=== PATIENT | male | born 1945 | race Caucasian/White ===

== ENCOUNTER 2018-05-22 18:46 | Inpatient (IN) | payer MEDICARE, SELFPAY ==
[2018-05-22 19:04] VITALS: BMI 28.6; BMI 28.7
[2018-05-22 19:28] VITALS: PULSE 58
[2018-05-22 20:25] VITALS: BP 141/56; PULSE 59; RESP 20; TEMP 36.9; O2SAT 92
--- NOTE | 2018-05-22 20:39 | RAD_ITS ---
STUDY: X-RAY CHEST REASON FOR EXAM: Male, 72 years old. Short of breath. TECHNIQUE: AP upright portable view. COMPARISON: None. FINDINGS: Mild pulmonary hypoinflation. Ill-defined haze in the left midlung. There is no demonstrated pleural abnormality. Mild cardiomegaly. Normal mediastinum and sabina. Normal visualized pulmonary arteries. Normal visualized aortic arch and descending thoracic aorta. Lateral marginal spurring along the thoracic spine. Normal visualized ribs, clavicles, and shoulders. There is no demonstrated abnormality of the visualized soft tissue structures of the upper abdomen. RAD/Chest 1 View (Portable) IMPRESSION: Ill-defined haziness in the left midlung is worrisome for pneumonia. Deeper inspiratory chest in standard PA and lateral views will be very helpful to confirm. Electronically Signed: Thierry Devlin MD at 8:18 EST , Service support ,
--- NOTE | 2018-05-22 21:16 | EKG12_ITS ---
Test Reason : ADMIT EKG Blood Pressure : / mmHG Vent. Rate : 062 BPM Atrial Rate : 062 BPM P-R Int : 188 ms QRS Dur : 110 ms QT Int : 506 ms P-R-T Axes : 041 -43 -30 degrees QTc Int : 513 ms Sinus rhythm with Premature atrial complexes Left axis deviation Incomplete right bundle branch block Voltage criteria for left ventricular hypertrophy T wave abnormality, consider anterolateral ischemia Prolonged QT Abnormal ECG No previous ECGs available Confirmed by MARK SMITH, CAROLINE ([id number]), content editor GAUTAM MIRAMONTES ([id number]) on 05/27/2018 9:06:05 AM Referred By: DR YOUNG Confirmed By:CAROLINE FLORES MD
--- NOTE | 2018-05-22 21:42 | PCM.HP.STD ---
Problem List (1) Acute CHF Status: Acute Qualifiers: Heart failure type: systolic Qualified Code(s): I50.21 - Acute systolic (congestive) heart failure (2) Respiratory insufficiency Status: Acute Comment: Hypoxemia (3) Elevated troponin Status: Acute (4) HTN (hypertension) Status: Chronic (5) Normochromic normocytic anemia Status: Acute History of Present Illness Date of Admission: 05/22/18 Chief Complaint: SOB,fatigue The patient is a 72 year old M with a past medical history of hypertension who was transferred to [facility] on 05/22/2018 from [facility] for acute congestive heart failure. He relates that he has been sick for approximately 3 weeks and initially started with a cough and shortness of breath which was treated with antibiotics. He took 5 days of Levaquin and then had Achilles tendinitis and swelling in his ankles so this was discontinued. He denies any fever or shaking chills but states that he feels cold. He has a rare dry cough. Exercise tolerance is greatly decreased over the past week or so. He has had some episodic substernal chest tightness but cannot relate to exertion. It did not radiate. The swelling in his ankles resolved with discontinuation of Levaquin. Chest x-ray at [facility] showed cardiomegaly with pulmonary vascular congestion and Emilia B-lines. EKG showed normal sinus rhythm with T wave inversions in V3 through V5, lead III and lead aVF. There was an incomplete right bundle branch block. Lab done at [facility] showed a normal white blood cell count of 8.1. Hemoglobin was 12.0 with normochromic normocytic indices and the platelets were within normal limits. The white blood cell differential was unremarkable with the exception of a mildly increased eosinophil count of 9.9%. BMP showed a sodium of 135, potassium of 4.1, BUN of 26 and a creatinine of 1.29. Troponin was elevated at 0.216 and his BNP was 14,288. Vital signs at presentation to [facility] were temp 98.5, pulse rate 59, blood pressure 141/56, respiratory rate 20 and he was 92% saturated on a 3 L nasal cannula. ABG done at [facility] on room air showed a pH of 7.46, PCO2 of 27.9, PO2 of 47 and he was 86% saturated. His mother when he was 8 YO of a heart condition. There is no other hx of CVD in the family. His father at 76YO of Lymphoma. He is being admitted to the hospital with acute CHF, likely systolic. He will be seen by Dr. Castro in the AM. Past Medical History Past Medical History (Chronic Problems): Chronic Problems HTN (hypertension) (Chronic) Allergies No Known Allergies Allergy (Verified 05/22/18 19:06) Home Medications: Ambulatory Orders Medication Instructions Recorded Aspirin [Aspirin, Baby] 81 mg PO DAILY@0800 05/22/18 Surgical History: - - repair of lacerations related to work Psychiatric History: No pertinent psych hx Lives: Spouse/ Significant Other Smoking Status: Never smoker Tobacco Use: Non-smoker Alcohol: None Drugs: None - *Family History Maternal History Items: - - his mother when he was 8 YO of a heart condition Paternal History Items: - - Father at 76 years of age with lymphoma Sibling History Items: - - He has 4 half-sisters, one with dementia, another with osteoporosis....no hx of CAD Review of Systems Constitutional: Reports: Chills - feels cold a lot. Denies: Fever, Weight Change Eyes: Denies: Blurred vision, Pain HEENT: Denies: Difficulty Hearing, Difficulty Swallowing, Head Aches, Sinus Congestion, Sinus Drainage, Sore Throat Cardiovascular: Reports: Chest Pain - substernal, non-radiating, not really associated with exertion, Edema - this resolved with discontinuation of the Levaquin...also had achilles tendonitis. Denies: Light Headedness, Palpitations Respiratory: Reports: Cough - rare, dry, Shortness of breath upon exertion. Denies: Shortness of breath at rest, Sputum production, Wheezing Gastrointestinal: Denies: Abdominal Pain, Nausea, Vomiting Genitourinary: Denies: Dysuria Musculoskeletal: Denies: Joint Pain, Joint Tenderness Skin: Denies: Jaundice, Rash, Wounds Neurological: Denies: Confusion, Focal weakness, Numbness, Tingling, Seizures Psychiatric: Denies: Anxiety, Depression, Homicidal Ideations, Suicidal Ideations Endocrine: Denies: Change in Body Habitus Hematologic/ Lymphatic: Denies: Easy Bruising, Easy Bleeding, Hx of blood clot VTE Information - Inpt Only VTE Present on Admission: No VTE Mechan Device Prophylaxis: SCD's VTE Pharm Prophylaxis ordered?: Yes Patient Problems: Active and Suspected Problems Acute CHF (Acute) Respiratory insufficiency (Acute) Hypoxemia Elevated troponin (Acute) Normochromic normocytic anemia (Acute) - Physical Exam General: Alert, Oriented x3, Cooperative, No apparent distress - sitting up in bed at 60 degrees HEENT: Atraumatic, PERRLA, EOMI, Normocephalic Oral: Moist Mucosa Neck: Supple, Negative Carotid Bruits, No Nodes, No Nuchal Rigidity, Trachea Midline, - - did not appreciate any JVD Lungs: No rhonchi, No wheeze, Rales - both bases Cardiovascular: Regular Rhythm, Normal S1, Normal S2, No Ectopic Activity, Bradycardic, Murmur - soft late systolic MM at the apex and the LLSB Abdomen: Bowel Sounds Present, Soft, Non Tender, Distended - mild with increased tympany Extremities: No clubbing, No cyanosis, No edema, Capillary Refill Less than 3 Seconds, No Calf Tenderness Skin: No rashes, No breakdown Musculoskeletal: No Muscle Wasting Neurological: Cranial nerves II-XII grossly intact, Neuro grossly intact Psych/Mental Status: Normal Affect, Appropriate Vital Signs Temp Pulse Resp BP Pulse Ox 98.5 F 59 L 20 H 141/56 H 92 05/22/18 20:25 05/22/18 20:25 05/22/18 20:25 05/22/18 20:25 05/22/18 20:25 Oxygen Flow Rate (L/min) 3 Oxygen Delivery Method Nasal Cannula Weight: 177 lb 11.081 oz Body Mass Index (BMI) 28.6 Assessment/Plan All Active Problems Acute CHF (Acute) Respiratory insufficiency (Acute) Elevated troponin (Acute) Normochromic normocytic anemia (Acute) Impressions 1. acute systolic CHF - etiology uncertain. Will need to r/o CAD. Also need to consider this may be a viral CM and since the eosinophil count is high this could be an eosinophilic myocarditis. 2. elevated troponin - due to acute CHF vs CAD/ischemia 3. acute respiratory insufficiency with hypoxemia 4. HTN hx 5. N/N anemia - may be dilutional due to volume overload Admit to a monitored bed on PCU Weigh at admission to the floor and then daily Acccurate I&O's Chest XRAY - done....improved over the CXR done at [facility] earlier tonight BNP Diurese with 40 mg Lasix every 8 hours Potassium 20 mEq p.o. every 8 hours ECHO to evaluate LV EF and wall motion Recheck lab in the AM Salt restriction Fluid restriction Dietary consult for education regarding low sodium diet Consult Dr. Castro-we will see in the a.m. Probable cath following improvement in congestive heart failure/stabilization Code Visit Inpatient E&M: 02177 Init Hosp L3
--- NOTE | 2018-05-22 21:54 | HP.PCM_ITS ---
Problem List (1) Acute CHF Status: Acute Qualifiers: Heart failure type: systolic Qualified Code(s): I50.21 - Acute systolic (congestive) heart failure (2) Respiratory insufficiency Status: Acute Comment: Hypoxemia (3) Elevated troponin Status: Acute (4) HTN (hypertension) Status: Chronic (5) Normochromic normocytic anemia Status: Acute History of Present Illness Date of Admission: 05/22/18 Chief Complaint: SOB,fatigue The patient is a 72 year old M with a past medical history of hypertension who was transferred to [facility] on 05/22/[address] [facility] for acute congestive heart failure. He relates that he has been sick for approximately 3 weeks and initially started with a cough and shortness of breath which was treated with antibiotics. He took 5 days of Levaquin and then had Achilles tendinitis and swelling in his ankles so this was discontinued. He denies any fever or shaking chills but states that he feels cold. He has a rare dry cough. Exercise tolerance is greatly decreased over the past week or so. He has had some episodic substernal chest tightness but cannot relate to exertion. It did not radiate. The swelling in his ankles resolved with discontinuation of Levaquin. Chest x-ray at [facility] showed cardiomegaly with pulmonary vascular congestion and Emilia B-lines. EKG showed normal sinus rhythm with T wave inversions in V3 through V5, lead III and lead aVF. There was an incomplete right bundle branch block. Lab done at [facility] showed a normal white blood cell count of 8.1. Hemoglobin was 12.0 with normochromic normocytic indices and the platelets were within normal limits. The white blood cell differential was unremarkable with the exception of a mildly increased eosinophil count of 9.9%. BMP showed a sodium of 135, potassium of 4.1, BUN of 26 and a creatinine of 1.29. Troponin was elevated at 0.216 and his BNP was 14,288. Vital signs at presentation to [facility] were temp 98.5, pulse rate 59, blood pressure 141/56, respiratory rate 20 and he was 92% saturated on a 3 L nasal cannula. ABG done at [facility] on room air showed a pH of 7.46, PCO2 of 27.9, PO2 of 47 and he was 86% saturated. His mother when he was 8 YO of a heart condition. There is no other hx of CVD in the family. His father at 76YO of Lymphoma. He is being admitted to the hospital with acute CHF, likely systolic. He will be seen by Dr. Castro in the AM. Past Medical History Past Medical History (Chronic Problems): Chronic Problems HTN (hypertension) (Chronic) Allergies No Known Allergies Allergy (Verified 05/22/18 19:06) Home Medications: Ambulatory Orders Medication Instructions Recorded Aspirin [Aspirin, Baby] 81 mg PO DAILY@0800 05/22/18 Surgical History: - - repair of lacerations related to work Psychiatric History: No pertinent psych hx Lives: Spouse/ Significant Other Smoking Status: Never smoker Tobacco Use: Non-smoker Alcohol: None Drugs: None - *Family History Maternal History Items: - - his mother when he was 8 YO of a heart condition Paternal History Items: - - Father at 76 years of age with lymphoma Sibling History Items: - - He has 4 half-sisters, one with dementia, another with osteoporosis....no hx of CAD Review of Systems Constitutional: Reports: Chills - feels cold a lot. Denies: Fever, Weight Change Eyes: Denies: Blurred vision, Pain HEENT: Denies: Difficulty Hearing, Difficulty Swallowing, Head Aches, Sinus Congestion, Sinus Drainage, Sore Throat Cardiovascular: Reports: Chest Pain - substernal, non-radiating, not really associated with exertion, Edema - this resolved with discontinuation of the Levaquin...also had achilles tendonitis. Denies: Light Headedness, Palpitations Respiratory: Reports: Cough - rare, dry, Shortness of breath upon exertion. Denies: Shortness of breath at rest, Sputum production, Wheezing Gastrointestinal: Denies: Abdominal Pain, Nausea, Vomiting Genitourinary: Denies: Dysuria Musculoskeletal: Denies: Joint Pain, Joint Tenderness Skin: Denies: Jaundice, Rash, Wounds Neurological: Denies: Confusion, Focal weakness, Numbness, Tingling, Seizures Psychiatric: Denies: Anxiety, Depression, Homicidal Ideations, Suicidal Ideations Endocrine: Denies: Change in Body Habitus Hematologic/ Lymphatic: Denies: Easy Bruising, Easy Bleeding, Hx of blood clot VTE Information - Inpt Only VTE Present on Admission: No VTE Mechan Device Prophylaxis: SCD's VTE Pharm Prophylaxis ordered?: Yes Patient Problems: Active and Suspected Problems Acute CHF (Acute) Respiratory insufficiency (Acute) Hypoxemia Elevated troponin (Acute) Normochromic normocytic anemia (Acute) - Physical Exam General: Alert, Oriented x3, Cooperative, No apparent distress - sitting up in bed at 60 degrees HEENT: Atraumatic, PERRLA, EOMI, Normocephalic Oral: Moist Mucosa Neck: Supple, Negative Carotid Bruits, No Nodes, No Nuchal Rigidity, Trachea Midline, - - did not appreciate any JVD Lungs: No rhonchi, No wheeze, Rales - both bases Cardiovascular: Regular Rhythm, Normal S1, Normal S2, No Ectopic Activity, Bradycardic, Murmur - soft late systolic MM at the apex and the LLSB Abdomen: Bowel Sounds Present, Soft, Non Tender, Distended - mild with increased tympany Extremities: No clubbing, No cyanosis, No edema, Capillary Refill Less than 3 Seconds, No Calf Tenderness Skin: No rashes, No breakdown Musculoskeletal: No Muscle Wasting Neurological: Cranial nerves II-XII grossly intact, Neuro grossly intact Psych/Mental Status: Normal Affect, Appropriate Vital Signs Temp Pulse Resp BP Pulse Ox 98.5 F 59 L 20 H 141/56 H 92 05/22/18 20:25 05/22/18 20:25 05/22/18 20:25 05/22/18 20:25 05/22/18 20:25 Oxygen Flow Rate (L/min) 3 Oxygen Delivery Method Nasal Cannula Weight: 177 lb 11.081 oz Body Mass Index (BMI) 28.6 Assessment/Plan All Active Problems Acute CHF (Acute) Respiratory insufficiency (Acute) Elevated troponin (Acute) Normochromic normocytic anemia (Acute) Impressions 1. acute systolic CHF - etiology uncertain. Will need to r/o CAD. Also need to consider this may be a viral CM and since the eosinophil count is high this could be an eosinophilic myocarditis. 2. elevated troponin - due to acute CHF vs CAD/ischemia 3. acute respiratory insufficiency with hypoxemia 4. HTN hx 5. N/N anemia - may be dilutional due to volume overload Admit to a monitored bed on PCU Weigh at admission to the floor and then daily Acccurate I&O's Chest XRAY - done....improved over the CXR done at [facility] earlier ton ight BNP Diurese with 40 mg Lasix every 8 hours Potassium 20 mEq p.o. every 8 hours ECHO to evaluate LV EF and wall motion Recheck lab in the AM Salt restriction Fluid restriction Dietary consult for education regarding low sodium diet Consult Dr. Castro-we will see in the a.m. Probable cath following improvement in congestive heart failure/stabilization Code Visit Inpatient E&M: 02741 Init Hosp L3
[2018-05-22 22:37] VITALS: O2SAT 93
[2018-05-22 23:03] VITALS: PULSE 65
[2018-05-22 23:08] LABS: Magnesium 1.8 mg/dL (1.6-2.6); Phosphorus 3.1 mg/dL (2.5-4.9); Thyroid Stim Hormone (TSH) 2.91 uIU/mL (0.358-3.74)
[2018-05-22 23:19] VITALS: BP 157/68; PULSE 57; RESP 22; TEMP 36.9; O2SAT 95
[2018-05-22] MEDS: Docusate Sodium 100 MG Capsule 200 MG PO (23:26)
[2018-05-22] MEDS: Furosemide 40 MG/4 ML Vial IV (23:26)
[2018-05-22] MEDS: Lisinopril 2.5 MG Tablet PO (23:26)
[2018-05-23] VITALS (15 sets, daily range): BP systolic 108–145; BP diastolic 62–74; PULSE 54–69; RESP 18–23; TEMP 36.4–37.1; O2SAT 93–97
[2018-05-23] MEDS: Carvedilol 3.125 MG TABLET PO ×3 (00:04→23:30)
[2018-05-23] MEDS: Furosemide 40 MG/4 ML Vial IV ×3 (05:34→22:32)
[2018-05-23] MEDS: 0.9% NaCl Peripheral Flush Adult/Peds IV ×5 (05:35→22:35)
--- NOTE | 2018-05-23 05:55 | EKG12_ITS ---
Test Reason : AM EKG Blood Pressure : / mmHG Vent. Rate : 056 BPM Atrial Rate : 056 BPM P-R Int : 200 ms QRS Dur : 110 ms QT Int : 528 ms P-R-T Axes : 043 -40 -38 degrees QTc Int : 509 ms Sinus bradycardia Left axis deviation Incomplete right bundle branch block Voltage criteria for left ventricular hypertrophy T wave abnormality, consider anterolateral ischemia T-wave abnormality, consider inferior ischemia Prolonged QT Abnormal ECG Confirmed by DOUGLAS SMITH, KENNETH ([id number]), manager editorial GAUTAM MIRAMONTES ([id number]) on 05/30/2018 11:45:16 AM Referred By: DR RIVERA Confirmed By:KENNETH COLE MD
--- NOTE | 2018-05-23 05:55 | ECHOD_ITS ---
Reason For Study: CHF Procedure This was a 2D Doppler, Color Flow transthoracic echocardiogram. The exam was of adequate technical quality. Exam performed portable in patient room. Left Ventricle Normal LV size. Moderate concentric left ventricular hypertrophy. Segmental dysfunction with preserved ejection fraction (see wall motion). The estimated ejection fraction is 60 %. Diastolic function is indeterminate. Mid-Anterior : Hypokinetic. Mid-anteroseptal : Hypokinetic. Right Ventricle Normal RV size. Normal systolic function. Atria The left atrium is mildly enlarged. Normal right atrium. No doppler evidence for ASD. Bubble contrast study negative for right to left interatrial shunt. Mitral Valve There is no mitral annular calcification. Normal mitral valve. Trivial mitral valve insufficiency. Tricuspid Valve Normal tricuspid valve. Mild tricuspid valve insufficiency. Right ventricular systolic pressure estimated to be 56 mmHg. Aortic Valve Trisinus/trileaflet aortic valve. Normal aortic valve. Trivial aortic valve insufficiency. Pulmonic Valve The pulmonic valve is not well visualized. Great Vessels Normal sized aortic root. Pericardium/Pleural No pericardial effusion. Medication Performed a rapid injection of agitated mix of 9 cc saline and 1cc air to assess for atrial septal defect. MMode/2D Measurements & Calculations LVIDd: 4.4 cm IVSd: 1.6 cm Ao root diam: 3.8 cm LVIDs: 3.1 cm LVPWd: 1.4 cm LA dimension: 3.0 cm FS: 30.9 % LAV(MOD-bp): 54.1 ml LA A4 area: 15.9 cm2 LAV(MOD-bp) Indexed: 28.9 ml/m2 LAV(MOD-sp2): 68.0 ml LAV(MOD-sp4): 40.2 ml Time Measurements MV dec time: 0.30 sec Doppler Measurements & Calculations MV E max parth: 49.5 cm/sec Lat Peak E' Parth: 4.5 cm/sec Med Peak E' Parth: 4.4 cm/sec MV A max parth: 65.7 cm/sec E/E' lat: 11.0 E/E' med: 11.2 MV E/A: 0.75 MV V2 max: 75.7 cm/sec MV P1/2t max parth: 51.1 cm/sec Ao V2 max: 135.9 cm/sec MV max P.3 mmHg MV P1/2t: 88.5 msec Ao max P.4 mmHg MV V2 mean: 36.1 cm/sec MV dec slope: 169.2 cm/sec2 Ao V2 mean: 90.2 cm/sec MV mean P.63 mmHg Ao mean P.7 mmHg MV V2 VTI: 21.3 cm MVA(P1/2t): 2.5 cm2 Ao V2 VTI: 25.4 cm AI max parth: 480.1 cm/sec LV V1 max: 101.8 cm/sec PA V2 max: 79.4 cm/sec AI max P.2 mmHg LV V1 max P.1 mmHg AI dec slope: 198.4 cm/sec2 LV V1 mean P.2 mmHg AI P1/2t: 708.6 msec LV V1 mean: 68.6 cm/sec LV V1 VTI: 20.7 cm TR max parth: 364.7 cm/sec TR max P.2 mmHg Interpretation Summary Segmental dysfunction with preserved ejection fraction (see wall motion). The estimated ejection fraction is 60 %. Moderate concentric left ventricular hypertrophy. The left atrium is mildly enlarged. Trivial mitral valve insufficiency. Mild tricuspid valve insufficiency. Trivial aortic valve insufficiency. Right ventricular systolic pressure estimated to be 56 mmHg c/w pulmonary hypertension. Diastolic function is indeterminate. Ordering Physician: Zoe Sanchez Referring Physician: Jack Arango Performed By: Malachi Melendez RCS
[2018-05-23 06:14] LABS: Absolute Lymphocyte Count 2.01 X10^3/ul (0.83-4.51); Absolute Neutrophil Count 4.3 X10^3/uL (2.0-7.7); Basophil# 0.01 X10^3/uL; Basophil% 0.1 % (0-1); Eosinophil# 0.39 X10^3/uL; Eosinophils% 5.2 % (0-5); Hematocrit 34.6 % (40-54); Hemoglobin 11.6 g/dl (13.0-16.5); Lymphocyte # 2.01 X10^3/ul (4.0); Lymphocyte % 26.6 % (19-41); Mean Corp Hgb Conc 33.5 g/gl (32-36); Mean Corpuscular Hgb 31.3 pg (27.0-32.0); Mean Corpuscular Volume 93.3 fL (80-94); Mean Platelet Vol. 10.7 fl (6.2-12.0); Monocyte# 0.87 X10^3/uL; Monocyte% 11.5 % (0-10); Neutrophil # 4.26 X10^3/uL (2.7-7.7); Neutrophil % 56.5 % (47-70); Platelet Count 230 K/mm3 (150-450); RBC Distribution Width CV 13.5 % (11.6-14.6); RBC Distribution Width SD 44.3 fl (35.1-43.9); Red Blood Count 3.71 M/mm3 (4.6-6.2); White Blood Count 7.6 K/mm3 (4.4-11.0)
[2018-05-23 06:23] LABS: POSITIVE COUNT NO; POSITIVE DIFFERENTIAL NO; POSITIVE MORPHOLOGY NO
[2018-05-23 06:41] LABS: ALB/GLOB Ratio 0.6 RATIO (0.9-2.4); AST(SGOT) 26 U/L (15-37); Alanine Aminotransfer ALT/SGPT 22 U/L (16-61); Albumin, Serum 2.7 g/dL (3.2-5.0); Alkaline Phosphatase 58 U/L (45-117); Anion Gap 10 (5-15); BUN 21 mg/dL (7-18); Calcium,Total 8.4 mg/dL (8.5-10.1); Chloride 107 mmol/L (98-107); Cholesterol 118 mg/dL (200); Creatinine, Serum 1.05 mg/dL (0.70-1.30); EST Glomerular Filtration Rate 74 mL/min (>60); Est Glom Filt Rate - Afr Amer 89 mL/min (>60); Estimated Creatinine Clearance 56.54 ml/min; Globulin 4.5 g/dL (2.2-4.2); Glucose 83 mg/dL (74-106); High Density Lipoprotein 32 mg/dL; Magnesium 1.9 mg/dL (1.6-2.6); Phosphorus 3.8 mg/dL (2.5-4.9); Potassium 4.4 mmol/L (3.5-5.1); Protein, Total 7.2 g/dL (6.4-8.2); Sodium Level 142 mmol/L (136-145); Triglycerides 108 mg/dL; Very Low Density Lipoprotein 22 mg/dL (5-40)
--- NOTE | 2018-05-23 07:24 | NURSING ---
Unable to notify pt physician of third troponin, as physician assignments are not updated in the computer yet. Benita Price RN (pt dayshift RN) notified that physician is not yet aware.
[2018-05-23] MEDS: Aspirin 81 MG TAB.CHEW PO (08:15)
[2018-05-23] MEDS: Lisinopril 5 MG Tablet PO (08:15)
[2018-05-23] MEDS: Enoxaparin 40 MG/0.4 ML Syringe SC (10:03)
--- NOTE | 2018-05-23 12:22 | CON.PCM_ITS ---
Problem List (1) Acute CHF Status: Acute Qualifiers: Heart failure type: systolic Qualified Code(s): I50.21 - Acute systolic (congestive) heart failure (2) Elevated troponin Status: Acute (3) Abnormal electrocardiogram Status: Acute (4) HTN (hypertension) Status: Chronic Reason for Consult Date of Consultation: 05/23/18 History of Present Illness: The patient is a 72 year old white male who is referred for evaluation of shortness of breath/dyspnea with concerns of CHF and abnormal cardiac enzymes and an abnormal ECG. The patient states he was evaluated at [facility] recently for concerns of pneumonia. He does not recall whether he underwent further cardiovascular evaluation at that time. However based upon his concerns of continued shortness of breath/dyspnea despite medical management for pneumonia he presented for further evaluation. He is subsequently been admitted to [facility]. He has had continued shortness of breath and dyspnea. He states this is more so with activity than it is with resting or being in the supine position. He was noted to have abnormal cardiac enzymes, and abnormal ECG, as well as an abnormal chest x-ray suggesting a potential left-sided infiltrate. He was treated with medical management for the possibility of underlying cardiovascular disease including CHF. He received diuretic therapy. He has had increased diuresis and states that overall his breathing does appear to be improved. He does not recall having ongoing chest discomfort. He does not recall any obvious lower extremity peripheral pitting edema. There has been no near syncope or syncope. His troponin I levels have been indeterminant and decreasing. He had an ECG which demonstrated sinus rhythm with a left axis deviation with an incomplete right bundle branch block pattern with voltage criteria for LVH based on lead aV L and T wave abnormalities potentially compatible with myocardial ischemia in the anterolateral and inferior distributions. He was subsequently undergone evaluation with a transthoracic echocardiogram. It appeared he had an element of hypokinesis in the mid anterior and anteroseptal segments. His overall LVEF appeared to be preserved at approximately 60%. (Please see official report). He did have a chest x-ray performed. There were concerns of a left-sided infiltrate. [] Past Medical History Allergies/Adverse Reactions: Allergies No Known Allergies Allergy (Verified 05/22/18 19:06) Home Medications: Ambulatory Orders Medication Instructions Recorded Aspirin [Aspirin, Baby] 81 mg PO DAILY@0800 05/22/18 Carvedilol [Coreg] 25 mg PO BID 05/22/18 Past Medical History (Chronic Problems): Chronic Problems HTN (hypertension) (Chronic) Surgical History: - - repair of lacerations related to work Psychiatric History: No pertinent psych hx - *Family History Maternal History Items: - - his mother when he was 8 YO of a heart condition Paternal History Items: - - Father at 76 years of age with lymphoma Sibling History Items: - - He has 4 half-sisters, one with dementia, another with osteoporosis....no hx of CAD Lives: Spouse/ Significant Other Smoking Status: Never smoker Tobacco Use: Non-smoker Alcohol: None Drugs: None Review of Systems - Review of Systems General: Reports: Fever. Denies: Fatigue, Night Sweats Cardiovascular: Reports: Shortness of Breath. Denies: Chest Discomfort, Orthopnea, PND, Peripheral Edema, Palpitations, Lightheadedness, Dizziness, Near Syncope, Syncope Respiratory: Reports: Shortness of Breath Gastrointestinal: Denies: Hematemesis, Hematochezia, Melena Genitourinary: Denies: Dysuria, Hematuria Skin: Denies: Rash Subjectve: This is a 72-year-old white male who appears to be resting reasonably comfortably at the moment in no acute distress. Objective: Vital Signs Temp Pulse Resp BP Pulse Ox 97.6 F L 68 18 142/74 H 95 05/23/18 09:58 05/23/18 10:57 05/23/18 09:58 05/23/18 09:58 05/23/18 09:58 Oxygen Flow Rate (L/min) 3 Oxygen Delivery Method Nasal Cannula Weight: 177 lb 11.081 oz Body Mass Index (BMI) 28.6 Intake and Output for Last 24 Hours 05/21/18 05/22/18 05/23/18 23:59 23:59 23:59 Intake Total 260 / 260 460 / 460 Output Total 1040 / 1040 2930 / 2930 Balance -780 / -780 -2470 / -2470 General: Awake, Alert, Oriented x 3, Cooperative, No Acute Distress HEENT: Atraumatic, Normocephalic, PERRL, EOMI, Sclera Non Icteric Oral: Moist Mucosa Neck: Supple, Good ROM, No JVD Lungs: Diminished Hal Bases Cardiovascular: Regular Rhythm, Normal S1, Normal S2 Vascular: No Carotid Bruits Abdomen: Bowel Sounds Present, Soft, Non Tender Extremities: No edema Neurological: No Focal Motor or Sensory Deficit Psych/Mental Status: Appropriate 05/22/18 22:23: Phosphorus 3.1, Magnesium 1.8 05/22/18 22:23: Troponin I 0.171 H 05/23/18 02:30: Troponin I 0.156 H 05/23/18 05:40: WBC 7.6, RBC 3.71 L, Hgb 11.6 L, Hct 34.6 L, MCV 93.3, MCH 31.3, MCHC 33.5, RDW 13.5, RDW Differential 44.3 H, Plt Count 230, MPV 10.7, Immature Gran % (Auto) 0.100, Neut % (Auto) 56.5, Lymph % (Auto) 26.6, [place] % (Auto) 11.5 H, Eos % (Auto) 5.2 H, Baso % (Auto) 0.1, Absolute Neuts (auto) 4.3, Total Counted Not Reportable 05/23/18 05:40: Sodium 142, Potassium 4.4, Chloride 107, Carbon Dioxide 25.0, Anion Gap 10, BUN 21 H, Creatinine 1.05, Est GFR (MDRD) Af Amer 89, Est GFR (MDRD) Non-Af 74, BUN/Creatinine Ratio 20.0, Glucose 83, Calcium 8.4 L, Phosphorus 3.8, Magnesium 1.9, Total Bilirubin 0.60, Troponin I 0.132 H, Triglycerides 108, Cholesterol 118, LDL Cholesterol 64, VLDL Cholesterol 22, HDL Cholesterol 32 L Rhythm: Sinus rhythm EKG: As noted above ECHO: As noted above: Please see official report CXR: As noted above Assessment/Plan 1. CHF There have been concerns that the patient has had CHF above and beyond what may have been an underlying pneumonia . The patient has been treated for this with diuretic therapy, has had increased diuresis, and states he has had improvement in his breathing, without the addition of ongoing antibiotic therapy. He is undergone noninvasive evaluation. His troponin I levels have been indeterminant and are decreasing. His ECG is abnormal. His echocardiogram demonstrates left ventricular regional wall motion abnormalities but with overall preserved LV systolic function. At the present time he will continue medical management for concerns of underlying CHF. However based upon his cardiac enzymes, his ECG, and his echocardiogram he should be considered for further evaluation with diagnostic cardiac catheterization when he is able to do so from a respiratory standpoint. In the interim he should also be monitored for any obvious evidence of infectious etiology be it bacterial or viral that requires further evaluation and care. He may need follow-up chest x-rays as well to monitor his left-sided infiltrate as his clinical course progresses. 2. Abnormal cardiac enzymes The patient does have abnormal cardiac enzymes. Thus far there is no other etiology to explain them, such as [place] embolus, CVA, renal insufficiency, sepsis syndrome, etc. other than concerns of underlying cardiovascular disease. He will continue medical management for the possibility of underlying CAD. He should be considered in the future for evaluation with diagnostic cardiac catheterization when he is able to undergo such a procedure from the respiratory standpoint. 3. Abnormal ECG His ECG is abnormal raising concerns of myocardial ischemia. His echocardiogram raises concerns of left ventricular regional wall motion abnormalities. Thus he will continue medical management for the possibility of CAD. It would not be unreasonable to consider the addition of antiplatelet therapy in anticipation of a diagnostic cardiac catheterization that may lead to the need for percutaneous revascularization therapy. When he is able he can undergo diagnostic cardiac catheterization. 4. Hypertension He will continue medical management with adjustment as needed. Comment: The patient's case has been discussed and reviewed with the patient and Dr. Sanchez. This note was generated with [employer] software. It may contain incorrect words, spelling, and punctuation that were not noted in checking the note before signing.
[2018-05-23] MEDS: Clopidogrel Bisulfate 300 MG Tablet PO (12:57)
--- NOTE | 2018-05-23 13:26 | CASEMGMT ---
SONDRA HOGAN assessment: Face to Face with patient for initial transition planning/care coordination assessment. SONDRA HOGAN introduced self and role at [facility], pt voices understanding and consents to assessment at this time. Pt is sitting up in chair with at side in no distress at this time. Pt is A/Ox4 at this time and answers all questions appropriately at this time. Care providers, pharmacy, and demographics verified/updated at this time. PCP: [facility] Specialists: Pt states currently has no specialists. Preferred Pharmacy: [facility] Insurance: [employer] Prescription Benefit: [facility] Living Will/HPOA: Pt states has LW/HPOA but they are currently not on file at [facility]. Pt states , Cyn Barroso, is HPOA. LNOK: Cyn Barroso, ; Jefry Barroso, son Living Arrangements: Pt states lives with on main level of 2 story home and states no concerns at home at this time. Transportation: Pt states drives self and states no transportation concerns at this time. DME/HHC: Pt states has a cane and states no need for any further DME at this time. Pt states no hx of HHC and SNF in the past. Pt states no concerns with going home at time of discharge. 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 Pt states does not smoke or drink ETOH. Pt states no further concerns/needs at this time. CM to follow for any further discharge planning/needs. Advised pt to ask for CM if any further questions/concerns/needs arise, voices understanding. Plan: [place] SONDRA HOGAN
--- NOTE | 2018-05-23 14:04 | PCM.PROGNOTE ---
Patient Problems: Active and Suspected Problems Acute CHF (Acute) Respiratory insufficiency (Acute) Hypoxemia Elevated troponin (Acute) Normochromic normocytic anemia (Acute) Abnormal electrocardiogram (Acute) Subjective: Patient seen and examined. Reports improvement in breathing. States he is able to lie flat without difficulty. Significant urine output with IV Lasix. - Physical Exam General: Alert, Oriented x3, Cooperative HEENT: Atraumatic, PERRLA, EOMI, Normocephalic Neck: Supple, No JVD, Negative Carotid Bruits Lungs: Normal air movement, - - Crackles bilateral bases Cardiovascular: Regular rate, Regular Rhythm, Normal S1, Normal S2, No murmurs Abdomen: Bowel Sounds Present, Soft, Non Tender, Non-Distended Extremities: No clubbing, No cyanosis, No edema, Capillary Refill Less than 3 Seconds Skin: No rashes, No breakdown Musculoskeletal: No Tenderness to Palpation of Joints or Extremities Neurological: Cranial nerves II-XII grossly intact, Neuro grossly intact Psych/Mental Status: Normal Affect, Appropriate Vital Signs Temp Pulse Resp BP Pulse Ox 97.6 F L 68 18 142/74 H 95 05/23/18 09:58 05/23/18 10:57 05/23/18 09:58 05/23/18 09:58 05/23/18 09:58 Oxygen Flow Rate (L/min) 3 Oxygen Delivery Method Nasal Cannula Weight: 177 lb 11.081 oz Body Mass Index (BMI) 28.6 Intake and Output for Last 24 Hours 05/21/18 05/22/18 05/23/18 23:59 23:59 23:59 Intake Total 260 / 260 460 / 460 Output Total 1040 / 1040 2930 / 2930 Balance -780 / -780 -2470 / -2470 Laboratory Tests Past 24 Hrs 05/22/18 05/22/18 05/23/18 22:23 22:23 02:30 WBC RBC Hgb Hct MCV MCH MCHC RDW RDW Differential Plt Count MPV Immature Gran % (Auto) Neut % (Auto) Lymph % (Auto) [place] % (Auto) Eos % (Auto) Baso % (Auto) Absolute Neuts (auto) Absolute Lymphs (auto) Total Counted Sodium Potassium Chloride Carbon Dioxide Anion Gap BUN Creatinine Estim Creat Clear Calc Est GFR (MDRD) Af Amer Est GFR (MDRD) Non-Af BUN/Creatinine Ratio Glucose Calcium Phosphorus 3.1 Magnesium 1.8 Total Bilirubin AST ALT Alkaline Phosphatase Troponin I 0.171 H 0.156 H Total Protein Albumin Globulin Albumin/Globulin Ratio Triglycerides Cholesterol LDL Cholesterol VLDL Cholesterol HDL Cholesterol TSH 2.91 05/23/18 05/23/18 05:40 05:40 WBC 7.6 RBC 3.71 L Hgb 11.6 L Hct 34.6 L MCV 93.3 MCH 31.3 MCHC 33.5 RDW 13.5 RDW Differential 44.3 H Plt Count 230 MPV 10.7 Immature Gran % (Auto) 0.100 Neut % (Auto) 56.5 Lymph % (Auto) 26.6 [place] % (Auto) 11.5 H Eos % (Auto) 5.2 H Baso % (Auto) 0.1 Absolute Neuts (auto) 4.3 Absolute Lymphs (auto) 2.01 Total Counted Not Reportable Sodium 142 Potassium 4.4 Chloride 107 Carbon Dioxide 25.0 Anion Gap 10 BUN 21 H Creatinine 1.05 Estim Creat Clear Calc 56.54 Est GFR (MDRD) Af Amer 89 Est GFR (MDRD) Non-Af 74 BUN/Creatinine Ratio 20.0 Glucose 83 Calcium 8.4 L Phosphorus 3.8 Magnesium 1.9 Total Bilirubin 0.60 AST 26 ALT 22 Alkaline Phosphatase 58 Troponin I 0.132 H Total Protein 7.2 Albumin 2.7 L Globulin 4.5 H Albumin/Globulin Ratio 0.6 L Triglycerides 108 Cholesterol 118 LDL Cholesterol 64 VLDL Cholesterol 22 HDL Cholesterol 32 L TSH Medical Necessity - Tobacco Use Smoking Status: Never smoker Tobacco Use: Non-smoker Assessment/Plan All Active Problems Acute CHF (Acute) Respiratory insufficiency (Acute) Elevated troponin (Acute) Normochromic normocytic anemia (Acute) Abnormal electrocardiogram (Acute) 1. Acute hypoxic respiratory insufficiency secondary to acute diastolic CHF-BNP greater than 14,000. Patient with ongoing dyspnea. Previously treated for pneumonia with no improvement. Echocardiogram shows an EF of 60%, segmental dysfunction with preserved ejection fraction, RVSP estimated to be 56 mmHg. Cardiology following. Continue IV Lasix. Strict I&O. Daily weight. Patient with significant diuresis. Started on BRITT inhibitor. Patient to undergo cardiac catheterization when respiratory status improves. Continue supplement oxygen to maintain O2 sat above 90%. Repeat chest x-ray in a.m. 2. Elevated troponin-cardiology following. Patient to undergo cardiac catheterization when respiratory status improved. 3. Hypertension-stable, continue home carvedilol regimen. Lisinopril added. 4. Mild normochromic normocytic anemia-stable. DVT prophylaxis-Lovenox subcu This patient was seen by TERRI Yeager under the supervision of Dr. Lopez.
[2018-05-23] MEDS: Docusate Sodium 100 MG Capsule 200 MG PO (22:32)
[2018-05-24] VITALS (11 sets, daily range): BP systolic 110–142; BP diastolic 63–82; PULSE 51–100; RESP 18–21; TEMP 36.4–36.5; O2SAT 94–97
--- NOTE | 2018-05-24 04:28 | RAD_ITS ---
STUDY: X-RAY CHEST REASON FOR EXAM: Male, 72 years old. CHF TECHNIQUE: 1 view COMPARISON: None. FINDINGS: Emphysematous changes in the right upper lobe. There is no acute pneumonia or failure. The heart is at the upper limits of normal in size Degenerative changes in the thoracic spine. Normal visualized ribs, clavicles, and shoulders. There is no demonstrated abnormality of the visualized soft tissue structures of the upper abdomen. RAD/Chest 1 View (Portable) IMPRESSION: Emphysematous changes in the right upper lobe. No acute findings in the lungs Electronically Signed: Adryan Calvin MD at 5:23 EST Tel , Service support ,
[2018-05-24] MEDS: Furosemide 40 MG/4 ML Vial IV (05:49)
[2018-05-24] MEDS: 0.9% NaCl Peripheral Flush Adult/Peds IV ×2 (05:49→05:50)
--- NOTE | 2018-05-24 05:55 | EKG12_ITS ---
Test Reason : AM EKG Blood Pressure : / mmHG Vent. Rate : 054 BPM Atrial Rate : 054 BPM P-R Int : 194 ms QRS Dur : 106 ms QT Int : 544 ms P-R-T Axes : 023 -40 -47 degrees QTc Int : 515 ms Sinus bradycardia Left axis deviation Incomplete right bundle branch block Voltage criteria for left ventricular hypertrophy T wave abnormality, consider inferior ischemia T wave abnormality, consider anterolateral ischemia Prolonged QT Abnormal ECG When compared with ECG of 23-MAY-2018 05:49, MANUAL COMPARISON REQUIRED, DATA IS UNCONFIRMED Confirmed by MARK SMITH, CAROLINE ([id number]), graphic editor GAUTAM MIRAMONTES ([id number]) on 05/27/2018 9:05:37 AM Referred By: DR YOUNG Confirmed By:CAROLINE FLORES MD
[2018-05-24 06:39] LABS: Anion Gap 10 (5-15); BUN 31 mg/dL (7-18); BUN/Creat Ratio 29.5 RATIO (10-20); Calcium,Total 8.9 mg/dL (8.5-10.1); Chloride 105 mmol/L (98-107); Creatinine, Serum 1.05 mg/dL (0.70-1.30); EST Glomerular Filtration Rate 74 mL/min (>60); Est Glom Filt Rate - Afr Amer 89 mL/min (>60); Estimated Creatinine Clearance 56.54 ml/min; Glucose 88 mg/dL (74-106); Potassium 4.3 mmol/L (3.5-5.1); Sodium Level 141 mmol/L (136-145)
[2018-05-24] MEDS: Carvedilol 3.125 MG TABLET PO ×2 (09:36→21:07)
[2018-05-24] MEDS: Aspirin 81 MG TAB.CHEW PO (09:36)
[2018-05-24] MEDS: Clopidogrel Bisulfate 75 MG Tablet PO (09:37)
[2018-05-24] MEDS: Docusate Sodium 100 MG Capsule 200 MG PO ×2 (09:37→21:07)
[2018-05-24] MEDS: Enoxaparin 40 MG/0.4 ML Syringe SC (09:37)
[2018-05-24] MEDS: Lisinopril 5 MG Tablet PO (09:37)
--- NOTE | 2018-05-24 09:59 | PN.CARD_ITS ---
Subjectve: Patient seen and evaluated. Appears to be doing better. Objective: Vital Signs Temp Pulse Resp BP Pulse Ox 97.7 F L 52 L 21 H 126/72 H 94 05/24/18 04:25 05/24/18 06:59 05/24/18 04:25 05/24/18 04:25 05/24/18 08:07 Oxygen Flow Rate (L/min) 2 Oxygen Delivery Method Nasal Cannula Weight: 167 lb 12.348 oz Body Mass Index (BMI) 28.6 Intake and Output for Last 24 Hours 05/22/18 05/23/18 05/24/18 23:59 23:59 23:59 Intake Total 260 / 260 1050 / 1050 20 / 20 Output Total 1040 / 1040 4055 / 4055 425 / 425 Balance -780 / -780 -3005 / -3005 -405 / -405 General: Awake, Alert, Oriented x 3 HEENT: PERRL, EOMI, Sclera Non Icteric Neck: Supple, Good ROM, No Lymph Node Enlargement Lungs: Clear to auscultation Cardiovascular: Regular Rhythm, Normal S1, Normal S2, No Murmurs, No Rubs, No Gallops Vascular: No Carotid Bruits, Normal Femoral Pulses, Normal Radial Pulses, Normal Dorsalis Pedal Pulse, Normal Posterior Tibial Pulses Abdomen: Bowel Sounds Present, Soft, Non Tender, No HSM, No Organomegaly Extremities: No Cyanosis, No Clubbing, No edema Neurological: No Focal Motor or Sensory Deficit 05/24/18 05:16: Sodium 141, Potassium 4.3, Chloride 105, Carbon Dioxide 26.0, Anion Gap 10, BUN 31 H, Creatinine 1.05, Est GFR (MDRD) Af Amer 89, Est GFR (MDRD) Non-Af 74, BUN/Creatinine Ratio 29.5 H, Glucose 88, Calcium 8.9 Rhythm: EKG: ECHO: Stress Test: Cardiac Cath: PCI: CT Surgery: Holter monitor: EPS: PPM: CXR: Chest CT Scan: Medical Necessity - Tobacco Use Smoking Status: Never smoker Tobacco Use: Non-smoker Assessment/Plan 1. CHF Patient presented with shortness of breath and was diagnosed with acute diast olic heart failure. He has undergone noninvasive evaluation. His troponin I levels have been indeterminant and are decreasing. His ECG is abnormal. His echocardiogram demonstrates left ventricular regional wall motion abnormalities but with overall preserved LV systolic function. Based on the above it to be prudent for him to undergo a cardiac catheterization to evaluate a possible etiology of the above. 2. Abnormal cardiac enzymes This will need to be evaluated further with a cardiac catheterization. He will continue on aspirin, antiplatelet agents as well as a statin. 3. Hypertension He will continue medical management with adjustment as needed. His blood pressure appears to be under much better control at this time. The risks, benefits, and alternatives have been explained to him with respect to the cardiac catheterization and at this time we will plan on scheduling it for Saturday a.m. Thank you for allowing me to participate in the care of your patient. Please don't hesitate to call if any issues arise
--- NOTE | 2018-05-24 12:09 | PCM.PROGNOTE ---
Patient Problems: Active and Suspected Problems Acute CHF (Acute) Respiratory insufficiency (Acute) Hypoxemia Elevated troponin (Acute) Normochromic normocytic anemia (Acute) Abnormal electrocardiogram (Acute) Subjective: Patient seen and examined. Notes improvement in shortness of breath. Denies chest pain. No other current complaints. Continues to have significant urine output. - Physical Exam General: Alert, Oriented x3, Cooperative HEENT: Atraumatic, PERRLA, EOMI, Normocephalic Neck: Supple, No JVD, Negative Carotid Bruits Lungs: Clear to auscultation, Diminished Cardiovascular: Regular rate, Regular Rhythm, Normal S1, Normal S2, No murmurs Abdomen: Bowel Sounds Present, Soft, Non Tender, Non-Distended Extremities: No clubbing, No cyanosis, No edema, Capillary Refill Less than 3 Seconds Skin: No rashes, No breakdown Musculoskeletal: No Tenderness to Palpation of Joints or Extremities Neurological: Cranial nerves II-XII grossly intact, Neuro grossly intact Psych/Mental Status: Normal Affect, Appropriate Vital Signs Temp Pulse Resp BP Pulse Ox 97.7 F L 100 18 118/82 H 95 05/24/18 09:35 05/24/18 11:00 05/24/18 09:35 05/24/18 09:35 05/24/18 09:35 Oxygen Flow Rate (L/min) 3 Oxygen Delivery Method Nasal Cannula Weight: 167 lb 12.348 oz Body Mass Index (BMI) 28.6 Intake and Output for Last 24 Hours 05/22/18 05/23/18 05/24/18 23:59 23:59 23:59 Intake Total 260 / 260 1050 / 1050 20 / 20 Output Total 1040 / 1040 4055 / 4055 425 / 425 Balance -780 / -780 -3005 / -3005 -405 / -405 Laboratory Tests Past 24 Hrs 05/24/18 05:16 Sodium 141 Potassium 4.3 Chloride 105 Carbon Dioxide 26.0 Anion Gap 10 BUN 31 H Creatinine 1.05 Estim Creat Clear Calc 56.54 Est GFR (MDRD) Af Amer 89 Est GFR (MDRD) Non-Af 74 BUN/Creatinine Ratio 29.5 H Glucose 88 Calcium 8.9 Medical Necessity - Tobacco Use Smoking Status: Never smoker Tobacco Use: Non-smoker Assessment/Plan All Active Problems Acute CHF (Acute) Respiratory insufficiency (Acute) Elevated troponin (Acute) Normochromic normocytic anemia (Acute) Abnormal electrocardiogram (Acute) 1. Acute hypoxic respiratory insufficiency secondary to acute diastolic CHF-BNP greater than 14,000. Patient with ongoing dyspnea. Previously treated for pneumonia with no improvement. Echocardiogram shows an EF of 60%, segmental dysfunction with preserved ejection fraction, RVSP estimated to be 56 mmHg. Cardiology following. Continue IV Lasix. Strict I&O. Daily weight. Patient with significant diuresis. Started on BRITT inhibitor. Patient to undergo cardiac catheterization when respiratory status improves, plan for 05/26/2018. Continue supplement oxygen to maintain O2 sat above 90%. Repeat chest x-ray shows emphysematous changes in the right upper lobe. No acute findings otherwise. Obtain CTA of chest tomorrow after further diuresis to assess for underlying chronic lung disease. 2. Elevated troponin-cardiology following. Patient to undergo cardiac catheterization when respiratory status improved. 3. Hypertension-stable, continue home carvedilol regimen. Lisinopril added. 4. Mild normochromic normocytic anemia-stable. DVT prophylaxis-Lovenox subcu This patient was seen by TERRI Yeager under the supervision of Dr. Lopez.
--- NOTE | 2018-05-24 14:35 | CM.UR ---
Heart Cath planned for Saturday05/26/18. If transfer is needed the in-network providers according to [facility] website: [facility] Should any questions arise--contact case mgmt. Maria Ines Jalloh RN, CCM.
--- NOTE | 2018-05-24 15:58 | CT_ITS ---
STUDY: CT CHEST WITHOUT CONTRAST REASON FOR EXAM: Male, 72 years old. Cough, shortness of breath, COPD RADIATION DOSAGE (If Supplied By Facility): CTDIvol = ( 14.95 ) mGy, DLP = ( 543.56 ) mGycm TECHNIQUE: Transaxial imaging was performed without the administration of intravenous contrast material. Multiplanar coronal and sagittal images were reformatted. Individualized dose optimization techniques were used for this CT. COMPARISON: None. FINDINGS: The lungs are hyperexpanded. Central dominant groundglass opacities with relative sparing of the periphery and subpleural lung. Scattered areas of micronodules in the peribronchial lower lobes, some of which coalesce measuring up to 8 mm. Mild central, cylindrical bronchiectasis in multiple pulmonary lobes. There are a few scattered focal groundglass opacity nodules in the right upper lobe. The noncalcified nodule measuring 6 mm in the posterior right upper lobe on image 40. Mild bronchial wall thickening identified diffusely. There is no demonstrated pleural abnormality. Normal heart and pericardium. There are multiple small lymph nodes within the mediastinum, which are normal in size and morphology most compatible with reactive lymph hyperplasia. Normal hilar regions. Normal unenhanced pulmonary arteries. There is atherosclerotic calcification of the aortic arch with tortuosity and elongation of the aortic arch and descending thoracic aorta. There are multi-level degenerative changes of the thoracic spine. There is no demonstrated abnormality of the visualized upper abdomen. CT/Chest without Contrast IMPRESSION: 1. Central dominant groundglass opacities with peribronchial micronodules coalescing up to 8 mm in the right lower lobe. Bronchial wall thickening. Differential considerations favor infectious/inflammatory causes such as acute or chronic bronchitis, infectious bronchiolitis cryptogenic organizing pneumonia, pulmonary edema. No cavitating process. 2. Reactive appearing lymph nodes of the mediastinum. 3. Given discrete pulmonary nodules, follow-up chest CT in 6 months is recommended. Electronically Signed: aPtrick Moore MD at 19:43 EST , Service support ,
[2018-05-24] MEDS: Furosemide 40 MG Tablet PO (17:31)
[2018-05-24] MEDS: Atorvastatin Calcium 40 MG Tablet PO (21:07)
[2018-05-25] VITALS (11 sets, daily range): BP systolic 113–133; BP diastolic 54–68; PULSE 57–73; RESP 16–18; TEMP 36.6–36.7; O2SAT 90–97
[2018-05-25 06:19] LABS: Anion Gap 7 (5-15); BUN 42 mg/dL (7-18); BUN/Creat Ratio 40.8 RATIO (10-20); Calcium,Total 8.7 mg/dL (8.5-10.1); Chloride 107 mmol/L (98-107); Creatinine, Serum 1.03 mg/dL (0.70-1.30); EST Glomerular Filtration Rate 75 mL/min (>60); Est Glom Filt Rate - Afr Amer 91 mL/min (>60); Estimated Creatinine Clearance 57.64 ml/min; Glucose 93 mg/dL (74-106); Potassium 4.7 mmol/L (3.5-5.1); Sodium Level 140 mmol/L (136-145)
[2018-05-25] MEDS: Carvedilol 3.125 MG TABLET PO ×2 (08:32→21:00)
[2018-05-25] MEDS: Clopidogrel Bisulfate 75 MG Tablet PO (08:32)
[2018-05-25] MEDS: Docusate Sodium 100 MG Capsule 200 MG PO (08:32)
[2018-05-25] MEDS: Lisinopril 5 MG Tablet PO (08:33)
[2018-05-25] MEDS: Furosemide 40 MG Tablet PO (08:33)
[2018-05-25] MEDS: Enoxaparin 40 MG/0.4 ML Syringe SC (08:33)
[2018-05-25] MEDS: Aspirin 81 MG TAB.CHEW PO (08:33)
--- NOTE | 2018-05-25 10:14 | PCM.PN.CARD ---
Subjectve: Patient seen and evaluated. Appears to be doing better. Objective: Vital Signs Temp Pulse Resp BP Pulse Ox 97.8 F 71 18 116/60 90 05/25/18 08:41 05/25/18 08:41 05/25/18 08:41 05/25/18 08:41 05/25/18 08:59 Oxygen Flow Rate (L/min) 2 Oxygen Delivery Method Nasal Cannula Weight: 166 lb 3.657 oz Body Mass Index (BMI) 28.6 Intake and Output for Last 24 Hours 05/23/18 05/24/18 05/25/18 23:59 23:59 23:59 Intake Total 1050 / 1050 1050 / 1050 Output Total 4055 / 4055 1775 / 1775 200 / 200 Balance -3005 / -3005 -725 / -725 -200 / -200 General: Awake, Alert, Oriented x 3 HEENT: PERRL, EOMI, Sclera Non Icteric Neck: Supple, Good ROM, No Lymph Node Enlargement Lungs: Diminished Hal Bases Cardiovascular: Regular Rhythm, Normal S1, Normal S2, No Murmurs, No Rubs, No Gallops Vascular: No Carotid Bruits, Normal Femoral Pulses, Normal Radial Pulses, Normal Dorsalis Pedal Pulse, Normal Posterior Tibial Pulses Abdomen: Bowel Sounds Present, Soft, Non Tender, No HSM, No Organomegaly Extremities: No Cyanosis, No Clubbing, No edema Neurological: No Focal Motor or Sensory Deficit 05/25/18 05:03: Sodium 140, Potassium 4.7, Chloride 107, Carbon Dioxide 26.0, Anion Gap 7, BUN 42 H, Creatinine 1.03, Est GFR (MDRD) Af Amer 91, Est GFR (MDRD) Non-Af 75, BUN/Creatinine Ratio 40.8 H, Glucose 93, Calcium 8.7 Rhythm: EKG: ECHO: Stress Test: Cardiac Cath: PCI: CT Surgery: Holter monitor: EPS: PPM: CXR: Chest CT Scan: Medical Necessity - Tobacco Use Smoking Status: Never smoker Tobacco Use: Non-smoker Assessment/Plan 1. CHF Patient presented with shortness of breath and was diagnosed with acute diastolic heart failure. He has undergone noninvasive evaluation. His troponin I levels have been indeterminant and are decreasing. His ECG is abnormal. His echocardiogram demonstrates left ventricular regional wall motion abnormalities but with overall preserved LV systolic function. Based on the above it to be prudent for him to undergo a cardiac catheterization to evaluate a possible etiology of the above. We will schedule the above for tomorrow. We will suggest a right and left heart catheterization especially due to the elevated right heart pressures. The risk benefits and alternatives have been explained to him he understands and agrees to proceed. 2. Abnormal cardiac enzymes This will need to be evaluated further with a cardiac catheterization. He will continue on aspirin, antiplatelet agents as well as a statin. 3. Hypertension He will continue medical management with adjustment as needed. His blood pressure appears to be under much better control at this time. The risks, benefits, and alternatives have been explained to him with respect to the cardiac catheterization and at this time we will plan on scheduling it for Saturday a.m. Thank you for allowing me to participate in the care of your patient. Please don't hesitate to call if any issues arise
--- NOTE | 2018-05-25 12:55 | PCM.PROGNOTE ---
Patient Problems: Active and Suspected Problems Acute CHF (Acute) Respiratory insufficiency (Acute) Hypoxemia Elevated troponin (Acute) Normochromic normocytic anemia (Acute) Abnormal electrocardiogram (Acute) Subjective: Patient seen and examined. No acute events overnight. Notes continued improvement in breathing. Denies chest pain. No other complaints. - Physical Exam General: Alert, Oriented x3, Cooperative HEENT: Atraumatic, PERRLA, EOMI, Normocephalic Neck: Supple, No JVD, Negative Carotid Bruits Lungs: Clear to auscultation, Diminished Cardiovascular: Regular rate, Regular Rhythm, Normal S1, Normal S2, No murmurs Abdomen: Bowel Sounds Present, Soft, Non Tender, Non-Distended Extremities: No clubbing, No cyanosis, No edema, Capillary Refill Less than 3 Seconds Skin: No rashes, No breakdown Musculoskeletal: No Tenderness to Palpation of Joints or Extremities Neurological: Cranial nerves II-XII grossly intact, Neuro grossly intact Psych/Mental Status: Normal Affect, Appropriate Vital Signs Temp Pulse Resp BP Pulse Ox 97.8 F 69 18 116/60 90 05/25/18 08:41 05/25/18 11:00 05/25/18 08:41 05/25/18 08:41 05/25/18 08:59 Oxygen Flow Rate (L/min) 2 Oxygen Delivery Method Nasal Cannula Weight: 166 lb 3.657 oz Body Mass Index (BMI) 28.6 Intake and Output for Last 24 Hours 05/23/18 05/24/18 05/25/18 23:59 23:59 23:59 Intake Total 1050 / 1050 1050 / 1050 Output Total 4055 / 4055 1775 / 1775 200 / 200 Balance -3005 / -3005 -725 / -725 -200 / -200 Laboratory Tests Past 24 Hrs 05/25/18 05:03 Sodium 140 Potassium 4.7 Chloride 107 Carbon Dioxide 26.0 Anion Gap 7 BUN 42 H Creatinine 1.03 Estim Creat Clear Calc 57.64 Est GFR (MDRD) Af Amer 91 Est GFR (MDRD) Non-Af 75 BUN/Creatinine Ratio 40.8 H Glucose 93 Calcium 8.7 Medical Necessity - Tobacco Use Smoking Status: Never smoker Tobacco Use: Non-smoker Assessment/Plan All Active Problems Acute CHF (Acute) Respiratory insufficiency (Acute) Elevated troponin (Acute) Normochromic normocytic anemia (Acute) Abnormal electrocardiogram (Acute) 1. Acute hypoxic respiratory insufficiency secondary to acute diastolic CHF-BNP greater than 14,000. Patient with ongoing dyspnea. Previously treated for pneumonia with no improvement. Echocardiogram shows an EF of 60%, segmental dysfunction with preserved ejection fraction, RVSP estimated to be 56 mmHg. Cardiology following. Continue PO Lasix. Strict I&O. Daily weight. -11lb since admission. Patient to undergo cardiac catheterization 05/26/2018. Continue supplement oxygen to maintain O2 sat above 90%. Repeat chest x-ray showed emphysematous changes in the right upper lobe. No acute findings otherwise. Continue aspirin, statin, Plavix, carvedilol, lisinopril. 2. Elevated troponin-cardiology following. Patient to undergo cardiac catheterization as noted above. 3. Hypertension-stable, continue home carvedilol regimen. Lisinopril added. 4. Mild normochromic normocytic anemia-stable. 5. Abnormal CTA of chest-CTA of chest shows groundglass opacities with peribronchial micronodules up to 8 mm in the right lower lobe. Reactive appearing lymph nodes of the mediastinum. Recommend repeat CT of chest in 6 months given discrete pulmonary nodules. DVT prophylaxis-Lovenox subcu This patient was seen by TERRI Yeager under the supervision of Dr. Lopez.
[2018-05-25 18:26] LABS: Bacteria 0 SEEN /hpf (None Seen); Red Blood Cells-Urine 0 SEEN /hpf (0-5); Squamous Epithelial Cells - UA 0 SEEN /hpf (0-5); White Blood Cells 0 SEEN /hpf (0-5)
[2018-05-25 18:29] LABS: Color, Urine Yellow (Yellow); Glucose, Dipstick Normal (Normal); Ketone-Dipstick Negative (Negative); Leukocyte Esterase-Dipstick Negative /ul (Negative); Nitrite-Dipstick Negative (Negative); Occult Blood-Urine Negative /ul (Negative); Protein-Dipstick Negative (Negative); Urine Bilirubin Dipstick Negative (Negative); Urine Clarity Clear (Clear); Urine Urobilinogen Normal (Normal)
[2018-05-25 18:40] LABS: Mucous, Urine RARE /hpf (<or=2+)
[2018-05-25] MEDS: Acetaminophen 325 MG Tablet 650 MG PO (20:58)
[2018-05-25] MEDS: Atorvastatin Calcium 40 MG Tablet PO (21:00)
[2018-05-26] VITALS (27 sets, daily range): BP systolic 95–159; BP diastolic 37–95; PULSE 53–73; RESP 13–25; TEMP 36.2–37.2; O2SAT 93–98; BMI 26.6
[2018-05-26 05:39] LABS: Absolute Lymphocyte Count 2.92 X10^3/ul (0.83-4.51); Absolute Neutrophil Count 6.8 X10^3/uL (2.0-7.7); Basophil# 0.03 X10^3/uL; Basophil% 0.3 % (0-1); Eosinophil# 0.36 X10^3/uL; Eosinophils% 3.2 % (0-5); Hemoglobin 12.4 g/dl (13.0-16.5); Lymphocyte # 2.92 X10^3/ul (4.0); Lymphocyte % 25.9 % (19-41); Mean Corp Hgb Conc 32.6 g/gl (32-36); Mean Corpuscular Hgb 31.1 pg (27.0-32.0); Mean Corpuscular Volume 95.2 fL (80-94); Mean Platelet Vol. 10.8 fl (6.2-12.0); Monocyte# 1.17 X10^3/uL; Monocyte% 10.4 % (0-10); Neutrophil # 6.79 X10^3/uL (2.7-7.7); Platelet Count 231 K/mm3 (150-450); RBC Distribution Width CV 13.6 % (11.6-14.6); Red Blood Count 3.99 M/mm3 (4.6-6.2); White Blood Count 11.3 K/mm3 (4.4-11.0)
[2018-05-26 05:40] LABS: International Normalized Ratio 1.3; Prothrombin Time (Protime)PT. 16.4 SECONDS (11.7-14.9)
[2018-05-26 05:41] LABS: Partial Thromboplast Time 36.9 Seconds (24.1-36.2)
[2018-05-26 05:44] LABS: POSITIVE COUNT NO; POSITIVE DIFFERENTIAL NO; POSITIVE MORPHOLOGY NO
--- NOTE | 2018-05-26 05:55 | EKG12_ITS ---
Test Reason : AM EKG Blood Pressure : / mmHG Vent. Rate : 058 BPM Atrial Rate : 058 BPM P-R Int : 220 ms QRS Dur : 110 ms QT Int : 406 ms P-R-T Axes : 041 -38 000 degrees QTc Int : 398 ms Sinus bradycardia with 1st degree A-V block Left axis deviation Incomplete right bundle branch block Moderate voltage criteria for LVH, may be normal variant Nonspecific T wave abnormality Abnormal ECG Confirmed by DOUGLAS SMITH, KENNETH ([id number]), editor producer GAUTAM MIRAMONTES ([id number]) on 05/30/2018 11:44:37 AM Referred By: MONICA Confirmed By:KENNETH COLE MD
[2018-05-26 06:00] LABS: Anion Gap 7 (5-15); BUN 44 mg/dL (7-18); BUN/Creat Ratio 41.1 RATIO (10-20); Calcium,Total 8.7 mg/dL (8.5-10.1); Chloride 106 mmol/L (98-107); Creatinine, Serum 1.07 mg/dL (0.70-1.30); EST Glomerular Filtration Rate 72 mL/min (>60); Est Glom Filt Rate - Afr Amer 87 mL/min (>60); Estimated Creatinine Clearance 55.49 ml/min; Glucose 88 mg/dL (74-106); Sodium Level 141 mmol/L (136-145)
[2018-05-26] MEDS: Carvedilol 3.125 MG TABLET PO ×2 (06:02→21:26)
[2018-05-26] MEDS: Clopidogrel Bisulfate 75 MG Tablet PO (06:02)
[2018-05-26] MEDS: Lisinopril 5 MG Tablet PO (06:02)
[2018-05-26] MEDS: Aspirin 81 MG TAB.CHEW PO (06:02)
--- NOTE | 2018-05-26 08:23 | CL.D_ITS ---
Patient Name: CHU MCGRAW Study Date: 05/26/2018 Performing: Mendoza Castro MD Ht: 66.14 inches 168 cm : 1945 Wt: 165.35 lbs 75 kg Age: 72 Gender: male BSA: 1.85 PROCEDURE(S) PERFORMED [id number]/LHC/COR/LV CLINICAL PROFILE AND INDICATIONS Indications: Suspected CAD, CHF Heart Failure: NYHA Class: 3, Newly Diagnosed: Yes, Heart Failure Type: Diastolic Stress/Imaging Stress/Image Study Performed: No Angina Classification Anginal Classification w/in 2 Weeks: No symptoms CAD Presentations: Other: CHF CONCLUSIONS Normal Left Ventricular End Diastolic Pressure Right heart pressures - borderline to mildly elevated RVSP/PASP The patient has pulmonary hypertension which is bordeline to mildly elevated RVSP/PASP Intracardiac shunting: None Segmented LV systolic dysfunction with overall preserved LV systolic function LVEF: by LV gram 60 % [place] Multivessel CAD (predominantly LAD) RECOMMENDATIONS Risk factor modification Medical therapy Referred for immediate PCI DESCRIPTION OF PROCEDURE The patient arrived to the procedure lab. The risks and benefits of the procedure as well as a full d escription of our services here and current unavailability of surgical backup were fully explained to the patient and/or their significant other prior to the catheterization. The Timeout was completed, verifying the correct patient and procedure. The patient's procedural site was prepped and draped in the usual fashion. Local anesthetic was given subcutaneously to right groin region with Lidocaine 2%. Using a modified Seldinger technique, arterial access was obtained via the right femoral artery, a 4 Fr sheath was inserted Venous access was obtained via the right femoral vein, a 7Fr sheath was insert ed. A 7Fr thermal dilution catheter was inserted and right heart pressures were recorded, it was then advanced to PA position for cardiac outputs. Thermal dilution cardiac outputs were then recorded. O2 saturations were then obtained. Simultaneous pressures were then recorded. Left Ventriculography was performed in PITTS projection using a 4 Fr. Pigtail catheter. The Thermal dilution catheter was then removed. Left Coronary Artery selective angiography was performed in multiple view s using a 4 Fr. JL4 catheter. Right Coronary Artery selective angiography was then performed in multi ple views using a 4 Fr. JR4 catheter. CORONARY ANGIOGRAPHY DOMINANCE: Right Dominant LEFT HEART ASSESSMENT Left Ventricular Ejection Fraction: by LV Gram 60 % Anterior Hypokinesis Normal Left Ventricular End Diastolic Pressure LVEDP: 6 mmHg RIGHT HEART ASSESSMENT Thermal CO: 4.51 Thermal CI: 2.44 Liu CO: 9.73 Liu CI: 5.26 PW: 5/5 3 PA: 34/9 16 RV: 32/0 5 RA: 4/2 1 PVR: 207 SVR: 567 Right Heart pressures - Borderline to mild elevation of the RVSP/PASP Pulmonary Hypertension: Borderline to mild elevation of the RVSP/PASP Intracardiac shunting: None LEFT MAIN: Angiographically normal LEFT ANTERIOR DECENDING ARTERY: PROX LAD: Mild calcification MID LAD: Eccentric: Hazy: 75 % Stenosis DIAGONAL 1: Proximal - Mild luminal irregularities CIRCUMFLEX ARTERY: PROX CIRC: Mild luminal irregularities RIGHT CORONARY ARTERY: Mild luminal irregularities RT PDA: Proximal - Mild luminal irregularities VALVE FINDINGS: Normal Aortic Valve function Normal Mitral Valve function AORTIC ROOT: Angiographically normal COMPLICATIONS PROCEDURE MEDICATIONS Versed 1 mg IV SUMMARY OF HEMODYNAMIC DATA Time AIR REST ECG 07:05:23 RA 4/2 (1) SV 07:29:08 RV 32/0, 5 07:29:22 PW 5/5 (3) PV 07:30:01 PA 34/9 (16) PA 07:30:18 AO 106/48 (70) SA 07:37:10 PA 30/7 (14) 07:37:10 LV 111/-1, 6 07:39:28 PW 4/3 (2) 07:39:28 LV 109/-1, 6 07:39:34 PW 4/4 (2) 07:39:34 LV 101/-15, 3 07:40:32 LV 98/-1, 6 07:40:39 LV 110/0, 7 07:40:53 PW 6/5 (4) 07:40:53 LV 113/-2, 5 07:41:00 PW 6/5 (3) 07:41:00 LVp 119/-7, 8 07:41:13 AOp 113/46 (75) 07:41:18 PA 33/10 (16) 07:41:32 RV 29/-2, 5 07:41:55 RA 5/3 (0) 07:42:23 Type SV CO (l/m) CI (l/m/ HR Time AIR REST Thermal 76.40 4.51 2.44 59 07:05:23 Liu 164.90 9.73 5.26 59 07:05:23 Label % O2 Pres/Loc Time AIR REST IVC 76 SV 07:43:15 SVC 60 07:43:20 PA 62 PA 07:43:26 AO 91 PV 07:43:31 Signed By Mendoza Castro MD On 05/26/2018 8:22:04 AM Mendoza Castro MD
--- NOTE | 2018-05-26 08:31 | PN.CARD_ITS ---
Subjectve: The patient states he feels better overall. Objective: Vital Signs Temp Pulse Resp BP Pulse Ox 97.8 F 60 18 129/65 H 96 05/26/18 06:00 05/26/18 06:49 05/26/18 06:00 05/26/18 06:00 05/26/18 06:50 Oxygen Flow Rate (L/min) 2 Oxygen Delivery Method Nasal Cannula Weight: 165 lb 9.074 oz Body Mass Index (BMI) 28.6 Intake and Output for Last 24 Hours 05/24/18 05/25/18 05/26/18 23:59 23:59 23:59 Intake Total 1050 / 1050 660 / 660 240 / 240 Output Total 1775 / 1775 550 / 550 350 / 350 Balance -725 / -725 110 / 110 -110 / -110 General: Awake, Alert, Oriented x 3, Cooperative, No Acute Distress HEENT: Atraumatic, Normocephalic, PERRL Oral: Moist Mucosa Neck: Supple, Good ROM, No JVD Lungs: Clear to auscultation Cardiovascular: Regular Rhythm, Normal S1, Normal S2 Vascular: No Carotid Bruits Abdomen: Bowel Sounds Present, Soft, Non Tender Extremities: No Cyanosis, No Clubbing, No edema Neurological: No Focal Motor or Sensory Deficit Psych/Mental Status: Appropriate 05/25/18 18:20: Urine Color Yellow, Urine Clarity Clear, Urine pH 5.0, Ur Specific [place] 1.020, Urine Protein Negative, Urine Glucose (UA) Normal, Urine Ketones Negative, Urine Occult Blood Negative, Urine Nitrite Negative, Urine Bilirubin Negative, Urine Urobilinogen Normal, Ur Leukocyte Esterase Negative, Urine RBC 0 SEEN, Urine WBC 0 SEEN 05/26/18 05:00: WBC 11.3 H, RBC 3.99 L, Hgb 12.4 L, Hct 38.0 L, MCV 95.2 H, MCH 31.1, MCHC 32.6, RDW 13.6, RDW Differential 45.0 H, Plt Count 231, MPV 10.8, Immature Gran % (Auto) 0.200, Neut % (Auto) 60.0, Lymph % (Auto) 25.9, [place] % (Auto) 10.4 H, Eos % (Auto) 3.2, Baso % (Auto) 0.3, Absolute Neuts (auto) 6.8, Total Counted Not Reportable 05/26/18 05:00: PT 16.4 H, INR 1.3, APTT 36.9 H 05/26/18 05:00: Sodium 141, Potassium 5.0, Chloride 106, Carbon Dioxide 28.0, Anion Gap 7, BUN 44 H, Creatinine 1.07, Est GFR (MDRD) Af Amer 87, Est GFR (MDRD) Non-Af 72, BUN/Creatinine Ratio 41.1 H, Glucose 88, Calcium 8.7 Rhythm: Sinus rhythm Cardiac Cath: Preliminary report: Borderline to elevated RSVP/PASP; hypokinesis of the anterior wall; overall preserved LV systolic function/LVEF of approximately 60%; angiographically significant appearing LAD disease Medical Necessity - Tobacco Use Smoking Status: Never smoker Tobacco Use: Non-smoker Assessment/Plan 1. CHF There have been concerns that the patient has had CHF above and beyond what may have been an underlying pneumonia . The patient has been treated for this with diuretic therapy, has had increased diuresis, and states he has had improvement in his breathing, without the addition of ongoing antibiotic therapy. He is undergone noninvasive evaluation. His troponin I levels have been indeterminant and are decreasing. His ECG is abnormal. His echocardiogram dem onstrates left ventricular regional wall motion abnormalities but with overall preserved LV systolic function. He has now undergone evaluation with diagnostic cardiac catheterization. The results are as noted above. At the present time he is going to continue medical therapy. He will continue with further evaluation care for LAD PCI under the direction of Dr. Gordon of [facility]. 2. Abnormal cardiac enzymes Again he is undergone both noninvasive and invasive evaluation. He will continue medical management. He will continue evaluation care for LAD PCI. 3. Abnormal ECG His ECG is abnormal raising concerns of myocardial ischemia. His echocardiogram raises concerns of left ventricular regional wall motion abnormalities. His cardiac catheterization with respect to the left ventriculogram does suggest an element of hypokinesis of the anterior wall. This appears to be compatible with his LAD lesion. He is continuing medical management and preparations for LAD PCI. 4. Hypertension He will continue medical management with adjustment as needed. Comment: The patient's case has been discussed and reviewed with the patient and his spouse, and multiple family members present. This note was generated with [email or web address] software. It may contain incorrect words, spelling, and punctuation that were not noted in checking the note before signing.
--- NOTE | 2018-05-26 08:39 | CASEMGMT ---
According to [facility] website, the following are in-network facilities: [facility], [facility], [facility], and . Betty AMARO CM
--- NOTE | 2018-05-26 08:44 | NURSING ---
Report called to ICU; Report given to Jacob AMARO
--- NOTE | 2018-05-26 08:51 | NURSING ---
Reviewed and agreed on all charting with Elliot Nava RN
--- NOTE | 2018-05-26 08:54 | EKG12_ITS ---
Test Reason : POST PCI Blood Pressure : / mmHG Vent. Rate : 066 BPM Atrial Rate : 066 BPM P-R Int : 204 ms QRS Dur : 106 ms QT Int : 426 ms P-R-T Axes : 059 -48 024 degrees QTc Int : 446 ms Normal sinus rhythm Left anterior fascicular block Abnormal ECG Confirmed by DOUGLAS SMITH, KENNETH ([id number]), commissioning editor GAUTAM MIRAMONTES ([id number]) on 05/30/2018 11:47:37 AM Referred By: YAMILA Confirmed By:KENNETH COLE MD
--- NOTE | 2018-05-26 09:05 | CL.I_ITS ---
Patient Name: CHU MCGRAW Study Date: 05/26/2018 Performing: Simona Gordon MD Ht: 66.14 inches 168 cm : 1945 Wt: 165.35 lbs 75 kg Age: 72 Gender: male BSA: 1.85 PROCEDURE(S) PERFORMED [id number] W OR WO PTCA, SINGLE CORONARY ARTERY CLINICAL PROFILE AND CO-MORBIDITIES Indications: Suspected CAD, CHF Heart Failure: NYHA Class: 3, Newly Diagnosed: Yes, Heart Failure Type: Diastolic Stress/Imaging Stress/Image Study Performed: No Angina Classification Anginal Classification w/in 2 Weeks: No symptoms CAD Presentations: Other: CHF CONCLUSIONS Successful KERWIN Mid LAD using Elunir 2.5x12 mm RECOMMENDATIONS ASA Indefinitley Plavix for at least 12 months Follow up with Dr. Castro INTERVENTION INFORMATION LESION SITE: LAD (Mid) Lesion Complexity: Non-High/Non-C Pre Stenosis: 80 % Pre intervention TRACY flow: 3 PROCEDURE: Drug Eluting Stent with post dilatation Post Stenosis: 0 % Post intervention TRACY flow: 3 Lesion Devices: CordSquareOne 6 Fr XB3.5 100cm Guide Catheter Terumo .014 Runthrough Extra Floppy 180cm straight Cardinal Elunir KERWIN RX 2.5x12 Bill Sci NC EMERGE MR 2.50x12 BALLOON COMPLICATIONS No Complications PROCEDURE MEDICATIONS Versed 1 mg IV Heparin 6000 unit(s) IV 05/26/2018 08:27:05 Heparin 1000 unit(s) IV 05/26/2018 08:37:36 Nitro 200 mcg IC 05/26/2018 08:40:42 Plavix 300 mg PO 05/26/2018 08:57:22 SUMMARY OF HEMODYNAMIC DATA Time AIR REST ECG 07:05:23 RA 4/2 (1) SV 07:29:08 RV 32/0, 5 07:29:22 PW 5/5 (3) PV 07:30:01 PA 34/9 (16) PA 07:30:18 AO 106/48 (70) SA 07:37:10 PA 30/7 (14) 07:37:10 LV 111/-1, 6 07:39:28 PW 4/3 (2) 07:39:28 LV 109/-1, 6 07:39:34 PW 4/4 (2) 07:39:34 LV 101/-15, 3 07:40:32 LV 98/-1, 6 07:40:39 LV 110/0, 7 07:40:53 PW 6/5 (4) 07:40:53 LV 113/-2, 5 07:41:00 PW 6/5 (3) 07:41:00 LVp 119/-7, 8 07:41:13 AOp 113/46 (75) 07:41:18 PA 33/10 (16) 07:41:32 RV 29/-2, 5 07:41:55 RA 5/3 (0) 07:42:23 RM AIR REST 09:01:52 Type SV CO (l/m) CI (l/m/ HR Time AIR REST Thermal 76.40 4.51 2.44 59 07:05:23 Liu 164.90 9.73 5.26 59 07:05:23 Label % O2 Pres/Loc Time AIR REST IVC 76 SV 07:43:15 SVC 60 07:43:20 PA 62 PA 07:43:26 AO 91 PV 07:43:31 Signed By Simona Gordon MD On 05/26/2018 09:04:35 Simona Gordon MD
[2018-05-26 09:06] LABS: ACT Activated Clotting Time 235 sec (74-137)
[2018-05-26 09:06] LABS: Blood Gas Specimen Type VEN; VBG BASE EXCESS -2 mmol/L (-1.0-3.5); VBG Bicarbonate 23 mmol/L (22-26); VBG Oxygen Content 24 mmol/L (23-33); VBG PO2 40 mmHg (25-40); VBG SO2 76 % (50-70); VBG pCO2 36.8 mmHg (41-51)
[2018-05-26 09:06] LABS: Blood Gas Specimen Type VEN; VBG BASE EXCESS -1 mmol/L (-1.0-3.5); VBG Bicarbonate 24 mmol/L (22-26); VBG Oxygen Content 25 mmol/L (23-33); VBG PO2 32 mmHg (25-40); VBG SO2 60 % (50-70); VBG pCO2 40.1 mmHg (41-51); VBG pH 7.38 (7.32-7.42)
[2018-05-26 09:06] LABS: Base Excess -2 mmol/L (-2 to +2); Bicarbonate 22.3 mmol/L (22-26); Blood Gas Specimen Type ART; PO2 59 mmHG (75-100); SO2 91 % (95-99); Total Carbon Dioxide 23 mmol/L; pCO2 34.4 mmHg (35-45); pH 7.42 (7.35-7.45)
[2018-05-26 09:06] LABS: Blood Gas Specimen Type VEN; VBG BASE EXCESS -2 mmol/L (-1.0-3.5); VBG Bicarbonate 23 mmol/L (22-26); VBG Oxygen Content 24 mmol/L (23-33); VBG PO2 32 mmHg (25-40); VBG SO2 62 % (50-70); VBG pCO2 37.2 mmHg (41-51)
--- NOTE | 2018-05-26 10:41 | CRPHASE1 ---
Patient Data/Charges Former Patient:: Phase II Geospatial Imagery Intelligence Analyst:: Simona Gordon Refer Phase II:: Yes Phase II Referral:: [facility] Risk Factors/Lifestyle Height: 1.68 m Weight:: 74.843 kg BMI: 26.6 Laboratory Values: Cardiac Rehab Phase I Labs Triglycerides 108 mg/dL (-199) 05/23/18 05:40 Cholesterol 118 mg/dL (200) 05/23/18 05:40 LDL Cholesterol 64 mg/dL (0-130) 05/23/18 05:40 HDL Cholesterol 32 mg/dL (40-) L 05/23/18 05:40 Phase I Education Given On:: [place], Nutrition, Antiplatelet medication, CHF, Smoking cessation, Diabetes - Type I, Diabetes - Type II Issues Affecting Care:: None Knowledge of Condition:: Yes Hospital Course Presenting Symptoms:: SOB Cardiac Cath Date:: 05/26/18 Medical/Surgical History Hypertension:: Yes PTCA:: Yes
--- NOTE | 2018-05-26 10:44 | CRPHASE1_ITS ---
Patient Data/Charges Former Patient:: Phase II Shrink Pit Supervisor:: Simona Gordon Refer Phase II:: Yes Phase II Referral:: [facility] Risk Factors/Lifestyle Height: 1.68 m Weight:: 74.843 kg BMI: 26.6 Laboratory Values: Cardiac Rehab Phase I Labs Triglycerides 108 mg/dL (-199) 05/23/18 05:40 Cholesterol 118 mg/dL (200) 05/23/18 05:40 LDL Cholesterol 64 mg/dL (0-130) 05/23/18 05:40 HDL Cholesterol 32 mg/dL (40-) L 05/23/18 05:40 Phase I Education Given On:: [place], Nutrition, Antiplatelet medication, CHF, Smoking cessation, Diabetes - Type I, Diabetes - Type II Issues Affecting Care:: None Knowledge of Condition:: Yes Hospital Course Presenting Symptoms:: SOB Cardiac Cath Date:: 05/26/18 Medical/Surgical History Hypertension:: Yes PTCA:: Yes
--- NOTE | 2018-05-26 10:44 | CRPH1.INSTRU ---
General Education CAD and cardiac anatomy and function:: Patient communicates acknowledgment Explanation of diagnoses and procedures:: Patient communicates acknowledgment Sign/Symptoms of AR:: Patient communicates acknowledgment Antiplatelet therapy: Patient communicates acknowledgment Proper use of NTG-SL: Not instructed Emergency procedures and activation of EMS: Patient communicates acknowledgment Compliance of all prescribed medications: Patient communicates acknowledgment Smoking Nicotine/Smoking Response Code:: Patient communicates acknowledgment Dyslipidemia Dyslipidemia Response Code:: Patient communicates acknowledgment Overweight/Obesity Overweight/Obesity:: Patient communicates acknowledgment Hypertension Recommendations Include:: Maintain BP <130/85, BP <130/80 if diabetic, DASH dietary guidelines, Decrease/maintain normal body weight, Moderation of ETOH Hypertension:: Patient communicates acknowledgment Heart Disease Patient Heart Disease Risk Factors Are:: Family history of heart disease < 65 years old Recommendations Include:: Educated family members of their risk, Educated family members of importance of prevention of heart disease Heart Disease Response Code:: Patient communicates acknowledgment Diabetes Diabetes:: Patient communicates acknowledgment Metabolic Syndrome Metabolic Syndrome Response Code:: Patient communicates acknowledgment Sedentary Sedentary Response Code:: Patient communicates acknowledgment Stress Stress Response Code:: Patient communicates acknowledgment
[2018-05-26] MEDS: Docusate Sodium 100 MG Capsule 200 MG PO ×2 (11:34→21:26)
[2018-05-26] MEDS: Furosemide 40 MG Tablet PO (11:34)
[2018-05-26] MEDS: 0.9% Normal Saline 1,000 ML 100 ML IV (11:36)
--- NOTE | 2018-05-26 11:52 | PCM.PROGNOTE ---
Patient Problems: Active and Suspected Problems Acute CHF (Acute) Respiratory insufficiency (Acute) Hypoxemia Elevated troponin (Acute) Normochromic normocytic anemia (Acute) Abnormal electrocardiogram (Acute) Subjective: Patient seen and examined. Underwent PCI to LAD this morning. Denies chest pain, shortness of breath. Denies current complaints. Feels improved. - Physical Exam General: Alert, Oriented x3, Cooperative HEENT: Atraumatic, PERRLA, EOMI, Normocephalic Neck: Supple, No JVD, Negative Carotid Bruits Lungs: Clear to auscultation, Normal air movement Cardiovascular: Regular rate, Regular Rhythm, Normal S1, Normal S2, No murmurs Abdomen: Bowel Sounds Present, Soft, Non Tender, Non-Distended Extremities: No clubbing, No cyanosis, No edema, Capillary Refill Less than 3 Seconds Skin: No rashes, No breakdown, - - Right groin cath site intact. Musculoskeletal: No Tenderness to Palpation of Joints or Extremities Neurological: Cranial nerves II-XII grossly intact, Neuro grossly intact Psych/Mental Status: Normal Affect, Appropriate Vital Signs Temp Pulse Resp BP Pulse Ox 97.1 F L 63 18 113/58 L 97 05/26/18 10:30 05/26/18 10:30 05/26/18 10:30 05/26/18 10:30 05/26/18 10:30 Oxygen Flow Rate (L/min) 2 Oxygen Delivery Method Room Air Weight: 165 lb Body Mass Index (BMI) 28.6 Intake and Output for Last 24 Hours 05/24/18 05/25/18 05/26/18 23:59 23:59 23:59 Intake Total 1050 / 1050 660 / 660 240 / 240 Output Total 1775 / 1775 550 / 550 350 / 350 Balance -725 / -725 110 / 110 -110 / -110 Laboratory Tests Past 24 Hrs 05/25/18 05/26/18 05/26/18 18:20 05:00 05:00 WBC 11.3 H RBC 3.99 L Hgb 12.4 L Hct 38.0 L MCV 95.2 H MCH 31.1 MCHC 32.6 RDW 13.6 RDW Differential 45.0 H Plt Count 231 MPV 10.8 Immature Gran % (Auto) 0.200 Neut % (Auto) 60.0 Lymph % (Auto) 25.9 [place] % (Auto) 10.4 H Eos % (Auto) 3.2 Baso % (Auto) 0.3 Absolute Neuts (auto) 6.8 Absolute Lymphs (auto) 2.92 Total Counted Not Reportable PT 16.4 H INR 1.3 APTT 36.9 H Activated Clotting Time Specimen Type pH Bicarbonate Actual POC Total CO2 Base Excess O2 Saturation ABG pCO2 ABG pO2 VBG pH VBG pO2 VBG O2 Sat (Calc) VBG O2 Content VBG Base Excess POC Mix VBG pCO2 Pt Tmp Sodium Potassium Chloride Carbon Dioxide Anion Gap BUN Creatinine Estim Creat Clear Calc Est GFR (MDRD) Af Amer Est GFR (MDRD) Non-Af BUN/Creatinine Ratio Glucose Calcium Urine Color Yellow Urine Clarity Clear Urine pH 5.0 Ur Specific [place] 1.020 Urine Protein Negative Urine Glucose (UA) Normal Urine Ketones Negative Urine Occult Blood Negative Urine Nitrite Negative Urine Bilirubin Negative Urine Urobilinogen Normal Ur Leukocyte Esterase Negative Urine RBC 0 SEEN Urine WBC 0 SEEN Ur Squamous Epith Cells 0 SEEN Urine Bacteria 0 SEEN Urine Mucus RARE 05/26/18 05/26/18 05/26/18 05:00 07:26 07:29 WBC RBC Hgb Hct MCV MCH MCHC RDW RDW Differential Plt Count MPV Immature Gran % (Auto) Neut % (Auto) Lymph % (Auto) [place] % (Auto) Eos % (Auto) Baso % (Auto) Absolute Neuts (auto) Absolute Lymphs (auto) Total Counted PT INR APTT Activated Clotting Time Specimen Type ART OBEY pH 7.42 Bicarbonate Actual 22.3 POC Total CO2 23 Base Excess -2 O2 Saturation 91 L ABG pCO2 34.4 L ABG pO2 59 L VBG pH 7.40 VBG pO2 40 VBG O2 Sat (Calc) 76 H VBG O2 Content 24 VBG Base Excess -2 L POC Mix VBG pCO2 Pt Tmp 36.8 L Sodium 141 Potassium 5.0 Chloride 106 Carbon Dioxide 28.0 Anion Gap 7 BUN 44 H Creatinine 1.07 Estim Creat Clear Calc 55.49 Est GFR (MDRD) Af Amer 87 Est GFR (MDRD) Non-Af 72 BUN/Creatinine Ratio 41.1 H Glucose 88 Calcium 8.7 Urine Color Urine Clarity Urine pH Ur Specific [place] Urine Protein Urine Glucose (UA) Urine Ketones Urine Occult Blood Urine Nitrite Urine Bilirubin Urine Urobilinogen Ur Leukocyte Esterase Urine RBC Urine WBC Ur Squamous Epith Cells Urine Bacteria Urine Mucus 05/26/18 05/26/18 05/26/18 07:32 07:35 08:33 WBC RBC Hgb Hct MCV MCH MCHC RDW RDW Differential Plt Count MPV Immature Gran % (Auto) Neut % (Auto) Lymph % (Auto) [place] % (Auto) Eos % (Auto) Baso % (Auto) Absolute Neuts (auto) Absolute Lymphs (auto) Total Counted PT INR APTT Activated Clotting Time 235 H Specimen Type OBEY OBEY pH Bicarbonate Actual POC Total CO2 Base Excess O2 Saturation ABG pCO2 ABG pO2 VBG pH 7.38 7.40 VBG pO2 32 32 VBG O2 Sat (Calc) 60 62 VBG O2 Content 25 24 VBG Base Excess -1 -2 L POC Mix VBG pCO2 Pt Tmp 40.1 L 37.2 L Sodium Potassium Chloride Carbon Dioxide Anion Gap BUN Creatinine Estim Creat Clear Calc Est GFR (MDRD) Af Amer Est GFR (MDRD) Non-Af BUN/Creatinine Ratio Glucose Calcium Urine Color Urine Clarity Urine pH Ur Specific [place] Urine Protein Urine Glucose (UA) Urine Ketones Urine Occult Blood Urine Nitrite Urine Bilirubin Urine Urobilinogen Ur Leukocyte Esterase Urine RBC Urine WBC Ur Squamous Epith Cells Urine Bacteria Urine Mucus Medical Necessity - Tobacco Use Smoking Status: Never smoker Tobacco Use: Non-smoker Assessment/Plan All Active Problems Acute CHF (Acute) Respiratory insufficiency (Acute) Elevated troponin (Acute) Normochromic normocytic anemia (Acute) Abnormal electrocardiogram (Acute) 1. Acute hypoxic respiratory insufficiency secondary to acute diastolic CHF-BNP greater than 14,000. Patient with ongoing dyspnea. Previously treated for pneumonia with no improvement. Echocardiogram shows an EF of 60%, segmental dysfunction with preserved ejection fraction, RVSP estimated to be 56 mmHg. Cardiology following. Continue PO Lasix. Strict I&O. Daily weight. -12lb since admission. Continue supplement oxygen to maintain O2 sat above 90%. Repeat chest x-ray showed emphysematous changes in the right upper lobe. No acute findings otherwise. Continue aspirin, statin, Plavix, carvedilol, lisinopril. Patient underwent cardiac catheterization with KERWIN to mid LAD. Patient will follow-up with Dr. Castro as outpatient. Walking pulse ox prior to discharge. 2. Elevated troponin/CAD-cardiology following. Status post KERWIN to mid LAD 05/26/2018. Right heart pressures borderline to mildly elevated. LVEF 60%. 3. Hypertension-stable, continue home carvedilol regimen. Lisinopril added. 4. Mild normochromic normocytic anemia-stable. 5. Abnormal CTA of chest-CTA of chest shows groundglass opacities with peribronchial micronodules up to 8 mm in the right lower lobe. Reactive appearing lymph nodes of the mediastinum. Recommend repeat CT of chest in 6 months given discrete pulmonary nodules. DVT prophylaxis-Lovenox subcu This patient was seen by TERRI Yeager under the supervision of Dr. Buchanan.
[2018-05-26] MEDS: Atorvastatin Calcium 40 MG Tablet PO (21:26)
[2018-05-27] VITALS (16 sets, daily range): BP systolic 109–154; BP diastolic 39–78; PULSE 51–74; RESP 15–23; TEMP 36.7–37.3; O2SAT 90–98
[2018-05-27 04:11] LABS: Hematocrit 35.4 % (40-54); Hemoglobin 11.8 g/dl (13.0-16.5); Mean Corp Hgb Conc 33.3 g/gl (32-36); Mean Corpuscular Hgb 31.2 pg (27.0-32.0); Mean Corpuscular Volume 93.7 fL (80-94); Mean Platelet Vol. 10.4 fl (6.2-12.0); Platelet Count 210 K/mm3 (150-450); RBC Distribution Width CV 13.5 % (11.6-14.6); RBC Distribution Width SD 44.1 fl (35.1-43.9); Red Blood Count 3.78 M/mm3 (4.6-6.2); White Blood Count 9.9 K/mm3 (4.4-11.0)
[2018-05-27 04:13] LABS: Scan Indicated on CBC? Y/N NO
[2018-05-27 04:23] LABS: Anion Gap 7 (5-15); BUN 32 mg/dL (7-18); BUN/Creat Ratio 34.6 RATIO (10-20); Calcium,Total 8.2 mg/dL (8.5-10.1); Chloride 105 mmol/L (98-107); Creatinine, Serum 0.92 mg/dL (0.70-1.30); EST Glomerular Filtration Rate 85 mL/min (>60); Est Glom Filt Rate - Afr Amer 103 mL/min (>60); Estimated Creatinine Clearance 64.53 ml/min; Glucose 87 mg/dL (74-106); Potassium 5.2 mmol/L (3.5-5.1); Sodium Level 138 mmol/L (136-145)
[2018-05-27] MEDS: Aspirin 81 MG TAB.CHEW PO (07:49)
[2018-05-27] MEDS: 0.9% NaCl Peripheral Flush Adult/Peds IV (07:49)
[2018-05-27] MEDS: Carvedilol 3.125 MG TABLET PO (07:49)
[2018-05-27] MEDS: Docusate Sodium 100 MG Capsule 200 MG PO (07:49)
[2018-05-27] MEDS: Furosemide 40 MG Tablet PO (07:50)
[2018-05-27] MEDS: Clopidogrel Bisulfate 75 MG Tablet PO (07:50)
[2018-05-27] MEDS: Lisinopril 5 MG Tablet PO (07:50)
[2018-05-27] MEDS: Enoxaparin 40 MG/0.4 ML Syringe SC (07:50)
--- NOTE | 2018-05-27 10:00 | EKG12_ITS ---
Test Reason : AM Blood Pressure : / mmHG Vent. Rate : 058 BPM Atrial Rate : 058 BPM P-R Int : 224 ms QRS Dur : 106 ms QT Int : 440 ms P-R-T Axes : 043 -41 007 degrees QTc Int : 431 ms Sinus bradycardia with 1st degree A-V block Left axis deviation Incomplete right bundle branch block Nonspecific T wave abnormality Abnormal ECG Confirmed by DOUGLAS SMITH, KENNETH ([id number]), fan mail editor GAUTAM MIRAMONTES ([id number]) on 05/30/2018 11:46:10 AM Referred By: FLORI Confirmed By:KENNETH COLE MD
--- NOTE | 2018-05-27 11:11 | PCM.DC ---
- Discharge Diagnoses Current Active Problems: Current Active and Chronic Problems Acute CHF (Acute) Respiratory insufficiency (Acute) Hypoxemia Elevated troponin (Acute) HTN (hypertension) (Chronic) Normochromic normocytic anemia (Acute) Abnormal electrocardiogram (Acute) You will use the following diet at home:: Cardiac Discharge Activity: - - Follow post-op cath activity instructions. Call your doctor if your incision/area has: Continuous Slow Oozing, Sudden Increased Bleeding, Increased Pain/ Swelling, Increased Redness, Foul Smelling Discharge, Swelling at the incision site Call your doctor if you observe: Shortness of breath, Dizziness, Fainting spells, Chest pain Allergies/Adverse Reactions: Allergies levofloxacin [From Levaquin] Adverse Reaction (Verified 05/25/18 20:54) Other muscle aches Medications to take at Discharge Aspirin [Aspirin, Baby] 81 mg PO DAILY@0800 05/22/18 Atorvastatin Calcium [Lipitor] 40 mg PO QHS #30 tablet 05/27/18 Carvedilol [Coreg (Beta Awa)] 3.125 mg PO BID #60 tablet 05/27/18 Clopidogrel Bisulfate [Plavix] 75 mg PO DAILY #30 tablet 05/27/18 Furosemide [Lasix] 40 mg PO DAILY #30 tablet 05/27/18 Lisinopril [Zestril] 5 mg PO DAILY #30 tablet 05/27/18 The following prescriptions were given: Atorvastatin Calcium [Lipitor] 40 mg PO QHS #30 tablet Clopidogrel Bisulfate [Plavix] 75 mg PO DAILY #30 tablet Furosemide [Lasix] 40 mg PO DAILY #30 tablet Lisinopril [Zestril] 5 mg PO DAILY #30 tablet Carvedilol [Coreg (Beta Awa)] 3.125 mg PO BID #60 tablet Primary Care Physician: Jack Arango DO [Primary Care Provider] - Please follow up with your Primary Care Physician in: 1 Week Test Results: Test results from this visit will be discussed in further detail at your follow-up appointment, if applicable. Please Follow Up With: Mendoza Castro MD When: 1-2 Weeks Proposed Discharge Date: 05/27/18
--- NOTE | 2018-05-27 11:14 | DCINST_ITS ---
- Discharge Diagnoses Current Active Problems: Current Active and Chronic Problems Acute CHF (Acute) Respiratory insufficiency (Acute) Hypoxemia Elevated troponin (Acute) HTN (hypertension) (Chronic) Normochromic normocytic anemia (Acute) Abnormal electrocardiogram (Acute) You will use the following diet at home:: Cardiac Discharge Activity: - - Follow post-op cath activity instructions. Call your doctor if your incision/area has: Continuous Slow Oozing, Sudden In creased Bleeding, Increased Pain/ Swelling, Increased Redness, Foul Smelling Discharge, Swelling at the incision site Call your doctor if you observe: Shortness of breath, Dizziness, Fainting spells, Chest pain Allergies/Adverse Reactions: Allergies levofloxacin [From Levaquin] Adverse Reaction (Verified 05/25/18 20:54) Other muscle aches Medications to take at Discharge Aspirin [Aspirin, Baby] 81 mg PO DAILY@0800 05/22/18 Atorvastatin Calcium [Lipitor] 40 mg PO QHS #30 tablet 05/27/18 Carvedilol [Coreg (Beta Awa)] 3.125 mg PO BID #60 tablet 05/27/18 Clopidogrel Bisulfate [Plavix] 75 mg PO DAILY #30 tablet 05/27/18 Furosemide [Lasix] 40 mg PO DAILY #30 tablet 05/27/18 Lisinopril [Zestril] 5 mg PO DAILY #30 tablet 05/27/18 The following prescriptions were given: Atorvastatin Calcium [Lipitor] 40 mg PO QHS #30 tablet Clopidogrel Bisulfate [Plavix] 75 mg PO DAILY #30 tablet Furosemide [Lasix] 40 mg PO DAILY #30 tablet Lisinopril [Zestril] 5 mg PO DAILY #30 tablet Carvedilol [Coreg (Beta Awa)] 3.125 mg PO BID #60 tablet Primary Care Physician: Jack Arango DO [Primary Care Provider] - Please follow up with your Primary Care Physician in: 1 Week Test Results: Test results from this visit will be discussed in further detail at your follow- up appointment, if applicable. Please Follow Up With: Mendoza Castro MD When: 1-2 Weeks Proposed Discharge Date: 05/27/18
--- NOTE | 2018-05-27 13:28 | NURSING ---
1200 ASSESSMENT UNCHANGED AWAITING TO BE SEEN BY DR COLE THEN WILL BE D/C HOME
--- NOTE | 2018-05-27 14:20 | PCM.DC.SUM ---
<Janet Kauffman - Last Filed: 05/27/18 14:26> Discharge Date and Diagnosis Date of Admission: 05/22/18 Date of Discharge: 05/27/18 - Primary Discharge Diagnosis Active and Suspected Problems (Last Updated 05/27/18 @ 14:04 by Sarah Howard) 1. Acute hypoxic respiratory insufficiency secondary to acute diastolic CHF 2. Elevated troponin/CAD status post KERWIN to mid LAD 3. Hypertension 4. Mild normochromic normocytic anemia 5. Abnormal CT of chest - Secondary Discharge Diagnosis Chronic Problems (Last Updated 05/27/18 @ 14:04 by Sarah Howard) Atherosclerotic heart disease of [place] coronary artery without angina pectoris (Chronic) S/P coronary artery stent placement (Chronic ~05/26/18) PCI/KERWIN to the mid LAD HTN (hypertension) (Chronic) Hospital Course and Treatment Imaging Results: Diagnostic Data Chest X-Ray 05/24/18 04:28 IMPRESSION: Emphysematous changes in the right upper lobe. No acute findings in the lungs Electronically Signed: Adryan Calvin MD at 5:23 EST Tel , Service support , Chest CT 05/24/18 15:58 IMPRESSION: 1. Central dominant groundglass opacities with peribronchial micronodules coalescing up to 8 mm in the right lower lobe. Bronchial wall thickening. Differential considerations favor infectious/inflammatory causes such as acute or chronic bronchitis, infectious bronchiolitis cryptogenic organizing pneumonia, pulmonary edema. No cavitating process. 2. Reactive appearing lymph nodes of the mediastinum. 3. Given discrete pulmonary nodules, follow-up chest CT in 6 months is recommended. Electronically Signed: Patrick Moore MD at 19:43 EST , Service support , Dr. Castro- Cardiology Operations: None Procedures: 2-D Echocardiogram, Cardiac catheterization Summary of Care Provided: The patient is a 72 year old M admitted 05/22/2018 due to shortness of breath. 1. Acute hypoxic respiratory insufficiency secondary to acute diastolic CHF-BNP greater than 14,000. Patient with ongoing dyspnea. Previously treated for pneumonia with no improvement. Echocardiogram shows an EF of 60%, segmental dysfunction with preserved ejection fraction, RVSP estimated to be 56 mmHg. Cardiology following. Continue PO Lasix. -12lb since admission. Patient weaned off of oxygen. Room air pulse ox with ambulation 93%. Repeat chest x-ray showed emphysematous changes in the right upper lobe. No acute findings otherwise. Continue aspirin, statin, Plavix, carvedilol, lisinopril. Patient underwent cardiac catheterization 05/26/18 with KERWIN to mid LAD. Patient will follow-up with Dr. Castro as outpatient. 2. Elevated troponin/CAD-cardiology following. Status post KERWIN to mid LAD 05/26/2018. Right heart pressures borderline to mildly elevated. LVEF 60%. 3. Hypertension-stable, continue carvedilol, lisinopril, Lasix. 4. Mild normochromic normocytic anemia-stable. 5. Abnormal CTA of chest-CTA of chest shows groundglass opacities with peribronchial micronodules up to 8 mm in the right lower lobe. Reactive appearing lymph nodes of the mediastinum. Recommend repeat CT of chest in 6 months given discrete pulmonary nodules. This can be arranged by PCP. General: Alert, Oriented x3, Cooperative HEENT: Atraumatic, PERRLA, EOMI, Normocephalic Neck: Supple, No JVD, Negative Carotid Bruits Lungs: Clear to auscultation, Normal air movement Cardiovascular: Regular rate, Regular Rhythm, Normal S1, Normal S2, No murmurs Abdomen: Bowel Sounds Present, Soft, Non Tender, Non-Distended Extremities: No clubbing, No cyanosis, No edema, Capillary Refill Less than 3 Seconds Skin: No rashes, No breakdown, - - Right groin cath site intact. Musculoskeletal: No Tenderness to Palpation of Joints or Extremities Neurological: Cranial nerves II-XII grossly intact, Neuro grossly intact Psych/Mental Status: Normal Affect, Appropriate Patient seen and examined prior to discharge. Physical assessment as noted above. Patient is stable for discharge with follow up recommendations as noted above. This patient was seen by TERRI Yeager under the supervision of Dr. Buchanan. - Physical Exam Vital Signs Temp Pulse Resp BP Pulse Ox 98.1 F 62 18 109/56 L 98 05/27/18 12:00 05/27/18 12:00 05/27/18 12:00 05/27/18 12:00 05/27/18 12:00 Oxygen Flow Rate (L/min) 2 Oxygen Delivery Method Room Air Weight: 169 lb 5.04 oz Body Mass Index (BMI) 28.6 Intake and Output for Last 24 Hours 05/25/18 05/26/18 05/27/18 23:59 23:59 23:59 Intake Total 660 / 660 2320 / 2320 540 / 540 Output Total 550 / 550 1300 / 1300 900 / 900 Balance 110 / 110 1020 / 1020 -360 / -360 Laboratory Tests Past 24 Hrs 05/27/18 05/27/18 04:05 04:05 WBC 9.9 RBC 3.78 L Hgb 11.8 L Hct 35.4 L MCV 93.7 MCH 31.2 MCHC 33.3 RDW 13.5 RDW Differential 44.1 H Plt Count 210 MPV 10.4 Sodium 138 Potassium 5.2 H Chloride 105 Carbon Dioxide 26.0 Anion Gap 7 BUN 32 H Creatinine 0.92 Estim Creat Clear Calc 64.53 Est GFR (MDRD) Af Amer 103 Est GFR (MDRD) Non-Af 85 BUN/Creatinine Ratio 34.6 H Glucose 87 Calcium 8.2 L Discharge Diet: Low fat/ Low Cholesterol, 2000 mg Sodium Diet Discharge Activity: - - Follow post-op cath activity instructions. Call your doctor if your incision/area has: Continuous Slow Oozing, Sudden Increased Bleeding, Increased Pain/ Swelling, Increased Redness, Foul Smelling Discharge, Swelling at the incision site Call your doctor if you observe: Shortness of breath, Dizziness, Fainting spells, Chest pain Home Medications: Medications to take at Discharge RX: Aspirin [Aspirin, Baby] 81 mg PO DAILY@0800 05/22/18 RX: Atorvastatin Calcium [Lipitor] 40 mg PO QHS #30 tablet 05/27/18 RX: Carvedilol [Coreg (Beta Awa)] 3.125 mg PO BID #60 tablet 05/27/18 RX: Clopidogrel Bisulfate [Plavix] 75 mg PO DAILY #30 tablet 05/27/18 RX: Furosemide [Lasix] 40 mg PO DAILY #30 tablet 05/27/18 RX: Lisinopril [Zestril] 5 mg PO DAILY #30 tablet 05/27/18 Following Prescrptions Were Given to Patient: RX: Atorvastatin Calcium [Lipitor] 40 mg PO QHS #30 tablet RX: Clopidogrel Bisulfate [Plavix] 75 mg PO DAILY #30 tablet RX: Furosemide [Lasix] 40 mg PO DAILY #30 tablet RX: Lisinopril [Zestril] 5 mg PO DAILY #30 tablet RX: Carvedilol [Coreg (Beta Awa)] 3.125 mg PO BID #60 tablet Primary Care Physician: Jack Arango DO [Primary Care Provider] - Please follow up with your Primary Care Physician in: 1 Week Please Follow Up With: Mendoza Castro MD When: 1-2 Weeks Disposition: Home Minutes spent on discharge:: 35 Patient Condition:: Stable Medical Necessity - Tobacco Use Smoking Status: Never smoker Tobacco Use: Non-smoker Meaningful Use Info Meaningful Use Diagnoses (Choose all that apply): CHF - CHF BRITT/ARB ordered at discharge?: Yes Documented LVEF (%): 60 <Jamel Buchanan - Last Filed: 05/27/18 14:57> Discharge Date and Diagnosis - Secondary Discharge Diagnosis Chronic Problems (Last Updated 05/27/18 @ 14:04 by Sarah Howard) Atherosclerotic heart disease of [place] coronary artery without angina pectoris (Chronic) S/P coronary artery stent placement (Chronic ~05/26/18) PCI/KERWIN to the mid LAD HTN (hypertension) (Chronic) Hospital Course and Treatment Operations: None Procedures: 2-D Echocardiogram, Cardiac catheterization Summary of Care Provided: Patient seen and examined independently. Data reviewed. I agree with the above note by the nurse practitioner. The patient is a 72 year old M presents with shortness of breath. Patient was found to be heart failure. Patient was also found to have a non-ST elevation myocardial infarction. Patient underwent cardiac catheterization on the and had a drug-eluting stent to the LAD. Patient will continue with Plavix, beta-awa and aspirin. Additionally patient be on high intensity statin. Patient's heart failure was effectively treated and patient will continue with Lasix, lisinopril and carvedilol. Will follow up with cardiology as outpatient. [] - Physical Exam General: Alert, No apparent distress HEENT: Atraumatic, Normocephalic Oral: Moist Mucosa, No Gingival or Mucosal Lesions/ Ulcerations Neck: No Nodes, Thyroid Normal Size and Texture Lungs: Clear to auscultation, Normal air movement, No rhonchi, No wheeze Cardiovascular: Regular rate, Regular Rhythm, Normal S1, Normal S2, No murmurs Abdomen: Bowel Sounds Present, Soft, Non Tender, Non-Distended, No Hepato-splenomegaly Vital Signs Temp Pulse Resp BP Pulse Ox 36.7 C 59 L 18 117/59 L 96 05/27/18 12:00 05/27/18 14:36 05/27/18 14:36 05/27/18 14:36 05/27/18 14:36 Oxygen Flow Rate (L/min) 2 Oxygen Delivery Method Room Air Weight: 76.8 kg Body Mass Index (BMI) 28.6 Intake and Output for Last 24 Hours 05/25/18 05/26/18 05/27/18 23:59 23:59 23:59 Intake Total 660 / 660 2320 / 2320 540 / 540 Output Total 550 / 550 1300 / 1300 900 / 900 Balance 110 / 110 1020 / 1020 -360 / -360 Laboratory Tests Past 24 Hrs 05/27/18 05/27/18 04:05 04:05 WBC 9.9 RBC 3.78 L Hgb 11.8 L Hct 35.4 L MCV 93.7 MCH 31.2 MCHC 33.3 RDW 13.5 RDW Differential 44.1 H Plt Count 210 MPV 10.4 Sodium 138 Potassium 5.2 H Chloride 105 Carbon Dioxide 26.0 Anion Gap 7 BUN 32 H Creatinine 0.92 Estim Creat Clear Calc 64.53 Est GFR (MDRD) Af Amer 103 Est GFR (MDRD) Non-Af 85 BUN/Creatinine Ratio 34.6 H Glucose 87 Calcium 8.2 L Discharge Diet: Low fat/ Low Cholesterol, 2000 mg Sodium Diet Discharge Activity: - Call your doctor if your incision/area has: Continuous Slow Oozing, Sudden Increased Bleeding, Increased Pain/ Swelling, Foul Smelling Discharge, Swelling at the incision site Call your doctor if you observe: Shortness of breath, Dizziness, Fainting spells, Chest pain Disposition: Home Patient Condition:: Stable Meaningful Use Info Meaningful Use Diagnoses (Choose all that apply): CHF - CHF BRITT/ARB ordered at discharge?: Yes Documented LVEF (%): 60 Code Visit Inpatient E&M: 75594 Disch Hosp
--- NOTE | 2018-05-27 14:26 | DS.PCM_ITS ---
<Janet Kauffman - Last Filed: 05/27/18 14:26> Discharge Date and Diagnosis Date of Admission: 05/22/18 Date of Discharge: 05/27/18 - Primary Discharge Diagnosis Active and Suspected Problems (Last Updated 05/27/18 @ 14:04 by Sarah Howard) 1. Acute hypoxic respiratory insufficiency secondary to acute diastolic CHF 2. Elevated troponin/CAD status post KERWIN to mid LAD 3. Hypertension 4. Mild normochromic normocytic anemia 5. Abnormal CT of chest - Secondary Discharge Diagnosis Chronic Problems (Last Updated 05/27/18 @ 14:04 by Sarah Howard) Atherosclerotic heart disease of [place] coronary artery without angina pectoris (Chronic) S/P coronary artery stent placement (Chronic ~05/26/18) PCI/KERWIN to the mid LAD HTN (hypertension) (Chronic) Hospital Course and Treatment Imaging Results: Diagnostic Data Chest X-Ray 05/24/18 04:28 IMPRESSION: Emphysematous changes in the right upper lobe. No acute findings in the lungs Electronically Signed: Adryan Calvin MD at 5:23 EST Tel , Service support , Chest CT 05/24/18 15:58 IMPRESSION: 1. Central dominant groundglass opacities with peribronchial micronodules coalescing up to 8 mm in the right lower lobe. Bronchial wall thickening. Differential considerations favor infectious/inflammatory causes such as acute or chronic bronchitis, infectious bronchiolitis cryptogenic organizing pneumonia, pulmonary edema. No cavitating process. 2. Reactive appearing lymph nodes of the mediastinum. 3. Given discrete pulmonary nodules, follow-up chest CT in 6 months is recommended. Electronically Signed: Patrick Moore MD at 19:43 EST , Service support , Dr. Castro- Cardiology Operations: None Procedures: 2-D Echocardiogram, Cardiac catheterization Summary of Care Provided: The patient is a 72 year old M admitted 05/22/2018 due to shortness of breath. 1. Acute hypoxic respiratory insufficiency secondary to acute diastolic CHF-BNP greater than 14,000. Patient with ongoing dyspnea. Previously treated for pneumonia with no improvement. Echocardiogram shows an EF of 60%, segmental dysfunction with preserved ejection fraction, RVSP estimated to be 56 mmHg. Cardiology following. Continue PO Lasix. -12lb since admission. Patient weaned off of oxygen. Room air pulse ox with ambulation 93%. Repeat chest x- ray showed emphysematous changes in the right upper lobe. No acute findings otherwise. Continue aspirin, statin, Plavix, carvedilol, lisinopril. Patient underwent cardiac catheterization 05/26/18 with KERWIN to mid LAD. Patient will follow-up with Dr. Castro as outpatient. 2. Elevated troponin/CAD-cardiology following. Status post KERWIN to mid LAD 05/26/2018. Right heart pressures borderline to mildly elevated. LVEF 60%. 3. Hypertension-stable, continue carvedilol, lisinopril, Lasix. 4. Mild normochromic normocytic anemia-stable. 5. Abnormal CTA of chest-CTA of chest shows groundglass opacities with peribronchial micronodules up to 8 mm in the right lower lobe. Reactive appearing lymph nodes of the mediastinum. Recommend repeat CT of chest in 6 months given discrete pulmonary nodules. This can be arranged by PCP. General: Alert, Oriented x3, Cooperative HEENT: Atraumatic, PERRLA, EOMI, Normocephalic Neck: Supple, No JVD, Negative Carotid Bruits Lungs: Clear to auscultation, Normal air movement Cardiovascular: Regular rate, Regular Rhythm, Normal S1, Normal S2, No murmurs Abdomen: Bowel Sounds Present, Soft, Non Tender, Non-Distended Extremities: No clubbing, No cyanosis, No edema, Capillary Refill Less than 3 Seconds Skin: No rashes, No breakdown, - - Right groin cath site intact. Musculoskeletal: No Tenderness to Palpation of Joints or Extremities Neurological: Cranial nerves II-XII grossly intact, Neuro grossly intact Psych/Mental Status: Normal Affect, Appropriate Patient seen and examined prior to discharge. Physical assessment as noted above. Patient is stable for discharge with follow up recommendations as noted above. This patient was seen by TERRI Yeager under the supervision of Dr. Buchanan. - Physical Exam Vital Signs Temp Pulse Resp BP Pulse Ox 98.1 F 62 18 109/56 L 98 05/27/18 12:00 05/27/18 12:00 05/27/18 12:00 05/27/18 12:00 05/27/18 12:00 Oxygen Flow Rate (L/min) 2 Oxygen Delivery Method Room Air Weight: 169 lb 5.04 oz Body Mass Index (BMI) 28.6 Intake and Output for Last 24 Hours 05/25/18 05/26/18 05/27/18 23:59 23:59 23:59 Intake Total 660 / 660 2320 / 2320 540 / 540 Output Total 550 / 550 1300 / 1300 900 / 900 Balance 110 / 110 1020 / 1020 -360 / -360 Laboratory Tests Past 24 Hrs 05/27/18 05/27/18 04:05 04:05 WBC 9.9 RBC 3.78 L Hgb 11.8 L Hct 35.4 L MCV 93.7 MCH 31.2 MCHC 33.3 RDW 13.5 RDW Differential 44.1 H Plt Count 210 MPV 10.4 Sodium 138 Potassium 5.2 H Chloride 105 Carbon Dioxide 26.0 Anion Gap 7 BUN 32 H Creatinine 0.92 Estim Creat Clear Calc 64.53 Est GFR (MDRD) Af Amer 103 Est GFR (MDRD) Non-Af 85 BUN/Creatinine Ratio 34.6 H Glucose 87 Calcium 8.2 L Discharge Diet: Low fat/ Low Cholesterol, 2000 mg Sodium Diet Discharge Activity: - - Follow post-op cath activity instructions. Call your doctor if your incision/area has: Continuous Slow Oozing, Sudden Increased Bleeding, Increased Pain/ Swelling, Increased Redness, Foul Smelling Discharge, Swelling at the incision site Call your doctor if you observe: Shortness of breath, Dizziness, Fainting spells, Chest pain Home Medications: Medications to take at Discharge RX: Aspirin [Aspirin, Baby] 81 mg PO DAILY@0800 05/22/18 RX: Atorvastatin Calcium [Lipitor] 40 mg PO QHS #30 tablet 05/27/18 RX: Carvedilol [Coreg (Beta Awa)] 3.125 mg PO BID #60 tablet 05/27/18 RX: Clopidogrel Bisulfate [Plavix] 75 mg PO DAILY #30 tablet 05/27/18 RX: Furosemide [Lasix] 40 mg PO DAILY #30 tablet 05/27/18 RX: Lisinopril [Zestril] 5 mg PO DAILY #30 tablet 05/27/18 Following Prescrptions Were Given to Patient: RX: Atorvastatin Calcium [Lipitor] 40 mg PO QHS #30 tablet RX: Clopidogrel Bisulfate [Plavix] 75 mg PO DAILY #30 tablet RX: Furosemide [Lasix] 40 mg PO DAILY #30 tablet RX: Lisinopril [Zestril] 5 mg PO DAILY #30 tablet RX: Carvedilol [Coreg (Beta Awa)] 3.125 mg PO BID #60 tablet Primary Care Physician: Jack Arango DO [Primary Care Provider] - Please follow up with your Primary Care Physician in: 1 Week Please Follow Up With: Mendoza Castro MD When: 1-2 Weeks Disposition: Home Minutes spent on discharge:: 35 Patient Condition:: Stable Medical Necessity - Tobacco Use Smoking Status: Never smoker Tobacco Use: Non-smoker Meaningful Use Info Meaningful Use Diagnoses (Choose all that apply): CHF - CHF BRITT/ARB ordered at discharge?: Yes Documented LVEF (%): 60 <Jamel Buchanan - Last Filed: 05/27/18 14:57> Discharge Date and Diagnosis - Secondary Discharge Diagnosis Chronic Problems (Last Updated 05/27/18 @ 14:04 by Sarah Howard) Atherosclerotic heart disease of [place] coronary artery without angina pectoris (Chronic) S/P coronary artery stent placement (Chronic ~05/26/18) PCI/KERWIN to the mid LAD HTN (hypertension) (Chronic) Hospital Course and Treatment Operations: None Procedures: 2-D Echocardiogram, Cardiac catheterization Summary of Care Provided: Patient seen and examined independently. Data reviewed. I agree with the above note by the nurse practitioner. The patient is a 72 year old M presents with shortness of breath. Patient was found to be heart failure. Patient was also found to have a non-ST elevation myocardial infarction. Patient underwent cardiac catheterization on the and had a drug-eluting stent to the LAD. Patient will continue with Plavix, beta-awa and aspirin. Additionally patient be on high intensity statin. Patient's heart failure was effectively treated and patient will continue with Lasix, lisinopril and carvedilol. Will follow up with cardiology as outpatient. [] - Physical Exam General: Alert, No apparent distress HEENT: Atraumatic, Normocephalic Oral: Moist Mucosa, No Gingival or Mucosal Lesions/ Ulcerations Neck: No Nodes, Thyroid Normal Size and Texture Lungs: Clear to auscultation, Normal air movement, No rhonchi, No wheeze Cardiovascular: Regular rate, Regular Rhythm, Normal S1, Normal S2, No murmurs Abdomen: Bowel Sounds Present, Soft, Non Tender, Non-Distended, No Hepato- splenomegaly Vital Signs Temp Pulse Resp BP Pulse Ox 36.7 C 59 L 18 117/59 L 96 05/27/18 12:00 05/27/18 14:36 05/27/18 14:36 05/27/18 14:36 05/27/18 14:36 Oxygen Flow Rate (L/min) 2 Oxygen Delivery Method Room Air Weight: 76.8 kg Body Mass Index (BMI) 28.6 Intake and Output for Last 24 Hours 05/25/18 05/26/18 05/27/18 23:59 23:59 23:59 Intake Total 660 / 660 2320 / 2320 540 / 540 Output Total 550 / 550 1300 / 1300 900 / 900 Balance 110 / 110 1020 / 1020 -360 / -360 Laboratory Tests Past 24 Hrs 05/27/18 05/27/18 04:05 04:05 WBC 9.9 RBC 3.78 L Hgb 11.8 L Hct 35.4 L MCV 93.7 MCH 31.2 MCHC 33.3 RDW 13.5 RDW Differential 44.1 H Plt Count 210 MPV 10.4 Sodium 138 Potassium 5.2 H Chloride 105 Carbon Dioxide 26.0 Anion Gap 7 BUN 32 H Creatinine 0.92 Estim Creat Clear Calc 64.53 Est GFR (MDRD) Af Amer 103 Est GFR (MDRD) Non-Af 85 BUN/Creatinine Ratio 34.6 H Glucose 87 Calcium 8.2 L Discharge Diet: Low fat/ Low Cholesterol, 2000 mg Sodium Diet Discharge Activity: - Call your doctor if your incision/area has: Continuous Slow Oozing, Sudden Increased Bleeding, Increased Pain/ Swelling, Foul Smelling Discharge, Swelling at the incision site Call your doctor if you observe: Shortness of breath, Dizziness, Fainting spells, Chest pain Disposition: Home Patient Condition:: Stable Meaningful Use Info Meaningful Use Diagnoses (Choose all that apply): CHF - CHF BRITT/ARB ordered at discharge?: Yes Documented LVEF (%): 60 Code Visit Inpatient E&M: 34470 Disch Hosp
--- NOTE | 2018-05-27 16:16 | PN.CARD_ITS ---
Subjectve: The patient was evaluated earlier this day. He had been up and ambulating. He states he felt better. His states he looks better than he has in the past and she notes that he has not been short of breath/dyspneic as he has been in the past. Objective: Vital Signs Temp Pulse Resp BP Pulse Ox 98.1 F 59 L 18 117/59 L 96 05/27/18 12:00 05/27/18 14:36 05/27/18 14:36 05/27/18 14:36 05/27/18 14:36 Oxygen Flow Rate (L/min) 2 Oxygen Delivery Method Room Air Weight: 169 lb 5.04 oz Body Mass Index (BMI) 28.6 Intake and Output for Last 24 Hours 05/25/18 05/26/18 05/27/18 23:59 23:59 23:59 Intake Total 660 / 660 2320 / 2320 540 / 540 Output Total 550 / 550 1300 / 1300 900 / 900 Balance 110 / 110 1020 / 1020 -360 / -360 General: Awake, Alert, Oriented x 3, Cooperative, No Acute Distress HEENT: Atraumatic, Normocephalic, PERRL, EOMI, Sclera Non Icteric Oral: Moist Mucosa Neck: Supple, Good ROM, No JVD Lungs: Clear to auscultation Cardiovascular: Regular Rhythm, Normal S1, Normal S2 Vascular: Normal Femoral Pulses Abdomen: Bowel Sounds Present, Soft, Non Tender Extremities: No Cyanosis, No Clubbing, No edema Neurological: No Focal Motor or Sensory Deficit Psych/Mental Status: Appropriate 05/27/18 04:05: WBC 9.9, RBC 3.78 L, Hgb 11.8 L, Hct 35.4 L, MCV 93.7, MCH 31.2, MCHC 33.3, RDW 13.5, RDW Differential 44.1 H, Plt Count 210, MPV 10.4 05/27/18 04:05: Sodium 138, Potassium 5.2 H, Chloride 105, Carbon Dioxide 26.0, Anion Gap 7, BUN 32 H, Creatinine 0.92, Est GFR (MDRD) Af Amer 103, Est GFR (MDRD) Non-Af 85, BUN/Creatinine Ratio 34.6 H, Glucose 87, Calcium 8.2 L Rhythm: Sinus rhythm EKG: Sinus rhythm; nonspecific ST and T wave abnormality; compared to the previous ECGs the ST and T wave abnormalities are returning to baseline Medical Necessity - Tobacco Use Smoking Status: Never smoker Tobacco Use: Non-smoker Assessment/Plan 1. CHF There have been concerns that the patient has had CHF above and beyond what may have been an underlying pneumonia . The patient has been treated for this with diuretic therapy, has had increased diuresis, and states he has had improvement in his breathing, without the addition of ongoing antibiotic therapy. He is undergone noninvasive evaluation. His troponin I levels have been indeterminant and are decreasing. His ECG is abnormal. His echocardiogram demonstrates left ventricular regional wall motion abnormalities but with over all preserved LV systolic function. He has now undergone evaluation with diagnostic cardiac catheterization. This led to LAD PCI. Overall, since the PCI, he feels better. He notes his breathing has improved. His states he looks better. His ECG also appears to demonstrate his aforementioned ST and T wave changes returning towards baseline. 2. Abnormal cardiac enzymes Again he is undergone both noninvasive and invasive evaluation. He will continue medical management. Again he has received LAD PCI. 3. Abnormal ECG His ECG is abnormal raising concerns of myocardial ischemia. His echocardiogram raises concerns of left ventricular regional wall motion abnormalities. His cardiac catheterization with respect to the left ventriculogram does suggest an element of hypokinesis of the anterior wall. This appears to be compatible with his LAD lesion. He is now continuing medical management. His ECG, status post his LAD PCI, appears to be returning towards baseline. 4. Hypertension He will continue medical management with adjustment as needed. Overall, The patient will continue medical management. He will need continued outpatient cardiovascular follow-up. He will be encouraged to enroll in outpatient cardiac rehabilitation therapy. Comment: The patient's case has been discussed and reviewed with the patient and his spouse, and the [facility] hospitalist team. This note was generated with [employer] dictation software. It may contain incorrect words, spelling, and punctuation that were not noted in checking the note before signing.
== END 2018-05-27 14:50 | disposition home or self-care (01) | DRG 246 ==
LOC: PCU 05-26 07:12 → ICU 05-26 08:40
PROVIDERS: Internal Medicine; Internal Medicine Cardiovascular Disease; Nurse Practitioner Family; Admitting Provider Internal Medicine; Family Provider Preventive Medicine Occupational Medicine; PCP Preventive Medicine Occupational Medicine
DX: I11.0 Hypertensive heart disease with heart failure (principal); I50.31 Acute diastolic (congestive) heart failure; I21.4 Non-ST elevation (NSTEMI) myocardial infarction; D64.9 Anemia, unspecified; R91.8 Other nonspecific abnormal finding of lung field; R09.02 Hypoxemia; R06.89 Other abnormalities of breathing; I25.10 Atherosclerotic heart disease of native coronary artery without angina pectoris; Z79.899 Other long term (current) drug therapy; I27.20 Pulmonary hypertension, unspecified
CPT/HCPCS: 36415; 71045; 71250; 80048; 80053; 80061; 81001; 82803; 83735; 84100; 84443; 84484; 85025; 85027; 85347; 85610; 85730; 92928; 93005; 93306; 93460; 97116; 97127; 97162; 97165; 97530; 97802; 97803; 99152; 99153; J7030; Q9967; A4216; C1725; C1751; C1760; C1769; C1874; C1887; C1894; C9600; G0515; J1940

== ENCOUNTER → 2018-06-19 07:04 | Outpatient (CLI) | payer MEDICARE, SELFPAY ==
[2018-05-22 19:04] VITALS: BMI 28.6
[2018-05-26 10:43] VITALS: BMI 26.6
[2018-06-16 13:17] VITALS: BMI 28.6
--- NOTE | 2018-06-19 10:22 | CR.HP_ITS ---
CR - History & Physical - General Arrival date:: 06/19/18 Arrival time:: 10:16 Date of Referral:: 06/19/18 Date of CR Evaluation:: 06/19/18 Referring Physician: dr. Domingo Castro Primary Diagnosis: PCI - History of Present Cardiac Event Onset Date: Enter Onset Date of cardiac illnesses in Comment field below Acute Myocardial Infarction within 12 months:: No Coronary Artery Bypass Graft:: No Heart valve replacement or repair:: No PTCA or coronary stenting:: Yes - 05/26/18 Heart or Heart-Lung Transplant:: No Heart Failure EF <35%:: No Type of Symptoms:: SOB and fatigue and feeling cold Interventions with present event:: PCI and echocardiogram Were there any complications?: no - Medications Home Medications: Ambulatory Orders Medication Instructions Recorded Aspirin [Aspirin, Baby] 81 mg PO DAILY@0800 05/22/18 Carvedilol [Coreg (Beta Awa)] 3.125 mg PO BID #60 tab 05/27/18 Clopidogrel Bisulfate [Plavix] 75 mg PO DAILY #30 tab 05/27/18 Furosemide [Lasix] 40 mg PO DAILY #30 tab 05/27/18 Lisinopril [Zestril] 5 mg PO DAILY #30 tab 05/27/18 cephalexin 500 mg capsule 500 mg PO TID #21 cap 06/16/18 - Allergies Allergies/Adverse Reactions: Allergies levofloxacin [From Levaquin] Adverse Reaction (Verified 06/16/18 13:04) Other muscle aches - Sleep Disorder Evaluation Hx of Sleep Apnea: No Do you snore loudly (louder than talking or can be heard through closed doors)?: Yes Do you often feel tired/ fatigued/ sleepy during daytime?: No Has anyone observed you stop breathing during sleep?: Yes History of Hypertension (for STOP score): Yes STOP Results: Positive Advanced Directives - Advanced Directives 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 Living Will: Yes Advance Directives Information Provided: Yes Advance Directives on File: No DNR Order?:: No - MOLST See MOLST form: No Past Medical History - Past Medical Illness Medical History: Past Medical History (Last Reviewed 06/16/18 @ 13:06 by Sarah Howard) Essential hypertension (Chronic) I10 Atherosclerotic heart disease of [place] coronary artery without angina pectoris (Chronic) I25.10 - Past Surgical History Surgical History: Past Surgical History (Last Reviewed 06/16/18 @ 13:06 by Sarah Howard) S/P coronary artery stent placement (Chronic) Onset Date: ~05/26/18 Z95.5 PCI/KERWIN to the mid LAD Surgical History: - - repair of lacerations related to work - Family History Summary Family History: Family History (Last Reviewed 06/16/18 @ 13:06 by Sarah Howard) Mother Heart disease Father Lymphoma Social History - Smoking History Smoking Status: Never smoker Hx Tobacco Use: No Hx Smoking Exposure: No - Alcohol Use Alcohol Usage: No - Substance Abuse Hx Substance Use: No - Occupation Occupation (List type of work in comments):: Employed Hours worked per day:: 8 - Hobbies, Recreation, Social Activities Hobbies: Woodworking Recreational Activities: I am able to engage in most, but not all activities Social Environment - Status Marital Status: - Current Living Arrangements Living Environment:: Spouse - Children How many children do you have?: 4 Do any of your children live nearby?: Yes - Safety Do you feel safe in your surroundings?: Yes - Assistance Do you need any assistance at home?: no Review of Systems - Review of Systems Hints: Right click = Denies (Slash). Left click = Reports ([place]) Review of Present Symptoms: Reports: Appetite - Normal, Appetite - Special Diet - cardiac low NA, fluid restriction, Sleep - Normal. Denies: Shortness of Breath at Rest, Shortness of Breath with Exertion, PVD, Operative Discomfort, Angina, Wound Healing, Dizziness/Lightheadedness, Fatigue, Heart Arrhythmia/Irregularities, Sexual Changes - Pain Is Patient Pain Free?: No Pain Location: other - right elbow was red and swollen, used Tylenol and MD started Keflex Pain Level: 1/10 Previous experience dealing with pain?: Tylenol Risk Factor Assessment - Chief Complaint Chief Complaint: CR post PCI - Vital Signs Pulse Ox: 98 - Pulse Pulse Rate: 64 Pulse Rhythm: Regular - Hypertension Blood Pressure Sitting - Right Arm: 140/72 Blood Pressure Sitting - Left Arm: 138/80 - Diabetes Nutrition Referral for Diabetes: No - Obesity Height: 5 ft 6 in Weight:: 174 lb Weight in Pounds: 174.0 lbs Weight Source: Standing Scale Body Mass Index (BMI): 28.0 Desired Body Weight: 170 Realistic Weight Goal (Loss of 1-2 lbs/week): 170 Nutritional Referral for Obesity: No - Physical Inactivity Physical Inactivity: Reg Exercise 30 min/day - Risk Stratification Risk Guidelines: Lowest Risk: Risk Factor for Smoking, Risk Factor for Diabetes, Risk Factor for Obesity, Risk Factor for Hypertension, Risk Factor for Sedentary Lifestyle, Risk Factor for Depression, Moderate Risk: Risk Factor for Dyslipidemia - For Smoking Smoking Risk Guidelines: Smoking Low Risk: None or quit greater than 6 months ago. Smoking Moderate Risk: Smoker or quit 6 months or less ago. Smoking High Risk: Smoker - For Dyslipidemia Dyslipidemia Risk Guidelines: Low Risk: Moderate Risk: High Risk: 15-25% fat 25.1-29% fat >/= 30% fat. <7% sat fat 7-9% sat fat >9% sat fat. <150 mg chol 150-299 mg chol >/= 300 mg chol. LDL <100 LDL 100-129 LDL >/= 130. Chol/HDL ratio <5.0 Chol/HDL ratio 5.0-6.0 Chol/HDL ratio >6.0. Triglycerides <100 Triglycerides 100-149 Triglycerides >/= 150 - For Diabetes Mellitus Diabetes Risk Guidelines: Diabetes Low Risk: HgA1c <6.5% and/or FBG <120. Diabetes Moderate Risk: HgA1c 6.6-7.9% and/or FBG 120-180. Diabetes High Risk: HgA1c >/= 8% and/or FBG >180 - For Obesity/Overweight Obesity/Overweight Risk Guidelines: Obesity Low Risk: BMI <25.0. Obesity Moderate Risk: BMI 25-29.9. Obesity High Risk: BMI >/= 30.0 - For Hypertension Hypertension Risk Guidelines: Hypertension Low Risk: Systolic <120 and Diastolic <80. Hypertension Moderate Risk: Systolic 120-139 and Diastolic 80-89. Hypertension High Risk: Systolic >/= 140 and Diastolic >/= 90 - For Sedentary Lifestyle Sedentary Lifestyle Risk Guidelines: Sedentary Lifestyle Low Risk: >/= 1,500 kcal/week. Sedentary Lifestyle Moderate Risk: 700-1,499 kcal/week. Sedentary Lifestyle High Risk: < 700 kcal/week - For Depression Depression Risk Guidelines: Depression Low Risk: Not clinically depressed. Depression Moderate Risk: Mildly depressed. Depression High Risk: Clinically depressed - Family History Family History: Family History (Last Reviewed 06/16/18 @ 13:06 by Sarah Howard) Mother Heart disease Father Lymphoma Motivation - Motivation to Participate On a scale of 1 to 10, how prepared are you to commit to attending program?: 6
[2018-06-19 10:50] VITALS: BP 138/80; BP 140/72; PULSE 64; O2SAT 98; BMI 28.0
--- NOTE | 2018-06-19 11:02 | CR.ITP_ITS ---
General Information - General Information Admitting Diagnosis: PCI W/STENT - Education/Goals Barriers to Learning: Vision Impairment Individual Counseling: Initial Assessment: Abnormal Cholesterol Levels, High Blood Pressure, Overweight/Obesity Cardiac Rehabilitation Goals: 1. Maintain the individual as the primary focus of care. 2. To improve the patient's quality of life. 3. Identification of cardiac risk factors and provide cardiac risk factor management. 4. Enhance the psychosocial status of the patient. 5. Reconditioning enough to allow the patient to resume customary activities. 6. Control symptoms of cardiac disease Scale for measuring improvement of personal goals: Enter appropriate number in Comments. 2 = Unchanged. 3 = Slightly Better. 4 = Moderate Improvement. 5 = Met my Goal Personal Goals: Initial Assessment: Get back to work, or to resume activities faster, Improve knowledge of cardiac disease, Improve muscle strength and endurance, Control risk factors (learn risk factor modification) Exercise - Initial Assessment - Visit Date of Eval: 06/19/18 Session #:: 0 - Stages of Change Stages of Change:: Action - Exercise Prescription Mode:: Treadmill, Rower, Airdyne, NuStep Angina with exercise?: No Target Heart Rate:: 102-110 - Hypertension Do any of the following apply?: Yes, Medication, Diet Resting Blood Pressure:: 128/80 - Intervention Home Exercise/Activity Goal:: Moderate Exercise 30 min/day x 5 days/wk - Education Goals:: Warm-up, RPE CLIF Scale, S/S, Safe Exercise, Self-Monitoring - Exercise Program Goals Exercise Program Goals: Aerobic Activity >30 min Nutrition - Initial Assessment - Program Goals Nutrition Program Goals: LDL <70. Total Cholesterol <200. HDL >45. Triglycerides <150. HgbA1C <7%. BMI <25 - Visit Date of Assessment:: 06/19/18 - Stages of Change Stages of Change:: Action - Lipids Total Cholesterol (mg/dL) Goal = less than 200 mg/dL: 118 HDL Cholesterol (mg/dL) Goal = less than 45 mg/dL: 32 LDL Cholesterol (mg/dL) Goal = less than 70 mg/dL: 64 Triglycerides (mg/dL) Goal = less than 150 mg/dL: 108 - Diabetes Diabetes:: No - Weight Management Height: 5 ft 6 in Weight:: 174 lb Body Fat %:: 28 - Intervention Referral to dietitian:: No Referral to Diabetic Clinic:: No Will attend diet classes:: Yes - Education Gave educational materials for:: Healthy eating Tobacco - Initial Assessment - Program Goals Tobacco Program Goals: Complete smoking cessation. Attend education classes. Improve Knowledge Test score - Stage of Change Stages of Change:: Action - Learning Barriers Learning Barriers: Vision, Ready to Learn - Family Support Do you have family support?: Yes - Tobacco Use Tobacco Use: Non-smoker Do you use smokeless tobacco?: No - Intervention Smoking Cessation Referral:: No Education Schedule Given:: Yes - Education Gave educational material for:: Coronary artery disease, Risk factors, Sexuality, Medical compliance, Cardiac A&P, Angina signs & symptoms Psychosocial - Initial Assess - Target Goals Target Goals: Assess presence or absence of depression. Using a valid screening tool, maximizes coping skills. Positive support system - Stages of Change Stages of Change:: Action - Psychosocial Test Tool Used:: HANDS Depression Questionnaire - Intervention PS - Interventions: Yes Attend Stress Management Classes, No Referral to Mental Health, No Referral to [facility] Case Management, No Referral to Physician, No Uses Stress Management Skills - Education Gave educational materials for:: Coping techniques, Signs & symptoms of depression, Stress management, Relaxation techniques - Patient/Program Goal Preventative Medication(s):: Aspirin, Clopidogrel, Beta jose guadalupe, Statin/lipid - Assistive Devices Assistive Devices:: None Fall Risk Assessed:: Yes Patient Health Questionnaire 30-Day Re-eval Assessment 1. Little interest or pleasure in doing things: Not at all 2. Feeling down, depressed, or hopeless: Not at all 3. Trouble falling or staying asleep, or sleeping too much: Not at all 4. Feeling tired or having little energy: Not at all 5. Poor appetite or overeating: Not at all 6. Feeling bad about yourself -- or that you are a failure or have let yourself or your family down: Not at all 7. Trouble concentrating on things, such as reading the newspaper or watching television: Not at all 8. Moving or speaking so slowly that other people could have noticed. Or the opposite - being so fidgety or restless that you have been moving around a lot more than usual: Not at all 9. Thoughts that you would be better off , or of hurting yourself in some way: Not at all How difficult have these problems made it for you to do your work, take care of things at home, or get along with other people?: Not difficult at all Total Score: 0 TALITA-Q SV Test - Statements CAD is a disease of the arteries in the heart: False Examples of risk factors for heart disease: True Angina is chest pain or discomfort: I Don't Know The benefits of resistance training include: True Eating more meat and dairy products: False Anti-platelet medications such as aspirin are important: True The only effective way to manage stress: False An exercise warm-up slowly increases heart rate: I Don't Know Prepared, processed foods usually have high sodium: True Depression is common after a heart attack: I Don't Know The statin medications lower cholesterol: True To control blood pressure, lower the amount of sodium: I Don't Know If someone gets chest discomfort during walking: False Transfats are partially hydrogenated vegetable oils: False Sleep apnea that is not treated increases the risk: False To control cholesterol, one should become a vegetarian: False Someone knows if he/she is exercising at the right level: I Don't Know Diabetes cannot be prevented with exercise & health eating: True Stress is a large risk for heart attack: False A diet that can help lower blood pressure is rich in: False - Total Score Total Correct Responses: 11 Self-Efficacy We would like to know how confident you are in doing certain activities. Please select your confidence level for:: Select your confidence level for the following using the scale 1-10 where 1 is not at all confident and 10 is totally confident. Your score is the average of all 6 responses. Fatigue: How confident are you that you can keep the fatigue caused by your disease from interfering with the things you want to do? Physical Discomfort or Pain: How confident are you that you can keep the physical discomfort or pain of your disease from interfering with the things you want to do? Emotional Distress: How confident are you that you can keep the emotional distress caused by your disease from interfering with the things you want to do? Other Symptoms or Health Problems: How confident are you that you can keep other symptoms or health problems from interfering with the things you want to do? Different Tasks and Activities: How confident are you that you can do the different tasks and activities needed to manage your health condition so as to reduce your need to see a doctor? Medication: How confident are you that you can do things other than just taking medication to reduce how much your illness affects your everyday life? Initial Assessment We would like to know how confident you are in doing certain activities. Please select your confidence level for:: Select your confidence level for the following using the scale 1-10 where 1 is not at all confident and 10 is totally confident. Your score is the average of all 6 responses. Fatigue: How confident are you that you can keep the fatigue caused by your disease from interfering with the things you want to do? Select Number: 10 Physical Discomfort or Pain: How confident are you that you can keep the physical discomfort or pain of your disease from interfering with the things you want to do? Select Number: 10 Emotional Distress: How confident are you that you can keep the emotional distress caused by your disease from interfering with the things you want to do? Select Number: 10 Other Symptoms or Health Problems: How confident are you that you can keep other symptoms or health problems from interfering with the things you want to do? Select Number: 10 Different Tasks and Activities: How confident are you that you can do the different tasks and activities needed to manage your health condition so as to reduce your need to see a doctor? Select Number: 9 Medication: How confident are you that you can do things other than just taking medication to reduce how much your illness affects your everyday life? Select Number: 9 Total Score:: 9 Nutrition Survey - Nutrition Survey Instructions Scoring Instructions: Scoring is as follows: Yes = 1 points. No = 0 point. Patient score that is >/=12 is considered to be at potential nutritional risk and could benefit from a referral to a registered dietitian. - Nutrition Survey Initial Have you lost >10 lbs over the past 2 months without trying?: No Are you following a special diet at home for diabetes, low fat, or low salt?: Yes Are you interested in meeting with a dietitian for help understanding your diet?: Yes Do you eat less than 3 meals a day?: No Do you eat fatty meats (hitchcock, sausage, ribs, etc), fried foods, desserts, large amounts of salad dressings, margarine, butter, or cheese most days?: No Do you have food allergies? [Enter types in comment field]: No Do you eat in restaurants more than 3 times a week?: No Do you season food with salt, seasoning salt, or garlic salt?: Yes Do you used canned, boxed, frozen meals, or soups, seasoning packets?: No Total Score:: 3
[2018-06-19 11:23] VITALS: BP 128/80
== END ==
PROVIDERS: Family Provider Preventive Medicine Occupational Medicine; PCP Preventive Medicine Occupational Medicine; Referring Provider Internal Medicine Cardiovascular Disease; Visit Provider Internal Medicine Cardiovascular Disease
DX: I25.10 Atherosclerotic heart disease of native coronary artery without angina pectoris (principal); I10 Essential (primary) hypertension; Z95.5 Presence of coronary angioplasty implant and graft

== ENCOUNTER 2018-06-26 19:02 | Inpatient (IN) | payer MEDICARE, SELFPAY ==
[2018-05-26 10:43] VITALS: BMI 26.6
[2018-06-19 10:50] VITALS: BMI 28.0
[2018-06-26 19:04] VITALS: BP 139/79; PULSE 118; RESP 16; TEMP 36.4; O2SAT 92; BMI 28.0
[2018-06-26 19:21] VITALS: BP 146/85; PULSE 110; RESP 20; TEMP 37.1; O2SAT 96
--- NOTE | 2018-06-26 19:25 | RAD_ITS ---
STUDY: X-RAY CHEST REASON FOR EXAM: Male, 72 years old. Shortness of breath. TECHNIQUE: PA and lateral views of the chest. COMPARISON: May 24, 2018 FINDINGS: The lungs remain hyperinflated. There are stable left basilar nonspecific opacities. Normal size heart. Normal mediastinum and sabina. Normal visualized pulmonary arteries. Normal visualized aortic arch and descending thoracic aorta. There are diffuse degenerative changes of the visualized thoracic spine. Normal visualized ribs, clavicles, and shoulders. There is no demonstrated abnormality of the visualized soft tissue structures of the upper abdomen. RAD/Chest PA and Lateral IMPRESSION: Stable examination demonstrating hyperinflated lungs suggestive of underlying COPD. Electronically Signed: Ethel Abdalla MD at 20:08 EST Tel , Service support ,
--- NOTE | 2018-06-26 19:25 | EKG12_ITS ---
Test Reason : CP Blood Pressure : / mmHG Vent. Rate : 109 BPM Atrial Rate : 109 BPM P-R Int : 210 ms QRS Dur : 110 ms QT Int : 330 ms P-R-T Axes : 061 -52 064 degrees QTc Int : 444 ms Sinus tachycardia with 1st degree A-V block Pulmonary disease pattern Incomplete right bundle branch block Left anterior fascicular block Abnormal ECG Confirmed by MARK SMITH, CAROLINE ([id number]), editor [place] GAUTAM MIRAMONTES ([id number]) on 07/01/2018 4:56:32 PM Referred By: HEMANT CASANOVA Confirmed By:CAROLINE FLORES MD
[2018-06-26 19:45] LABS: Absolute Lymphocyte Count 0.68 X10^3/ul (0.83-4.51); Absolute Neutrophil Count 14.5 X10^3/uL (2.0-7.7); Basophil# 0.02 X10^3/uL; Basophil% 0.1 % (0-1); Eosinophil# 0.09 X10^3/uL; Eosinophils% 0.6 % (0-5); Hematocrit 37.5 % (40-54); Hemoglobin 12.5 g/dl (13.0-16.5); Lymphocyte # 0.68 X10^3/ul (4.0); Lymphocyte % 4.4 % (19-41); Mean Corp Hgb Conc 33.3 g/gl (32-36); Mean Corpuscular Hgb 30.6 pg (27.0-32.0); Mean Corpuscular Volume 91.7 fL (80-94); Mean Platelet Vol. 10.2 fl (6.2-12.0); Monocyte# 0.27 X10^3/uL; Monocyte% 1.7 % (0-10); Neutrophil # 14.47 X10^3/uL (2.7-7.7); Neutrophil % 92.8 % (47-70); Platelet Count 173 K/mm3 (150-450); RBC Distribution Width CV 13.6 % (11.6-14.6); Red Blood Count 4.09 M/mm3 (4.6-6.2); White Blood Count 15.6 K/mm3 (4.4-11.0)
[2018-06-26 19:46] LABS: POSITIVE COUNT NO; POSITIVE DIFFERENTIAL NO; POSITIVE MORPHOLOGY NO
[2018-06-26 20:04] LABS: Anion Gap 12 (5-15); BUN 20 mg/dL (7-18); Calcium,Total 8.6 mg/dL (8.5-10.1); Chloride 106 mmol/L (98-107); Creatinine, Serum 1.25 mg/dL (0.70-1.30); EST Glomerular Filtration Rate 60 mL/min (>60); Est Glom Filt Rate - Afr Amer 73 mL/min (>60); Glucose 164 mg/dL (74-106); Potassium 4.2 mmol/L (3.5-5.1); Sodium Level 140 mmol/L (136-145)
[2018-06-26 20:18] LABS: Lactic Acid 3.2 mmol/L (0.4-2.0)
--- NOTE | 2018-06-26 20:22 | CT_ITS ---
STUDY: CTA CHEST REASON FOR EXAM: Male, 72 years old. Tachycardia. RADIATION DOSAGE (If Supplied By Facility): CTDIvol = ( 13.26 ) mGy, DLP = ( 540.78 ) mGycm TECHNIQUE: The examination was performed with the intravenous administration of 75ML ml of Isovue 370 contrast material. Post-processing of the angiographic images was performed, with multiplanar reformation and 3D reconstruction. Individualized dose optimization techniques were used for this CT. COMPARISON: June 03, 2018 FINDINGS: There are bilateral groundglass opacities. There is a stable 3.8 mm nodule within the right upper lobe. There is dependent atelectasis within the lower lobes. Normal enhancement of the main pulmonary artery and right and left pulmonary arteries. Normal enhancement of the bilateral peripheral pulmonary arteries. There is no demonstrated pulmonary embolism. There is atherosclerotic calcification of the aortic arch and descending thoracic aorta. There is no demonstrated aortic dissection. There are calcifications of the coronary arteries. There are pathologically enlarged mediastinal lymph nodes present. There are prominent and pathologically enlarged right hilar lymph nodes visualized as well. Normal visualized trachea and bronchi. Normal chest wall structures. There are degenerative changes of thoracic spine. There are degenerative changes of the sternoclavicular and glenohumeral joints noted as well. Normal visualized upper abdomen. CT/CTA Chest W/WO Contrast IMPRESSION: No demonstrated pulmonary embolism or arterial dissection. Bilateral groundglass opacities, a nonspecific finding may be secondary to underlying edema and/or an infectious process. Pathologically enlarged mediastinal and right hilar lymph nodes, these may be reactive however cannot exclude an underlying neoplastic process such as lymphoma. Atherosclerosis. Electronically Signed: Ethel Abdalla MD at 21:30 EST Tel , Service support ,
[2018-06-26 20:49] VITALS: PULSE 86; RESP 22; TEMP 37.1; O2SAT 95
--- NOTE | 2018-06-26 21:50 | PCM.HP.STD ---
Problem List (1) Severe sepsis Status: Acute (2) Essential hypertension Status: Chronic (3) S/P coronary artery stent placement Status: Chronic Comment: PCI/KERWIN to the mid LAD (4) Acute CHF Status: Chronic Qualifiers: Heart failure type: systolic Qualified Code(s): I50.21 - Acute systolic (congestive) heart failure (5) Normochromic normocytic anemia Status: Chronic (6) Community acquired pneumonia Status: Acute History of Present Illness Date of Admission: 06/26/18 Chief Complaint: chills The patient is a 72 year old M with a significant history of hypertension; CAD status post coronary stents 4 weeks ago and on aspirin and Plavix; CHF who presented with a same day history of chills. Associated with her symptoms is shortness of breath while at rest. His reported at home his oxygen saturation was 88% on room air. Patient's reported that about 3 days ago he had the same symptoms but his symptoms disappeared only for her to retain on the day of his admission. His initial heart rate was elevated at 110-118. And his respiratory rate was between 20-22. His white count was elevated at 15.6. And his lactic acid was elevated at 3.2. His BMP was unremarkable. A chest x-ray was remarkable for underlying COPD without any acute pathology. However a chest CT showed bilateral ground glass opacities. Past Medical History Past Medical History (Chronic Problems): Chronic Problems (Last Reviewed 06/26/18 @ 22:48 by Brant Guerrero MD) Essential hypertension (Chronic) Atherosclerotic heart disease of [place] coronary artery without angina pectoris (Chronic) S/P coronary artery stent placement (Chronic ~05/26/18) PCI/KERWIN to the mid LAD Acute CHF (Chronic) Normochromic normocytic anemia (Chronic) Medical History: Medical History (Last Reviewed 06/26/18 @ 22:48 by Brant Guerrero MD) Essential hypertension (Chronic) I10 Atherosclerotic heart disease of [place] coronary artery without angina pectoris (Chronic) I25.10 Allergies levofloxacin [From Levaquin] Adverse Reaction (Mild, Verified 06/26/18 19:07) Other muscle aches atorvastatin [From Lipitor] Adverse Reaction (Verified 06/26/18 20:26) Pain in joints Home Medications: Ambulatory Orders Medication Instructions Recorded Aspirin [Aspirin, Baby] 81 mg PO DAILY@0800 05/22/18 Carvedilol [Coreg (Beta Awa)] 3.125 mg PO BID #60 tab 05/27/18 Clopidogrel Bisulfate [Plavix] 75 mg PO DAILY #30 tab 05/27/18 Furosemide [Lasix] 40 mg PO DAILY #30 tab 05/27/18 Lisinopril [Zestril] 5 mg PO DAILY #30 tab 05/27/18 nitroglycerin 0.4 mg sublingual 0.4 mg SUBLINGUAL Q5-15M PRN #25 06/26/18 tablet tab Surgical History: Surgical History (Last Reviewed 06/26/18 @ 22:48 by Brant Guerrero MD) S/P coronary artery stent placement (Chronic) Onset Date: ~05/26/18 Z95.5 PCI/KERWIN to the mid LAD Surgical History: - - repair of lacerations related to work Smoking Status: Never smoker - *Family History Maternal Family History: Family History (Last Reviewed 06/26/18 @ 22:48 by Brant Guerrero MD) Mother Heart disease Father Lymphoma History Items: - - his mother when he was 8 YO of a heart condition Paternal Family History: Family History (Last Reviewed 06/26/18 @ 22:48 by Brant Guerrero MD) Mother Heart disease Father Lymphoma History Items: - - Father at 76 years of age with lymphoma Sibling Family History: Family History (Last Reviewed 06/26/18 @ 22:48 by Brant Guerrero MD) Mother Heart disease Father Lymphoma History Items: - - He has 4 half-sisters, one with dementia, another with osteoporosis....no hx of CAD Review of Systems Constitutional: Reports: Chills. Denies: Fever, Weight Change HEENT: Denies: Head Aches, Sinus Congestion, Sinus Drainage Cardiovascular: Denies: Chest Pain, Palpitations Respiratory: Reports: Shortness of breath at rest Gastrointestinal: Denies: Abdominal Pain, Nausea, Vomiting Genitourinary: Denies: Dysuria Musculoskeletal: Denies: Joint Pain, Joint Tenderness Skin: Denies: Rash, Wounds Neurological: Denies: Numbness, Tingling, Focal weakness Psychiatric: Denies: Anxiety, Depression, Homicidal Ideations, Suicidal Ideations Hematologic/ Lymphatic: Denies: Easy Bruising, Easy Bleeding VTE Information - Inpt Only VTE Present on Admission: No VTE Mechan Device Prophylaxis: None VTE Pharm Prophylaxis ordered?: Yes Patient Problems: Active and Suspected Problems (Last Reviewed 06/26/18 @ 22:48 by Brant Guerrero MD) Severe sepsis (Acute) Community acquired pneumonia (Acute) - Physical Exam General: Alert, Oriented x3, Cooperative HEENT: Atraumatic, PERRLA, EOMI, Normocephalic Neck: Supple, No JVD, Negative Carotid Bruits Lungs: Rales - Bilateral lower lung zaidi, Tachypneic Cardiovascular: No murmurs, Tachycardic Abdomen: Bowel Sounds Present, Soft, Non Tender Extremities: No edema, Capillary Refill Less than 3 Seconds Skin: No rashes, No breakdown Musculoskeletal: No Tenderness to Palpation of Joints or Extremities Neurological: Neuro grossly intact Psych/Mental Status: Normal Affect, Appropriate Vital Signs Temp Pulse Resp BP Pulse Ox 98.7 F 86 22 H 146/85 H 95 06/26/18 20:49 06/26/18 20:49 06/26/18 20:49 06/26/18 19:21 06/26/18 20:49 Oxygen Flow Rate (L/min) 2 Oxygen Delivery Method Nasal Cannula Weight: 78.925 kg Body Mass Index (BMI) 28.0 Laboratory Tests Past 24 Hrs 06/26/18 06/26/18 06/26/18 19:35 19:35 19:35 WBC 15.6 H RBC 4.09 L Hgb 12.5 L Hct 37.5 L MCV 91.7 MCH 30.6 MCHC 33.3 RDW 13.6 RDW Differential 45.0 H Plt Count 173 MPV 10.2 Immature Gran % (Auto) 0.400 Neut % (Auto) 92.8 H Lymph % (Auto) 4.4 L Ward % (Auto) 1.7 Eos % (Auto) 0.6 Baso % (Auto) 0.1 Absolute Neuts (auto) 14.5 H Absolute Lymphs (auto) 0.68 L Total Counted Not Reportable Sodium 140 Potassium 4.2 Chloride 106 Carbon Dioxide 22.0 Anion Gap 12 BUN 20 H Creatinine 1.25 Estim Creat Clear Calc 47.50 Est GFR (MDRD) Af Amer 73 Est GFR (MDRD) Non-Af 60 BUN/Creatinine Ratio 16.0 Glucose 164 H Lactic Acid 3.2 H Calcium 8.6 B-Natriuretic Peptide 06/26/18 19:35 WBC RBC Hgb Hct MCV MCH MCHC RDW RDW Differential Plt Count MPV Immature Gran % (Auto) Neut % (Auto) Lymph % (Auto) Ward % (Auto) Eos % (Auto) Baso % (Auto) Absolute Neuts (auto) Absolute Lymphs (auto) Total Counted Sodium Potassium Chloride Carbon Dioxide Anion Gap BUN Creatinine Estim Creat Clear Calc Est GFR (MDRD) Af Amer Est GFR (MDRD) Non-Af BUN/Creatinine Ratio Glucose Lactic Acid Calcium B-Natriuretic Peptide 108.0 H Assessment/Plan All Active Problems (Last Reviewed 06/26/18 @ 22:48 by Brant Guerrero MD) Severe sepsis (Acute) Community acquired pneumonia (Acute) The patient is a 72 year old M with a significant history of hypertension; CAD status post coronary stents 4 weeks ago and on aspirin and Plavix; CHF who presented with chills and SOB and found to have tachycardia; tachypnea; leukocytosis; lactic acidosis and found to have hyperinflation inflation on chest x-ray and bilateral ground glass opacity on CT scan consistent with likely severe sepsis secondary to community-acquired bilateral pneumonia. Severe sepsis secondary to community-acquired bilateral pneumonia Lactic acid: 3.2 RR ~20-22 Tachycardia 110-118 Blood culture ?2 is pending Chest x-ray: With hyper inflation suggestive of COPD. CTPA with bilateral groundglass opacities Respiratory Gram stain and culture pending Antibiotics: Received azithromycin and ceftriaxone at emergency department. Azithromycin and ceftriaxone continued. Started on IV hydration at emergency department with normal saline. We will hold off IV hydration at this time. DuoNeb scheduled. Albuterol as needed Legionella antigen screen and Strep antigen ordered Compressive respiratory pathogen panel ordered. CAD with stents. Stable with no chest pain Aspirin and Plavix continued Coreg and lisinopril continued Heart failure with preserved ejection fraction (NYHA Class 3) Review of old records shows that cardiac catheterization on 05/26/2018 depicted normal left ventricular end-diastolic pressure; borderline to midline mildly elevated RVSP/PASP. Left ventricular ejection fraction of 60%; segmental left ventricular systolic dysfunction and overall preserved left ventricular systolic function. Multivessel CAD (predominantly LAD). Stable On admission BNP was unremarkable. Resume Lasix in a.m. Hypertension On admission his blood pressure was not within goal. Coreg; lisinopril and Lasix continued Trend blood pressure and adjust blood pressure medication as necessary. DVT prophylaxis Subcutaneous Lovenox. Code Visit Inpatient E&M: 76702 Init Hosp L3
--- NOTE | 2018-06-26 21:52 | ED.DCSUM_ITS ---
- ER Visit Summary Date of Service: 06/26/18 Chief Complaint: Shortness of breath, rapid heartbeat and low pulse ox History of Present Illness: The patient is a 72 M who had a recent cardiac catheterization with placement of stent presents because his heart rate was 120 with shortness of breath and pulse ox 88%. He does complain of chills and sweats. He reports palpitations, shortness of breath nonproductive cough and dyspnea on exertion. He denies leg pain, swelling discoloration. He denies ocular, visual auditory symptoms. He denies GI or symptoms. He denies myalgias or arthralgias. He does report weakness. He denies any other symptoms. Please read written note. Physical Examination: Vital signs noted and blood pressure is slightly elevated at 139/79 heart rate 118. Pulse ox 92% on room air. This is higher than the 80% that was documented at home. Patient's voice is slightly hoarse. Head is atraumatic normocephalic. Pupils are equal round reactive. Extraocular muscles are intact. TMs are pearly white with landmarks noted. Nares patent with no drainage. Posterior pharynx without erythema or exudate. Uvula is midline. There is no dysphonia or dysphasia. Trachea is midline. There is no stridor with auscultation of the neck. Heart is rapid and regular without murmur, gallop or rub. S1 and S2 are normal. Lungs are remarkable for rales to auscultation bilaterally, greater on left, with good movement of air bilaterally. There is no expiratory wheezing. Abdomen is soft nontender. There is no asymmetry, swelling, discoloration, leg vein distention, palpable cords or tenderness along the distribution of the deep venous system. Neuro e xam is nonfocal. Test Results: Chest x-ray reveals chronic changes and unchanged from prior per my read EKG sinus tachycardia rate of 109 with first-degree AV block as well as incomplete right bundle branch block and what appears to be a left anterior fascicular block. White count is 15.6 thousand. Electro panels marked for glucose 164. Lactate returned at 3.2. CTA reveals groundglass infiltrates right and left lower lobe Emergency Department Course and Treatment: Workup was initiated to evaluate for pneumonia versus COPD versus pulmonary embolus. Since chest x-ray was unremarkable a CTA was obtained. With a lactate of greater than 3.2 if there is infiltrate noted on the CTA will obtain blood cultures prior to treatment with antibiotics. Based on his allergies he received 1 g of Rocephin and 500 mg azithromycin. Treatment Plan: Treatment for severe sepsis Disposition: PCU Impression: 1. Severe sepsis 2. Bilateral community-acquired pneumonia lower lobe 3. Sinus tachycardia documented on monitor and EKG 4. History of coronary disease This note was generated with [email or web address] dictation software. It may contain incorrect words, spelling, and punctuation that were not noted in review of the chart prior to signing ED Disposition - Plan for ED Patient: Chief Complaint: Palpitations Referrals: Jack Arango DO [Primary Care Provider] -
[2018-06-26] MEDS: Ceftriaxone 1 GM/50 ML BAG IV (22:03)
[2018-06-26 22:45] VITALS: BMI 27.5
[2018-06-26 23:04] VITALS: PULSE 84
--- NOTE | 2018-06-26 23:15 | NURSING ---
This nurse questioned Dr. Guerrero about rate of IVF and if he wanted it run as a bolus. He stated pt. did not need the fluids as his BP was stable. IVF was discontinued.
[2018-06-26 23:24] VITALS: BMI 27.5
[2018-06-26 23:30] VITALS: BP 118/73; PULSE 77; RESP 16; TEMP 36.8; O2SAT 95
[2018-06-26 23:40] LABS: Reflex Lactate? Y
[2018-06-27] VITALS (17 sets, daily range): BP systolic 122–138; BP diastolic 66–85; PULSE 62–77; RESP 16–20; TEMP 36.5–36.8; O2SAT 92–98
[2018-06-27 00:50] LABS: Lactic Acid 2.2 mmol/L (0.4-2.0)
[2018-06-27] MEDS: Ipratropium/Albuterol Sulfate 3 ML AMPUL.NEB INHALATION ×3 (06:42→20:07)
[2018-06-27 06:57] LABS: Anion Gap 10 (5-15); BUN 15 mg/dL (7-18); BUN/Creat Ratio 16.1 RATIO (10-20); Calcium,Total 8.1 mg/dL (8.5-10.1); Chloride 108 mmol/L (98-107); Creatinine, Serum 0.93 mg/dL (0.70-1.30); EST Glomerular Filtration Rate 84 mL/min (>60); Est Glom Filt Rate - Afr Amer 102 mL/min (>60); Estimated Creatinine Clearance 63.84 ml/min; Glucose 85 mg/dL (74-106); Potassium 3.8 mmol/L (3.5-5.1); Sodium Level 141 mmol/L (136-145)
[2018-06-27] MEDS: Carvedilol 3.125 MG TABLET PO ×2 (07:57→21:32)
[2018-06-27] MEDS: Enoxaparin 40 MG/0.4 ML Syringe SC (07:58)
[2018-06-27] MEDS: Furosemide 40 MG Tablet PO (07:58)
[2018-06-27] MEDS: Clopidogrel Bisulfate 75 MG Tablet PO (07:58)
[2018-06-27] MEDS: Aspirin 81 MG TAB.CHEW PO (07:58)
[2018-06-27] MEDS: Lisinopril 5 MG Tablet PO (07:58)
--- NOTE | 2018-06-27 10:40 | CASEMGMT ---
SONDRA HOGAN Re-admission note: Admitted 05/22/18 w/dx acute CHF and abnormal EKG. Had cardiac cath done and stent placed: KERWIN to mid LAD. Discharged home with . Discharged home and to follow-up with PCP in [address] Castro in 1-2 weeks. Re-admitted 06/26/18 w/dx: severe sepsis secondary to CAP and sinus tachycardia. SONDRA HOGAN to room to meet with pt. Oriented self and SONDRA HOGAN role @ [facility]. Pt resting in bed, awake/alert/oriented. @ bedside. Pt states since last hospitalization he did see his PCP and Dr Castro, he remains independent @ home, and just started Cardiac Rehab this past Saturday06/25/18. States he drives and has no transportation concerns. States he does have a cane and nebulizer @ home but does not use either. had LW and HCPOA papers in room with her. Copies made and placed on pt's chart and originals given back to . Pt denies any concerns @ discharge. States plans on continuing cardiac rehab and denies needs. Dorcas LIVINGSTON RN CM
[2018-06-27] MEDS: Piperacil/Tazobactam 3.375 GM/50 ML ML IV ×2 (11:44→21:32)
[2018-06-27 12:57] LABS: M R Staph aureus DNA By PCR Negative (Negative); Probe Check PASS; Specimen Processing Control PASS
--- NOTE | 2018-06-27 13:23 | PCM.PROGNOTE ---
<Tj Spencer - Last Filed: 06/27/18 13:23> Patient Problems: Active and Suspected Problems (Last Reviewed 06/26/18 @ 22:48 by Brant Guerrero MD) Severe sepsis (Acute) Community acquired pneumonia (Acute) Subjective: Pt resting comfortably in bed NAD. No hx asthma/copd. Recent pna. Recent admission in (pna) and may with stent placement in may. Currently nonproductive cough. Mild SOB. No CP. No chills. Tachy resolved. Does not use home o2. - Physical Exam General: Alert, Oriented x3, Cooperative HEENT: Atraumatic, PERRLA, EOMI, Normocephalic Neck: Supple, No JVD, Negative Carotid Bruits Lungs: Diminished Cardiovascular: Regular rate, No murmurs Abdomen: Bowel Sounds Present, Soft, Non Tender Extremities: No edema, Capillary Refill Less than 3 Seconds Skin: No rashes, No breakdown Musculoskeletal: No Tenderness to Palpation of Joints or Extremities Neurological: Cranial nerves II-XII grossly intact Psych/Mental Status: Normal Affect, Appropriate, Alert and oriented to time, place, person, mood and affect Vital Signs Temp Pulse Resp BP Pulse Ox 97.8 F 68 18 122/66 H 95 06/27/18 07:52 06/27/18 12:40 06/27/18 07:52 06/27/18 07:52 06/27/18 07:52 Oxygen Flow Rate (L/min) 2 Oxygen Delivery Method Room Air Weight: 170 lb 6.677 oz Body Mass Index (BMI) 27.5 Intake and Output for Last 24 Hours 06/25/18 06/26/18 06/27/18 23:59 23:59 23:59 Intake Total 395 / 395 Output Total 960 / 960 Balance -565 / -565 Microbiology Past 72 Hours 06/27/18 06:50 Respiratory Panel (PCR) - Final Mucosa - Nasopharyngeal 06/26/18 22:41 Streptococcus pneumoniae Antigen (M - Final Urine, Clean Catch 06/26/18 22:41 Legionella Antigen - Final Urine, Clean Catch Laboratory Tests Past 24 Hrs 06/26/18 06/26/18 06/26/18 19:35 19:35 19:35 WBC 15.6 H RBC 4.09 L Hgb 12.5 L Hct 37.5 L MCV 91.7 MCH 30.6 MCHC 33.3 RDW 13.6 RDW Differential 45.0 H Plt Count 173 MPV 10.2 Immature Gran % (Auto) 0.400 Neut % (Auto) 92.8 H Lymph % (Auto) 4.4 L [place] % (Auto) 1.7 Eos % (Auto) 0.6 Baso % (Auto) 0.1 Absolute Neuts (auto) 14.5 H Absolute Lymphs (auto) 0.68 L Total Counted Not Reportable Sodium 140 Potassium 4.2 Chloride 106 Carbon Dioxide 22.0 Anion Gap 12 BUN 20 H Creatinine 1.25 Estim Creat Clear Calc 47.50 Est GFR (MDRD) Af Amer 73 Est GFR (MDRD) Non-Af 60 BUN/Creatinine Ratio 16.0 Glucose 164 H Lactic Acid 3.2 H Calcium 8.6 B-Natriuretic Peptide MRSA (PCR) 06/26/18 06/27/18 06/27/18 19:35 00:07 06:15 WBC RBC Hgb Hct MCV MCH MCHC RDW RDW Differential Plt Count MPV Immature Gran % (Auto) Neut % (Auto) Lymph % (Auto) [place] % (Auto) Eos % (Auto) Baso % (Auto) Absolute Neuts (auto) Absolute Lymphs (auto) Total Counted Sodium 141 Potassium 3.8 Chloride 108 H Carbon Dioxide 23.0 Anion Gap 10 BUN 15 Creatinine 0.93 Estim Creat Clear Calc 63.84 Est GFR (MDRD) Af Amer 102 Est GFR (MDRD) Non-Af 84 BUN/Creatinine Ratio 16.1 Glucose 85 Lactic Acid 2.2 H Calcium 8.1 L B-Natriuretic Peptide 108.0 H MRSA (PCR) 06/27/18 11:05 WBC RBC Hgb Hct MCV MCH MCHC RDW RDW Differential Plt Count MPV Immature Gran % (Auto) Neut % (Auto) Lymph % (Auto) [place] % (Auto) Eos % (Auto) Baso % (Auto) Absolute Neuts (auto) Absolute Lymphs (auto) Total Counted Sodium Potassium Chloride Carbon Dioxide Anion Gap BUN Creatinine Estim Creat Clear Calc Est GFR (MDRD) Af Amer Est GFR (MDRD) Non-Af BUN/Creatinine Ratio Glucose Lactic Acid Calcium B-Natriuretic Peptide MRSA (PCR) Negative Medical Necessity - Tobacco Use Smoking Status: Never smoker Assessment/Plan All Active Problems (Last Reviewed 06/26/18 @ 22:48 by Brant Guerrero MD) Severe sepsis (Acute) Community acquired pneumonia (Acute) 1. Acute severe sepsis 2/2 [address]CAP - CT with BL opacities, reactive adenopathy. Change rocephin/azithro to Vanc/Zosyn. Nasal MRSA swab negative - stop vanc. Culture sputum if able to provide sample. Mucinex/PEP/IS, aerosols. Urine antigens neg. Blood cx pending. Afebrile. 2. CAD - recent stent - kojo, coreg, asa, plavix, allergic to atorvastatin. 3. HTN - stable 4. Hx diastolic CHF - no exacerbation 5. Mild normocytic anemia - stable. DVT ppx: lovenox DC planning: improving. Likely home 24-48 hours This patient was seen by Tj Spencer PA-C under the supervision of Doctor Morris. <Blair Caceres F - Last Filed: 06/27/18 16:43> - Physical Exam Vital Signs Temp Pulse Resp BP Pulse Ox 97.9 F 74 18 133/83 H 98 06/27/18 13:50 06/27/18 13:50 06/27/18 13:50 06/27/18 13:50 06/27/18 16:07 Oxygen Flow Rate (L/min) 2 Oxygen Delivery Method Nasal Cannula Weight: 170 lb 6.677 oz Body Mass Index (BMI) 27.5 Intake and Output for Last 24 Hours 06/25/18 06/26/18 06/27/18 23:59 23:59 23:59 Intake Total 695 / 695 Output Total 1060 / 1060 Balance -365 / -365 Microbiology Past 72 Hours 06/27/18 06:50 Respiratory Panel (PCR) - Final Mucosa - Nasopharyngeal 06/26/18 22:41 Streptococcus pneumoniae Antigen (M - Final Urine, Clean Catch 06/26/18 22:41 Legionella Antigen - Final Urine, Clean Catch Laboratory Tests Past 24 Hrs 06/26/18 06/26/18 06/26/18 19:35 19:35 19:35 WBC 15.6 H RBC 4.09 L Hgb 12.5 L Hct 37.5 L MCV 91.7 MCH 30.6 MCHC 33.3 RDW 13.6 RDW Differential 45.0 H Plt Count 173 MPV 10.2 Immature Gran % (Auto) 0.400 Neut % (Auto) 92.8 H Lymph % (Auto) 4.4 L [place] % (Auto) 1.7 Eos % (Auto) 0.6 Baso % (Auto) 0.1 Absolute Neuts (auto) 14.5 H Absolute Lymphs (auto) 0.68 L Total Counted Not Reportable Sodium 140 Potassium 4.2 Chloride 106 Carbon Dioxide 22.0 Anion Gap 12 BUN 20 H Creatinine 1.25 Estim Creat Clear Calc 47.50 Est GFR (MDRD) Af Amer 73 Est GFR (MDRD) Non-Af 60 BUN/Creatinine Ratio 16.0 Glucose 164 H Lactic Acid 3.2 H Calcium 8.6 B-Natriuretic Peptide MRSA (PCR) 06/26/18 06/27/18 06/27/18 19:35 00:07 06:15 WBC RBC Hgb Hct MCV MCH MCHC RDW RDW Differential Plt Count MPV Immature Gran % (Auto) Neut % (Auto) Lymph % (Auto) [place] % (Auto) Eos % (Auto) Baso % (Auto) Absolute Neuts (auto) Absolute Lymphs (auto) Total Counted Sodium 141 Potassium 3.8 Chloride 108 H Carbon Dioxide 23.0 Anion Gap 10 BUN 15 Creatinine 0.93 Estim Creat Clear Calc 63.84 Est GFR (MDRD) Af Amer 102 Est GFR (MDRD) Non-Af 84 BUN/Creatinine Ratio 16.1 Glucose 85 Lactic Acid 2.2 H Calcium 8.1 L B-Natriuretic Peptide 108.0 H MRSA (PCR) 06/27/18 11:05 WBC RBC Hgb Hct MCV MCH MCHC RDW RDW Differential Plt Count MPV Immature Gran % (Auto) Neut % (Auto) Lymph % (Auto) [place] % (Auto) Eos % (Auto) Baso % (Auto) Absolute Neuts (auto) Absolute Lymphs (auto) Total Counted Sodium Potassium Chloride Carbon Dioxide Anion Gap BUN Creatinine Estim Creat Clear Calc Est GFR (MDRD) Af Amer Est GFR (MDRD) Non-Af BUN/Creatinine Ratio Glucose Lactic Acid Calcium B-Natriuretic Peptide MRSA (PCR) Negative Code Visit Addendum: Dr. Caceres I personally examined the patient and reviewed the chart. I agree with the above. 72-year-old male presenting with pneumonia. He had been admitted 2 times in March for a couple of days each time for pneumonia, and then he was most recently in this hospital in May for shortness of breath and was found to have coronary artery disease and had a stent placed in the mid LAD. Since then he has been doing very well and was less short of breath at home, until this past week. On Saturday and Saturday he was in his work shed and has a wood burning stove for heat. On Saturday he had shaking chills and did not feel well, and then on Saturday he felt a little bit better and participated in cardiac rehab. he was back to baseline and so he went back out to his shed and let his wood-burning stove and became sick again and presented to the hospital with what appears to be pneumonia. Because of his recent admissions his antibiotics was changed from Rocephin/azithromycin to Zosyn. An MRSA swab was done which was negative so the vancomycin was discontinued. He does have lymph nodes in his mediastinum that are probably reactive to his recent episode of pneumonia. I do recommend that he follow-up with another CT scan as an outpatient in a few months once his pneumonia has resolved to see if the lymph nodes have resolved as well. Inpatient E&M: 80366 Subs Hosp L2
[2018-06-27] MEDS: guaiFENesin 1,200 MG Tablet 1200 MG PO ×2 (16:03→21:32)
[2018-06-27] MEDS: 0.9% NaCl Peripheral Flush Adult/Peds IV (21:33)
[2018-06-28] VITALS (14 sets, daily range): BP systolic 120–143; BP diastolic 67–75; PULSE 56–91; RESP 18–20; TEMP 36.5–36.8; O2SAT 92–96
[2018-06-28] MEDS: 0.9% NaCl Peripheral Flush Adult/Peds IV ×3 (06:06→21:17)
[2018-06-28] MEDS: Piperacil/Tazobactam 3.375 GM/50 ML ML IV ×3 (06:06→21:17)
[2018-06-28] MEDS: Ipratropium/Albuterol Sulfate 3 ML AMPUL.NEB INHALATION ×3 (07:08→20:19)
[2018-06-28 07:15] LABS: Absolute Lymphocyte Count 2.66 X10^3/ul (0.83-4.51); Absolute Neutrophil Count 4.7 X10^3/uL (2.0-7.7); Basophil# 0.02 X10^3/uL; Basophil% 0.2 % (0-1); Eosinophils% 4.8 % (0-5); Hematocrit 35.7 % (40-54); Hemoglobin 11.6 g/dl (13.0-16.5); Lymphocyte # 2.66 X10^3/ul (4.0); Lymphocyte % 31.6 % (19-41); Mean Corp Hgb Conc 32.5 g/gl (32-36); Mean Corpuscular Hgb 30.1 pg (27.0-32.0); Mean Corpuscular Volume 92.5 fL (80-94); Mean Platelet Vol. 10.3 fl (6.2-12.0); Monocyte# 0.66 X10^3/uL; Monocyte% 7.8 % (0-10); Neutrophil # 4.67 X10^3/uL (2.7-7.7); Neutrophil % 55.5 % (47-70); Platelet Count 172 K/mm3 (150-450); RBC Distribution Width CV 13.8 % (11.6-14.6); RBC Distribution Width SD 45.9 fl (35.1-43.9); Red Blood Count 3.86 M/mm3 (4.6-6.2); White Blood Count 8.4 K/mm3 (4.4-11.0)
[2018-06-28 07:19] LABS: POSITIVE COUNT NO; POSITIVE DIFFERENTIAL NO; POSITIVE MORPHOLOGY NO
[2018-06-28] MEDS: Carvedilol 3.125 MG TABLET PO ×2 (08:56→21:17)
[2018-06-28] MEDS: Enoxaparin 40 MG/0.4 ML Syringe SC (08:57)
[2018-06-28] MEDS: Aspirin 81 MG TAB.CHEW PO (08:57)
[2018-06-28] MEDS: Clopidogrel Bisulfate 75 MG Tablet PO (08:57)
[2018-06-28] MEDS: guaiFENesin 1,200 MG Tablet 1200 MG PO ×2 (08:57→21:17)
[2018-06-28] MEDS: Lisinopril 5 MG Tablet PO (08:57)
[2018-06-28] MEDS: Furosemide 40 MG Tablet PO (08:57)
[2018-06-29 01:08] VITALS: BP 116/66; PULSE 68; RESP 18; TEMP 36.6; O2SAT 94
[2018-06-29 03:19] VITALS: PULSE 63
[2018-06-29 05:37] VITALS: BP 120/67; PULSE 62; RESP 18; TEMP 36.6; O2SAT 95
[2018-06-29] MEDS: Piperacil/Tazobactam 3.375 GM/50 ML ML IV (05:39)
[2018-06-29] MEDS: 0.9% NaCl Peripheral Flush Adult/Peds IV (05:39)
[2018-06-29 07:28] VITALS: PULSE 82; RESP 16; O2SAT 92
[2018-06-29] MEDS: Ipratropium/Albuterol Sulfate 3 ML AMPUL.NEB INHALATION (07:28)
[2018-06-29 08:00] VITALS: PULSE 81
[2018-06-29] MEDS: Aspirin 81 MG TAB.CHEW PO (08:18)
[2018-06-29] MEDS: Furosemide 40 MG Tablet PO (08:18)
[2018-06-29] MEDS: Lisinopril 5 MG Tablet PO (08:18)
[2018-06-29] MEDS: Clopidogrel Bisulfate 75 MG Tablet PO (08:18)
[2018-06-29] MEDS: Carvedilol 3.125 MG TABLET PO (08:19)
[2018-06-29] MEDS: guaiFENesin 1,200 MG Tablet 1200 MG PO (08:19)
[2018-06-29] MEDS: Enoxaparin 40 MG/0.4 ML Syringe SC (08:20)
--- NOTE | 2018-06-29 09:56 | PCM.DC ---
- Discharge Diagnoses Current Active Problems: Current Active and Chronic Problems (Last Reviewed 06/26/18 @ 22:48 by Brant Guerrero MD) Severe sepsis (Acute) Community acquired pneumonia (Acute) You will use the following diet at home:: Cardiac Your food should be the consistency of: Regular Your liquids should be the consistency of: Regular/Thin Discharge Activity: Return to Normal Activity Call your doctor if you observe: Fever of 101 or Higher, Shortness of breath, Chest pain, Increased palpitations (irregular heartbeat) Allergies/Adverse Reactions: Allergies levofloxacin [From Levaquin] Adverse Reaction (Mild, Verified 06/26/18 19:07) Other muscle aches atorvastatin [From Lipitor] Adverse Reaction (Verified 06/26/18 20:26) Pain in joints Medications to take at Discharge Aspirin [Aspirin, Baby] 81 mg PO DAILY@0800 05/22/18 Carvedilol [Coreg (Beta Awa)] 3.125 mg PO BID #60 tab 05/27/18 Clopidogrel Bisulfate [Plavix] 75 mg PO DAILY #30 tab 05/27/18 Furosemide [Lasix] 40 mg PO DAILY #30 tab 05/27/18 Lisinopril [Zestril] 5 mg PO DAILY #30 tab 05/27/18 nitroglycerin 0.4 mg sublingual tablet 0.4 mg SUBLINGUAL Q5-15M PRN #25 tab 06/26/18 Cefdinir [Omnicef [equiv]] 300 mg PO Q12H #14 capsule 06/29/18 The following prescriptions were given: Cefdinir [Omnicef [equiv]] 300 mg PO Q12H #14 capsule Primary Care Physician: Jack Arango DO [Primary Care Provider] - Please follow up with your Primary Care Physician in: 3-5 days Test Results: Test results from this visit will be discussed in further detail at your follow-up appointment, if applicable.
--- NOTE | 2018-06-29 10:08 | DS.PCM_ITS ---
Discharge Date and Diagnosis - Problem List Patient Problems: Active and Suspected Problems (Last Reviewed 06/26/18 @ 22:48 by Brant Guerrero MD) Severe sepsis (Acute) Community acquired pneumonia (Acute) Date of Admission: 06/26/18 Date of Discharge: 06/29/18 - Primary Discharge Diagnosis Active and Suspected Problems (Last Reviewed 06/26/18 @ 22:48 by Brant Guerrero MD) Severe sepsis (Acute) Community acquired pneumonia (Acute) - Secondary Discharge Diagnosis Chronic Problems (Last Reviewed 06/26/18 @ 22:48 by Brant Guerrero MD) Essential hypertension (Chronic) Atherosclerotic heart disease of [place] coronary artery without angina pectoris (Chronic) S/P coronary artery stent placement (Chronic ~05/26/18) PCI/KERWIN to the mid LAD Acute CHF (Chronic) Normochromic normocytic anemia (Chronic) Hospital Course and Treatment Imaging Results: CTA Chest: IMPRESSION: No demonstrated pulmonary embolism or arterial dissection. Bilateral groundglass opacities, a nonspecific finding may be secondary to underlying edema and/or an infectious process. Pathologically enlarged mediastinal and right hilar lymph nodes, these may be reactive however cannot exclude an underlying neoplastic process such as lymphoma. Consults: None Operations: None Procedures: None Summary of Care Provided: Per HPI: The patient is a 72 year old M with a significant history of hypertension; CAD status post coronary stents 4 weeks ago and on aspirin and Plavix; CHF who presented with a same day history of chills. Associated with her symptoms is shortness of breath while at rest. His reported at home his oxygen saturation was 88% on room air. Patient's reported that about 3 days ago he had the same symptoms but his symptoms disappeared only for her to retain on the day of his admission. His initial heart rate was elevated at 110-118. And his respiratory rate was between 20-22. His white count was elevated at 15.6. And his lactic acid was elevated at 3.2. His BMP was unremarkable. A chest x-ray was remarkable for underlying COPD without any acute pathology. However a chest CT showed bilateral ground glass opacities. Hospital Course: 1. Sepsis secondary to healthcare associated pneumonia -on admission he had 3 out of 4 Sirs criteria positive and was found to have bilateral pneumonia on CT scan as well as reactive adenopathy. His lactate decreased from 3.2 on admission to 2.2 on the next day. He was initially on Rocephin and azithromycin however he has a recent admission at this hospital for coronary artery stent and he had had admissions on 2 separate occasions in March and April at outside hospitals. Therefore he was changed to Vanco Zosyn. He had a MRSA test that was negative so his vancomycin was discontinued. He improved very quickly and in further discussion with him it appears that a lot of his symptoms were happening after he was using a wood burning stove in his shed. He was discharged home on oral Omnicef twice daily to complete about a 10-day course, he is allergic to Levaquin. 2. His other medical diagnoses were evaluated and his home medications were continued where appropriate Patient Problems: Active and Suspected Problems (Last Reviewed 06/26/18 @ 22:48 by Brant Guerrero MD) Severe sepsis (Acute) Community acquired pneumonia (Acute) - Physical Exam General: Alert, Oriented x3, Cooperative, No apparent distress HEENT: Atraumatic, PERRLA, EOMI, Normocephalic Oral: Moist Mucosa Neck: Supple, No JVD, Trachea Midline Lungs: Clear to auscultation, Normal air movement, No rhonchi, No wheeze, No ral es, Diminished Cardiovascular: Regular rate, Regular Rhythm, Normal S1, Normal S2, No murmurs, No rub noted, No Gallop Abdomen: Soft, Non Tender, Non-Distended, No Hepato-splenomegaly Extremities: No edema, Capillary Refill Less than 3 Seconds Skin: No rashes, No breakdown Neurological: Neuro grossly intact, Sensory exam intact to light touch and pain Psych/Mental Status: Normal Affect, Appropriate Vital Signs Temp Pulse Resp BP Pulse Ox 97.9 F 82 16 120/67 92 06/29/18 05:37 06/29/18 07:28 06/29/18 07:28 06/29/18 05:37 06/29/18 07:28 Oxygen Flow Rate (L/min) 2 Oxygen Delivery Method Room Air Weight: 170 lb 6.677 oz Body Mass Index (BMI) 27.5 Intake and Output for Last 24 Hours 06/27/18 06/28/18 06/29/18 23:59 23:59 23:59 Intake Total 695 / 695 1478 / 1478 Output Total 1060 / 1060 2250 / 2250 Balance -365 / -365 -772 / -772 Microbiology Past 72 Hours 06/27/18 06:50 Respiratory Panel (PCR) - Final Mucosa - Nasopharyngeal 06/26/18 22:41 Streptococcus pneumoniae Antigen (M - Final Urine, Clean Catch 06/26/18 22:41 Legionella Antigen - Final Urine, Clean Catch Discharge Activity: Return to Normal Activity Call your doctor if you observe: Fever of 101 or Higher, Shortness of breath, Chest pain, Increased palpitations (irregular heartbeat) Home Medications: Medications to take at Discharge Aspirin [Aspirin, Baby] 81 mg PO DAILY@0800 05/22/18 Carvedilol [Coreg (Beta Awa)] 3.125 mg PO BID #60 tab 05/27/18 Clopidogrel Bisulfate [Plavix] 75 mg PO DAILY #30 tab 05/27/18 Furosemide [Lasix] 40 mg PO DAILY #30 tab 05/27/18 Lisinopril [Zestril] 5 mg PO DAILY #30 tab 05/27/18 nitroglycerin 0.4 mg sublingual tablet 0.4 mg SUBLINGUAL Q5-15M PRN #25 tab 06/26/18 Cefdinir [Omnicef [equiv]] 300 mg PO Q12H #14 capsule 06/29/18 Following Prescrptions Were Given to Patient: Cefdinir [Omnicef [equiv]] 300 mg PO Q12H #14 capsule Primary Care Physician: Jack Arango DO [Primary Care Provider] - Please follow up with your Primary Care Physician in: 3-5 days Disposition: Home Minutes spent on discharge:: 35 Patient Condition:: Good Medical Necessity - Tobacco Use Smoking Status: Never smoker Meaningful Use Info Meaningful Use Diagnoses (Choose all that apply): None applicable Code Visit Inpatient E&M: 35299 Disch Hosp
[2018-06-29 11:05] VITALS: BP 117/57; PULSE 81; RESP 18; TEMP 36.6; O2SAT 94
--- NOTE | 2018-06-30 16:13 | CASEMGMT ---
SONDRA HOGAN Discharge F/U Phone Call LACE: 11 Strata: 3 Discharge date: 06/29/18 Call date:06/30/18 Call time: [id number] Duration: 4 minutes Admission dx: Severe sepsis, pna, sinus tach Pt states has been doing 'pretty good' since discharge. Pt states no questions regarding discharge instructions or medications at this time. Pt/ state they were unaware that they needed to make f/u appt with Dr. Arango. Advised pt/ that they should make appt within 3-5 days with PCP, voice understanding. Pt/ states no suggestions for [facility] at this time. Per pt, 'I thoroughly enjoyed it, despite being in the hospital.' Pt/ voice no further questions/concerns/needs at this time. [place] SONDRA HOGAN
== END 2018-06-29 11:27 | disposition home or self-care (01) | DRG 194 ==
LOC: ED 19:27 → PCU 22:08
PROVIDERS: Physician Assistant; Admitting Provider Hospitalist; Emergency Provider Emergency Medicine; Family Provider Preventive Medicine Occupational Medicine; PCP Preventive Medicine Occupational Medicine; Visit Provider Family Medicine
DX: J18.9 Pneumonia, unspecified organism (principal); I50.30 Unspecified diastolic (congestive) heart failure; I25.10 Atherosclerotic heart disease of native coronary artery without angina pectoris; I11.0 Hypertensive heart disease with heart failure; D64.9 Anemia, unspecified; Z95.5 Presence of coronary angioplasty implant and graft; Z79.02 Long term (current) use of antithrombotics/antiplatelets
CPT/HCPCS: 36415; 71046; 71275; 80048; 83605; 83880; 85025; 87040; 87449; 87633; 87641; 93005; 93798; 94640; 94667; 94668; 94762; 97161; 99285; J7030; Q9967; A4216

== ENCOUNTER 2018-07-14 15:15 | Outpatient (RCR) | payer MEDICARE, SELFPAY ==
[2018-05-26 10:43] VITALS: BMI 26.6
[2018-06-19 10:50] VITALS: BMI 28.0
== END 2018-07-17 23:59 ==
LOC: CR 15:15
PROVIDERS: Family Provider Preventive Medicine Occupational Medicine; PCP Preventive Medicine Occupational Medicine; Referring Provider Internal Medicine Cardiovascular Disease; Visit Provider Internal Medicine Cardiovascular Disease
DX: I25.10 Atherosclerotic heart disease of native coronary artery without angina pectoris (principal); Z95.5 Presence of coronary angioplasty implant and graft
CPT/HCPCS: 93798

== ENCOUNTER 2018-08-13 15:15 | Outpatient (RCR) | payer MEDICARE, SELFPAY ==
[2018-05-26 10:43] VITALS: BMI 26.6
[2018-07-18 01:38] VITALS: BMI 28.0
== END 2018-08-14 23:59 ==
LOC: CR 15:15
PROVIDERS: Family Provider Preventive Medicine Occupational Medicine; PCP Preventive Medicine Occupational Medicine; Referring Provider Internal Medicine Cardiovascular Disease; Visit Provider Internal Medicine Cardiovascular Disease
DX: I25.10 Atherosclerotic heart disease of native coronary artery without angina pectoris (principal); Z95.5 Presence of coronary angioplasty implant and graft
CPT/HCPCS: 93798

== ENCOUNTER 2018-09-10 15:15 | Outpatient (RCR) | payer MEDICARE, SELFPAY ==
[2018-05-26 10:43] VITALS: BMI 26.6
[2018-08-15 01:17] VITALS: BMI 27.5
== END 2018-09-14 23:59 ==
LOC: CR 15:15
PROVIDERS: Family Provider Preventive Medicine Occupational Medicine; PCP Preventive Medicine Occupational Medicine; Referring Provider Internal Medicine Cardiovascular Disease; Visit Provider Internal Medicine Cardiovascular Disease
DX: I25.10 Atherosclerotic heart disease of native coronary artery without angina pectoris (principal); Z95.5 Presence of coronary angioplasty implant and graft
CPT/HCPCS: 93798

== ENCOUNTER 2018-10-03 15:15 | Outpatient (RCR) | payer MEDICARE, SELFPAY ==
[2018-05-26 10:43] VITALS: BMI 26.6
[2018-09-15 01:03] VITALS: BMI 27.5
--- NOTE | 2018-09-15 07:53 | PCM.CR.ITP ---
Exercise - 90-Day Assessment - Visit Date of Eval: 09/15/18 Session #:: 26 - Stages of Change Stages of Change:: Action - Physician Prescribed Exercise Modalities: Treadmill, Rower, Airdyne Frequency (days/week): 3 Duration (Minutes):: 30-45 Intensity: 60-80% age predicted maximum heart rate reserve METs - Progression: 0.5-1.0 MET, RPE 11-14 WEEK: 5.5 Target Heart Rate:: 118-125 w/ max 133 HR - Hypertension Resting Blood Pressure:: 132/72 Peak Exercise Blood Pressure:: 196/84 Medication Changes:: No - Intervention Home Exercise/Activity Goal:: Moderate Exercise 30 min/day x 5 days/wk - Education Goals:: Warm-up, RPE CLIF Scale, S/S, Safe Exercise, Self-Monitoring - Exercise Program Goals Exercise Program Goals: Aerobic Activity >30 min Nutrition - 90-Day Assessment - Program Goals Nutrition Program Goals: LDL <70. Total Cholesterol <200. HDL >45. Triglycerides <150. HgbA1C <7%. BMI <25 - Visit Date of Eval: 09/15/18 - Stages of Change Stages of Change:: Action - Lipids Has the patient seen the dietitian?: No - Diabetes Diabetes:: No - Weight Management Weight:: 179 lb - Intervention Referral to dietitian:: No Referral to Diabetic Clinic:: No Will attend diet classes:: Yes - Education Attended class for:: Healthy eating Tobacco - Initial Assessment - Program Goals Tobacco Program Goals: Complete smoking cessation. Attend education classes. Improve Knowledge Test score - Learning Barriers Learning Barriers: Vision, Ready to Learn Tobacco - 90-Day Assessment - Program Goals Tobacco Program Goals: Complete smoking cessation. Attend education classes. Improve Knowledge Test score - Stage of Change Stages of Change:: Action - Learning Barriers Learning Barriers: Participates in education - Family Support Do you have family support?: Yes - Tobacco Use Tobacco Use: Non-smoker Do you use smokeless tobacco?: No - Intervention Smoking Cessation Referral:: No Education Schedule Given:: Yes - Education Attended class for:: Coronary artery disease, Risk factors, Sexuality, Medical compliance, Cardiac A&P, Angina signs & symptoms Psychosocial - Initial Assess - Target Goals Target Goals: Assess presence or absence of depression. Using a valid screening tool, maximizes coping skills. Positive support system - Psychosocial Test Tool Used:: HANDS Depression Questionnaire - Assistive Devices Fall Risk Assessed:: Yes Psychosocial - 90-Day Assess - Target Goals Target Goals: Assess presence or absence of depression. Using a valid screening tool, maximizes coping skills. Positive support system - Stages of Change Stages of Change:: Action - Psychosocial Test Tool Used:: HANDS Depression Questionnaire - Intervention PS - Interventions: Yes Attend Stress Management Classes, Yes Uses Stress Management Skills, No Referral to Mental Health, No Referral to [facility] Case Management, No Referral to Physician - Education Attended classes for:: Coping techniques, Signs & symptoms of depression, Stress management, Relaxation techniques - Patient/Program Goal Preventative Medication(s):: Aspirin, Clopidogrel, Beta jose guadalupe, Statin/lipid - Assistive Devices Assistive Devices:: None Fall Risk Assessed:: Yes Patient Health Questionnaire 90-Day Re-eval Assessment 1. Little interest or pleasure in doing things: Not at all 2. Feeling down, depressed, or hopeless: Not at all 3. Trouble falling or staying asleep, or sleeping too much: Not at all 4. Feeling tired or having little energy: Not at all 5. Poor appetite or overeating: Not at all 6. Feeling bad about yourself -- or that you are a failure or have let yourself or your family down: Not at all 7. Trouble concentrating on things, such as reading the newspaper or watching television: Not at all 8. Moving or speaking so slowly that other people could have noticed. Or the opposite - being so fidgety or restless that you have been moving around a lot more than usual: Not at all 9. Thoughts that you would be better off , or of hurting yourself in some way: Not at all How difficult have these problems made it for you to do your work, take care of things at home, or get along with other people?: Not difficult at all Total Score: 0 Self-Efficacy 90-Day Re-eval Assessment We would like to know how confident you are in doing certain activities. Please select your confidence level for:: Select your confidence level for the following using the scale 1-10 where 1 is not at all confident and 10 is totally confident. Your score is the average of all 6 responses. Fatigue: How confident are you that you can keep the fatigue caused by your disease from interfering with the things you want to do? Select Number: 10 Physical Discomfort or Pain: How confident are you that you can keep the physical discomfort or pain of your disease from interfering with the things you want to do? Select Number: 10 Emotional Distress: How confident are you that you can keep the emotional distress caused by your disease from interfering with the things you want to do? Select Number: 10 Other Symptoms or Health Problems: How confident are you that you can keep other symptoms or health problems from interfering with the things you want to do? Select Number: 10 Different Tasks and Activities: How confident are you that you can do the different tasks and activities needed to manage your health condition so as to reduce your need to see a doctor? Select Number: 10 Medication: How confident are you that you can do things other than just taking medication to reduce how much your illness affects your everyday life? Select Number: 10 Total Score:: 10
[2018-09-15 08:04] VITALS: BP 132/72; BP 196/84
== END 2018-10-14 23:59 ==
LOC: CR 15:15
PROVIDERS: Family Provider Preventive Medicine Occupational Medicine; PCP Preventive Medicine Occupational Medicine; Referring Provider Internal Medicine Cardiovascular Disease; Visit Provider Internal Medicine Cardiovascular Disease
DX: I25.10 Atherosclerotic heart disease of native coronary artery without angina pectoris (principal); Z95.5 Presence of coronary angioplasty implant and graft
CPT/HCPCS: 93798

== ENCOUNTER → 2018-11-17 13:59 | Outpatient (CLI) | payer MEDICARE, SELFPAY ==
[2018-05-26 10:43] VITALS: BMI 26.6
[2018-11-04 10:40] VITALS: BMI 28.5
--- NOTE | 2018-11-17 14:01 | CT_ITS ---
STUDY: CT CHEST WITHOUT CONTRAST REASON FOR EXAM: Male, 73 years old. Follow-up pulmonary nodule RADIATION DOSAGE (If Supplied By Facility): CTDIvol = ( 13.8 ) mGy, DLP = ( 437.44 ) mGycm TECHNIQUE: Transaxial imaging was performed without the administration of intravenous contrast material. Individualized dose optimization techniques were used for this CT. COMPARISON: 06/26/2018 FINDINGS: No change in the 6 mm noncalcified nodule right upper lobe the lungs on image 88 and follow-up CT the chest is recommended in 6 months document stability. Mild emphysematous changes. No new noncalcified nodule or mass. There is no demonstrated pleural abnormality. Normal heart and pericardium. There are calcifications of the coronary arteries. Normal mediastinum. Normal hilar regions. Normal unenhanced pulmonary arteries. Normal aorta arch and descending thoracic aorta. Normal osseous structures. There is no demonstrated abnormality of the visualized upper abdomen. CT/Chest without Contrast IMPRESSION: No change in 6 mm noncalcified right upper lobe nodule and follow-up CT the chest is recommended in 6 months document stability. Electronically Signed: Pa Franco MD at 15:11 EDT Tel , Service support ,
== END ==
PROVIDERS: Family Provider Preventive Medicine Occupational Medicine; PCP Preventive Medicine Occupational Medicine; Referring Provider Preventive Medicine Occupational Medicine; Visit Provider Preventive Medicine Occupational Medicine
DX: R91.8 Other nonspecific abnormal finding of lung field (principal)
CPT/HCPCS: 71250

== ENCOUNTER 2020-04-11 13:13 | Emergency (ER) | payer MEDICARE, SELFPAY ==
[2018-05-26 10:43] VITALS: BMI 26.6
[2019-09-02 09:38] VITALS: BMI 29.3
[2020-04-11 13:14] VITALS: BP 148/60; PULSE 59; RESP 18; TEMP 37.2; O2SAT 98; BMI 29.9
[2020-04-11 14:49] VITALS: O2SAT 96
--- NOTE | 2020-04-11 14:49 | EKG12_ITS ---
Test Reason : Blood Pressure : / mmHG Vent. Rate : 058 BPM Atrial Rate : 058 BPM P-R Int : 222 ms QRS Dur : 112 ms QT Int : 440 ms P-R-T Axes : 040 -47 022 degrees QTc Int : 431 ms Sinus bradycardia with 1st degree A-V block Left anterior fascicular block Abnormal ECG Confirmed by MARK SMITH, CAROLINE ([id number]), editorial director WALDEMAR HOOD ([id number]) on 04/13/2020 1:45:23 PM Referred By: TIA/BRANDON Confirmed By:CAROLINE FLORES MD
--- NOTE | 2020-04-11 15:03 | ED.DCSUM_ITS ---
History of Present Illness Chief Complaint: Fever Informant: Patient Onset: Days Context: Gradual Onset Timing: Continuous Narrative: Is a 74-year-old male presenting with 1 week of flulike symptoms. Patient states 10 days ago he was around someone who ended up testing positive for coronavirus. For the past week he has had low-grade fevers with worsening chest discomfort and shortness of breath. He took his pulse oximetry at home and he states today he was in the lower 90s to high 80s. He notes that the discomfort in the center of his chest seems to be worsening. He denies any radiation of pain. He has a hard time describing the pain. He states he had a mild nonproductive cough. This morning he had a fever of 101.6. He has some low back aches but denies any nausea, vomiting or change in bowel habits. He denies any urinary symptoms. He denies any sore throat or congestion. His is had similar symptoms at home. Past Medical History - Allergies and Home Meds Allergies/Adverse Reactions: Allergies levofloxacin [From Levaquin] Adverse Reaction (Mild, Verified 04/11/20 13:18) Other muscle aches atorvastatin [From Lipitor] Adverse Reaction (Verified 04/11/20 13:18) Pain in joints Primary Care Physician: Jack Arango DO [Primary Care Provider] - Past Medical History: - - Hypertension, coronary artery disease Surgical History: - - repair of lacerations related to work, CARDIAC stent placement Lives: Spouse/ Significant Other Smoking Status: Never smoker - Family History Maternal Family History: Family History (Last Reviewed 03/11/19 @ 09:10 by Sarah CASTAÑEDA, PA) Mother Heart disease Father Lymphoma Family History: Reports: - - his mother when he was 8 YO of a heart condition Paternal Family History: Family History (Last Reviewed 03/11/19 @ 09:10 by Sarah CASTAÑEDA, PA) Mother Heart disease Father Lymphoma Family History: Reports: - - Father at 76 years of age with lymphoma Sibling Family History: Family History (Last Reviewed 03/11/19 @ 09:10 by Sarah CASTAÑEDA, PA) Mother Heart disease Father Lymphoma Family History: Reports: - - He has 4 half-sisters, one with dementia, another with osteoporosis....no hx of CAD Review of Systems General: Reports: Chills, Fever, Malaise. Denies: Sweats Eyes: Denies: Visual changes - bilaterally, Diplopia ENT: Denies: Bilateral ear pain, Rhinorrhea, Sore throat Cardiovascular: Reports: Chest pain. Denies: Palpitations Respiratory: Reports: Dyspnea, Cough. Denies: Dyspnea on exertion Gastrointestinal: Denies: Abdominal pain, Nausea, Vomiting, Diarrhea, Melena, Hematochezia Genitourinary: Denies: Dysuria, Hematuria, Frequency Musculoskeletal: Reports: Myalgias, Back pain Skin: Denies: Rash Neurological: Reports: Weakness - generalized . Denies: Headache, Numbness Physical Exam Vital Signs/Narrative: Vital Signs Temp Pulse Resp BP Pulse Ox 04/11/20 13:14 98.9 F 59 L 18 148/60 H 98 Inital Vital Signs reviewed: Yes General: Well nourished, Well developed Head: Normocephalic, Atraumatic Eyes: Perrl, EOMI Neck: Supple, Nontender Cardiovascular: Regular rate, Regular rhythm, No murmurs Respiratory: No distress, Diminished, - - Coarse Breath sounds throughout with crackles at the bases bilaterally Abdomen: Soft, Nontender, Nondistended, Normal bowel sounds Back: Nontender, Normal Inspection Extremities: Nontender, No edema Skin: Normal color, No rash Neurological: Alert, Oriented x3, Cranial nerves II-XII grossly intact, Normal Strength, Normal Sensation Psychological: Normal affect Diagnostic/Tx/Re-eval Chest X-Ray - ED: 1 View, Read by ED Physician, Read by Radiologist, Right Infiltrate, Left Infiltrate Clinical Impression(s) from Imaging Studies Chest X-Ray 04/11/20 15:30 IMPRESSION: Patchy infiltrates are seen in the right upper and right lower lobes as well as mild increased markings in the left lower lobe. Electronically Signed: Gio Mcclellan, at 15:51 EDT , Service support , Laboratory Data 04/11/20 04/11/20 04/11/20 14:50 14:50 14:50 WBC 6.3 RBC 4.10 L Hgb 13.0 Hct 39.0 L MCV 95.1 H MCH 31.7 MCHC 33.3 RDW Std Deviation 43.4 RDW Coeff of Yen 12.4 Plt Count 111 L MPV 12.1 H Immature Gran % (Auto) 0.300 Neut % (Auto) 72.2 H Lymph % (Auto) 21.9 [place] % (Auto) 5.2 Eos % (Auto) 0.2 Baso % (Auto) 0.2 Absolute Neuts (auto) 4.6 Absolute Lymphs (auto) 1.39 Nucleated RBC % 0 Sodium 134 L Potassium 4.1 Chloride 101 Carbon Dioxide 27.0 Anion Gap 6 BUN 14 Creatinine 0.98 Estim Creat Clear Calc 58.77 Est GFR (MDRD) Af Amer 96 Est GFR (MDRD) Non-Af 79 BUN/Creatinine Ratio 14.3 Glucose 97 Lactic Acid 1.6 Calcium 8.1 L Total Bilirubin 0.40 AST 52 H ALT 40 Alkaline Phosphatase 58 Total Creatine Kinase 114 Troponin I < 0.015 Total Protein 7.0 Albumin 2.8 L Globulin 4.2 Albumin/Globulin Ratio 0.7 L - Rhythm Strip Rhythm Strip: Sinus Rhythm Rate: 58 Ectopy: None - EKG Initial EKG Interpretation: Sinus Bradycardia, - - Bradycardia rate of 58 with first-degree AV block CT interval 222 Left axis deviation Left anterior fascicular block present Normal ST segments Compared to prior EKG patient is now bradycardic but no other acute changes Fluid Bolus: NS 1000ml O2 Sat with ambulation (%): 94 - Medical Decision Making Patient is evaluated for 1 week of flulike symptoms. He has had exposure to someone with coronavirus. He is well-appearing but does have abnormal breath sounds on exam. Chest x-ray is consistent with bilateral patchy infiltrates which is consistent with COVID-19 pneumonitis. He has a normal white blood cell count and has normal vital signs in the ER. He is not hypoxic and is ambulated in the ER without any hypoxia. He tolerated this well. Clinically I suspect the patient does have a COVID-19 infection but does not require admission at this time. I do not suspect a bacterial infection I do not think antibiotics are indicated at this time. Patient is counseled that that he could worsen over the next few days and if so he should return immediately to the emergency room. He will continue to monitor his pulse ox at home. Otherwise he will continue to treat himself symptomatically with Tylenol and ibuprofen as well as lots of fluids. Patient is counseled on signs and symptoms requiring return to the emergency room. Patient verbalizes agreement and understand this plan. Patient discharged home in stable and improved condition. ED Disposition - Plan for ED Patient: Disposition: Home or Assisted Living Diagnosis: Suspected COVID-19 virus infection, Pneumonitis Instructions: ED PNEUMONITIS Adult Referrals: Jack Arango DO [Primary Care Provider] - Additional Instructions: I highly suspect that you have COVID-19 infection which is causing your symptoms. At this time you do not require admission to the hospital. Please return to the emergency room with any worsening symptoms such as worsening chest pain, shortness of breath or signs of dehydration. Alternate Tylenol and ibuprofen at home. Drink plenty of fluids.
[2020-04-11 15:06] VITALS: O2SAT 96
[2020-04-11 15:13] VITALS: BP 159/71; PULSE 66; RESP 17; TEMP 36.8; O2SAT 96
[2020-04-11 15:18] VITALS: BP 159/71; PULSE 68; RESP 16; TEMP 36.8; O2SAT 96
[2020-04-11 15:21] LABS: Absolute Lymphocyte Count 1.39 X10^3/uL (0.83-4.51); Absolute Neutrophil Count 4.6 X10^3/uL (2.0-7.7); Basophil# 0.01 X10^3/uL; Basophil% 0.2 % (0-1); Eosinophil# 0.01 X10^3/uL; Eosinophils% 0.2 % (0-5); Lymphocyte # 1.39 X10^3/ul (4.0); Lymphocyte % 21.9 % (19-41); Mean Corp Hgb Conc 33.3 g/dL (32-36); Mean Corpuscular Hgb 31.7 pg (27.0-32.0); Mean Corpuscular Volume 95.1 fL (80-94); Mean Platelet Vol. 12.1 fl (6.2-12.0); Monocyte# 0.33 X10^3/uL; Monocyte% 5.2 % (0-10); NRBC Flagged by Analyzer 0 % (0-5); Neutrophil # 4.58 X10^3/uL (2.7-7.7); Neutrophil % 72.2 % (47-70); Platelet Count 111 K/mm3 (150-450); RBC Distribution Width CV 12.4 % (11.6-14.6); RBC Distribution Width SD 43.4 fl (35.1-43.9); White Blood Count 6.3 K/mm3 (4.4-11.0)
[2020-04-11 15:30] LABS: ALB/GLOB Ratio 0.7 RATIO (0.9-2.4); AST(SGOT) 52 U/L (15-37); Alanine Aminotransfer ALT/SGPT 40 U/L (16-61); Albumin, Serum 2.8 g/dL (3.2-5.0); Alkaline Phosphatase 58 U/L (45-117); Anion Gap 6 (5-15); BUN 14 mg/dL (7-18); BUN/Creat Ratio 14.3 RATIO (10-20); CPK Total, Creatine Kinase 114 U/L (39-308); Calcium,Total 8.1 mg/dL (8.5-10.1); Chloride 101 mmol/L (98-107); Creatinine, Serum 0.98 mg/dL (0.70-1.30); EST Glomerular Filtration Rate 79 mL/min (>60); Est Glom Filt Rate - Afr Amer 96 mL/min (>60); Estimated Creatinine Clearance 58.77 ml/min; Globulin 4.2 g/dL (2.2-4.2); Glucose 97 mg/dL (74-106); Potassium 4.1 mmol/L (3.5-5.1); Sodium Level 134 mmol/L (136-145)
--- NOTE | 2020-04-11 15:30 | RAD_ITS ---
STUDY: X-RAY CHEST REASON FOR EXAM: Male, 74 years old. Fevers for a week, sob, chest discomfort -- hx of pulmonary nodule and htn TECHNIQUE: Single AP portable view of the chest. COMPARISON: Comparison is made with prior study dated 06/26/2018. FINDINGS: EKG electrodes are seen. Patchy infiltrates are seen in the right upper and right lower lobes. Minimal increased markings are seen in the left lower lobe. There is no demonstrated pleural abnormality. Normal size heart. Normal mediastinum and sabina. Normal visualized pulmonary arteries. Normal visualized aortic arch and descending thoracic aorta. There are diffuse degenerative changes of the visualized thoracic spine. Normal visualized ribs, clavicles, and shoulders. There is no demonstrated abnormality of the visualized soft tissue structures of the upper abdomen. RAD/Chest 1 View (Portable) IMPRESSION: Patchy infiltrates are seen in the right upper and right lower lobes as well as mild increased markings in the left lower lobe. Electronically Signed: Gio Mcclellan, at 15:51 EDT , Service support ,
[2020-04-11 15:35] LABS: Lactic Acid 1.6 mmol/L (0.4-1.9)
[2020-04-11 16:51] VITALS: BP 159/73; PULSE 67; RESP 22; O2SAT 98
[2020-04-11 17:42] LABS: BNP,B-Type NATRIURETIC PEPTIDE 445.8 pg/mL (0-100)
[2020-04-11 17:55] LABS: Procalcitonin 0.11 ng/mL (0.00-0.09)
== END 2020-04-11 16:52 | disposition home or self-care (01) ==
PROVIDERS: Emergency Provider Emergency Medicine; PCP Preventive Medicine Occupational Medicine
DX: U07.1 COVID-19 (principal); J12.89 Other viral pneumonia; I25.10 Atherosclerotic heart disease of native coronary artery without angina pectoris; I10 Essential (primary) hypertension; Z95.5 Presence of coronary angioplasty implant and graft; Z79.82 Long term (current) use of aspirin; Z79.899 Other long term (current) drug therapy
CPT/HCPCS: 71045; 80053; 82550; 83605; 83880; 84145; 84484; 85025; 87040; 87635; 93005; 99283; J7030; A4216; U0003

== ENCOUNTER 2020-04-13 17:52 | Inpatient (IN) | payer MEDICARE, SELFPAY ==
[2018-05-26 10:43] VITALS: BMI 26.6
[2020-04-13] VITALS (10 sets, daily range): BP systolic 154–189; BP diastolic 61–89; PULSE 65–78; RESP 18–32; TEMP 36.4–38.2; O2SAT 77–97; BMI 30.4
--- NOTE | 2020-04-13 19:00 | EKG12_ITS ---
Test Reason : SOB Blood Pressure : / mmHG Vent. Rate : 067 BPM Atrial Rate : 067 BPM P-R Int : 188 ms QRS Dur : 108 ms QT Int : 410 ms P-R-T Axes : 049 -44 021 degrees QTc Int : 433 ms Normal sinus rhythm Left axis deviation Incomplete right bundle branch block Abnormal ECG Confirmed by INDRA SMITH, ALEM ([id number]), deputy editor in chief ADALGIAS OROPEZA ([id number]) on 04/21/2020 12:47:05 PM Referred By: Brant Guerrero Confirmed By:LEXUS BURRELL MD
--- NOTE | 2020-04-13 19:05 | ED.DCSUM_ITS ---
History of Present Illness Chief Complaint: Shortness of Breath Informant: Patient Onset: Days Activity at onset: Unknown Timing: Continuous Narrative: Patient is a 74-year-old male with continued shortness of breath that has been worsening. Patient exposure to coronavirus last week and has had Covid-like symptoms including chest tightness, shortness of breath and fevers for the past week. She was seen in the ER on Saturday where he was clinically diagnosed with Covid and is plus swab still pending. At that time he was not hypoxic patient was discharged home with return precautions. Patient states his pulse oximeter has been in the high 80s at home but he is having worsening shortness of breath. He continues to have a nonproductive cough. He continues have chest tightness. He does feel the symptoms have been worsening over the past few days which is why he returned to the emergency room. He is continued to have fevers and had a T-max of 100.6 today.No other complaints at this time. Past Medical History - Allergies and Home Meds Allergies/Adverse Reactions: Allergies levofloxacin [From Levaquin] Adverse Reaction (Mild, Verified 04/13/20 17:52) Other muscle aches atorvastatin [From Lipitor] Adverse Reaction (Verified 04/13/20 17:52) Pain in joints Primary Care Physician: Jack Arango DO [Primary Care Provider] - Past Medical History: - - Coronary artery disease, hypertension Surgical History: noncontributory, - - repair of lacerations related to work, CARDIAC stent placement Lives: Spouse/ Significant Other Smoking Status: Never smoker - Family History Maternal Family History: Family History (Last Reviewed 03/11/19 @ 09:10 by Sarah CASTAÑEDA, PA) Mother Heart disease Father Lymphoma Family History: Reports: - - his mother when he was 8 YO of a heart condition Paternal Family History: Family History (Last Reviewed 03/11/19 @ 09:10 by Sarah CASTAÑEDA, PA) Mother Heart disease Father Lymphoma Family History: Reports: - - Father at 76 years of age with lymphoma Sibling Family History: Family History (Last Reviewed 03/11/19 @ 09:10 by Sarah CASTAÑEDA, PA) Mother Heart disease Father Lymphoma Family History: Reports: - - He has 4 half-sisters, one with dementia, another with osteoporosis....no hx of CAD Review of Systems General: Reports: Chills, Fever, Malaise. Denies: Sweats Eyes: Denies: Visual changes - bilaterally, Diplopia ENT: Denies: Rhinorrhea, Sore throat Cardiovascular: Denies: Chest pain, Palpitations Respiratory: Reports: Dyspnea, Cough, Dyspnea on exertion Gastrointestinal: Denies: Abdominal pain, Nausea, Vomiting, Diarrhea, Melena, Hematochezia Genitourinary: Denies: Dysuria, Hematuria, Frequency Musculoskeletal: Denies: Back pain, Extremity Pain Skin: Denies: Rash, Wounds Neurological: Denies: Headache, Weakness, Numbness Physical Exam Vital Signs/Narrative: Vital Signs Temp Pulse Resp BP Pulse Ox 04/13/20 18:55 97.8 F 78 24 H 156/61 H 96 04/13/20 18:10 89 04/13/20 17:53 97.5 F L 65 18 181/87 H 93 Inital Vital Signs reviewed: Yes General: Well nourished, Well developed, No Acute Distress Head: Normocephalic, Atraumatic Eyes: Perrl, EOMI ENT: Moist mucous membranes, No rhinorrhea Neck: Supple, Nontender Cardiovascular: Regular rate, Regular rhythm, No murmurs Respiratory: Chest nontender, Rhonchi, - - Basilar crackles with diffuse rhonchi throughout. Negative for: Decreased Air Movement Abdomen: Soft, Nontender, Nondistended, Normal bowel sounds Back: Nontender, Normal Inspection Extremities: Nontender, No edema Skin: Normal color, No rash Neurological: Alert, Oriented x3, Cranial nerves II-XII grossly intact, Normal Strength, Normal Sensation Psychological: Normal affect, Normal Mood Diagnostic/Tx/Re-eval Chest X-Ray - ED: 1 View, Read by ED Physician, Read by Radiologist, Right Infiltrate, Left Infiltrate Clinical Impression(s) from Imaging Studies Chest X-Ray 04/13/20 19:40 IMPRESSION: Interstitial prominence and patchy infiltrates, right more than left. Electronically Signed: Naseem Florian DO at 20:11 EDT Tel [phone], Service support , Chest CTA 04/13/20 20:30 IMPRESSION: No demonstrated pulmonary embolism or arterial dissection. Bilateral patchy infiltrates and interstitial prominence with bilateral pleural effusions, right more severely than left. Mediastinal adenopathy. Electronically Signed: Naseem Florian DO at 22:15 EDT Tel [phone], Service support , Laboratory Data 04/13/20 04/13/20 04/13/20 18:10 18:10 18:10 WBC 7.7 RBC 3.96 L Hgb 12.6 L Hct 38.4 L MCV 97.0 H MCH 31.8 MCHC 32.8 RDW Std Deviation 45.3 H RDW Coeff of Yen 12.7 Plt Count 155 MPV 12.0 Immature Gran % (Auto) 0.400 Neut % (Auto) 79.1 H Lymph % (Auto) 15.4 L [place] % (Auto) 4.0 Eos % (Auto) 1.0 Baso % (Auto) 0.1 Absolute Neuts (auto) 6.1 Absolute Lymphs (auto) 1.18 Nucleated RBC % 0 Fibrinogen 793 H D-Dimer Quant (PE/DVT) 2.17 H* Sodium 134 L Potassium 3.6 Chloride 101 Carbon Dioxide 27.0 Anion Gap 6 BUN 12 Creatinine 0.91 Estim Creat Clear Calc 63.29 Est GFR (MDRD) Af Amer 104 Est GFR (MDRD) Non-Af 86 BUN/Creatinine Ratio 13.1 Glucose 98 Lactic Acid Calcium 7.8 L Total Bilirubin 0.50 AST 65 H ALT 53 Alkaline Phosphatase 74 Lactate Dehydrogenase 403 H Total Creatine Kinase 130 Total Protein 6.9 Albumin 2.6 L Globulin 4.3 H Albumin/Globulin Ratio 0.6 L Procalcitonin COVID-19 (DENY) 04/13/20 04/13/20 04/13/20 18:10 18:10 19:10 WBC RBC Hgb Hct MCV MCH MCHC RDW Std Deviation RDW Coeff of Yen Plt Count MPV Immature Gran % (Auto) Neut % (Auto) Lymph % (Auto) [place] % (Auto) Eos % (Auto) Baso % (Auto) Absolute Neuts (auto) Absolute Lymphs (auto) Nucleated RBC % Fibrinogen D-Dimer Quant (PE/DVT) Sodium Potassium Chloride Carbon Dioxide Anion Gap BUN Creatinine Estim Creat Clear Calc Est GFR (MDRD) Af Amer Est GFR (MDRD) Non-Af BUN/Creatinine Ratio Glucose Lactic Acid 1.5 Calcium Total Bilirubin AST ALT Alkaline Phosphatase Lactate Dehydrogenase Total Creatine Kinase Total Protein Albumin Globulin Albumin/Globulin Ratio Procalcitonin 0.14 H COVID-19 (DENY) Detected - Rhythm Strip Rhythm Strip: Sinus Rhythm Rate: 67 Ectopy: None - EKG Initial EKG Interpretation: Sinus Rhythm, - - Normal sinus rhythm rate of 67Left axis deviationIncomplete right bundle branch blockNormal ST segmentsNo significant change prior to prior EKG Treatment - Dyspnea: Oxygen, Albuterol - Medical Decision Making Evaluated for worsening shortness of breath. Clinically he was diagnosed with Covid 19 infection 2 days ago but his testing was still pending. At that time patient is not hypoxic. Today patient is hypoxic and when he came in he was 89% on room air. Patient has some increased work of breathing but does improve with rest and nasal cannula. His breath sounds are now much more rhonchorous and coarse and they were 2 days ago. Patient does have elevated D-dimer and a CT is performed to rule out associated PE in addition to his likely Covid pneumonia. No PE is found.Patient has an elevated lactic dehydrogenase as well as elevated fibrinogen which again is associated with Covid 19 infection. While in the ER patient stood up to use a bedside urinal and desaturated down to 75%. He is symptomatic with this. Patient admitted to medicine service for further respiratory monitoring and treatment. He is agreeable with plan of care. ED Disposition - Plan for ED Patient: Disposition: Acute Care Hospital [facility] Diagnosis: Pneumonia due to COVID-19 virus, Acute respiratory failure with hypoxia Referrals: Jack Arango DO [Primary Care Provider] -
[2020-04-13 19:40] LABS: Absolute Lymphocyte Count 1.18 X10^3/uL (0.83-4.51); Absolute Neutrophil Count 6.1 X10^3/uL (2.0-7.7); Basophil# 0.01 X10^3/uL; Basophil% 0.1 % (0-1); Eosinophil# 0.08 X10^3/uL; Hematocrit 38.4 % (40-54); Hemoglobin 12.6 g/dL (13.0-16.5); Lymphocyte # 1.18 X10^3/ul (4.0); Lymphocyte % 15.4 % (19-41); Mean Corp Hgb Conc 32.8 g/dL (32-36); Mean Corpuscular Hgb 31.8 pg (27.0-32.0); Monocyte# 0.31 X10^3/uL; NRBC Flagged by Analyzer 0 % (0-5); Neutrophil # 6.05 X10^3/uL (2.7-7.7); Neutrophil % 79.1 % (47-70); Platelet Count 155 K/mm3 (150-450); RBC Distribution Width CV 12.7 % (11.6-14.6); RBC Distribution Width SD 45.3 fl (35.1-43.9); Red Blood Count 3.96 M/mm3 (4.6-6.2); White Blood Count 7.7 K/mm3 (4.4-11.0)
--- NOTE | 2020-04-13 19:40 | RAD_ITS ---
STUDY: X-RAY CHEST REASON FOR EXAM: Male, 74 years old. SOB, COUGH,FEVER, CHEST TIGHTNESS X 10 DAYS TECHNIQUE: Frontal view COMPARISON: Frontal view FINDINGS: The lungs are expanded. Interstitial prominence and patchy infiltrates, right more than left. Cardiomegaly. Normal mediastinum and sabina. Normal visualized pulmonary arteries. Normal visualized aortic arch and descending thoracic aorta. Degenerative changes of the thoracic spine. Normal visualized ribs, clavicles, and shoulders. There is no demonstrated abnormality of the visualized soft tissue structures of the upper abdomen. RAD/Chest 1 View (Portable) IMPRESSION: Interstitial prominence and patchy infiltrates, right more than left. Electronically Signed: Naseem Florian DO at 20:11 EDT Tel [phone], Service support ,
[2020-04-13 19:49] LABS: Fibrinogen 793 mg/dl (203-444)
[2020-04-13 19:52] LABS: ALB/GLOB Ratio 0.6 RATIO (0.9-2.4); AST(SGOT) 65 U/L (15-37); Alanine Aminotransfer ALT/SGPT 53 U/L (16-61); Albumin, Serum 2.6 g/dL (3.2-5.0); Alkaline Phosphatase 74 U/L (45-117); Anion Gap 6 (5-15); BUN 12 mg/dL (7-18); BUN/Creat Ratio 13.1 RATIO (10-20); CPK Total, Creatine Kinase 130 U/L (39-308); Calcium,Total 7.8 mg/dL (8.5-10.1); Chloride 101 mmol/L (98-107); Creatinine, Serum 0.91 mg/dL (0.70-1.30); EST Glomerular Filtration Rate 86 mL/min (>60); Est Glom Filt Rate - Afr Amer 104 mL/min (>60); Estimated Creatinine Clearance 63.29 ml/min; Globulin 4.3 g/dL (2.2-4.2); Glucose 98 mg/dL (74-106); LDH 403 U/L (87-241); Potassium 3.6 mmol/L (3.5-5.1); Protein, Total 6.9 g/dL (6.4-8.2); Sodium Level 134 mmol/L (136-145)
[2020-04-13 19:54] LABS: D-Dimer Quantitative (DVT/PE) 2.17 FEU/ug/m (0.27-0.49); Lactic Acid 1.5 mmol/L (0.4-1.9)
[2020-04-13] MEDS: 0.9% Normal Saline 1,000 ML 125 ML IV (19:54)
[2020-04-13 20:00] LABS: Procalcitonin 0.14 ng/mL (0.00-0.09)
--- NOTE | 2020-04-13 20:30 | CT_ITS ---
STUDY: CTA CHEST REASON FOR EXAM: Male, 74 years old. COUGH,CHEST TIGHTNES AND FEVER X 10 DAYS,ELEVATED DDIMER,SOB TODAY,COVID TEST PENDING -- HX:HTN,CAD,CHF,HEART STENTS RADIATION DOSAGE (If Supplied By Facility): CTDIvol = ( 14.93 ) mGy, DLP = ( 538.03 ) mGycm TECHNIQUE: The examination was performed with the intravenous administration of IV 100mL Isovue-370. Post-processing of the angiographic images was performed, with multiplanar reformation and 3D reconstruction. Individualized dose optimization techniques were used for this CT. COMPARISON: None. FINDINGS: Normal enhancement of the main pulmonary artery and right and left pulmonary arteries. Normal enhancement of the bilateral peripheral pulmonary arteries. There is no demonstrated pulmonary embolism. Normal thoracic aorta and visualized great vessels. There is no demonstrated aortic dissection. Normal heart and pericardium. There is adenopathy in the mediastinum. Normal hilar regions. Normal visualized trachea and bronchi. The lungs are well expanded. Bilateral pleural effusions, right more than left. Bilateral patchy infiltrates and interstitial prominence, right more than left. Normal chest wall structures. Degenerative vertebral changes. Small hiatal hernia. CT/CTA Chest W/WO Contrast IMPRESSION: No demonstrated pulmonary embolism or arterial dissection. Bilateral patchy infiltrates and interstitial prominence with bilateral pleural effusions, right more severely than left. Mediastinal adenopathy. Electronically Signed: Naseem Florian DO at 22:15 EDT Tel [phone], Service support ,
--- NOTE | 2020-04-13 23:35 | HP.PCM_ITS ---
Problem List (1) COVID-19 Status: Acute (2) Pneumonia due to COVID-19 virus Status: Acute (3) Essential hypertension Status: Chronic (4) Atherosclerotic heart disease of [place] coronary artery without angina pectoris Status: Chronic Qualifiers: [place] vs. transplanted heart: [place] heart Qualified Code(s): I25.10 - Atherosclerotic heart disease of [place] coronary artery without angina pectoris (5) S/P coronary artery stent placement Status: Chronic Comment: PCI/KERWIN to the mid LAD (6) Acute CHF Status: Chronic Qualifiers: Heart failure type: systolic Qualified Code(s): I50.21 - Acute systolic (congestive) heart failure (7) Respiratory insufficiency Status: Acute Comment: Hypoxemia (8) Normochromic normocytic anemia Status: Chronic History of Present Illness Date of Admission: 04/13/20 Chief Complaint: sob The patient is a 74 year old M with a significant history of hypertension; and CAD status post drug-eluting stents who presents to the emergency department with shortness of breath. His shortness of breath has been going on for 1 week. His shortness of breath has been worsening. Patient was actually at emergency department on 04/11/2020 for the same symptoms but was discharged home because he was not hypoxic. Associated with symptoms is fever; chills; fatigue; weakness; malaise; and muscle aches. His also has similar symptoms. A friend that patient has been in contact with was diagnosed with COVID-19 virus recently. Past Medical History Past Medical History (Chronic Problems): Chronic Problems (Last Reviewed 04/14/20 @ 01:[address] Brant Guerrero MD) Essential hypertension (Chronic) Atherosclerotic heart disease of [place] coronary artery without angina pectoris (Chronic) S/P coronary artery stent placement (Chronic ~05/26/18) PCI/KERWIN to the mid LAD Acute CHF (Chronic) Normochromic normocytic anemia (Chronic) Medical History: Medical History (Last Reviewed 04/14/20 @ 01:[address] Brant Guerrero MD) Essential hypertension (Chronic) I10 Atherosclerotic heart disease of [place] coronary artery without angina pectoris (Chronic) I25.10 Allergies levofloxacin [From Levaquin] Adverse Reaction (Mild, Verified 04/13/20 17:52) Other muscle aches atorvastatin [From Lipitor] Adverse Reaction (Verified 04/13/20 17:52) Pain in joints Home Medications: Ambulatory Orders Medication Instructions Recorded Aspirin [Aspirin, Baby] 81 mg PO DAILY@0800 05/22/18 Carvedilol [Coreg (Beta Awa)] 3.125 mg PO BID #60 tab 05/27/18 nitroglycerin 0.4 mg sublingual 0.4 mg SUBLINGUAL Q5-15M PRN #25 06/26/18 tablet tab furosemide 40 mg tablet 20 mg PO DAILY PRN #30 tab 09/02/19 Lisinopril [Zestril] 5 mg PO DAILY 04/11/20 Surgical History: Surgical History (Last Reviewed 04/14/20 @ 01:[address] Brant Guerrero MD) S/P coronary artery stent placement (Chronic) Onset Date: ~05/26/18 Z95.5 PCI/KERWIN to the mid LAD Surgical History: - - repair of lacerations related to work, CARDIAC stent placement Psychiatric History: No pertinent psych hx Lives: Spouse/ Significant Other Smoking Status: Never smoker - *Family History Maternal Family History: Family History (Last Reviewed 04/14/20 @ 01:[address] Brant Guerrero MD) Mother Heart disease Father Lymphoma History Items: - - his mother when he was 8 YO of a heart condition Paternal Family History: Family History (Last Reviewed 04/14/20 @ 01:[address] Brant Guerrero MD) Mother Heart disease Father Lymphoma History Items: - - Father at 76 years of age with lymphoma Sibling Family History: Family History (Last Reviewed 04/14/20 @ 01:[address] Brant Guerrero MD) Mother Heart disease Father Lymphoma History Items: - - He has 4 half-sisters, one with dementia, another with osteoporosis....no hx of CAD Review of Systems Constitutional: Reports: Chills, Fever, Fatigue. Denies: Weight Change HEENT: Denies: Head Aches, Sinus Congestion, Sinus Drainage Cardiovascular: Denies: Chest Pain, Palpitations Respiratory: Reports: Cough, Shortness of Breath. Denies: Sputum production Gastrointestinal: Denies: Abdominal Pain, Nausea, Vomiting Genitourinary: Denies: Dysuria Musculoskeletal: Denies: Joint Pain, Joint Tenderness Skin: Denies: Rash, Wounds Neurological: Denies: Numbness, Tingling, Focal weakness Psychiatric: Denies: Anxiety, Depression, Homicidal Ideations, Suicidal Ideations Hematologic/ Lymphatic: Denies: Easy Bruising, Easy Bleeding VTE Information - Inpt Only VTE Present on Admission: No VTE Mechan Device Prophylaxis: None VTE Pharm Prophylaxis ordered?: Yes Patient Problems: Active and Suspected Problems (Last Reviewed 04/14/20 @ 01:[address] Brant Guerrero MD) Pneumonia due to COVID-19 virus (Acute) COVID-19 (Acute) Respiratory insufficiency (Acute) Hypoxemia - Physical Exam Vitals/I&O's: Vital Signs Temp Pulse Resp BP Pulse Ox 100.7 F H 75 28 H 154/75 H 95 04/13/20 23:13 04/13/20 23:13 04/13/20 23:13 04/13/20 23:13 04/13/20 23:13 Oxygen Flow Rate (L/min) 4 Oxygen Delivery Method Nasal Cannula Weight: 85.5 kg Body Mass Index (BMI) 30.4 General: Alert, Oriented x3, Cooperative HEENT: Atraumatic, PERRLA, EOMI, Normocephalic Neck: Supple, No JVD, Negative Carotid Bruits Lungs: Rales, Tachypneic Cardiovascular: Regular rate, Regular Rhythm, Normal S1, Normal S2, No murmurs Abdomen: Bowel Sounds Present, Soft, Non Tender Extremities: No edema, Capillary Refill Less than 3 Seconds Skin: No rashes, No breakdown Musculoskeletal: No Tenderness to Palpation of Joints or Extremities Neurological: Cranial nerves II-XII grossly intact Psych/Mental Status: Normal Affect, Appropriate Microbiology Past 72 Hours 04/13/20 19:10 Mucosa - Nasopharyngeal Respiratory Panel (PCR) - Final Laboratory Results 04/13/20 18:10: WBC 7.7, RBC 3.96 L, Hgb 12.6 L, Hct 38.4 L, MCV 97.0 H, MCH 31.8, MCHC 32.8, RDW Std Deviation 45.3 H, RDW Coeff of Yen 12.7, Plt Count 155, MPV 12.0, Immature Gran % (Auto) 0.400, Neut % (Auto) 79.1 H, Lymph % (Auto) 15.4 L, [place] % (Auto) 4.0, Eos % (Auto) 1.0, Baso % (Auto) 0.1, Absolute Neuts (auto) 6.1, Absolute Lymphs (auto) 1.18, Nucleated RBC % 0 04/13/20 18:10: Fibrinogen 793 H, D-Dimer Quant (PE/DVT) 2.17 H* 04/13/20 18:10: Sodium 134 L, Potassium 3.6, Chloride 101, Carbon Dioxide 27.0, Anion Gap 6, BUN 12, Creatinine 0.91, Estim Creat Clear Calc 63.29, Est GFR (MDRD) Af Amer 104, Est GFR (MDRD) Non-Af 86, BUN/Creatinine Ratio 13.1, Glucose 98, Calcium 7.8 L, Total Bilirubin 0.50, AST 65 H, ALT 53, Alkaline Phosphatase 74, Lactate Dehydrogenase 403 H, Total Creatine Kinase 130, Total Protein 6.9, Albumin 2.6 L, Globulin 4.3 H, Albumin/Globulin Ratio 0.6 L 04/13/20 18:10: Lactic Acid 1.5 04/13/20 18:10: Procalcitonin 0.14 H 04/13/20 19:10: COVID-19 (DENY) Detected Current Medications Sodium Chloride () 1,000 mls @ 125 mls/hr IV .Q8H SHIRLEY Last Admin: 04/13/20 19:54 Dose: 125 mls/hr Documented by: Assessment/Plan All Active Problems (Last Reviewed 04/14/20 @ 01:[address] Brant Guerrero MD) Pneumonia due to COVID-19 virus (Acute) COVID-19 (Acute) Respiratory insufficiency (Acute) Acute respiratory insufficiency secondary to SARS COVID-19 Pneumonia Chest x-ray interpreted by radiologist and actual chest x-ray image interpreted by myself: Interstitial prominence and patchy infiltrates, right more than left. Dimer was elevated at 2.17. Chest CT did not show any pulmonary embolism or arterial dissection. It confirmed bilateral patchy infiltrate and interstitial prominence with bilateral pleural effusion, right more severely than left. Mediastinal adenopathy. COVID-19 was positive. Procalcitonin was mildly elevated at 0.14. It is considered unremarkable. Not initiate antibiotics at this time.. Strep pneumonia antigen and Legionella urine antigen ordered. Dexamethasone 10 mg IV was given at emergency department. Tylenol for fever and Mucinex for cough ordered. CAD status post stents Aspirin, Coreg and lisinopril continued Hypertension On presentation blood pressure was not within goal ASA and lisinopril continued Trend blood pressure and adjust blood pressure medications. History of pulmonary hypertension On Lasix DVT prophylaxis Subcutaneous Lovenox per Covid protocol. Inpatient E&M: 06259 Init Hosp L3
[2020-04-13] MEDS: dexAMETHasone 10 MG/ML Vial IV (23:49)
[2020-04-14] VITALS (11 sets, daily range): BP systolic 134–161; BP diastolic 65–85; PULSE 58–81; RESP 18–30; TEMP 36.1–37.6; O2SAT 91–96; BMI 29.9; BMI 30.4
[2020-04-14 06:06] LABS: Hematocrit 36.9 % (40-54); Hemoglobin 12.2 g/dL (13.0-16.5); Red Blood Count 3.86 M/mm3 (4.6-6.2); White Blood Count 8.2 K/mm3 (4.4-11.0)
[2020-04-14 06:07] LABS: Absolute Lymphocyte Count 0.69 X10^3/uL (0.83-4.51); Absolute Neutrophil Count 7.3 X10^3/uL (2.0-7.7); Basophil# 0.01 X10^3/uL; Basophil% 0.1 % (0-1); Lymphocyte # 0.69 X10^3/ul (4.0); Lymphocyte % 8.4 % (19-41); Mean Corp Hgb Conc 33.1 g/dL (32-36); Mean Corpuscular Hgb 31.6 pg (27.0-32.0); Mean Corpuscular Volume 95.6 fL (80-94); Mean Platelet Vol. 11.4 fl (6.2-12.0); Monocyte# 0.15 X10^3/uL; Monocyte% 1.8 % (0-10); NRBC Flagged by Analyzer 0 % (0-5); Neutrophil # 7.32 X10^3/uL (2.7-7.7); Neutrophil % 89.3 % (47-70); Platelet Count 162 K/mm3 (150-450); RBC Distribution Width CV 12.8 % (11.6-14.6); RBC Distribution Width SD 45.1 fl (35.1-43.9)
[2020-04-14 06:46] LABS: ALB/GLOB Ratio 0.7 RATIO (0.9-2.4); AST(SGOT) 66 U/L (15-37); Alanine Aminotransfer ALT/SGPT 53 U/L (16-61); Albumin, Serum 2.5 g/dL (3.2-5.0); Alkaline Phosphatase 68 U/L (45-117); Anion Gap 9 (5-15); BUN 11 mg/dL (7-18); BUN/Creat Ratio 12.9 RATIO (10-20); Calcium,Total 7.5 mg/dL (8.5-10.1); Chloride 102 mmol/L (98-107); Creatinine, Serum 0.85 mg/dL (0.70-1.30); EST Glomerular Filtration Rate 93 mL/min (>60); Est Glom Filt Rate - Afr Amer 113 mL/min (>60); Estimated Creatinine Clearance 67.76 ml/min; Globulin 3.6 g/dL (2.2-4.2); Glucose 122 mg/dL (74-106); Potassium 4.4 mmol/L (3.5-5.1); Protein, Total 6.1 g/dL (6.4-8.2); Sodium Level 136 mmol/L (136-145)
[2020-04-14] MEDS: Carvedilol 3.125 MG TABLET PO ×2 (09:00→18:06)
[2020-04-14] MEDS: Aspirin 81 MG TAB.CHEW PO (09:00)
[2020-04-14] MEDS: Lisinopril 5 MG Tablet PO (09:01)
[2020-04-14] MEDS: dexAMETHasone 4 MG Tablet 6 MG PO (09:01)
[2020-04-14] MEDS: Enoxaparin 30 MG/0.3 ML Syringe SC ×2 (09:01→20:56)
[2020-04-14] MEDS: guaiFENesin 1,200 MG Tablet 1200 MG PO ×2 (09:01→20:56)
[2020-04-14] MEDS: Clopidogrel Bisulfate 75 MG Tablet PO (09:01)
[2020-04-14] MEDS: 0.9% Saline Lock 10 ML Syringe IV (09:05)
[2020-04-14 09:54] LABS: BNP,B-Type NATRIURETIC PEPTIDE 516.2 pg/mL (0-100)
--- NOTE | 2020-04-14 11:08 | CON.PCM_ITS ---
Problem List (1) Pneumonia due to COVID-19 virus Status: Acute Reason for Consult: covid Consulted by: Dr. Ewing History of Present Illness: The patient is a 74 year old M, exposed to covid about 2 weeks ago, developed cough, dyspnea, fever, chills about 10-12 days ago. Came to ED 04/11 and was sent home. at home feeling fine, has not been tested. No sputum, no aches, no change in taste or smell, no n/v/d. Came back to ED, admitted on dexamethasone. Full ROS performed and neg except as noted above. - Medical History Past Medical History (Chronic Problems): Chronic Problems (Last Reviewed 04/14/20 @ 01:[address] Brant Guerrero MD) Essential hypertension (Chronic) Atherosclerotic heart disease of [place] coronary artery without angina pectoris (Chronic) S/P coronary artery stent placement (Chronic ~05/26/18) PCI/KERWIN to the mid LAD Acute CHF (Chronic) Normochromic normocytic anemia (Chronic) Allergies/Adverse Reactions: Allergies levofloxacin [From Levaquin] Adverse Reaction (Mild, Verified 04/14/20 00:34) Other muscle aches atorvastatin [From Lipitor] Adverse Reaction (Verified 04/14/20 00:34) Pain in joints Home Medications: Ambulatory Orders Medication Instructions Recorded Aspirin [Aspirin, Baby] 81 mg PO DAILY@0800 05/22/18 Carvedilol [Coreg (Beta Awa)] 3.125 mg PO BID #60 tab 05/27/18 nitroglycerin 0.4 mg sublingual 0.4 mg SUBLINGUAL Q5-15M PRN #25 06/26/18 tablet tab furosemide 40 mg tablet 20 mg PO DAILY PRN #30 tab 09/02/19 Lisinopril [Zestril] 5 mg PO DAILY 04/11/20 - Social History Tobacco Use: non-smoker Vital Signs Temp Pulse Resp BP Pulse Ox 97.2 F L 66 20 H 154/85 H 92 04/14/20 09:00 04/14/20 09:00 04/14/20 09:00 04/14/20 09:00 04/14/20 09:00 Oxygen Flow Rate (L/min) 5 Oxygen Delivery Method Nasal Cannula Weight: 84 kg Body Mass Index (BMI) 29.9 Microbiology Past 72 Hours 04/14/20 01:22 Legionella Antigen - Final Urine, Clean Catch Streptococcus pneumoniae Antigen (M - Final 04/13/20 19:10 Respiratory Panel (PCR) - Final Mucosa - Nasopharyngeal Laboratory Tests Past 24 Hrs 04/13/20 04/13/20 04/13/20 18:10 18:10 18:10 WBC 7.7 RBC 3.96 L Hgb 12.6 L Hct 38.4 L MCV 97.0 H MCH 31.8 MCHC 32.8 RDW Std Deviation 45.3 H RDW Coeff of Yen 12.7 Plt Count 155 MPV 12.0 Immature Gran % (Auto) 0.400 Neut % (Auto) 79.1 H Lymph % (Auto) 15.4 L [place] % (Auto) 4.0 Eos % (Auto) 1.0 Baso % (Auto) 0.1 Absolute Neuts (auto) 6.1 Absolute Lymphs (auto) 1.18 Nucleated RBC % 0 Fibrinogen 793 H D-Dimer Quant (PE/DVT) 2.17 H* Sodium 134 L Potassium 3.6 Chloride 101 Carbon Dioxide 27.0 Anion Gap 6 BUN 12 Creatinine 0.91 Estim Creat Clear Calc 63.29 Est GFR (MDRD) Af Amer 104 Est GFR (MDRD) Non-Af 86 BUN/Creatinine Ratio 13.1 Glucose 98 Lactic Acid Calcium 7.8 L Total Bilirubin 0.50 AST 65 H ALT 53 Alkaline Phosphatase 74 Lactate Dehydrogenase 403 H Total Creatine Kinase 130 Troponin I B-Natriuretic Peptide Total Protein 6.9 Albumin 2.6 L Globulin 4.3 H Albumin/Globulin Ratio 0.6 L Procalcitonin COVID-19 (DENY) Blood Type 04/13/20 04/13/20 04/13/20 18:10 18:10 19:10 WBC RBC Hgb Hct MCV MCH MCHC RDW Std Deviation RDW Coeff of Yen Plt Count MPV Immature Gran % (Auto) Neut % (Auto) Lymph % (Auto) [place] % (Auto) Eos % (Auto) Baso % (Auto) Absolute Neuts (auto) Absolute Lymphs (auto) Nucleated RBC % Fibrinogen D-Dimer Quant (PE/DVT) Sodium Potassium Chloride Carbon Dioxide Anion Gap BUN Creatinine Estim Creat Clear Calc Est GFR (MDRD) Af Amer Est GFR (MDRD) Non-Af BUN/Creatinine Ratio Glucose Lactic Acid 1.5 Calcium Total Bilirubin AST ALT Alkaline Phosphatase Lactate Dehydrogenase Total Creatine Kinase Troponin I B-Natriuretic Peptide Total Protein Albumin Globulin Albumin/Globulin Ratio Procalcitonin 0.14 H COVID-19 (DENY) Detected Blood Type 04/14/20 04/14/20 04/14/20 05:10 05:10 05:10 WBC 8.2 RBC 3.86 L Hgb 12.2 L Hct 36.9 L MCV 95.6 H MCH 31.6 MCHC 33.1 RDW Std Deviation 45.1 H RDW Coeff of Yen 12.8 Plt Count 162 MPV 11.4 Immature Gran % (Auto) 0.400 Neut % (Auto) 89.3 H Lymph % (Auto) 8.4 L [place] % (Auto) 1.8 Eos % (Auto) 0.0 Baso % (Auto) 0.1 Absolute Neuts (auto) 7.3 Absolute Lymphs (auto) 0.69 L Nucleated RBC % 0 Fibrinogen D-Dimer Quant (PE/DVT) Sodium 136 Potassium 4.4 Chloride 102 Carbon Dioxide 25.0 Anion Gap 9 BUN 11 Creatinine 0.85 Estim Creat Clear Calc 67.76 Est GFR (MDRD) Af Amer 113 Est GFR (MDRD) Non-Af 93 BUN/Creatinine Ratio 12.9 Glucose 122 H Lactic Acid Calcium 7.5 L Total Bilirubin 0.50 AST 66 H ALT 53 Alkaline Phosphatase 68 Lactate Dehydrogenase Total Creatine Kinase Troponin I B-Natriuretic Peptide Total Protein 6.1 L Albumin 2.5 L Globulin 3.6 Albumin/Globulin Ratio 0.7 L Procalcitonin COVID-19 (DENY) Blood Type Pending 04/14/20 04/14/20 05:10 05:10 WBC RBC Hgb Hct MCV MCH MCHC RDW Std Deviation RDW Coeff of Yen Plt Count MPV Immature Gran % (Auto) Neut % (Auto) Lymph % (Auto) [place] % (Auto) Eos % (Auto) Baso % (Auto) Absolute Neuts (auto) Absolute Lymphs (auto) Nucleated RBC % Fibrinogen D-Dimer Quant (PE/DVT) Sodium Potassium Chloride Carbon Dioxide Anion Gap BUN Creatinine Estim Creat Clear Calc Est GFR (MDRD) Af Amer Est GFR (MDRD) Non-Af BUN/Creatinine Ratio Glucose Lactic Acid Calcium Total Bilirubin AST ALT Alkaline Phosphatase Lactate Dehydrogenase Total Creatine Kinase Troponin I 0.034 B-Natriuretic Peptide 516.2 H Total Protein Albumin Globulin Albumin/Globulin Ratio Procalcitonin COVID-19 (DENY) Blood Type - Other Studies Radiology: [] reviewed Other Studies: [] Route of nutrition/ use of supplements: [] Nutritional Intake: [] IV Site: [] Lopes Catheter: [] - Physical Exam General: Alert, Oriented x3, Cooperative, No apparent distress HEENT: Atraumatic, PERRLA, EOMI Neck: Supple, No Nodes Lungs: Diminished Cardiovascular: Regular rate, Regular Rhythm Abdomen: Soft, Non Tender, Non-Distended Extremities: No edema Skin: No rashes IV Site: Peripheral, without redness Musculoskeletal: No Tenderness to Palpation of Joints or Extremities Neurological: Cranial nerves II-XII grossly intact - Assessment/Plan Antibiotics: [] Assessment/Plan: [] Active and Suspected Problems (Last Reviewed 04/14/20 @ 01:[address] Brant Guerrero MD) Pneumonia due to COVID-19 virus (Acute) COVID-19 (Acute) Respiratory insufficiency (Acute) Hypoxemia covid with hypoxia - sat of 77% on presentation, fever to 100.7. Now on 5L. On dex, will check ABO, trop, BNP. Start remdesivir with daily labs. Reviewed EUA and risk/benefit of plasma, and he is in agreement, will start. CT showed no PE. D-dimer 2.1. On lovenox proph bid. Will follow thank you
--- NOTE | 2020-04-14 11:20 | CASEMGMT ---
RN CM Assessment Note Introduced role of CM to patient to via phone. Demographics, PCP verified. the patient is on 5L [place], unable to participate at this time. Per , pt is independent prior to admission and was working 5 days a week until a week ago when symptoms started. also had mild symptoms, but no covid testing yet. RN EDISON advised to contact her PCP to update on her being at hospital and to see if they are recommending testing for her. Per , patient does ot have or use ambulatory DME and no oxygen at home prior to admission. Discussed oxygen may be needed on dc, and [facility]. Explained procedure for O2 with portability to hospital and set up at home. No questions at this time. -Pt has masks, cleaning supplies @ home -Family can assist with care needs and bringing groceries, medications, etc. Presentation: shortness of breath Diagnosis: COVID-19 PCP: Dr. Arango Insurance: [facility] Preferred [facility]acy: [facility] Pres[facility] Benefit: yes LNOK: , Cyn Living Arrangements: Lives independently with . Tranportation: drives, but family can pick him up on discharge DME: none. If Home O2 needed, use [facility] PH: FX: Patient DC Goals: Home DC Plan: anticipate home on discharge with oxygen CM available for discharge planning coordination. Contact CM for any concerns/needs that may arise. Raina LIVINGSTON RN ACM
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
--- NOTE | 2020-04-14 17:07 | PCM.PN.HOSP ---
Patient Problems: Active and Suspected Problems (Last Reviewed 04/14/20 @ 01:[address] Brant Guerrero MD) Pneumonia due to COVID-19 virus (Acute) COVID-19 (Acute) Respiratory insufficiency (Acute) Hypoxemia Subjective: Feels better than when he came in still having some shortness of breath. Vitals/I&O's: Vital Signs Temp Pulse Resp BP Pulse Ox 97.0 F L 59 L 18 137/77 H 96 04/14/20 14:58 04/14/20 14:58 04/14/20 14:58 04/14/20 14:58 04/14/20 14:58 Oxygen Flow Rate (L/min) 4 Oxygen Delivery Method Nasal Cannula Weight: 185 lb 3.013 oz Body Mass Index (BMI) 29.9 Intake and Output for Last 24 Hours 04/12/20 04/13/20 04/14/20 23:59 23:59 23:59 Intake Total 2170 / 2170 Output Total 1150 / 1150 Balance 1020 / 1020 General: Alert, Oriented x3, Cooperative, No apparent distress HEENT: Atraumatic, PERRLA, EOMI, Normocephalic Oral: Moist Mucosa Neck: Supple, No JVD Lungs: Normal air movement, No rhonchi, No wheeze, Diminished, Rales - On the right base Cardiovascular: Regular rate, Regular Rhythm, Normal S1, Normal S2, No murmurs Abdomen: Soft, Non Tender, Non-Distended, No Hepato-splenomegaly Extremities: No edema, Capillary Refill Less than 3 Seconds Skin: No rashes, No breakdown Neurological: Neuro grossly intact, Sensory exam intact to light touch and pain Psych/Mental Status: Normal Affect, Appropriate Microbiology Past 72 Hours 04/14/20 01:22 Urine, Clean Catch Legionella Antigen - Final 04/14/20 01:22 Urine, Clean Catch Streptococcus pneumoniae Antigen (M - Final 04/13/20 19:10 Mucosa - Nasopharyngeal Respiratory Panel (PCR) - Final Laboratory Results 04/13/20 18:10: WBC 7.7, RBC 3.96 L, Hgb 12.6 L, Hct 38.4 L, MCV 97.0 H, MCH 31.8, MCHC 32.8, RDW Std Deviation 45.3 H, RDW Coeff of Yen 12.7, Plt Count 155, MPV 12.0, Immature Gran % (Auto) 0.400, Neut % (Auto) 79.1 H, Lymph % (Auto) 15.4 L, [place] % (Auto) 4.0, Eos % (Auto) 1.0, Baso % (Auto) 0.1, Absolute Neuts (auto) 6.1, Absolute Lymphs (auto) 1.18, Nucleated RBC % 0 04/13/20 18:10: Fibrinogen 793 H, D-Dimer Quant (PE/DVT) 2.17 H* 04/13/20 18:10: Sodium 134 L, Potassium 3.6, Chloride 101, Carbon Dioxide 27.0, Anion Gap 6, BUN 12, Creatinine 0.91, Estim Creat Clear Calc 63.29, Est GFR (MDRD) Af Amer 104, Est GFR (MDRD) Non-Af 86, BUN/Creatinine Ratio 13.1, Glucose 98, Calcium 7.8 L, Total Bilirubin 0.50, AST 65 H, ALT 53, Alkaline Phosphatase 74, Lactate Dehydrogenase 403 H, Total Creatine Kinase 130, Total Protein 6.9, Albumin 2.6 L, Globulin 4.3 H, Albumin/Globulin Ratio 0.6 L 04/13/20 18:10: Lactic Acid 1.5 04/13/20 18:10: Procalcitonin 0.14 H 04/13/20 19:10: COVID-19 (DENY) Detected 04/14/20 05:10: WBC 8.2, RBC 3.86 L, Hgb 12.2 L, Hct 36.9 L, MCV 95.6 H, MCH 31.6, MCHC 33.1, RDW Std Deviation 45.1 H, RDW Coeff of Yen 12.8, Plt Count 162, MPV 11.4, Immature Gran % (Auto) 0.400, Neut % (Auto) 89.3 H, Lymph % (Auto) 8.4 L, [place] % (Auto) 1.8, Eos % (Auto) 0.0, Baso % (Auto) 0.1, Absolute Neuts (auto) 7.3, Absolute Lymphs (auto) 0.69 L, Nucleated RBC % 0 04/14/20 05:10: Sodium 136, Potassium 4.4, Chloride 102, Carbon Dioxide 25.0, Anion Gap 9, BUN 11, Creatinine 0.85, Estim Creat Clear Calc 67.76, Est GFR (MDRD) Af Amer 113, Est GFR (MDRD) Non-Af 93, BUN/Creatinine Ratio 12.9, Glucose 122 H, Calcium 7.5 L, Total Bilirubin 0.50, AST 66 H, ALT 53, Alkaline Phosphatase 68, Total Protein 6.1 L, Albumin 2.5 L, Globulin 3.6, Albumin/Globulin Ratio 0.7 L 04/14/20 05:10: Troponin I 0.034 04/14/20 05:10: B-Natriuretic Peptide 516.2 H 04/14/20 11:15: Blood Type O POSITIVE Current Medications Acetaminophen (Acetaminophen 325 Mg Tablet) 650 mg PO Q6H PRN PRN PRN Reason: Pain Score 1-10/Temp > 100.7 F Albuterol Sulfate (Albuterol Sulfate 18 Gm Inhaler (200 Puffs)) 2 puff IH Q4H PRN PRN PRN Reason: SOB/WHEEZING Aspirin (Aspirin 81 Mg Tab.Chew) 81 mg PO DAILY@0800 [facility] Last Admin: 04/14/20 09:00 Dose: 81 mg Documented by: Carvedilol (Carvedilol 3.125 Mg Tablet) [facility] Last Admin: 04/14/20 09:00 Dose: 3.125 mg Documented by: Clopidogrel Bisulfate (Clopidogrel Bisulfate 75 Mg Tablet) 75 mg PO DAILY [facility] Last Admin: 04/14/20 09:01 Dose: 75 mg Documented by: Dexamethasone (Dexamethasone 4 Mg Tablet) 6 mg PO DAILY@0800 [facility] Last Admin: 04/14/20 09:01 Dose: 6 mg Documented by: Enoxaparin Sodium (Enoxaparin 30 Mg/0.3 Ml Syringe) 30 mg SC BID [facility] Last Admin: 04/14/20 09:01 Dose: 30 mg Documented by: Furosemide (Furosemide 20 Mg Tablet) 20 mg PO DAILY PRN PRN PRN Reason: shortness of breath Guaifenesin (Guaifenesin 1,200 Mg Tablet) 1,200 mg PO BID [facility] Last Admin: 04/14/20 09:01 Dose: 1,200 mg Documented by: Remdesivir 100 mg/ Sodium (Chloride) 250 mls @ 125 mls/hr IV DAILY [facility]; Protocol Stop: 04/18/20 11:59 Lisinopril (Lisinopril 5 Mg Tablet) 5 mg PO DAILY [facility] Last Admin: 04/14/20 09:01 Dose: 5 mg Documented by: Miscellaneous Information (Inhaler, Assist Devices 1 Each Spacer) 1 each INHALATION PRN PRN PRN Reason: WITH ALBUTEROL MDI Nutritional Formula (Lactose Free) (Ensure Enlive 120 Ml Liquid) 120 ml PO 4X/DAY [facility] Last Admin: 04/14/20 13:51 Dose: Not Given Documented by: Ondansetron HCl (Ondansetron 4 Mg/2 Ml Vial) 4 mg IV Q8H PRN PRN PRN Reason: NAUSEA/VOMITING Sodium Chloride (0.9% Saline Lock 10 Ml Syringe) 10 - 40 ml IV UD PRN PRN Reason: SALINE FLUSH Last Admin: 04/14/20 09:05 Dose: 10 ml Documented by: STROKE Vital Signs/Narrative: Vital Signs Temp Pulse Resp BP Pulse Ox 04/14/20 14:58 97.0 F L 59 L 18 137/77 H 96 Medical Necessity - Tobacco Use Smoking Status: Never smoker Assessment/Plan All Active Problems (Last Reviewed 04/14/20 @ 01:[address] Brant Guerrero MD) Pneumonia due to COVID-19 virus (Acute) COVID-19 (Acute) Respiratory insufficiency (Acute) 1. Acute hypoxic respiratory failure secondary to Covid pneumonia -Appreciate pulmonology infectious disease assistance -Continue with remdesivir and Decadron -He has agreed to convalescent plasma -Incentive spirometer -Currently on 5 L nasal cannula -D-dimer is elevated however CTA does not show PE and he is currently on aspirin and Plavix as well as prophylactic Lovenox 2. CAD status post stent/HTN/HLD -He is supposed be on Lasix as needed, will give him a dose of IV Lasix in the morning -BNP was elevated to 516 he does have rails on his exam the no significant edema -Continue with his Coreg, lisinopril, and aspirin DVT: Lovenox Inpatient E&M: 49374 Subs Hosp L2
[2020-04-15] VITALS (11 sets, daily range): BP systolic 135–150; BP diastolic 68–93; PULSE 61–76; RESP 18–24; TEMP 35.7–36.3; O2SAT 90–95
[2020-04-15] MEDS: INHALER, ASSIST DEVICES 1 EACH SPACER INHALATION ×2 (03:14→20:30)
[2020-04-15 06:05] LABS: Hematocrit 32.8 % (40-54); Mean Corp Hgb Conc 33.5 g/dL (32-36); Mean Corpuscular Hgb 31.8 pg (27.0-32.0); Mean Corpuscular Volume 94.8 fL (80-94); Mean Platelet Vol. 11.3 fl (6.2-12.0); Platelet Count 203 K/mm3 (150-450); RBC Distribution Width CV 12.8 % (11.6-14.6); RBC Distribution Width SD 45.1 fl (35.1-43.9); Red Blood Count 3.46 M/mm3 (4.6-6.2); White Blood Count 14.1 K/mm3 (4.4-11.0)
[2020-04-15 06:35] LABS: ALB/GLOB Ratio 0.7 RATIO (0.9-2.4); AST(SGOT) 85 U/L (15-37); Alanine Aminotransfer ALT/SGPT 69 U/L (16-61); Albumin, Serum 2.4 g/dL (3.2-5.0); Alkaline Phosphatase 61 U/L (45-117); Anion Gap 8 (5-15); BUN 21 mg/dL (7-18); BUN/Creat Ratio 30.3 RATIO (10-20); Calcium,Total 7.7 mg/dL (8.5-10.1); Chloride 103 mmol/L (98-107); Creatinine, Serum 0.69 mg/dL (0.70-1.30); EST Glomerular Filtration Rate 118 mL/min (>60); Est Glom Filt Rate - Afr Amer 143 mL/min (>60); Globulin 3.4 g/dL (2.2-4.2); Glucose 129 mg/dL (74-106); Potassium 4.1 mmol/L (3.5-5.1); Protein, Total 5.8 g/dL (6.4-8.2); Sodium Level 136 mmol/L (136-145)
[2020-04-15] MEDS: Aspirin 81 MG TAB.CHEW PO (09:18)
[2020-04-15] MEDS: guaiFENesin 1,200 MG Tablet 1200 MG PO ×2 (09:18→20:27)
[2020-04-15] MEDS: dexAMETHasone 4 MG Tablet 6 MG PO (09:18)
[2020-04-15] MEDS: Carvedilol 3.125 MG TABLET PO ×2 (09:18→17:15)
[2020-04-15] MEDS: Clopidogrel Bisulfate 75 MG Tablet PO (09:18)
[2020-04-15] MEDS: Lisinopril 5 MG Tablet PO (09:19)
[2020-04-15] MEDS: Enoxaparin 30 MG/0.3 ML Syringe SC ×2 (09:20→20:28)
[2020-04-15] MEDS: Furosemide 40 MG/4 ML Vial IV (09:20)
[2020-04-15] MEDS: 0.9% Saline Lock 10 ML Syringe IV (09:23)
--- NOTE | 2020-04-15 11:17 | PN_ITS ---
Patient Problems: Active and Suspected Problems (Last Reviewed 04/14/20 @ 01:[address] Brant Guerrero MD) Pneumonia due to COVID-19 virus (Acute) COVID-19 (Acute) Respiratory insufficiency (Acute) Hypoxemia Subjective: Feeling good, had to be increased on his oxygen to 9 L Vitals/I&O's: Vital Signs Temp Pulse Resp BP Pulse Ox 97.4 F L 67 20 H 135/79 H 95 04/15/20 09:10 04/15/20 09:10 04/15/20 09:10 04/15/20 09:10 04/15/20 10:21 Oxygen Flow Rate (L/min) 10 Oxygen Delivery Method Nasal Cannula Weight: 185 lb 3.013 oz Body Mass Index (BMI) 29.9 Intake and Output for Last 24 Hours 04/13/20 04/14/20 04/15/20 23:59 23:59 23:59 Intake Total 3650 / 3650 240 / 240 Output Total 1150 / 1150 350 / 350 Balance 2500 / 2500 -110 / -110 General: Alert, Oriented x3, Cooperative, No apparent distress HEENT: Atraumatic, PERRLA, EOMI, Normocephalic Oral: Moist Mucosa Neck: Supple, No JVD Lungs: Normal air movement, No rhonchi, No wheeze, Diminished, Rales bilaterally Cardiovascular: Regular rate, Regular Rhythm, Normal S1, Normal S2, No murmurs Abdomen: Soft, Non Tender, Non-Distended, No Hepato-splenomegaly Extremities: No edema, Capillary Refill Less than 3 Seconds Skin: No rashes, No breakdown Neurological: Neuro grossly intact, Sensory exam intact to light touch and pain Psych/Mental Status: Normal Affect, Appropriate Microbiology Past 72 Hours 04/14/20 01:22 Urine, Clean Catch Legionella Antigen - Final 04/14/20 01:22 Urine, Clean Catch Streptococcus pneumoniae Antigen (M - Final 04/13/20 19:10 Mucosa - Nasopharyngeal Respiratory Panel (PCR) - Final Laboratory Results 04/14/20 11:15: Blood Type O POSITIVE 04/15/20 05:00: WBC 14.1 H, RBC 3.46 L, Hgb 11.0 L, Hct 32.8 L, MCV 94.8 H, MCH 31.8, MCHC 33.5, RDW Std Deviation 45.1 H, RDW Coeff of Yen 12.8, Plt Count 203, MPV 11.3 04/15/20 05:00: Sodium 136, Potassium 4.1, Chloride 103, Carbon Dioxide 25.0, Anion Gap 8, BUN 21 H, Creatinine 0.69 L, Estim Creat Clear Calc 57.60, Est GFR (MDRD) Af Amer 143, Est GFR (MDRD) Non-Af 118, BUN/Creatinine Ratio 30.3 H, Glucose 129 H, Calcium 7.7 L, Total Bilirubin 0.50, AST 85 H, ALT 69 H, Alkaline Phosphatase 61, Total Protein 5.8 L, Albumin 2.4 L, Globulin 3.4, Albumin/Globulin Ratio 0.7 L Current Medications Acetaminophen (Acetaminophen 325 Mg Tablet) 650 mg PO Q6H PRN PRN PRN Reason: Pain Score 1-10/Temp > 100.7 F Albuterol Sulfate (Albuterol Sulfate 18 Gm Inhaler (200 Puffs)) 2 puff IH Q4H PRN PRN PRN Reason: SOB/WHEEZING Last Admin: 04/15/20 03:13 Dose: 2 puff Documented by: Aspirin (Aspirin 81 Mg Tab.Chew) 81 mg PO DAILY@0800 [facility] Last Admin: 04/15/20 09:18 Dose: 81 mg Documented by: Carvedilol ([facility]il[facility] 3.125 Mg Tablet) [facility] Last Admin: 04/15/20 09:18 Dose: 3.125 mg Documented by: Clopidogrel Bisulfate (Clopidogrel Bisulfate 75 Mg Tablet) 75 mg PO DAILY [facility] Last Admin: 04/15/20 09:18 Dose: 75 mg Documented by: Dexamethasone (Dexamethasone 4 Mg Tablet) 6 mg PO DAILY@0800 [facility] Last Admin: 04/15/20 09:18 Dose: 6 mg Documented by: Enoxaparin Sodium (Enoxaparin 30 Mg/0.3 Ml Syringe) 30 mg SC BID [facility] Last Admin: 04/15/20 09:20 Dose: 30 mg Documented by: Furosemide (Furosemide 40 Mg/4 Ml Vial) 40 mg IV DAILY [facility] Last Admin: 04/15/20 09:20 Dose: 40 mg Documented by: Guaifenesin (Guaifenesin 1,200 Mg Tablet) 1,200 mg PO BID [facility] Last Admin: 04/15/20 09:18 Dose: 1,200 mg Documented by: Remdesivir 100 mg/ Sodium (Chloride) 250 mls @ 125 mls/hr IV DAILY [facility]; Pro tocol Stop: 04/18/20 11:59 Last Admin: 04/15/20 11:06 Dose: 125 mls/hr Documented by: Sodium Chloride () 250 mls @ 15 mls/hr IV .[id number] PRN PRN Reason: Saline Flush Sodium Chloride () 250 mls @ 15 mls/hr IV .[id number] PRN PRN Reason: Additional IVPB Infusion Lisinopril (Lisinopril 5 Mg Tablet) 5 mg PO DAILY [facility] Last Admin: 04/15/20 09:19 Dose: 5 mg Documented by: Miscellaneous Information (Inhaler, Assist Devices 1 Each Spacer) 1 each INHALATION PRN PRN PRN Reason: WITH ALBUTEROL MDI Last Admin: 04/15/20 03:14 Dose: 1 each Documented by: Nutritional Formula (Lactose Free) (Ensure Enlive 120 Ml Liquid) 120 ml PO 4X/DAY [facility] Last Admin: 04/15/20 11:06 Dose: 120 ml Documented by: Ondansetron HCl (Ondansetron 4 Mg/2 Ml Vial) 4 mg IV Q8H PRN PRN PRN Reason: NAUSEA/VOMITING Sodium Chloride (0.9% Saline Lock 10 Ml Syringe) 10 - 40 ml IV UD PRN PRN Reason: SALINE FLUSH Last Admin: 04/15/20 09:23 Dose: 10 ml Documented by: STROKE Vital Signs/Narrative: Vital Signs Temp Pulse Resp BP Pulse Ox 04/15/20 10:21 95 04/15/20 09:10 97.4 F L 67 20 H 135/79 H 95 Medical Necessity - Tobacco Use Smoking Status: Never smoker Assessment/Plan All Active Problems (Last Reviewed 04/14/20 @ 01:[address] Brant Guerrero MD) Pneumonia due to COVID-19 virus (Acute) COVID-19 (Acute) Respiratory insufficiency (Acute) 1. Acute hypoxic respiratory failure secondary to Covid pneumonia -Appreciate pulmonology infectious disease assistance -Continue with remdesivir and Decadron -He has agreed to convalescent plasma which she received on 04/14/2020 -Incentive spirometer -Currently on 9 L nasal cannula -D-dimer is elevated however CTA does not show PE and he is currently on aspirin and Plavix as well as prophylactic Lovenox 2. CAD status post stent/HTN/HLD -He is supposed be on Lasix as needed, will give him a dose of IV Lasix today -BNP was elevated to 516 he does have rails on his exam the no significant edema -Continue with his Coreg, lisinopril, and aspirin DVT: Lovenox Inpatient E&M: [id number] Subs Hosp L2
--- NOTE | 2020-04-15 15:23 | PN_ITS ---
Patient Problems: Active and Suspected Problems (Last Reviewed 04/14/20 @ 01:[address] Brant Guerrero MD) Pneumonia due to COVID-19 virus (Acute) COVID-19 (Acute) Respiratory insufficiency (Acute) Hypoxemia Subjective: Patient overall feels subjectively unchanged compared to previous. Patient continues to have a nonproductive cough. Patient is not reporting any chest pain, nausea or vomiting. Patient has required significantly increased supplemental oxygen over the last 24 hours. Patient did receive convalescent serum yesterday. Patient denies any apparent side effects to remdesivir. - Physical Exam Vitals/I&O's: Vital Signs Temp Pulse Resp BP Pulse Ox 36.3 C L 67 18 138/68 H 94 04/15/20 14:25 04/15/20 14:25 04/15/20 14:25 04/15/20 14:25 04/15/20 14:25 Oxygen Flow Rate (L/min) 9 Oxygen Delivery Method Nasal Cannula Weight: 84 kg Body Mass Index (BMI) 29.9 Intake and Output for Last 24 Hours 04/13/20 04/14/20 04/15/20 23:59 23:59 23:59 Intake Total 3650 / 3650 850 / 850 Output Total 1150 / 1150 350 / 350 Balance 2500 / 2500 500 / 500 General: Alert, Oriented x3, Cooperative, No apparent distress, - - Appears stated age. No conversational dyspnea. HEENT: Atraumatic, PERRLA, EOMI, Normocephalic, - - No scleral icterus or injection noted Oral: Moist Mucosa, No Gingival or Mucosal Lesions/ Ulcerations Neck: Supple, No JVD, No Nodes, Trachea Midline Lungs: No rhonchi, No wheeze, No rales, Diminished, - - Symmetric expansion. Cardiovascular: Regular rate, Regular Rhythm, Normal S1, Normal S2, No murmurs, No rub noted, No Gallop Abdomen: Bowel Sounds Present, Soft, Non Tender, Non-Distended Extremities: No clubbing, No cyanosis, Edema - Trace to 1+ Skin: - - Venous stasis changes lower extremities Musculoskeletal: No Tenderness to Palpation of Joints or Extremities Lymphatic: No Cervical, Supraclavicular, or Inguinal Adenopathy Neurological: Cranial nerves II-XII grossly intact, Neuro grossly intact, Motor Exam 5/5 strength throughout Psych/Mental Status: Alert and oriented to time, place, person, mood and affect Microbiology Past 72 Hours 04/14/20 01:22 Urine, Clean Catch Legionella Antigen - Final 04/14/20 01:22 Urine, Clean Catch Streptococcus pneumoniae Antigen (M - Final 04/13/20 19:10 Mucosa - Nasopharyngeal Respiratory Panel (PCR) - Final Laboratory Results 04/15/20 05:00: WBC 14.1 H, RBC 3.46 L, Hgb 11.0 L, Hct 32.8 L, MCV 94.8 H, MCH 31.8, MCHC 33.5, RDW Std Deviation 45.1 H, RDW Coeff of Yen 12.8, Plt Count 203, MPV 11.3 04/15/20 05:00: Sodium 136, Potassium 4.1, Chloride 103, Carbon Dioxide 25.0, Anion Gap 8, BUN 21 H, Creatinine 0.69 L, Estim Creat Clear Calc 57.60, Est GFR (MDRD) Af Amer 143, Est GFR (MDRD) Non-Af 118, BUN/Creatinine Ratio 30.3 H, Glucose 129 H, Calcium 7.7 L, Total Bilirubin 0.50, AST 85 H, ALT 69 H, Alkaline Phosphatase 61, Total Protein 5.8 L, Albumin 2.4 L, Globulin 3.4, Albumin/Globulin Ratio 0.7 L Current Medications Acetaminophen (Acetaminophen 325 Mg Tablet) 650 mg PO Q6H PRN PRN PRN Reason: Pain Score 1-10/Temp > 100.7 F Albuterol Sulfate (Albuterol Sulfate 18 Gm Inhaler (200 Puffs)) 2 puff IH Q4H PRN PRN PRN Reason: SOB/WHEEZING Last Admin: 04/15/20 03:13 Dose: 2 puff Documented by: Aspirin (Aspirin 81 Mg Tab.Chew) 81 mg PO DAILY@0800 [facility] Last Admin: 04/15/20 09:18 Dose: 81 mg Documented by: Carvedilol (Carvedil[facility] 3.125 Mg Tablet) [facility] Last Admin: 04/15/20 09:18 Dose: 3.125 mg Documented by: Clopidogrel Bisulfate (Clopidogrel Bisulfate 75 Mg Tablet) 75 mg PO DAILY [facility] Last Admin: 04/15/20 09:18 Dose: 75 mg Documented by: Dexamethasone (Dexamethasone 4 Mg Tablet) 6 mg PO DAILY@0800 [facility] Last Admin: 04/15/20 09:18 Dose: 6 mg Documented by: Enoxaparin Sodium (Enoxaparin 30 Mg/0.3 Ml Syringe) 30 mg SC BID [facility] Last Admin: 04/15/20 09:20 Dose: 30 mg Documented by: Furosemide (Furosemide 40 Mg/4 Ml Vial) 40 mg IV DAILY [facility] Last Admin: 04/15/20 09:20 Dose: 40 mg Documented by: Guaifenesin (Guaifenesin 1,200 Mg Tablet) 1,200 mg PO BID [facility] Last Admin: 04/15/20 09:18 Dose: 1,200 mg Documented by: Remdesivir 100 mg/ Sodium (Chloride) 250 mls @ 125 mls/hr IV DAILY [facility]; Protocol Stop: 04/18/20 11:59 Last Infusion: 04/15/20 13:06 Dose: Infused Documented by: Sodium Chloride () 250 mls @ 15 mls/hr IV .[id number] PRN PRN Reason: Saline Flush Sodium Chloride () 250 mls @ 15 mls/hr IV .[id number] PRN PRN Reason: Additional IVPB Infusion Lisinopril (Lisinopril 5 Mg Tablet) 5 mg PO DAILY [facility] Last Admin: 04/15/20 09:19 Dose: 5 mg Documented by: Miscellaneous Information (Inhaler, Assist Devices 1 Each Spacer) 1 each INHALATION PRN PRN PRN Reason: WITH ALBUTEROL MDI Last Admin: 04/15/20 03:14 Dose: 1 each Documented by: Nutritional Formula (Lactose Free) (Ensure Enlive 120 Ml Liquid) 120 ml PO 4X/DAY [facility] Last Admin: 04/15/20 14:22 Dose: 120 ml Documented by: Ondansetron HCl (Ondansetron 4 Mg/2 Ml Vial) 4 mg IV Q8H PRN PRN PRN Reason: NAUSEA/VOMITING Sodium Chloride (0.9% Saline Lock 10 Ml Syringe) 10 - 40 ml IV UD PRN PRN Reason: SALINE FLUSH Last Admin: 04/15/20 09:23 Dose: 10 ml Documented by: Medical Necessity - Tobacco Use Smoking Status: Never smoker Assessment/Plan All Active Problems (Last Reviewed 04/14/20 @ 01:[address] Brant Guerrero MD) Pneumonia due to COVID-19 virus (Acute) COVID-19 (Acute) Respiratory insufficiency (Acute) RECOMMENDATIONS: 1. Wean supplemental oxygen as tolerated 2. Remdesivir and Decadron per ID. Completed convalescent serum 3. Continue with diuretic therapy as tolerated. Check electrolytes tomorrow morning 4. Would not recommend a thoracentesis at this time 5. Outpatient complete PFT for quantification clarification of lung function IMPRESSIONS: 1. Acute hypoxic respiratory insufficiency secondary to COVID-19 pneumonia and possible diastolic CHF Confirmed with Covid. D-dimer is elevated, but no PE was appreciated. Patient does have patchy infiltrates and bilateral pleural effusions. However, previous echocardiogram was suggestive of possible diastolic dysfunction and pulmonary hypertension. Clinical suspicion for worsening of pulmonary artery pressure secondary to hypoxia on presentation. Procalcitonin was relatively low, so concomitant infection is not suspected at this time. Decadron and remdesivir per infectious disease. Patient has received some diuretic therapy, but oxygenation continues to worsen. Unclear if this is related to COVID-19, but fluid status is slightly up compared to yesterday. Possible candidate for high flow nasal cannula if oxygenation continues to worsen. 2. CAD status post stents/hypertension/cor pulmonale/advanced age/poor historian Complicates care, management, recovery and prognosis. Okay to continue with baseline medications for now. Inpatient E&M: [id number] [facility] L3
--- NOTE | 2020-04-15 15:47 | PCM.PN.ID ---
Patient Problems: Active and Suspected Problems (Last Reviewed 04/14/20 @ 01:[address] Brant Guerrero MD) Pneumonia due to COVID-19 virus (Acute) COVID-19 (Acute) Respiratory insufficiency (Acute) Hypoxemia Subjective: Feeling a little better today. No fever. - Physical Exam Vitals/I&O's: Vital Signs Temp Pulse Resp BP Pulse Ox 97.3 F L 67 18 138/68 H 94 04/15/20 14:25 04/15/20 14:25 04/15/20 14:25 04/15/20 14:25 04/15/20 14:25 Oxygen Flow Rate (L/min) 9 Oxygen Delivery Method Nasal Cannula Weight: 84 kg Body Mass Index (BMI) 29.9 Intake and Output for Last 24 Hours 04/13/20 04/14/20 04/15/20 23:59 23:59 23:59 Intake Total 3650 / 3650 850 / 850 Output Total 1150 / 1150 350 / 350 Balance 2500 / 2500 500 / 500 General: Alert, Cooperative, No apparent distress Lungs: Diminished Cardiovascular: Regular rate, Regular Rhythm Abdomen: Soft, Non Tender, Non-Distended Skin: No rashes Microbiology Past 72 Hours 04/14/20 01:22 Urine, Clean Catch Legionella Antigen - Final 04/14/20 01:22 Urine, Clean Catch Streptococcus pneumoniae Antigen (M - Final 04/13/20 19:10 Mucosa - Nasopharyngeal Respiratory Panel (PCR) - Final Laboratory Results 04/15/20 05:00: WBC 14.1 H, RBC 3.46 L, Hgb 11.0 L, Hct 32.8 L, MCV 94.8 H, MCH 31.8, MCHC 33.5, RDW Std Deviation 45.1 H, RDW Coeff of Yen 12.8, Plt Count 203, MPV 11.3 04/15/20 05:00: Sodium 136, Potassium 4.1, Chloride 103, Carbon Dioxide 25.0, Anion Gap 8, BUN 21 H, Creatinine 0.69 L, Estim Creat Clear Calc 57.60, Est GFR (MDRD) Af Amer 143, Est GFR (MDRD) Non-Af 118, BUN/Creatinine Ratio 30.3 H, Glucose 129 H, Calcium 7.7 L, Total Bilirubin 0.50, AST 85 H, ALT 69 H, Alkaline Phosphatase 61, Total Protein 5.8 L, Albumin 2.4 L, Globulin 3.4, Albumin/Globulin Ratio 0.7 L Current Medications Acetaminophen (Acetaminophen 325 Mg Tablet) 650 mg PO Q6H PRN PRN PRN Reason: Pain Score 1-10/Temp > 100.7 F Albuterol Sulfate (Albuterol Sulfate 18 Gm Inhaler (200 Puffs)) 2 puff IH Q4H PRN PRN PRN Reason: SOB/WHEEZING Last Admin: 04/15/20 03:13 Dose: 2 puff Documented by: Aspirin (Aspirin 81 Mg Tab.Chew) 81 mg PO DAILY@0800 [facility] Last Admin: 04/15/20 09:18 Dose: 81 mg Documented by: [facility]ilol ([facility]125 Mg [facility] Last Admin: 04/15/20 09:18 Dose: 3.125 mg Documented by: Clopidogrel Bisulfate (Clopidogrel Bisulfate 75 Mg Tablet) 75 mg PO DAILY [facility] Last Admin: 04/15/20 09:18 Dose: 75 mg Documented by: Dexamethasone (Dexamethasone 4 Mg Tablet) 6 mg PO DAILY@0800 [facility] Last Admin: 04/15/20 09:18 Dose: 6 mg Documented by: Enoxaparin Sodium (Enoxaparin 30 Mg/0.3 Ml Syringe) 30 mg SC BID [facility] Last Admin: 04/15/20 09:20 Dose: 30 mg Documented by: Furosemide (Furosemide 40 Mg/4 Ml Vial) 40 mg IV DAILY [facility] Last Admin: 04/15/20 09:20 Dose: 40 mg Documented by: Guaifenesin (Guaifenesin 1,200 Mg Tablet) 1,200 mg PO BID [facility] Last Admin: 04/15/20 09:18 Dose: 1,200 mg Documented by: Remdesivir 100 mg/ Sodium (Chloride) 250 mls @ 125 mls/hr IV DAILY [facility]; Protocol Stop: 04/18/20 11:59 Last Infusion: 04/15/20 13:06 Dose: Infused Documented by: Sodium Chloride () 250 mls @ 15 mls/hr IV .[id number] PRN PRN Reason: Saline Flush Sodium Chloride () 250 mls @ 15 mls/hr IV .[id number] PRN PRN Reason: Additional IVPB Infusion Lisinopril (Lisinopril 5 Mg Tablet) 5 mg PO DAILY [facility] Last Admin: 04/15/20 09:19 Dose: 5 mg Documented by: Miscellaneous Information (Inhaler, Assist Devices 1 Each Spacer) 1 each INHALATION PRN PRN PRN Reason: WITH ALBUTEROL MDI Last Admin: 04/15/20 03:14 Dose: 1 each Documented by: Nutritional Formula (Lactose Free) (Ensure Enlive 120 Ml Liquid) 120 ml PO 4X/DAY [facility] Last Admin: 04/15/20 14:22 Dose: 120 ml Documented by: Ondansetron HCl (Ondansetron 4 Mg/2 Ml Vial) 4 mg IV Q8H PRN PRN PRN Reason: NAUSEA/VOMITING Sodium Chloride (0.9% Saline Lock 10 Ml Syringe) 10 - 40 ml IV UD PRN PRN Reason: SALINE FLUSH Last Admin: 04/15/20 09:23 Dose: 10 ml Documented by: Medical Necessity - Tobacco Use Smoking Status: Never smoker Route of nutrition/ use of supplements: [] Nutritional Intake: [] IV Site: [] Lopes Catheter: [] - Assessment/Plan Antibiotics: [] Assessment/Plan: [] Active and Suspected Problems (Last Reviewed 04/14/20 @ 01:[address] Brant Guerrero MD) Pneumonia due to COVID-19 virus (Acute) COVID-19 (Acute) Respiratory insufficiency (Acute) Hypoxemia covid with hypoxia - sat of 77% on presentation, now afebrile. O2 worse today. Got plasma 04/14. Cont remdesivir. CT showed no PE. D-dimer 2.1. On lovenox proph bid. also sick at home. Recommend she quarantine and get tested. Will follow
[2020-04-16 04:30] VITALS: BP 149/85; PULSE 64; RESP 18; TEMP 36.4; O2SAT 96
[2020-04-16 07:32] LABS: Hematocrit 35.9 % (40-54); Mean Corp Hgb Conc 33.4 g/dL (32-36); Mean Corpuscular Hgb 31.7 pg (27.0-32.0); Platelet Count 281 K/mm3 (150-450); RBC Distribution Width SD 45.5 fl (35.1-43.9); Red Blood Count 3.78 M/mm3 (4.6-6.2); White Blood Count 22.5 K/mm3 (4.4-11.0)
[2020-04-16 07:52] LABS: ALB/GLOB Ratio 0.6 RATIO (0.9-2.4); AST(SGOT) 75 U/L (15-37); Alanine Aminotransfer ALT/SGPT 86 U/L (16-61); Albumin, Serum 2.5 g/dL (3.2-5.0); Alkaline Phosphatase 70 U/L (45-117); Anion Gap 6 (5-15); BUN 28 mg/dL (7-18); BUN/Creat Ratio 33.8 RATIO (10-20); Calcium,Total 8.3 mg/dL (8.5-10.1); Chloride 106 mmol/L (98-107); Creatinine, Serum 0.83 mg/dL (0.70-1.30); EST Glomerular Filtration Rate 96 mL/min (>60); Est Glom Filt Rate - Afr Amer 116 mL/min (>60); Estimated Creatinine Clearance 69.39 ml/min; Globulin 4.1 g/dL (2.2-4.2); Glucose 125 mg/dL (74-106); Potassium 4.2 mmol/L (3.5-5.1); Protein, Total 6.6 g/dL (6.4-8.2); Sodium Level 136 mmol/L (136-145)
[2020-04-16 10:04] VITALS: BP 146/78; PULSE 83; RESP 20; TEMP 36; O2SAT 90
[2020-04-16] MEDS: guaiFENesin 1,200 MG Tablet 1200 MG PO ×2 (10:12→21:02)
[2020-04-16] MEDS: dexAMETHasone 4 MG Tablet 6 MG PO (10:12)
[2020-04-16] MEDS: Carvedilol 3.125 MG TABLET PO ×2 (10:12→18:37)
[2020-04-16] MEDS: Aspirin 81 MG TAB.CHEW PO (10:12)
[2020-04-16] MEDS: Furosemide 40 MG/4 ML Vial IV (10:13)
[2020-04-16] MEDS: 0.9% Saline Lock 10 ML Syringe IV ×3 (10:13→21:02)
[2020-04-16] MEDS: Enoxaparin 30 MG/0.3 ML Syringe SC ×2 (10:13→21:02)
[2020-04-16] MEDS: Clopidogrel Bisulfate 75 MG Tablet PO (10:13)
[2020-04-16] MEDS: Lisinopril 5 MG Tablet PO (10:14)
--- NOTE | 2020-04-16 11:20 | PN_ITS ---
Patient Problems: Active and Suspected Problems (Last Reviewed 04/14/20 @ 01:[address] Brant Guerrero MD) Pneumonia due to COVID-19 virus (Acute) COVID-19 (Acute) Respiratory insufficiency (Acute) Hypoxemia Subjective: Patient did okay overnight. Patient overall feels subjectively unchanged compared to previous. Patient is reporting a chest tightness today that is worse with coughing. Patient is not reporting any palpitations, lightheadedness or radiation. - Physical Exam Vitals/I&O's: Vital Signs Temp Pulse Resp BP Pulse Ox 36.0 C L 83 20 H 146/78 H 90 04/16/20 10:04 04/16/20 10:04 04/16/20 10:04 04/16/20 10:04 04/16/20 10:04 Oxygen Flow Rate (L/min) 8 Oxygen Delivery Method Nasal Cannula Weight: 84 kg Body Mass Index (BMI) 29.9 Intake and Output for Last 24 Hours 04/14/20 04/15/20 04/16/20 23:59 23:59 23:59 Intake Total 3650 / 3650 1250 / 1250 780 / 780 Output Total 1150 / 1150 1825 / 1825 500 / 500 Balance 2500 / 2500 -575 / -575 280 / 280 General: Alert, Oriented x3, Cooperative, - - Mild conversational dyspnea. Appears stated age. HEENT: Atraumatic, PERRLA, EOMI, Normocephalic, - - No scleral icterus or injection noted Oral: Moist Mucosa, No Gingival or Mucosal Lesions/ Ulcerations Neck: Supple, No JVD, No Nodes, Trachea Midline Lungs: No rhonchi, No wheeze, No rales, Diminished, - - Symmetric expansion. No dullness to percussion. Cardiovascular: Regular rate, Regular Rhythm, Normal S1, Normal S2, No murmurs, No rub noted, No Gallop Abdomen: Bowel Sounds Present, Soft, Non Tender, Non-Distended Extremities: No clubbing, No cyanosis, No edema, Capillary Refill Less than 3 Seconds Skin: - - No change compared to previous Musculoskeletal: No Tenderness to Palpation of Joints or Extremities Lymphatic: No Cervical, Supraclavicular, or Inguinal Adenopathy Neurological: Cranial nerves II-XII grossly intact, Neuro grossly intact, Motor Exam 5/5 strength throughout Psych/Mental Status: Alert and oriented to time, place, person, mood and affect Microbiology Past 72 Hours 04/13/20 20:25 Blood Culture (Wb) - Right Hand Blood Culture - Preliminary No growth in 48 hours. 04/13/20 18:10 Blood Culture (Wb) - Anticubital Left Blood Culture - Preliminary No growth in 48 hours. 04/14/20 01:22 Urine, Clean Catch Legionella Antigen - Final 04/14/20 01:22 Urine, Clean Catch Streptococcus pneumoniae Antigen (M - Final 04/13/20 19:10 Mucosa - Nasopharyngeal Respiratory Panel (PCR) - Final Laboratory Results 04/16/20 07:06: WBC 22.5 H, RBC 3.78 L, Hgb 12.0 L, Hct 35.9 L, MCV 95.0 H, MCH 31.7, MCHC 33.4, RDW Std Deviation 45.5 H, RDW Coeff of Yen 13.0, Plt Count 281, MPV 11.0 04/16/20 07:06: Sodium 136, Potassium 4.2, Chloride 106, Carbon Dioxide 24.0, Anion Gap 6, BUN 28 H, Creatinine 0.83, Estim Creat Clear Calc 69.39, Est GFR (MDRD) Af Amer 116, Est GFR (MDRD) Non-Af 96, BUN/Creatinine Ratio 33.8 H, Glucose 125 H, Calcium 8.3 L, Total Bilirubin 0.60, AST 75 H, ALT 86 H, Alkaline Phosphatase 70, Total Protein 6.6, Albumin 2.5 L, Globulin 4.1, Albumin/Globulin Ratio 0.6 L Current Medications Acetaminophen (Acetaminophen 325 Mg Tablet) 650 mg PO Q6H PRN PRN PRN Reason: Pain Score 1-10/Temp > 100.7 F Albuterol Sulfate (Albuterol Sulfate 18 Gm Inhaler (200 Puffs)) 2 puff IH Q4H PRN PRN PRN Reason: SOB/WHEEZING Last Admin: 04/15/20 20:30 Dose: 2 puff Documented by: Aspirin (Aspirin 81 Mg Tab.Chew) 81 mg PO DAILY@0800 [facility] Last Admin: 04/16/20 10:12 Dose: 81 mg Documented by: Carvedilol (Carvedilol 3.125 Mg Tablet) [facility] Last Admin: 04/16/20 10:12 Dose: 3.125 mg Documented by: Clopidogrel Bisulfate (Clopidogrel Bisulfate 75 Mg Tablet) 75 mg PO DAILY [facility] Last Admin: 04/16/20 10:13 Dose: 75 mg Documented by: Dexamethasone (Dexamethasone 4 Mg Tablet) 6 mg PO DAILY@0800 [facility] Last Admin: 04/16/20 10:12 Dose: 6 mg Documented by: Enoxaparin Sodium (Enoxaparin 30 Mg/0.3 Ml Syringe) 30 mg SC BID [facility] Last Admin: 04/16/20 10:13 Dose: 30 mg Documented by: Furosemide (Furosemide 40 Mg/4 Ml Vial) 40 mg IV DAILY [facility] Last Admin: 04/16/20 10:13 Dose: 40 mg Documented by: Guaifenesin (Guaifenesin 1,200 Mg Tablet) 1,200 mg PO BID [facility] Last Admin: 04/16/20 10:12 Dose: 1,200 mg Documented by: Remdesivir 100 mg/ Sodium (Chloride) 250 mls @ 125 mls/hr IV DAILY [facility]; Protocol Stop: 04/18/20 11:59 Last Admin: 04/16/20 10:38 Dose: 125 mls/hr Documented by: Sodium Chloride () 250 mls @ 15 mls/hr IV .[id number] PRN PRN Reason: Saline Flush Sodium Chloride () 250 mls @ 15 mls/hr IV .[id number] PRN PRN Reason: Additional IVPB Infusion Lisinopril (Lisinopril 5 Mg Tablet) 5 mg PO DAILY [facility] Last Admin: 04/16/20 10:14 Dose: 5 mg Documented by: Miscellaneous Information (Inhaler, Assist Devices 1 Each Spacer) 1 each INHALATION PRN PRN PRN Reason: WITH ALBUTEROL MDI Last Admin: 04/15/20 20:30 Dose: 1 each Documented by: Nutritional Formula (Lactose Free) (Ensure Enlive 120 Ml Liquid) 120 ml PO 4X/DAY [facility] Last Admin: 04/16/20 10:13 Dose: 120 ml Documented by: Ondansetron HCl (Ondansetron 4 Mg/2 Ml Vial) 4 mg IV Q8H PRN PRN PRN Reason: NAUSEA/VOMITING Sodium Chloride (0.9% Saline Lock 10 Ml Syringe) 10 - 40 ml IV UD PRN PRN Reason: SALINE FLUSH Last Admin: 04/16/20 10:39 Dose: 10 ml Documented by: Medical Necessity - Tobacco Use Smoking Status: Never smoker Assessment/Plan All Active Problems (Last Reviewed 04/14/20 @ 01:[address] Brant Guerrero MD) Pneumonia due to COVID-19 virus (Acute) COVID-19 (Acute) Respiratory insufficiency (Acute) RECOMMENDATIONS: 1. Wean supplemental oxygen as tolerated 2. Remdesivir and Decadron per ID. Completed convalescent serum 3. Continue with diuretic therapy as tolerated. Check electrolytes intermittently 4. Would not recommend a thoracentesis at this time 5. Outpatient complete PFT for quantification clarification of lung function 6. Chest x-ray if patient's oxygenation continues to worsen IMPRESSIONS: 1. Acute hypoxic respiratory insufficiency secondary to COVID-19 pneumonia and possible diastolic CHF Confirmed with Covid. D-dimer is elevated, but no PE was appreciated. Patient does have patchy infiltrates and bilateral pleural effusions. However, previous echocardiogram was suggestive of possible diastolic dysfunction and pulmonary hypertension. Clinical suspicion for worsening of pulmonary artery pressure secondary to hypoxia on presentation. Procalcitonin was relatively low, so concomitant infection is not suspected at this time. Decadron and remdesivir per infectious disease. Patient appears to be tolerating diuretic therapy. We will add daily weights for monitoring. If oxygenation worsens, repeat chest x-ray to see if patient would be a candidate for thoracentesis would be appropriate. Worsening leukocytosis likely secondary to steroid therapy. No signs of liver dysfunction with remdesivir. 2. CAD status post stents/hypertension/cor pulmonale/advanced age/poor historian Complicates care, management, recovery and prognosis. Okay to continue with baseline medications for now. Inpatient E&M: [id number] [facility] L3
--- NOTE | 2020-04-16 11:22 | PCM.PN.HOSP ---
Patient Problems: Active and Suspected Problems (Last Reviewed 04/14/20 @ 01:[address] Brant Guerrero MD) Pneumonia due to COVID-19 virus (Acute) COVID-19 (Acute) Respiratory insufficiency (Acute) Hypoxemia Subjective: O2 requirement stable at around 8 L. No issues overnight Vitals/I&O's: Vital Signs Temp Pulse Resp BP Pulse Ox 96.8 F L 83 20 H 146/78 H 90 04/16/20 10:04 04/16/20 10:04 04/16/20 10:04 04/16/20 10:04 04/16/20 10:04 Oxygen Flow Rate (L/min) 8 Oxygen Delivery Method Nasal Cannula Weight: 185 lb 3.013 oz Body Mass Index (BMI) 29.9 Intake and Output for Last 24 Hours 04/14/20 04/15/20 04/16/20 23:59 23:59 23:59 Intake Total 3650 / 3650 1250 / 1250 780 / 780 Output Total 1150 / 1150 1825 / 1825 500 / 500 Balance 2500 / 2500 -575 / -575 280 / 280 General: Alert, Oriented x3, Cooperative, No apparent distress HEENT: Atraumatic, PERRLA, EOMI, Normocephalic Oral: Moist Mucosa Neck: Supple, No JVD Lungs: Normal air movement, No rhonchi, No wheeze, Diminished, Rales bilaterally-improved Cardiovascular: Regular rate, Regular Rhythm, Normal S1, Normal S2, No murmurs Abdomen: Soft, Non Tender, Non-Distended, No Hepato-splenomegaly Extremities: No edema, Capillary Refill Less than 3 Seconds Skin: No rashes, No breakdown Neurological: Neuro grossly intact, Sensory exam intact to light touch and pain Psych/Mental Status: Normal Affect, Appropriate Microbiology Past 72 Hours 04/13/20 20:25 Blood Culture (Wb) - Right Hand Blood Culture - Preliminary No growth in 48 hours. 04/13/20 18:10 Blood Culture (Wb) - Anticubital Left Blood Culture - Preliminary No growth in 48 hours. 04/14/20 01:22 Urine, Clean Catch Legionella Antigen - Final 04/14/20 01:22 Urine, Clean Catch Streptococcus pneumoniae Antigen (M - Final 04/13/20 19:10 Mucosa - Nasopharyngeal Respiratory Panel (PCR) - Final Laboratory Results 04/16/20 07:06: WBC 22.5 H, RBC 3.78 L, Hgb 12.0 L, Hct 35.9 L, MCV 95.0 H, MCH 31.7, MCHC 33.4, RDW Std Deviation 45.5 H, RDW Coeff of Yen 13.0, Plt Count 281, MPV 11.0 04/16/20 07:06: Sodium 136, Potassium 4.2, Chloride 106, Carbon Dioxide 24.0, Anion Gap 6, BUN 28 H, Creatinine 0.83, Estim Creat Clear Calc 69.39, Est GFR (MDRD) Af Amer 116, Est GFR (MDRD) Non-Af 96, BUN/Creatinine Ratio 33.8 H, Glucose 125 H, Calcium 8.3 L, Total Bilirubin 0.60, AST 75 H, ALT 86 H, Alkaline Phosphatase 70, Total Protein 6.6, Albumin 2.5 L, Globulin 4.1, Albumin/Globulin Ratio 0.6 L Current Medications Acetaminophen (Acetaminophen 325 Mg Tablet) 650 mg PO Q6H PRN PRN PRN Reason: Pain Score 1-10/Temp > 100.7 F Albuterol Sulfate (Albuterol Sulfate 18 Gm Inhaler (200 Puffs)) 2 puff IH Q4H PRN PRN PRN Reason: SOB/WHEEZING Last Admin: 04/15/20 20:30 Dose: 2 puff Documented by: Aspirin (Aspirin 81 Mg Tab.Chew) 81 mg PO DAILY@0800 [facility] Last Admin: 04/16/20 10:12 Dose: 81 mg Documented by: Carvedilol (Carvedilol 3.125 Mg Tablet) [facility] Last Admin: 04/16/20 10:12 Dose: 3.125 mg Documented by: Clopidogrel Bisulfate (Clopidogrel Bisulfate 75 Mg Tablet) 75 mg PO DAILY [facility] Last Admin: 04/16/20 10:13 Dose: 75 mg Documented by: Dexamethasone (Dexamethasone 4 Mg Tablet) 6 mg PO DAILY@0800 [facility] Last Admin: 04/16/20 10:12 Dose: 6 mg Documented by: Enoxaparin Sodium (Enoxaparin 30 Mg/0.3 Ml Syringe) 30 mg SC BID [facility] Last Admin: 04/16/20 10:13 Dose: 30 mg Documented by: Furosemide (Furosemide 40 Mg/4 Ml Vial) 40 mg IV DAILY [facility] Last Admin: 10/31/20 10:13 Dose: 40 mg Documented by: Guaifenesin (Guaifenesin 1,200 Mg Tablet) 1,200 mg PO BID [facility] Last Admin: 04/16/20 10:12 Dose: 1,200 mg Documented by: Remdesivir 100 mg/ Sodium (Chloride) 250 mls @ 125 mls/hr IV DAILY [facility]; Protocol Stop: 04/18/20 11:59 Last Admin: 04/16/20 10:38 Dose: 125 mls/hr Documented by: Sodium Chloride () 250 mls @ 15 mls/hr IV .[id number] PRN PRN Reason: Saline Flush Sodium Chloride () 250 mls @ 15 mls/hr IV .[id number] PRN PRN Reason: Additional IVPB Infusion Lisinopril (Lisinopril 5 Mg Tablet) 5 mg PO DAILY [facility] Last Admin: 04/16/20 10:14 Dose: 5 mg Documented by: Miscellaneous Information (Inhaler, Assist Devices 1 Each Spacer) 1 each INHALATION PRN PRN PRN Reason: WITH ALBUTEROL MDI Last Admin: 04/15/20 20:30 Dose: 1 each Documented by: Nutritional Formula (Lactose Free) (Ensure Enlive 120 Ml Liquid) 120 ml PO 4X/DAY [facility] Last Admin: 04/16/20 10:13 Dose: 120 ml Documented by: Ondansetron HCl (Ondansetron 4 Mg/2 Ml Vial) 4 mg IV Q8H PRN PRN PRN Reason: NAUSEA/VOMITING Sodium Chloride (0.9% Saline Lock 10 Ml Syringe) 10 - 40 ml IV UD PRN PRN Reason: SALINE FLUSH Last Admin: 04/16/20 10:39 Dose: 10 ml Documented by: STROKE Vital Signs/Narrative: Vital Signs Temp Pulse Resp BP Pulse Ox 04/16/20 10:04 96.8 F L 83 20 H 146/78 H 90 Medical Necessity - Tobacco Use Smoking Status: Never smoker Assessment/Plan All Active Problems (Last Reviewed 04/14/20 @ 01:[address] Brant Guerrero MD) Pneumonia due to COVID-19 virus (Acute) COVID-19 (Acute) Respiratory insufficiency (Acute) 1. Acute hypoxic respiratory failure secondary to Covid pneumonia -Appreciate pulmonology infectious disease assistance -Continue with remdesivir and Decadron -He has agreed to convalescent plasma which she received on 04/14/2020 -Incentive spirometer -Currently on 8 L nasal cannula -D-dimer is elevated however CTA does not show PE and he is currently on aspirin and Plavix as well as prophylactic Lovenox 2. CAD status post stent/HTN/HLD -He is supposed be on Lasix as needed, will give him a dose of IV Lasix today -BNP was elevated to 516 he does have rails on his exam the no significant edema -Continue with his Coreg, lisinopril, and aspirin DVT: Lovenox Inpatient E&M: [id number] Subs Hosp L2
[2020-04-16 14:00] VITALS: BP 145/71; PULSE 68; RESP 20; TEMP 35.6; O2SAT 92
[2020-04-16 20:52] VITALS: BP 151/84; PULSE 70; RESP 18; TEMP 36; O2SAT 94
[2020-04-16 20:55] VITALS: RESP 18; O2SAT 94
[2020-04-17] VITALS (8 sets, daily range): BP systolic 134–155; BP diastolic 73–87; PULSE 60–69; RESP 20; TEMP 35.6–36.9; O2SAT 90–96
[2020-04-17 07:46] LABS: Hematocrit 35.4 % (40-54); Hemoglobin 11.8 g/dL (13.0-16.5); Mean Corp Hgb Conc 33.3 g/dL (32-36); Mean Corpuscular Hgb 31.6 pg (27.0-32.0); Mean Corpuscular Volume 94.9 fL (80-94); Mean Platelet Vol. 10.8 fl (6.2-12.0); Platelet Count 327 K/mm3 (150-450); RBC Distribution Width CV 12.9 % (11.6-14.6); RBC Distribution Width SD 45.1 fl (35.1-43.9); Red Blood Count 3.73 M/mm3 (4.6-6.2); White Blood Count 17.5 K/mm3 (4.4-11.0)
[2020-04-17 08:12] LABS: ALB/GLOB Ratio 0.6 RATIO (0.9-2.4); AST(SGOT) 49 U/L (15-37); Alanine Aminotransfer ALT/SGPT 84 U/L (16-61); Albumin, Serum 2.4 g/dL (3.2-5.0); Alkaline Phosphatase 67 U/L (45-117); Anion Gap 6 (5-15); BUN 24 mg/dL (7-18); BUN/Creat Ratio 35.3 RATIO (10-20); Calcium,Total 8.2 mg/dL (8.5-10.1); Chloride 103 mmol/L (98-107); Creatinine, Serum 0.68 mg/dL (0.70-1.30); EST Glomerular Filtration Rate 121 mL/min (>60); Est Glom Filt Rate - Afr Amer 146 mL/min (>60); Globulin 4.2 g/dL (2.2-4.2); Glucose 97 mg/dL (74-106); Potassium 4.4 mmol/L (3.5-5.1); Protein, Total 6.6 g/dL (6.4-8.2); Sodium Level 136 mmol/L (136-145)
--- NOTE | 2020-04-17 09:34 | PCM.PN.HOSP ---
Patient Problems: Active and Suspected Problems (Last Reviewed 04/14/20 @ 01:[address] Brant Guerrero MD) Pneumonia due to COVID-19 virus (Acute) COVID-19 (Acute) Respiratory insufficiency (Acute) Hypoxemia Subjective: No issues overnight. Had to have his oxygen increased to 11 L today to maintain his oxygen saturations. Vitals/I&O's: Vital Signs Temp Pulse Resp BP Pulse Ox 96.7 F L 63 20 H 155/87 H 90 04/17/20 03:37 04/17/20 03:37 04/17/20 03:44 04/17/20 03:37 04/17/20 07:00 Oxygen Flow Rate (L/min) 11 Oxygen Delivery Method Nasal Cannula Weight: 178 lb 2.136 oz Body Mass Index (BMI) 29.9 Intake and Output for Last 24 Hours 04/15/20 04/16/20 04/17/20 23:59 23:59 22:59 Intake Total 1250 / 1250 1270 / 1510 240 / 240 Output Total 1825 / 1825 1350 / 1575 225 / 225 Balance -575 / -575 -80 / -65 General: Alert, Oriented x3, Cooperative, No apparent distress HEENT: Atraumatic, PERRLA, EOMI, Normocephalic Oral: Moist Mucosa Neck: Supple, No JVD Lungs: Normal air movement, No rhonchi, No wheeze, Diminished, Rales bilaterally-improved Cardiovascular: Regular rate, Regular Rhythm, Normal S1, Normal S2, No murmurs Abdomen: Soft, Non Tender, Non-Distended, No Hepato-splenomegaly Extremities: No edema, Capillary Refill Less than 3 Seconds Skin: No rashes, No breakdown Neurological: Neuro grossly intact, Sensory exam intact to light touch and pain Psych/Mental Status: Normal Affect, Appropriate Microbiology Past 72 Hours 04/13/20 20:25 Blood Culture (Wb) - Right Hand Blood Culture - Preliminary No growth in 48 hours. 04/13/20 18:10 Blood Culture (Wb) - Anticubital Left Blood Culture - Preliminary No growth in 48 hours. Laboratory Results 04/17/20 07:16: WBC 17.5 H, RBC 3.73 L, Hgb 11.8 L, Hct 35.4 L, MCV 94.9 H, MCH 31.6, MCHC 33.3, RDW Std Deviation 45.1 H, RDW Coeff of Yen 12.9, Plt Count 327, MPV 10.8 04/17/20 07:16: Sodium 136, Potassium 4.4, Chloride 103, Carbon Dioxide 27.0, Anion Gap 6, BUN 24 H, Creatinine 0.68 L, Estim Creat Clear Calc 57.60, Est GFR (MDRD) Af Amer 146, Est GFR (MDRD) Non-Af 121, BUN/Creatinine Ratio 35.3 H, Glucose 97, Calcium 8.2 L, Total Bilirubin 0.60, AST 49 H, ALT 84 H, Alkaline Phosphatase 67, Total Protein 6.6, Albumin 2.4 L, Globulin 4.2, Albumin/Globulin Ratio 0.6 L Current Medications Acetaminophen (Acetaminophen 325 Mg Tablet) 650 mg PO Q6H PRN PRN PRN Reason: Pain Score 1-10/Temp > 100.7 F Albuterol Sulfate (Albuterol Sulfate 18 Gm Inhaler (200 Puffs)) 2 puff IH Q4H PRN PRN PRN Reason: SOB/WHEEZING Last Admin: 04/15/20 20:30 Dose: 2 puff Documented by: Aspirin (Aspirin 81 Mg Tab.Chew) 81 mg PO DAILY@0800 [facility] Last Admin: 04/16/20 10:12 Dose: 81 mg Documented by: Carvedilol ([facility]ilol 3.125 Mg Tablet) [facility] Last Admin: 04/16/20 18:37 Dose: 3.125 mg Documented by: Clopidogrel Bisulfate (Clopidogrel Bisulfate 75 Mg Tablet) 75 mg PO DAILY [facility] Last Admin: 04/16/20 10:13 Dose: 75 mg Documented by: Dexamethasone (Dexamethasone 4 Mg Tablet) 6 mg PO DAILY@0800 [facility] Last Admin: 04/16/20 10:12 Dose: 6 mg Documented by: Enoxaparin Sodium (Enoxaparin 30 Mg/0.3 Ml Syringe) 30 mg SC BID [facility] Last Admin: 04/16/20 21:02 Dose: 30 mg Documented by: Furosemide (Furosemide 40 Mg/4 Ml Vial) 40 mg IV DAILY [facility] Last Admin: 04/16/20 10:13 Dose: 40 mg Documented by: Guaifenesin (Guaifenesin 1,200 Mg Tablet) 1,200 mg PO BID [facility] Last Admin: 04/16/20 21:02 Dose: 1,200 mg Documented by: Remdesivir 100 mg/ Sodium (Chloride) 250 mls @ 125 mls/hr IV DAILY [facility]; Protocol Stop: 04/18/20 11:59 Last Infusion: 04/16/20 12:38 Dose: Infused Documented by: Sodium Chloride () 250 mls @ 15 mls/hr IV .[id number] PRN PRN Reason: Saline Flush Sodium Chloride () 250 mls @ 15 mls/hr IV .[id number] PRN PRN Reason: Additional IVPB Infusion Lisinopril (Lisinopril 5 Mg Tablet) 5 mg PO DAILY [facility] Last Admin: 04/16/20 10:14 Dose: 5 mg Documented by: Miscellaneous Information (Inhaler, Assist Devices 1 Each Spacer) 1 each INHALATION PRN PRN PRN Reason: WITH ALBUTEROL MDI Last Admin: 04/15/20 20:30 Dose: 1 each Documented by: Nutritional Formula (Lactose Free) (Ensure Enlive 120 Ml Liquid) 120 ml PO 4X/DAY [facility] Last Admin: 04/16/20 21:01 Dose: 120 ml Documented by: Ondansetron HCl (Ondansetron 4 Mg/2 Ml Vial) 4 mg IV Q8H PRN PRN PRN Reason: NAUSEA/VOMITING Sodium Chloride (0.9% Saline Lock 10 Ml Syringe) 10 - 40 ml IV UD PRN PRN Reason: SALINE FLUSH Last Admin: 04/16/20 21:02 Dose: 10 ml Documented by: STROKE Vital Signs/Narrative: Vital Signs Pulse Ox 04/17/20 07:00 90 Medical Necessity - Tobacco Use Smoking Status: Never smoker Assessment/Plan All Active Problems (Last Reviewed 04/14/20 @ 01:[address] Brant Guerrero MD) Pneumonia due to COVID-19 virus (Acute) COVID-19 (Acute) Respiratory insufficiency (Acute) 1. Acute hypoxic respiratory failure secondary to Covid pneumonia -Appreciate pulmonology infectious disease assistance -Continue with remdesivir and Decadron -He has agreed to convalescent plasma which she received on 04/14/2020 -Incentive spirometer -Currently on 11 L nasal cannula -D-dimer is elevated however CTA does not show PE and he is currently on aspirin and Plavix as well as prophylactic Lovenox 2. CAD status post stent/HTN/HLD -He is supposed be on Lasix as needed, will give him a dose of IV Lasix today -BNP was elevated to 516 he does have rails on his exam the no significant edema -Continue with his Coreg, lisinopril, and aspirin DVT: Lovenox Inpatient E&M: [id number] Subs Hosp L2
--- NOTE | 2020-04-17 10:13 | PN_ITS ---
Patient Problems: Active and Suspected Problems (Last Reviewed 04/14/20 @ 01:[address] Brant Guerrero MD) Pneumonia due to COVID-19 virus (Acute) COVID-19 (Acute) Respiratory insufficiency (Acute) Hypoxemia Subjective: Patient overall feels subjectively unchanged compared to previous. Patient continues to require higher flow nasal cannula to maintain saturations. Patient is not reporting any chest pain, nominal pain, nausea or vomiting. Patient continues to take p.o. well. - Physical Exam Vitals/I&O's: Vital Signs Temp Pulse Resp BP Pulse Ox 35.9 C L 63 20 H 155/87 H 90 04/17/20 03:37 04/17/20 03:37 04/17/20 03:44 04/17/20 03:37 04/17/20 07:00 Oxygen Flow Rate (L/min) 11 Oxygen Delivery Method Nasal Cannula Weight: 80.8 kg Body Mass Index (BMI) 29.9 Intake and Output for Last 24 Hours 04/15/20 04/16/20 04/17/20 23:59 23:59 22:59 Intake Total 1250 / 1250 1270 / 1510 240 / 240 Output Total 1825 / 1825 1350 / 1575 225 / 225 Balance -575 / -575 -80 / -65 General: Alert, Oriented x3, Cooperative, - - Mild conversational dyspnea. Appears stated age. HEENT: Atraumatic, PERRLA, EOMI, Normocephalic, - - No scleral icterus or injection noted Oral: Moist Mucosa, No Gingival or Mucosal Lesions/ Ulcerations Neck: Supple, No JVD, No Nodes, Trachea Midline Lungs: No rhonchi, No wheeze, No rales, Diminished, - - Symmetric expansion Cardiovascular: Regular rate, Regular Rhythm, Normal S1, Normal S2, No murmurs, No rub noted, No Gallop Abdomen: Bowel Sounds Present, Soft, Non Tender, Non-Distended Extremities: No clubbing, No cyanosis, No edema, Capillary Refill Less than 3 Seconds Skin: No rashes, No breakdown Musculoskeletal: No Tenderness to Palpation of Joints or Extremities Lymphatic: No Cervical, Supraclavicular, or Inguinal Adenopathy Neurological: Cranial nerves II-XII grossly intact, Neuro grossly intact, Motor Exam 5/5 strength throughout Psych/Mental Status: Alert and oriented to time, place, person, mood and affect Microbiology Past 72 Hours 04/13/20 20:25 Blood Culture (Wb) - Right Hand Blood Culture - Preliminary No growth in 48 hours. 04/13/20 18:10 Blood Culture (Wb) - Anticubital Left Blood Culture - Preliminary No growth in 48 hours. Laboratory Results 04/17/20 07:16: WBC 17.5 H, RBC 3.73 L, Hgb 11.8 L, Hct 35.4 L, MCV 94.9 H, MCH 31.6, MCHC 33.3, RDW Std Deviation 45.1 H, RDW Coeff of Yen 12.9, Plt Count 327, MPV 10.8 04/17/20 07:16: Sodium 136, Potassium 4.4, Chloride 103, Carbon Dioxide 27.0, Anion Gap 6, BUN 24 H, Creatinine 0.68 L, Estim Creat Clear Calc 57.60, Est GFR (MDRD) Af Amer 146, Est GFR (MDRD) Non-Af 121, BUN/Creatinine Ratio 35.3 H, Glucose 97, Calcium 8.2 L, Total Bilirubin 0.60, AST 49 H, ALT 84 H, Alkaline Phosphatase 67, Total Protein 6.6, Albumin 2.4 L, Globulin 4.2, Albumin/Globulin Ratio 0.6 L Current Medications Acetaminophen (Acetaminophen 325 Mg Tablet) 650 mg PO Q6H PRN PRN PRN Reason: Pain Score 1-10/Temp > 100.7 F Albuterol Sulfate (Albuterol Sulfate 18 Gm Inhaler (200 Puffs)) 2 puff IH Q4H PRN PRN PRN Reason: SOB/WHEEZING Last Admin: 04/15/20 20:30 Dose: 2 puff Documented by: Aspirin (Aspirin 81 Mg Tab.Chew) 81 mg PO DAILY@0800 [facility] Last Admin: 04/16/20 10:12 Dose: 81 mg Documented by: Carvedilol ([facility] 3.125 Mg Tablet) [facility] Last Admin: 04/16/20 18:37 Dose: 3.125 mg Documented by: Clopidogrel Bisulfate (Clopidogrel Bisulfate 75 Mg Tablet) 75 mg PO DAILY [facility] Last Admin: 04/16/20 10:13 Dose: 75 mg Documented by: Dexamethasone (Dexamethasone 4 Mg Tablet) 6 mg PO DAILY@0800 [facility] Last Admin: 04/16/20 10:12 Dose: 6 mg Documented by: Enoxaparin Sodium (Enoxaparin 30 Mg/0.3 Ml Syringe) 30 mg SC BID [facility] Last Admin: 04/16/20 21:02 Dose: 30 mg Documented by: Furosemide (Furosemide 40 Mg/4 Ml Vial) 40 mg IV DAILY [facility] Last Admin: 04/16/20 10:13 Dose: 40 mg Documented by: Guaifenesin (Guaifenesin 1,200 Mg Tablet) 1,200 mg PO BID [facility] Last Admin: 04/16/20 21:02 Dose: 1,200 mg Documented by: Remdesivir 100 mg/ Sodium (Chloride) 250 mls @ 125 mls/hr IV DAILY [facility]; Protocol Stop: 04/18/20 11:59 Last Infusion: 04/16/20 12:38 Dose: Infused Documented by: Sodium Chloride () 250 mls @ 15 mls/hr IV .[id number] PRN PRN Reason: Saline Flush Sodium Chloride () 250 mls @ 15 mls/hr IV .[id number] PRN PRN Reason: Additional IVPB Infusion Lisinopril (Lisinopril 5 Mg Tablet) 5 mg PO DAILY [facility] Last Admin: 04/16/20 10:14 Dose: 5 mg Documented by: Miscellaneous Information (Inhaler, Assist Devices 1 Each Spacer) 1 each INHALATION PRN PRN PRN Reason: WITH ALBUTEROL MDI Last Admin: 04/15/20 20:30 Dose: 1 each Documented by: Nutritional Formula (Lactose Free) (Ensure Enlive 120 Ml Liquid) 120 ml PO 4X/DAY [facility] Last Admin: 04/16/20 21:01 Dose: 120 ml Documented by: Ondansetron HCl (Ondansetron 4 Mg/2 Ml Vial) 4 mg IV Q8H PRN PRN PRN Reason: NAUSEA/VOMITING Sodium Chloride (0.9% Saline Lock 10 Ml Syringe) 10 - 40 ml IV UD PRN PRN Reason: SALINE FLUSH Last Admin: 04/16/20 21:02 Dose: 10 ml Documented by: Medical Necessity - Tobacco Use Smoking Status: Never smoker Assessment/Plan All Active Problems (Last Reviewed 04/14/20 @ 01:[address] Brant Guerrero MD) Pneumonia due to COVID-19 virus (Acute) COVID-19 (Acute) Respiratory insufficiency (Acute) RECOMMENDATIONS: 1. Wean supplemental oxygen as tolerated 2. Remdesivir and Decadron per ID. Completed convalescent serum 3. Continue with diuretic therapy as tolerated. Check electrolytes intermittently 4. Would not recommend a thoracentesis at this time 5. Outpatient complete PFT for quantification clarification of lung function 6. Chest x-ray if patient's oxygenation continues to worsen 7. Close observation. Possible BiPAP in the next 24 to 48 hours IMPRESSIONS: 1. Acute hypoxic respiratory insufficiency secondary to COVID-19 pneumonia and possible diastolic CHF Confirmed with Covid. D-dimer is elevated, but no PE was appreciated. Patient does have patchy infiltrates and bilateral pleural effusions. However, previous echocardiogram was suggestive of possible diastolic dysfunction and pulmonary hypertension. Clinical suspicion for worsening of pulmonary artery pressure secondary to hypoxia on presentation. Procalcitonin was relatively low, so concomitant infection is not suspected at this time. Decadron and remdesivir per infectious disease. Patient appears to be tolerating diuretic therapy at current levels. Daily weights are suggestive of an element of diuresis, likely secondary to insensible losses and unmeasured voids. If oxygenation worsens, repeat chest x-ray to see if patient would be a candidate for thoracentesis would be appropriate. Worsening leukocytosis likely secondary to steroid therapy and appears to be improving. No signs of liver dysfunction with remdesivir. 2. CAD status post stents/hypertension/cor pulmonale/advanced age/poor historian Complicates care, management, recovery and prognosis. Okay to continue with baseline medications for now. Inpatient E&M: [id number] [facility] L3
[2020-04-17] MEDS: Enoxaparin 30 MG/0.3 ML Syringe SC ×2 (11:26→22:00)
[2020-04-17] MEDS: Carvedilol 3.125 MG TABLET PO ×2 (11:27→17:28)
[2020-04-17] MEDS: Lisinopril 5 MG Tablet PO (11:27)
[2020-04-17] MEDS: Furosemide 40 MG/4 ML Vial IV (11:27)
[2020-04-17] MEDS: dexAMETHasone 4 MG Tablet 6 MG PO (11:27)
[2020-04-17] MEDS: Aspirin 81 MG TAB.CHEW PO (11:27)
[2020-04-17] MEDS: guaiFENesin 1,200 MG Tablet 1200 MG PO ×2 (11:27→22:00)
[2020-04-17] MEDS: 0.9% Saline Lock 10 ML Syringe IV (11:28)
[2020-04-17] MEDS: Clopidogrel Bisulfate 75 MG Tablet PO (11:32)
--- NOTE | 2020-04-17 17:30 | NURSING ---
O2 DECREASED TO 9L NC
[2020-04-18] VITALS (7 sets, daily range): BP systolic 142–154; BP diastolic 70–95; PULSE 58–70; RESP 18–22; TEMP 35.7–36.2; O2SAT 88–97
[2020-04-18] MEDS: 0.9% Saline Lock 10 ML Syringe IV ×2 (06:14→09:28)
[2020-04-18 07:00] LABS: Hematocrit 36.5 % (40-54); Hemoglobin 12.2 g/dL (13.0-16.5); Mean Corp Hgb Conc 33.4 g/dL (32-36); Mean Corpuscular Hgb 31.7 pg (27.0-32.0); Mean Corpuscular Volume 94.8 fL (80-94); Mean Platelet Vol. 10.9 fl (6.2-12.0); Platelet Count 352 K/mm3 (150-450); RBC Distribution Width CV 12.8 % (11.6-14.6); RBC Distribution Width SD 44.2 fl (35.1-43.9); Red Blood Count 3.85 M/mm3 (4.6-6.2)
[2020-04-18 07:44] LABS: ALB/GLOB Ratio 0.6 RATIO (0.9-2.4); AST(SGOT) 33 U/L (15-37); Alanine Aminotransfer ALT/SGPT 73 U/L (16-61); Albumin, Serum 2.4 g/dL (3.2-5.0); Alkaline Phosphatase 69 U/L (45-117); Anion Gap 7 (5-15); BUN 22 mg/dL (7-18); BUN/Creat Ratio 31.6 RATIO (10-20); Calcium,Total 8.4 mg/dL (8.5-10.1); Chloride 102 mmol/L (98-107); EST Glomerular Filtration Rate 118 mL/min (>60); Est Glom Filt Rate - Afr Amer 142 mL/min (>60); Glucose 93 mg/dL (74-106); Potassium 4.8 mmol/L (3.5-5.1); Protein, Total 6.4 g/dL (6.4-8.2); Sodium Level 135 mmol/L (136-145)
[2020-04-18] MEDS: dexAMETHasone 4 MG Tablet 6 MG PO (09:25)
[2020-04-18] MEDS: Carvedilol 3.125 MG TABLET PO ×2 (09:26→20:14)
[2020-04-18] MEDS: Aspirin 81 MG TAB.CHEW PO (09:26)
[2020-04-18] MEDS: Lisinopril 5 MG Tablet PO (09:26)
[2020-04-18] MEDS: Clopidogrel Bisulfate 75 MG Tablet PO (09:27)
[2020-04-18] MEDS: guaiFENesin 1,200 MG Tablet 1200 MG PO ×2 (09:27→20:15)
[2020-04-18] MEDS: Furosemide 40 MG/4 ML Vial IV (09:27)
[2020-04-18] MEDS: Enoxaparin 30 MG/0.3 ML Syringe SC ×2 (09:31→20:14)
--- NOTE | 2020-04-18 13:17 | PCM.PN.PUL ---
Patient Problems: Active and Suspected Problems (Last Reviewed 04/14/20 @ 01:[address] Brant Guerrero MD) Pneumonia due to COVID-19 virus (Acute) COVID-19 (Acute) Respiratory insufficiency (Acute) Hypoxemia Subjective: The patient was seen and examined at the bedside this morning. Events from the last 24 hours have been reviewed. The patient is currently afebrile, hemodynamically stable and maintaining appropriate oxygen saturations on 13 L/min via nasal cannula. The patient denies any significant shortness of breath, despite his increased oxygen requirement. Objective: The patient's most recent lab work, culture data and imaging studies have all been personally reviewed. Coronavirus PCR was positive on April 13. - Physical Exam Vitals/I&O's: Vital Signs Temp Pulse Resp BP Pulse Ox 97.2 F L 66 18 149/82 H 94 04/18/20 08:00 04/18/20 08:00 04/18/20 08:00 04/18/20 08:00 04/18/20 08:00 Oxygen Flow Rate (L/min) 13 Oxygen Delivery Method Nasal Cannula Weight: 178 lb 0.372 oz Body Mass Index (BMI) 29.9 Intake and Output for Last 24 Hours 04/17/20 04/17/20 04/18/20 00:59 23:59 23:59 Intake Total 1090 / 1090 Output Total 1050 / 1050 Balance 40 / 40 General: Alert, Cooperative, No apparent distress HEENT: Atraumatic, Normocephalic Oral: No Gingival or Mucosal Lesions/ Ulcerations Neck: Supple, No Nodes, Trachea Midline Lungs: No rhonchi, No wheeze, No rales, Diminished Cardiovascular: Regular rate, Regular Rhythm, No murmurs Abdomen: Bowel Sounds Present, Soft, Non Tender Extremities: No clubbing, No cyanosis Skin: No breakdown Musculoskeletal: No Muscle Wasting Lymphatic: No Cervical, Supraclavicular, or Inguinal Adenopathy Neurological: Cranial nerves II-XII grossly intact, Neuro grossly intact Psych/Mental Status: Normal Affect Labs (Last 48 Hours) 04/17/20 04/17/20 04/18/20 07:16 07:16 05:55 WBC 17.5 H 13.0 H RBC 3.73 L 3.85 L Hgb 11.8 L 12.2 L Hct 35.4 L 36.5 L MCV 94.9 H 94.8 H MCH 31.6 31.7 MCHC 33.3 33.4 RDW Std Deviation 45.1 H 44.2 H RDW Coeff of Yen 12.9 12.8 Plt Count 327 352 MPV 10.8 10.9 Sodium 136 Potassium 4.4 Chloride 103 Carbon Dioxide 27.0 Anion Gap 6 BUN 24 H Creatinine 0.68 L Estim Creat Clear Calc 57.60 Est GFR (MDRD) Af Amer 146 Est GFR (MDRD) Non-Af 121 BUN/Creatinine Ratio 35.3 H Glucose 97 Calcium 8.2 L Total Bilirubin 0.60 AST 49 H ALT 84 H Alkaline Phosphatase 67 Total Protein 6.6 Albumin 2.4 L Globulin 4.2 Albumin/Globulin Ratio 0.6 L 04/18/20 05:55 WBC RBC Hgb Hct MCV MCH MCHC RDW Std Deviation RDW Coeff of Yen Plt Count MPV Sodium 135 L Potassium 4.8 Chloride 102 Carbon Dioxide 26.0 Anion Gap 7 BUN 22 H Creatinine 0.70 Estim Creat Clear Calc 57.60 Est GFR (MDRD) Af Amer 142 Est GFR (MDRD) Non-Af 118 BUN/Creatinine Ratio 31.6 H Glucose 93 Calcium 8.4 L Total Bilirubin 0.50 AST 33 ALT 73 H Alkaline Phosphatase 69 Total Protein 6.4 Albumin 2.4 L Globulin 4.0 Albumin/Globulin Ratio 0.6 L Clinical Impression(s) from Imaging Studies Chest X-Ray 04/13/20 19:40 IMPRESSION: Interstitial prominence and patchy infiltrates, right more than left. Electronically Signed: Naseem Florian DO at 20:11 EDT Tel [phone], Service support , Chest CTA 04/13/20 20:30 IMPRESSION: No demonstrated pulmonary embolism or arterial dissection. Bilateral patchy infiltrates and interstitial prominence with bilateral pleural effusions, right more severely than left. Mediastinal adenopathy. Electronically Signed: Naseem Florian DO at 22:15 EDT Tel [phone], Service support , Current Medications Acetaminophen (Acetaminophen 325 Mg Tablet) 650 mg PO Q6H PRN PRN PRN Reason: Pain Score 1-10/Temp > 100.7 F Albuterol Sulfate (Albuterol Sulfate 18 Gm Inhaler (200 Puffs)) 2 puff IH Q4H PRN PRN PRN Reason: SOB/WHEEZING Last Admin: 04/15/20 20:30 Dose: 2 puff Documented by: Aspirin (Aspirin 81 Mg Tab.Chew) 81 mg PO DAILY@0800 [facility] Last Admin: 04/18/20 09:26 Dose: 81 mg Documented by: Carvedilol (Carvedilol 3.125 Mg Tablet) 3.125 mg PO BID [facility] Last Admin: 04/18/20 09:26 Dose: 3.125 mg Documented by: Clopidogrel Bisulfate (Clopidogrel Bisulfate 75 Mg Tablet) 75 mg PO DAILY [facility] Last Admin: 04/18/20 09:27 Dose: 75 mg Documented by: Dexamethasone (Dexamethasone 4 Mg Tablet) 6 mg PO DAILY@0800 [facility] Last Admin: 04/18/20 09:25 Dose: 6 mg Documented by: Enoxaparin Sodium (Enoxaparin 30 Mg/0.3 Ml Syringe) 30 mg SC BID [facility] Last Admin: 04/18/20 09:31 Dose: 30 mg Documented by: Furosemide (Furosemide 40 Mg/4 Ml Vial) 40 mg IV DAILY [facility] Last Admin: 04/18/20 09:27 Dose: 40 mg Documented by: Guaifenesin (Guaifenesin 1,200 Mg Tablet) 1,200 mg PO BID [facility] Last Admin: 04/18/20 09:27 Dose: 1,200 mg Documented by: Sodium Chloride () 250 mls @ 15 mls/hr IV .[id number] PRN PRN Reason: Saline Flush Sodium Chloride () 250 mls @ 15 mls/hr IV .[id number] PRN PRN Reason: Additional IVPB Infusion Lisinopril (Lisinopril 5 Mg Tablet) 5 mg PO DAILY [facility] Last Admin: 04/18/20 09:26 Dose: 5 mg Documented by: Miscellaneous Information (Inhaler, Assist Devices 1 Each Spacer) 1 each INHALATION PRN PRN PRN Reason: WITH ALBUTEROL MDI Last Admin: 04/15/20 20:30 Dose: 1 each Documented by: Nutritional Formula (Lactose Free) (Ensure Enlive 120 Ml Liquid) 120 ml PO 4X/DAY [facility] Last Admin: 04/18/20 09:31 Dose: 120 ml Documented by: Ondansetron HCl (Ondansetron 4 Mg/2 Ml Vial) 4 mg IV Q8H PRN PRN PRN Reason: NAUSEA/VOMITING Sodium Chloride (0.9% Saline Lock 10 Ml Syringe) 10 - 40 ml IV UD PRN PRN Reason: SALINE FLUSH Last Admin: 04/18/20 09:28 Dose: 10 ml Documented by: Medical Necessity - Tobacco Use Smoking Status: Never smoker Assessment/Plan All Active Problems (Last Reviewed 04/14/20 @ 01:[address] Brant Guerrero MD) Pneumonia due to COVID-19 virus (Acute) COVID-19 (Acute) Respiratory insufficiency (Acute) RECOMMENDATIONS: 1. Continue to wean supplemental oxygen to maintain saturations at or above 90%. 2. Continue remdesivir and Decadron. 3. Continue gentle diuresis as tolerated by hemodynamics and renal function. 4. Encourage incentive spirometer use and mobilize patient as tolerated. IMPRESSIONS: 1. Acute hypoxemic respiratory failure secondary to COVID-19 pneumonia Plan to continue current supportive measures with supplemental oxygen to maintain saturations at or above 90%. The patient has already received convalescent plasma and will be continued on remdesivir and Decadron 6 mg daily. Gentle diuresis will be continued as tolerated by hemodynamics and renal function. BiPAP rescue can be utilized if clinically indicated. 2. Coronary artery disease status post PCI/hypertension/cor pulmonale/advanced age Complicates care, management, recovery and prognosis. Continue home medications as indicated. This note was generated with [employer] dictation software. It may contain incorrect words, spelling, and punctuation that were not noted in checking the note before signing. Inpatient E&M: [id number] [facility] L3
--- NOTE | 2020-04-18 13:39 | PCM.PN.HOSP ---
Patient Problems: Active and Suspected Problems (Last Reviewed 04/14/20 @ 01:[address] Brant Guerrero MD) Pneumonia due to COVID-19 virus (Acute) COVID-19 (Acute) Respiratory insufficiency (Acute) Hypoxemia Subjective: Patient seen and examined. He has no complaints. Review of systems was otherwise negative. He is on 13 L of oxygen. Pulmonology on board. Vitals/I&O's: Vital Signs Temp Pulse Resp BP Pulse Ox 97.2 F L 66 18 149/82 H 94 04/18/20 08:00 04/18/20 08:00 04/18/20 08:00 04/18/20 08:00 04/18/20 08:00 Oxygen Flow Rate (L/min) 13 Oxygen Delivery Method Nasal Cannula Weight: 178 lb 0.372 oz Body Mass Index (BMI) 29.9 Intake and Output for Last 24 Hours 04/17/20 04/17/20 04/18/20 00:59 23:59 23:59 Intake Total 1090 / 1090 Output Total 1050 / 1050 Balance 40 / 40 General: Alert, Oriented x3, Cooperative, No apparent distress HEENT: Atraumatic, PERRLA, EOMI, Normocephalic Oral: Moist Mucosa Neck: Supple, No JVD, Negative Carotid Bruits Lungs: - - diminished breath sounds bibasally, no wheezes or crackles. on 13L of oxygen Cardiovascular: Regular rate, Regular Rhythm, Normal S1, Normal S2, No murmurs Abdomen: Bowel Sounds Present, Soft, Non Tender, Non-Distended, No Hepato-splenomegaly Extremities: No clubbing, No cyanosis, No edema, Capillary Refill Less than 3 Seconds Skin: No rashes, No breakdown Musculoskeletal: No Tenderness to Palpation of Joints or Extremities Lymphatic: No Cervical, Supraclavicular, or Inguinal Adenopathy Neurological: Cranial nerves II-XII grossly intact, Neuro grossly intact, Motor Exam 5/5 strength throughout Psych/Mental Status: Normal Affect, Appropriate, Alert and oriented to time, place, person, mood and affect Microbiology Past 72 Hours 04/13/20 20:25 Blood Culture (Wb) - Right Hand Blood Culture - Preliminary No growth in 48 hours. 04/13/20 18:10 Blood Culture (Wb) - Anticubital Left Blood Culture - Preliminary No growth in 48 hours. Laboratory Results 04/18/20 05:55: WBC 13.0 H, RBC 3.85 L, Hgb 12.2 L, Hct 36.5 L, MCV 94.8 H, MCH 31.7, MCHC 33.4, RDW Std Deviation 44.2 H, RDW Coeff of Yen 12.8, Plt Count 352, MPV 10.9 04/18/20 05:55: Sodium 135 L, Potassium 4.8, Chloride 102, Carbon Dioxide 26.0, Anion Gap 7, BUN 22 H, Creatinine 0.70, Estim Creat Clear Calc 57.60, Est GFR (MDRD) Af Amer 142, Est GFR (MDRD) Non-Af 118, BUN/Creatinine Ratio 31.6 H, Glucose 93, Calcium 8.4 L, Total Bilirubin 0.50, AST 33, ALT 73 H, Alkaline Phosphatase 69, Total Protein 6.4, Albumin 2.4 L, Globulin 4.0, Albumin/Globulin Ratio 0.6 L Diagnostic Data Chest X-Ray 04/13/20 19:40 IMPRESSION: Interstitial prominence and patchy infiltrates, right more than left. Electronically Signed: Naseem Florian DO at 20:11 EDT Tel [phone], Service support , Chest CTA 04/13/20 20:30 IMPRESSION: No demonstrated pulmonary embolism or arterial dissection. Bilateral patchy infiltrates and interstitial prominence with bilateral pleural effusions, right more severely than left. Mediastinal adenopathy. Electronically Signed: Naseem Florian DO at 22:15 EDT Tel [phone], Service support , Current Medications Acetaminophen (Acetaminophen 325 Mg Tablet) 650 mg PO Q6H PRN PRN PRN Reason: Pain Score 1-10/Temp > 100.7 F Albuterol Sulfate (Albuterol Sulfate 18 Gm Inhaler (200 Puffs)) 2 puff IH Q4H PRN PRN PRN Reason: SOB/WHEEZING Last Admin: 04/15/20 20:30 Dose: 2 puff Documented by: Aspirin (Aspirin 81 Mg Tab.Chew) 81 mg PO DAILY@0800 [facility] Last Admin: 04/18/20 09:26 Dose: 81 mg Documented by: Carvedilol (Carvedilol 3.125 Mg Tablet) 3.125 mg PO BID [facility] Last Admin: 04/18/20 09:26 Dose: 3.125 mg Documented by: Clopidogrel Bisulfate (Clopidogrel Bisulfate 75 Mg Tablet) 75 mg PO DAILY [facility] Last Admin: 04/18/20 09:27 Dose: 75 mg Documented by: Dexamethasone (Dexamethasone 4 Mg Tablet) 6 mg PO DAILY@0800 [facility] Last Admin: 04/18/20 09:25 Dose: 6 mg Documented by: Enoxaparin Sodium (Enoxaparin 30 Mg/0.3 Ml Syringe) 30 mg SC BID [facility] Last Admin: 04/18/20 09:31 Dose: 30 mg Documented by: Furosemide (Furosemide 40 Mg/4 Ml Vial) 40 mg IV DAILY [facility] Last Admin: 04/18/20 09:27 Dose: 40 mg Documented by: Guaifenesin (Guaifenesin 1,200 Mg Tablet) 1,200 mg PO BID [facility] Last Admin: 04/18/20 09:27 Dose: 1,200 mg Documented by: Sodium Chloride () 250 mls @ 15 mls/hr IV .[id number] PRN PRN Reason: Saline Flush Sodium Chloride () 250 mls @ 15 mls/hr IV .[id number] PRN PRN Reason: Additional IVPB Infusion Lisinopril (Lisinopril 5 Mg Tablet) 5 mg PO DAILY [facility] Last Admin: 04/18/20 09:26 Dose: 5 mg Documented by: Miscellaneous Information (Inhaler, Assist Devices 1 Each Spacer) 1 each INHALATION PRN PRN PRN Reason: WITH ALBUTEROL MDI Last Admin: 04/15/20 20:30 Dose: 1 each Documented by: Nutritional Formula (Lactose Free) (Ensure Enlive 120 Ml Liquid) 120 ml PO 4X/DAY [facility] Last Admin: 04/18/20 09:31 Dose: 120 ml Documented by: Ondansetron HCl (Ondansetron 4 Mg/2 Ml Vial) 4 mg IV Q8H PRN PRN PRN Reason: NAUSEA/VOMITING Sodium Chloride (0.9% Saline Lock 10 Ml Syringe) 10 - 40 ml IV UD PRN PRN Reason: SALINE FLUSH Last Admin: 04/18/20 09:28 Dose: 10 ml Documented by: Medical Necessity - Tobacco Use Smoking Status: Never smoker Assessment/Plan All Active Problems (Last Reviewed 04/14/20 @ 01:[address] Brant Guerrero MD) Pneumonia due to COVID-19 virus (Acute) COVID-19 (Acute) Respiratory insufficiency (Acute) # Acute hypoxic respiratory failure due to COVID 19 pneumonia on remdesivir and dcadron. Received convalescent plasma on 04/14/2020 pulmonology and ID on board titrate oxygen to maintain sats >90% breathing treatments with bronchodilators # CAD s/p stents: on Coreg, lisinopril and aspirin plus Plavix. #Hyperlipidemia: On high intensity statin #DVT prophylaxis: Lovenox Inpatient E&M: [id number] [facility] L3
--- NOTE | 2020-04-18 19:44 | PCM.PN.ID ---
Patient Problems: Active and Suspected Problems (Last Reviewed 04/14/20 @ 01:[address] Brant Guerrero MD) Pneumonia due to COVID-19 virus (Acute) COVID-19 (Acute) Respiratory insufficiency (Acute) Hypoxemia Subjective: Feeling fine, no fever, no n/v/d. - Physical Exam Vitals/I&O's: Vital Signs Temp Pulse Resp BP Pulse Ox 97.1 F L 60 20 H 142/78 H 97 04/18/20 14:00 04/18/20 14:00 04/18/20 14:00 04/18/20 14:00 04/18/20 14:00 Oxygen Flow Rate (L/min) 12 Oxygen Delivery Method Nasal Cannula Weight: 80.75 kg Body Mass Index (BMI) 29.9 Intake and Output for Last 24 Hours 04/17/20 04/17/20 04/18/20 00:59 23:59 23:59 Intake Total 1450 / 1450 Output Total 1650 / 1650 Balance -200 / -200 General: Alert, Cooperative, No apparent distress Lungs: Diminished Cardiovascular: Regular rate, Regular Rhythm Abdomen: Soft, Non Tender, Non-Distended Skin: No rashes Microbiology Past 72 Hours 04/13/20 20:25 Blood Culture (Wb) - Right Hand Blood Culture - Preliminary No growth in 48 hours. 04/13/20 18:10 Blood Culture (Wb) - Anticubital Left Blood Culture - Preliminary No growth in 48 hours. Laboratory Results 04/18/20 05:55: WBC 13.0 H, RBC 3.85 L, Hgb 12.2 L, Hct 36.5 L, MCV 94.8 H, MCH 31.7, MCHC 33.4, RDW Std Deviation 44.2 H, RDW Coeff of Yen 12.8, Plt Count 352, MPV 10.9 04/18/20 05:55: Sodium 135 L, Potassium 4.8, Chloride 102, Carbon Dioxide 26.0, Anion Gap 7, BUN 22 H, Creatinine 0.70, Estim Creat Clear Calc 57.60, Est GFR (MDRD) Af Amer 142, Est GFR (MDRD) Non-Af 118, BUN/Creatinine Ratio 31.6 H, Glucose 93, Calcium 8.4 L, Total Bilirubin 0.50, AST 33, ALT 73 H, Alkaline Phosphatase 69, Total Protein 6.4, Albumin 2.4 L, Globulin 4.0, Albumin/Globulin Ratio 0.6 L Current Medications Acetaminophen (Acetaminophen 325 Mg Tablet) 650 mg PO Q6H PRN PRN PRN Reason: Pain Score 1-10/Temp > 100.7 F Albuterol Sulfate (Albuterol Sulfate 18 Gm Inhaler (200 Puffs)) 2 puff IH Q4H PRN PRN PRN Reason: SOB/WHEEZING Last Admin: 04/15/20 20:30 Dose: 2 puff Documented by: Aspirin (Aspirin 81 Mg Tab.Chew) 81 mg PO DAILY@0800 [facility] Last Admin: 04/18/20 09:26 Dose: 81 mg Documented by: Carvedilol (Carvedilol 3.125 Mg Tablet) 3.125 mg PO BID [facility] Last Admin: 04/18/20 09:26 Dose: 3.125 mg Documented by: Clopidogrel Bisulfate (Clopidogrel Bisulfate 75 Mg Tablet) 75 mg PO DAILY [facility] Last Admin: 04/18/20 09:27 Dose: 75 mg Documented by: Dexamethasone (Dexamethasone 4 Mg Tablet) 6 mg PO DAILY@0800 [facility] Last Admin: 04/18/20 09:25 Dose: 6 mg Documented by: Enoxaparin Sodium (Enoxaparin 30 Mg/0.3 Ml Syringe) 30 mg SC BID [facility] Last Admin: 04/18/20 09:31 Dose: 30 mg Documented by: Furosemide (Furosemide 40 Mg/4 Ml Vial) 40 mg IV DAILY [facility] Last Admin: 04/18/20 09:27 Dose: 40 mg Documented by: Guaifenesin (Guaifenesin 1,200 Mg Tablet) 1,200 mg PO BID [facility] Last Admin: 04/18/20 09:27 Dose: 1,200 mg Documented by: Sodium Chloride () 250 mls @ 15 mls/hr IV .[id number] PRN PRN Reason: Saline Flush Sodium Chloride () 250 mls @ 15 mls/hr IV .[id number] PRN PRN Reason: Additional IVPB Infusion Lisinopril (Lisinopril 5 Mg Tablet) 5 mg PO DAILY [facility] Last Admin: 04/18/20 09:26 Dose: 5 mg Documented by: Miscellaneous Information (Inhaler, Assist Devices 1 Each Spacer) 1 each INHALATION PRN PRN PRN Reason: WITH ALBUTEROL MDI Last Admin: 04/15/20 20:30 Dose: 1 each Documented by: Nutritional Formula (Lactose Free) (Ensure Enlive 120 Ml Liquid) 120 ml PO 4X/DAY [facility] Last Admin: 04/18/20 17:56 Dose: 120 ml Documented by: Ondansetron HCl (Ondansetron 4 Mg/2 Ml Vial) 4 mg IV Q8H PRN PRN PRN Reason: NAUSEA/VOMITING Sodium Chloride (0.9% Saline Lock 10 Ml Syringe) 10 - 40 ml IV UD PRN PRN Reason: SALINE FLUSH Last Admin: 04/18/20 09:28 Dose: 10 ml Documented by: Medical Necessity - Tobacco Use Smoking Status: Never smoker Route of nutrition/ use of supplements: [] Nutritional Intake: [] IV Site: [] Lopes Catheter: [] - Assessment/Plan Antibiotics: [] Assessment/Plan: [] Active and Suspected Problems (Last Reviewed 04/14/20 @ 01:[address] Brant Guerrero MD) Pneumonia due to COVID-19 virus (Acute) COVID-19 (Acute) Respiratory insufficiency (Acute) Hypoxemia covid with hypoxia - sat of 77% on presentation, now afebrile. On 13L O2 today. Got plasma 04/14. Completed [address] showed no PE. D-dimer 2.1. On lovenox proph bid. also sick at home. Feeling ok, but still high O2 reqs. Will follow
[2020-04-19] VITALS (7 sets, daily range): BP systolic 120–140; BP diastolic 59–76; PULSE 62–67; RESP 18–20; TEMP 35.5–36.1; O2SAT 90–96
[2020-04-19 06:58] LABS: Hemoglobin 12.4 g/dL (13.0-16.5); Mean Corp Hgb Conc 33.5 g/dL (32-36); Mean Corpuscular Hgb 31.7 pg (27.0-32.0); Mean Corpuscular Volume 94.6 fL (80-94); Mean Platelet Vol. 10.6 fl (6.2-12.0); Platelet Count 408 K/mm3 (150-450); RBC Distribution Width CV 12.8 % (11.6-14.6); RBC Distribution Width SD 44.5 fl (35.1-43.9); Red Blood Count 3.91 M/mm3 (4.6-6.2); White Blood Count 13.5 K/mm3 (4.4-11.0)
[2020-04-19 07:33] LABS: ALB/GLOB Ratio 0.7 RATIO (0.9-2.4); AST(SGOT) 20 U/L (15-37); Alanine Aminotransfer ALT/SGPT 62 U/L (16-61); Albumin, Serum 2.6 g/dL (3.2-5.0); Alkaline Phosphatase 68 U/L (45-117); Anion Gap 8 (5-15); BUN 25 mg/dL (7-18); BUN/Creat Ratio 36.6 RATIO (10-20); Calcium,Total 8.3 mg/dL (8.5-10.1); Chloride 101 mmol/L (98-107); Creatinine, Serum 0.68 mg/dL (0.70-1.30); EST Glomerular Filtration Rate 120 mL/min (>60); Est Glom Filt Rate - Afr Amer 145 mL/min (>60); Globulin 3.6 g/dL (2.2-4.2); Glucose 86 mg/dL (74-106); Potassium 5.1 mmol/L (3.5-5.1); Protein, Total 6.2 g/dL (6.4-8.2); Sodium Level 134 mmol/L (136-145)
--- NOTE | 2020-04-19 07:50 | PN_ITS ---
Patient Problems: Active and Suspected Problems (Last Reviewed 04/14/20 @ 01:[address] Brant Guerrero MD) Pneumonia due to COVID-19 virus (Acute) COVID-19 (Acute) Respiratory insufficiency (Acute) Hypoxemia Subjective: Patient seen and examined. He is down to 11 L of oxygen today and has remained hemodynamically stable. Vitals/I&O's: Vital Signs Temp Pulse Resp BP Pulse Ox 96 F L 64 20 H 133/74 H 96 04/19/20 02:25 04/19/20 02:25 04/19/20 02:25 04/19/20 02:25 04/19/20 02:25 Oxygen Flow Rate (L/min) 11 Oxygen Delivery Method Nasal Cannula Weight: 171 lb 11.841 oz Body Mass Index (BMI) 29.9 Intake and Output for Last 24 Hours 04/17/20 04/18/20 04/19/20 23:59 23:59 23:59 Intake Total 1750 / 1750 250 / 250 Output Total 1900 / 1900 350 / 350 Balance -150 / -150 -100 / -100 General: Alert, Oriented x3, Cooperative, No apparent distress HEENT: Atraumatic, PERRLA, EOMI, Normocephalic Oral: Moist Mucosa Neck: Supple, No JVD, Negative Carotid Bruits Lungs: - - diminished breath sounds bibasally, no wheezes or crackles. on 11L of oxygen Cardiovascular: Regular rate, Regular Rhythm, Normal S1, Normal S2, No murmurs Abdomen: Bowel Sounds Present, Soft, Non Tender, Non-Distended, No Hepato- splenomegaly Extremities: No clubbing, No cyanosis, No edema, Capillary Refill Less than 3 Seconds Skin: No rashes, No breakdown Musculoskeletal: No Tenderness to Palpation of Joints or Extremities Lymphatic: No Cervical, Supraclavicular, or Inguinal Adenopathy Neurological: Cranial nerves II-XII grossly intact, Neuro grossly intact, Motor Exam 5/5 strength throughout Psych/Mental Status: Normal Affect, Appropriate, Alert and oriented to time, place, person, mood and affect Microbiology Past 72 Hours 04/13/20 20:25 Blood Culture (Wb) - Right Hand Blood Culture - Preliminary No growth in 48 hours. 04/13/20 18:10 Blood Culture (Wb) - Anticubital Left Blood Culture - Preliminary No growth in 48 hours. Laboratory Results 04/19/20 06:14: WBC 13.5 H, RBC 3.91 L, Hgb 12.4 L, Hct 37.0 L, MCV 94.6 H, MCH 31.7, MCHC 33.5, RDW Std Deviation 44.5 H, RDW Coeff of Yen 12.8, Plt Count 408, MPV 10.6 04/19/20 06:14: Sodium 134 L, Potassium 5.1, Chloride 101, Carbon Dioxide 25.0, Anion Gap 8, BUN 25 H, Creatinine 0.68 L, Estim Creat Clear Calc 57.60, Est GFR (MDRD) Af Amer 145, Est GFR (MDRD) Non-Af 120, BUN/Creatinine Ratio 36.6 H, Glucose 86, Calcium 8.3 L, Total Bilirubin 0.60, AST 20, ALT 62 H, Alkaline Phosphatase 68, Total Protein 6.2 L, Albumin 2.6 L, Globulin 3.6, Albumin/Globulin Ratio 0.7 L Diagnostic Data Chest X-Ray 04/13/20 19:40 IMPRESSION: Interstitial prominence and patchy infiltrates, right more than left. Electronically Signed: Naseem Florian DO at 20:11 EDT Tel [phone], Service support , Chest CTA 04/13/20 20:30 IMPRESSION: No demonstrated pulmonary embolism or arterial dissection. Bilateral patchy infiltrates and interstitial prominence with bilateral pleural effusions, right more severely than left. Mediastinal adenopathy. Electronically Signed: Naseem Florian DO at 22:15 EDT Tel [phone], Service support , Current Medications Acetaminophen (Acetaminophen 325 Mg Tablet) 650 mg PO Q6H PRN PRN PRN Reason: Pain Score 1-10/Temp > 100.7 F Albuterol Sulfate (Albuterol Sulfate 18 Gm Inhaler (200 Puffs)) 2 puff IH Q4H PRN PRN PRN Reason: SOB/WHEEZING Last Admin: 04/15/20 20:30 Dose: 2 puff Documented by: Aspirin (Aspirin 81 Mg Tab.Chew) 81 mg PO DAILY@0800 [facility] Last Admin: 04/18/20 09:26 Dose: 81 mg Documented by: Carvedilol (Carvedilol 3.125 Mg Tablet) 3.125 mg PO BID [facility] Last Admin: 04/18/20 20:14 Dose: 3.125 mg Documented by: Clopidogrel Bisulfate (Clopidogrel Bisulfate 75 Mg Tablet) 75 mg PO DAILY [facility] Last Admin: 04/18/20 09:27 Dose: 75 mg Documented by: Dexamethasone (Dexamethasone 4 Mg Tablet) 6 mg PO DAILY@0800 [facility] Last Admin: 04/18/20 09:25 Dose: 6 mg Documented by: Enoxaparin Sodium (Enoxaparin 30 Mg/0.3 Ml Syringe) 30 mg SC BID [facility] Last Admin: 04/18/20 20:14 Dose: 30 mg Documented by: Furosemide (Furosemide 40 Mg/4 Ml Vial) 40 mg IV DAILY [facility] Last Admin: 04/18/20 09:27 Dose: 40 mg Documented by: Guaifenesin (Guaifenesin 1,200 Mg Tablet) 1,200 mg PO BID [facility] Last Admin: 04/18/20 20:15 Dose: 1,200 mg Documented by: Sodium Chloride () 250 mls @ 15 mls/hr IV .[id number] PRN PRN Reason: Saline Flush Sodium Chloride () 250 mls @ 15 mls/hr IV .[id number] PRN PRN Reason: Additional IVPB Infusion Lisinopril (Lisinopril 5 Mg Tablet) 5 mg PO DAILY [facility] Last Admin: 04/18/20 09:26 Dose: 5 mg Documented by: Miscellaneous Information (Inhaler, Assist Devices 1 Each Spacer) 1 each INHALATION PRN PRN PRN Reason: WITH ALBUTEROL MDI Last Admin: 04/15/20 20:30 Dose: 1 each Documented by: Nutritional Formula (Lactose Free) (Ensure Enlive 120 Ml Liquid) 120 ml PO 4X/DAY [facility] Last Admin: 04/18/20 20:15 Dose: 120 ml Documented by: Ondansetron HCl (Ondansetron 4 Mg/2 Ml Vial) 4 mg IV Q8H PRN PRN PRN Reason: NAUSEA/VOMITING Sodium Chloride (0.9% Saline Lock 10 Ml Syringe) 10 - 40 ml IV UD PRN PRN Reason: SALINE FLUSH Last Admin: 04/18/20 09:28 Dose: 10 ml Documented by: Medical Necessity - Tobacco Use Smoking Status: Never smoker Assessment/Plan All Active Problems (Last Reviewed 04/14/20 @ 01:[address] Brant Guerrero MD) Pneumonia due to COVID-19 virus (Acute) COVID-19 (Acute) Respiratory insufficiency (Acute) # Acute hypoxic respiratory failure due to COVID 19 pneumonia * on remdesivir and decadron. Received convalescent plasma on 04/14/2020 * pulmonology and ID on board * titrate oxygen to maintain sats >90%; now down to 11L of oxygen * breathing treatments with bronchodilators * # CAD s/p stents: on Coreg, lisinopril and aspirin plus Plavix. #Hyperlipidemia: On high intensity statin #DVT prophylaxis: Lovenox OBSV E&M: 85647 Subsequent observation care L2
[2020-04-19] MEDS: Aspirin 81 MG TAB.CHEW PO (08:27)
[2020-04-19] MEDS: dexAMETHasone 4 MG Tablet 6 MG PO (08:27)
[2020-04-19] MEDS: Lisinopril 5 MG Tablet PO (08:28)
[2020-04-19] MEDS: Carvedilol 3.125 MG TABLET PO ×2 (08:28→21:32)
[2020-04-19] MEDS: Clopidogrel Bisulfate 75 MG Tablet PO (08:28)
[2020-04-19] MEDS: Enoxaparin 30 MG/0.3 ML Syringe SC ×2 (08:28→21:32)
[2020-04-19] MEDS: guaiFENesin 1,200 MG Tablet 1200 MG PO ×2 (08:28→21:32)
[2020-04-19] MEDS: 0.9% Saline Lock 10 ML Syringe IV ×2 (08:29→12:39)
[2020-04-19] MEDS: Furosemide 40 MG/4 ML Vial IV ×2 (08:29→12:39)
--- NOTE | 2020-04-19 10:38 | PN_ITS ---
Patient Problems: Active and Suspected Problems (Last Reviewed 04/14/20 @ 01:[address] Brant Guerrero MD) Pneumonia due to COVID-19 virus (Acute) COVID-19 (Acute) Respiratory insufficiency (Acute) Hypoxemia Subjective: The patient was seen and examined at the bedside this morning. Events from the last 24 hours have been reviewed. The patient is currently afebrile, hemodynamically stable and maintaining appropriate oxygen saturations on 12 L/min via nasal cannula. The patient feels largely unchanged from yesterday. He is currently documented to be overall net +1.4 L for the hospital admission. The patient has already completed convalescent plasma along with a treatment course of remdesivir. Objective: The patient's most recent lab work, culture data and imaging studies have all been personally reviewed. Coronavirus PCR was positive on April 13. - Physical Exam Vitals/I&O's: Vital Signs Temp Pulse Resp BP Pulse Ox 96 F L 67 19 H 122/76 H 94 04/19/20 08:25 04/19/20 08:25 04/19/20 08:25 04/19/20 08:25 04/19/20 08:25 Oxygen Flow Rate (L/min) 12 Oxygen Delivery Method Nasal Cannula Weight: 171 lb 11.841 oz Body Mass Index (BMI) 29.9 Intake and Output for Last 24 Hours 04/17/20 04/18/20 04/19/20 23:59 23:59 23:59 Intake Total 1750 / 1750 250 / 250 Output Total 1900 / 1900 350 / 350 Balance -150 / -150 -100 / -100 General: Alert, Cooperative, No apparent distress, - - Sitting upright in bed. HEENT: Atraumatic, Normocephalic Oral: Moist Mucosa, No Gingival or Mucosal Lesions/ Ulcerations Neck: Supple, No Nodes, Trachea Midline Lungs: No rhonchi, No wheeze, No rales, Diminished, - - No accessory muscle use. Speaking in complete sentences. Cardiovascular: Regular rate, Regular Rhythm Abdomen: Bowel Sounds Present, Soft, Non Tender Extremities: No clubbing, No cyanosis, No edema Skin: No breakdown Musculoskeletal: No Tenderness to Palpation of Joints or Extremities, No Muscle Wasting Lymphatic: No Cervical, Supraclavicular, or Inguinal Adenopathy Neurological: Cranial nerves II-XII grossly intact, Neuro grossly intact Psych/Mental Status: Alert and oriented to time, place, person, mood and affect Labs (Last 48 Hours) 04/18/20 04/18/20 04/19/20 05:55 05:55 06:14 WBC 13.0 H 13.5 H RBC 3.85 L 3.91 L Hgb 12.2 L 12.4 L Hct 36.5 L 37.0 L MCV 94.8 H 94.6 H MCH 31.7 31.7 MCHC 33.4 33.5 RDW Std Deviation 44.2 H 44.5 H RDW Coeff of Yen 12.8 12.8 Plt Count 352 408 MPV 10.9 10.6 Sodium 135 L Potassium 4.8 Chloride 102 Carbon Dioxide 26.0 Anion Gap 7 BUN 22 H Creatinine 0.70 Estim Creat Clear Calc 57.60 Est GFR (MDRD) Af Amer 142 Est GFR (MDRD) Non-Af 118 BUN/Creatinine Ratio 31.6 H Glucose 93 Calcium 8.4 L Total Bilirubin 0.50 AST 33 ALT 73 H Alkaline Phosphatase 69 Total Protein 6.4 Albumin 2.4 L Globulin 4.0 Albumin/Globulin Ratio 0.6 L 04/19/20 06:14 WBC RBC Hgb Hct MCV MCH MCHC RDW Std Deviation RDW Coeff of Yen Plt Count MPV Sodium 134 L Potassium 5.1 Chloride 101 Carbon Dioxide 25.0 Anion Gap 8 BUN 25 H Creatinine 0.68 L Estim Creat Clear Calc 57.60 Est GFR (MDRD) Af Amer 145 Est GFR (MDRD) Non-Af 120 BUN/Creatinine Ratio 36.6 H Glucose 86 Calcium 8.3 L Total Bilirubin 0.60 AST 20 ALT 62 H Alkaline Phosphatase 68 Total Protein 6.2 L Albumin 2.6 L Globulin 3.6 Albumin/Globulin Ratio 0.7 L Microbiology 04/13/20 20:25 Blood Culture (Wb) - Right Hand Blood Culture - Final No growth in 5 days. 04/13/20 18:10 Blood Culture (Wb) - Anticubital Left Blood Culture - Final No growth in 5 days. Clinical Impression(s) from Imaging Studies Chest X-Ray 04/13/20 19:40 IMPRESSION: Interstitial prominence and patchy infiltrates, right more than left. Electronically Signed: Naseem Florian DO at 20:11 EDT Tel [phone], Service support , Chest CTA 04/13/20 20:30 IMPRESSION: No demonstrated pulmonary embolism or arterial dissection. Bilateral patchy infiltrates and interstitial prominence with bilateral pleural effusions, right more severely than left. Mediastinal adenopathy. Electronically Signed: Naseem Florian DO at 22:15 EDT Tel [phone], Service support , Current Medications Acetaminophen (Acetaminophen 325 Mg Tablet) 650 mg PO Q6H PRN PRN PRN Reason: Pain Score 1-10/Temp > 100.7 F Albuterol Sulfate (Albuterol Sulfate 18 Gm Inhaler (200 Puffs)) 2 puff IH Q4H PRN PRN PRN Reason: SOB/WHEEZING Last Admin: 04/15/20 20:30 Dose: 2 puff Documented by: Aspirin (Aspirin 81 Mg Tab.Chew) 81 mg PO DAILY@0800 [facility] Last Admin: 04/19/20 08:27 Dose: 81 mg Documented by: Carvedilol (Carvedilol 3.125 Mg Tablet) 3.125 mg PO BID [facility] Last Admin: 04/19/20 08:28 Dose: 3.125 mg Documented by: Clopidogrel Bisulfate (Clopidogrel Bisulfate 75 Mg Tablet) 75 mg PO DAILY [facility] Last Admin: 04/19/20 08:28 Dose: 75 mg Documented by: Dexamethasone (Dexamethasone 4 Mg Tablet) 6 mg PO DAILY@0800 [facility] Last Admin: 04/19/20 08:27 Dose: 6 mg Documented by: Enoxaparin Sodium (Enoxaparin 30 Mg/0.3 Ml Syringe) 30 mg SC BID [facility] Last Admin: 04/19/20 08:28 Dose: 30 mg Documented by: Furosemide (Furosemide 40 Mg/4 Ml Vial) 40 mg IV DAILY [facility] Last Admin: 04/19/20 08:29 Dose: 40 mg Documented by: Guaifenesin (Guaifenesin 1,200 Mg Tablet) 1,200 mg PO BID [facility] Last Admin: 04/19/20 08:28 Dose: 1,200 mg Documented by: Sodium Chloride () 250 mls @ 15 mls/hr IV .[id number] PRN PRN Reason: Saline Flush Sodium Chloride () 250 mls @ 15 mls/hr IV .[id number] PRN PRN Reason: Additional IVPB Infusion Lisinopril (Lisinopril 5 Mg Tablet) 5 mg PO DAILY [facility] Last Admin: 04/19/20 08:28 Dose: 5 mg Documented by: Miscellaneous Information (Inhaler, Assist Devices 1 Each Spacer) 1 each INHALATION PRN PRN PRN Reason: WITH ALBUTEROL MDI Last Admin: 04/15/20 20:30 Dose: 1 each Documented by: Nutritional Formula (Lactose Free) (Ensure Enlive 120 Ml Liquid) 120 ml PO 4X/DAY [facility] Last Admin: 04/19/20 08:26 Dose: 120 ml Documented by: Ondansetron HCl (Ondansetron 4 Mg/2 Ml Vial) 4 mg IV Q8H PRN PRN PRN Reason: NAUSEA/VOMITING Sodium Chloride (0.9% Saline Lock 10 Ml Syringe) 10 - 40 ml IV UD PRN PRN Reason: SALINE FLUSH Last Admin: 04/19/20 08:29 Dose: 10 ml Documented by: Medical Necessity - Tobacco Use Smoking Status: Never smoker Assessment/Plan All Active Problems (Last Reviewed 04/14/20 @ 01:[address] Brant Guerrero MD) Pneumonia due to COVID-19 virus (Acute) COVID-19 (Acute) Respiratory insufficiency (Acute) RECOMMENDATIONS: 1. Continue to wean supplemental oxygen to maintain saturations at or above 90%. 2. Continue Decadron to complete 10-day treatment course. 3. Give additional dose of IV Lasix today. 4. Encourage incentive spirometer use and mobilize patient as tolerated. IMPRESSIONS: 1. Acute hypoxemic respiratory failure secondary to COVID-19 pneumonia Plan to continue current supportive measures with supplemental oxygen to maintain saturations at or above 90%. The patient has already received convalescent plasma and completed a treatment course of remdesivir. He will be continued on Decadron 6 mg daily x10 days. Plan to continue gentle diuresis as tolerated. We will give 1 additional dose of IV Lasix today. 2. Coronary artery disease status post PCI/hypertension/cor pulmonale/advanced age Complicates care, management, recovery and prognosis. Continue home medications as indicated. This note was generated with [employer] software. It may contain incorrect words, spelling, and punctuation that were not noted in checking the note before signing. Inpatient E&M: 50754 Subs Hosp L3
[2020-04-20] VITALS (12 sets, daily range): BP systolic 98–126; BP diastolic 57–72; PULSE 56–63; RESP 16–20; TEMP 35.9–36; O2SAT 94–97
--- NOTE | 2020-04-20 07:41 | PN_ITS ---
Patient Problems: Active and Suspected Problems (Last Reviewed 04/14/20 @ 01:[address] Brant Guerrero MD) Pneumonia due to COVID-19 virus (Acute) COVID-19 (Acute) Respiratory insufficiency (Acute) Hypoxemia Subjective: Patient seen and examined. He is on 8 L of oxygen. He has no complaints. Review of symptoms otherwise negative. He has remained hemodynamically stable. Vitals/I&O's: Vital Signs Temp Pulse Resp BP Pulse Ox 96.8 F L 60 20 H 126/63 H 96 04/20/20 02:57 04/20/20 02:57 04/20/20 02:57 04/20/20 02:57 04/20/20 02:57 Oxygen Flow Rate (L/min) 8 Oxygen Delivery Method Nasal Cannula Weight: 168 lb 10.458 oz Body Mass Index (BMI) 29.9 Intake and Output for Last 24 Hours 04/18/20 04/19/20 04/20/20 23:59 23:59 23:59 Intake Total 1750 / 1750 1140 / 1140 300 / 300 Output Total 1900 / 1900 2400 / 2400 250 / 250 Balance -150 / -150 -1260 / -1260 50 / 50 General: Alert, Oriented x3, Cooperative, No apparent distress HEENT: Atraumatic, PERRLA, EOMI, Normocephalic Oral: Moist Mucosa Neck: Supple, No JVD, Negative Carotid Bruits Lungs: - - diminished breath sounds bibasally, no wheezes or crackles. on 8L of oxygen Cardiovascular: Regular rate, Regular Rhythm, Normal S1, Normal S2, No murmurs Abdomen: Bowel Sounds Present, Soft, Non Tender, Non-Distended, No Hepato- splenomegaly Extremities: No clubbing, No cyanosis, No edema, Capillary Refill Less than 3 Seconds Skin: No rashes, No breakdown Musculoskeletal: No Tenderness to Palpation of Joints or Extremities Lymphatic: No Cervical, Supraclavicular, or Inguinal Adenopathy Neurological: Cranial nerves II-XII grossly intact, Neuro grossly intact, Motor Exam 5/5 strength throughout Psych/Mental Status: Normal Affect, Appropriate, Alert and oriented to time, place, person, mood and affect Microbiology Past 72 Hours 04/13/20 20:25 Blood Culture (Wb) - Right Hand Blood Culture - Final No growth in 5 days. 04/13/20 18:10 Blood Culture (Wb) - Anticubital Left Blood Culture - Final No growth in 5 days. Current Medications Acetaminophen (Acetaminophen 325 Mg Tablet) 650 mg PO Q6H PRN PRN PRN Reason: Pain Score 1-10/Temp > 100.7 F Albuterol Sulfate (Albuterol Sulfate 18 Gm Inhaler (200 Puffs)) 2 puff IH Q4H PRN PRN PRN Reason: SOB/WHEEZING Last Admin: 04/15/20 20:30 Dose: 2 puff Documented by: Aspirin (Aspirin 81 Mg Tab.Chew) 81 mg PO DAILY@0800 [facility] Last Admin: 04/19/20 08:27 Dose: 81 mg Documented by: Carvedilol (Carvedilol 3.125 Mg Tablet) 3.125 mg PO BID [facility] Last Admin: 04/19/20 21:32 Dose: 3.125 mg Documented by: Clopidogrel Bisulfate (Clopidogrel Bisulfate 75 Mg Tablet) 75 mg PO DAILY [facility] Last Admin: 04/19/20 08:28 Dose: 75 mg Documented by: Dexamethasone (Dexamethasone 4 Mg Tablet) 6 mg PO DAILY@0800 [facility] Last Admin: 04/19/20 08:27 Dose: 6 mg Documented by: Enoxaparin Sodium (Enoxaparin 30 Mg/0.3 Ml Syringe) 30 mg SC BID [facility] Last Admin: 04/19/20 21:32 Dose: 30 mg Documented by: Furosemide (Furosemide 40 Mg/4 Ml Vial) 40 mg IV DAILY [facility] Last Admin: 04/19/20 08:29 Dose: 40 mg Documented by: Guaifenesin (Guaifenesin 1,200 Mg Tablet) 1,200 mg PO BID [facility] Last Admin: 04/19/20 21:32 Dose: 1,200 mg Documented by: Sodium Chloride () 250 mls @ 15 mls/hr IV .[id number] PRN PRN Reason: Saline Flush Sodium Chloride () 250 mls @ 15 mls/hr IV .[id number] PRN PRN Reason: Additional IVPB Infusion Lisinopril (Lisinopril 5 Mg Tablet) 5 mg PO DAILY [facility] Last Admin: 04/19/20 08:28 Dose: 5 mg Documented by: Miscellaneous Information (Inhaler, Assist Devices 1 Each Spacer) 1 each INHALATION PRN PRN PRN Reason: WITH ALBUTEROL MDI Last Admin: 04/15/20 20:30 Dose: 1 each Documented by: Ondansetron HCl (Ondansetron 4 Mg/2 Ml Vial) 4 mg IV Q8H PRN PRN PRN Reason: NAUSEA/VOMITING Sodium Chloride (0.9% Saline Lock 10 Ml Syringe) 10 - 40 ml IV UD PRN PRN Reason: SALINE FLUSH Last Admin: 04/19/20 12:39 Dose: 10 ml Documented by: Medical Necessity - Tobacco Use Smoking Status: Never smoker Assessment/Plan All Active Problems (Last Reviewed 04/14/20 @ 01:[address] Brant Guerrero MD) Pneumonia due to COVID-19 virus (Acute) COVID-19 (Acute) Respiratory insufficiency (Acute) # Acute hypoxic respiratory failure due to COVID 19 pneumonia * on remdesivir and decadron. Received convalescent plasma on 04/14/2020 * pulmonology and ID on board * titrate oxygen to maintain sats >90%; now down to 8L of oxygen * breathing treatments with bronchodilators * # CAD s/p stents: on Coreg, lisinopril and aspirin plus Plavix. #Hyperlipidemia: On high intensity statin #DVT prophylaxis: Lovenox Inpatient E&M: 43713 Subs Hosp L2
[2020-04-20] MEDS: dexAMETHasone 4 MG Tablet 6 MG PO (08:24)
[2020-04-20] MEDS: Aspirin 81 MG TAB.CHEW PO (08:24)
[2020-04-20] MEDS: Lisinopril 5 MG Tablet PO (08:25)
[2020-04-20] MEDS: Carvedilol 3.125 MG TABLET PO ×2 (08:25→20:36)
[2020-04-20] MEDS: Clopidogrel Bisulfate 75 MG Tablet PO (08:25)
[2020-04-20] MEDS: Furosemide 40 MG/4 ML Vial IV ×2 (08:25→12:53)
[2020-04-20] MEDS: Enoxaparin 30 MG/0.3 ML Syringe SC ×2 (08:25→20:37)
[2020-04-20] MEDS: guaiFENesin 1,200 MG Tablet 1200 MG PO ×2 (08:25→20:36)
--- NOTE | 2020-04-20 08:34 | NURSING ---
O2 SAT ON 8LNC 95% - O2 DECREASED TO 7L NC. WILL MONITOR.
[2020-04-20 08:55] LABS: Absolute Lymphocyte Count 1.65 X10^3/uL (0.83-4.51); Absolute Neutrophil Count 10.2 X10^3/uL (2.0-7.7); Basophil# 0.03 X10^3/uL; Basophil% 0.2 % (0-1); Eosinophil# 0.08 X10^3/uL; Eosinophils% 0.6 % (0-5); Hematocrit 37.5 % (40-54); Lymphocyte # 1.65 X10^3/ul (4.0); Lymphocyte % 12.5 % (19-41); Mean Corp Hgb Conc 34.7 g/dL (32-36); Mean Corpuscular Hgb 31.9 pg (27.0-32.0); Mean Corpuscular Volume 92.1 fL (80-94); Mean Platelet Vol. 10.3 fl (6.2-12.0); Monocyte# 0.92 X10^3/uL; NRBC Flagged by Analyzer 0 % (0-5); Neutrophil # 10.24 X10^3/uL (2.7-7.7); Neutrophil % 77.6 % (47-70); Platelet Count 450 K/mm3 (150-450); RBC Distribution Width CV 12.8 % (11.6-14.6); RBC Distribution Width SD 42.9 fl (35.1-43.9); Red Blood Count 4.07 M/mm3 (4.6-6.2); White Blood Count 13.2 K/mm3 (4.4-11.0)
[2020-04-20 09:24] LABS: Anion Gap 5 (5-15); BUN 31 mg/dL (7-18); BUN/Creat Ratio 37.6 RATIO (10-20); Calcium,Total 8.5 mg/dL (8.5-10.1); Chloride 97 mmol/L (98-107); Creatinine, Serum 0.82 mg/dL (0.70-1.30); EST Glomerular Filtration Rate 97 mL/min (>60); Est Glom Filt Rate - Afr Amer 117 mL/min (>60); Estimated Creatinine Clearance 70.24 ml/min; Glucose 82 mg/dL (74-106); Potassium 4.5 mmol/L (3.5-5.1); Sodium Level 131 mmol/L (136-145)
--- NOTE | 2020-04-20 12:07 | PN_ITS ---
Patient Problems: Active and Suspected Problems (Last Reviewed 04/14/20 @ 01:[address] Brant Guerrero MD) Pneumonia due to COVID-19 virus (Acute) COVID-19 (Acute) Respiratory insufficiency (Acute) Hypoxemia Subjective: The patient was seen and examined at the bedside this morning. Events from the last 24 hours have been reviewed. The patient is currently afebrile, hemodynamically stable and maintaining appropriate oxygen saturations on 8 L/min via nasal cannula. The patient's oxygenation status continues to improve slowl y. The patient was given an additional dose of IV Lasix yesterday. Creatinine remains stable. The patient has already completed convalescent plasma along with a treatment course of remdesivir. Objective: The patient's most recent lab work, culture data and imaging studies have all been personally reviewed. Coronavirus PCR was positive on April 13. - Physical Exam Vitals/I&O's: Vital Signs Temp Pulse Resp BP Pulse Ox 96.6 F L 56 L 16 118/72 95 04/20/20 08:20 04/20/20 08:20 04/20/20 08:36 04/20/20 08:20 04/20/20 08:36 Oxygen Flow Rate (L/min) 8 Oxygen Delivery Method Nasal Cannula Weight: 168 lb 10.458 oz Body Mass Index (BMI) 29.9 Intake and Output for Last 24 Hours 04/18/20 04/19/20 04/20/20 23:59 23:59 23:59 Intake Total 1750 / 1750 1140 / 1140 300 / 300 Output Total 1900 / 1900 2400 / 2400 625 / 625 Balance -150 / -150 -1260 / -1260 -325 / -325 General: Alert, Cooperative, No apparent distress HEENT: Atraumatic, Normocephalic Oral: No Gingival or Mucosal Lesions/ Ulcerations Neck: Supple, No Nodes, Trachea Midline Lungs: Diminished Cardiovascular: Regular rate, Regular Rhythm Abdomen: Bowel Sounds Present, Soft, Non Tender Extremities: No clubbing, No cyanosis, No edema Skin: No breakdown Musculoskeletal: No Tenderness to Palpation of Joints or Extremities, No Muscle Wasting Lymphatic: No Cervical, Supraclavicular, or Inguinal Adenopathy Neurological: Cranial nerves II-XII grossly intact, Neuro grossly intact Psych/Mental Status: Normal Affect, Appropriate Labs (Last 48 Hours) 04/19/20 04/19/20 04/20/20 06:14 06:14 08:36 WBC 13.5 H 13.2 H RBC 3.91 L 4.07 L Hgb 12.4 L 13.0 Hct 37.0 L 37.5 L MCV 94.6 H 92.1 MCH 31.7 31.9 MCHC 33.5 34.7 RDW Std Deviation 44.5 H 42.9 RDW Coeff of Yen 12.8 12.8 Plt Count 408 450 MPV 10.6 10.3 Immature Gran % (Auto) 2.100 H Neut % (Auto) 77.6 H Lymph % (Auto) 12.5 L Nicholas % (Auto) 7.0 Eos % (Auto) 0.6 Baso % (Auto) 0.2 Absolute Neuts (auto) 10.2 H Absolute Lymphs (auto) 1.65 Nucleated RBC % 0 Sodium 134 L Potassium 5.1 Chloride 101 Carbon Dioxide 25.0 Anion Gap 8 BUN 25 H Creatinine 0.68 L Estim Creat Clear Calc 57.60 Est GFR (MDRD) Af Amer 145 Est GFR (MDRD) Non-Af 120 BUN/Creatinine Ratio 36.6 H Glucose 86 Calcium 8.3 L Total Bilirubin 0.60 AST 20 ALT 62 H Alkaline Phosphatase 68 Total Protein 6.2 L Albumin 2.6 L Globulin 3.6 Albumin/Globulin Ratio 0.7 L 04/20/20 08:36 WBC RBC Hgb Hct MCV MCH MCHC RDW Std Deviation RDW Coeff of Yen Plt Count MPV Immature Gran % (Auto) Neut % (Auto) Lymph % (Auto) Nicholas % (Auto) Eos % (Auto) Baso % (Auto) Absolute Neuts (auto) Absolute Lymphs (auto) Nucleated RBC % Sodium 131 L Potassium 4.5 Chloride 97 L Carbon Dioxide 29.0 Anion Gap 5 BUN 31 H Creatinine 0.82 Estim Creat Clear Calc 70.24 Est GFR (MDRD) Af Amer 117 Est GFR (MDRD) Non-Af 97 BUN/Creatinine Ratio 37.6 H Glucose 82 Calcium 8.5 Total Bilirubin AST ALT Alkaline Phosphatase Total Protein Albumin Globulin Albumin/Globulin Ratio Microbiology 04/13/20 20:25 Blood Culture (Wb) - Right Hand Blood Culture - Final No growth in 5 days. 04/13/20 18:10 Blood Culture (Wb) - Anticubital Left Blood Culture - Final No growth in 5 days. Clinical Impression(s) from Imaging Studies Chest X-Ray 04/13/20 19:40 IMPRESSION: Interstitial prominence and patchy infiltrates, right more than left. Electronically Signed: Naseem Florian DO at 20:11 EDT Tel [phone], Service support , Chest CTA 04/13/20 20:30 IMPRESSION: No demonstrated pulmonary embolism or arterial dissection. Bilateral patchy infiltrates and interstitial prominence with bilateral pleural effusions, right more severely than left. Mediastinal adenopathy. Electronically Signed: Naseem Florian DO at 22:15 EDT Tel [phone], Service support , Current Medications Acetaminophen (Acetaminophen 325 Mg Tablet) 650 mg PO Q6H PRN PRN PRN Reason: Pain Score 1-10/Temp > 100.7 F Albuterol Sulfate (Albuterol Sulfate 18 Gm Inhaler (200 Puffs)) 2 puff IH Q4H PRN PRN PRN Reason: SOB/WHEEZING Last Admin: 04/15/20 20:30 Dose: 2 puff Documented by: Aspirin (Aspirin 81 Mg Tab.Chew) 81 mg PO DAILY@0800 [facility] Last Admin: 04/20/20 08:24 Dose: 81 mg Documented by: Carvedilol (Carvedilol 3.125 Mg Tablet) 3.125 mg PO BID [facility] Last Admin: 04/19/20 21:32 Dose: 3.125 mg Documented by: Clopidogrel Bisulfate (Clopidogrel Bisulfate 75 Mg Tablet) 75 mg PO DAILY [facility] Last Admin: 04/20/20 08:25 Dose: 75 mg Documented by: Dexamethasone (Dexamethasone 4 Mg Tablet) 6 mg PO DAILY@0800 [facility] Last Admin: 04/20/20 08:24 Dose: 6 mg Documented by: Enoxaparin Sodium (Enoxaparin 30 Mg/0.3 Ml Syringe) 30 mg SC BID [facility] Last Admin: 04/20/20 08:25 Dose: 30 mg Documented by: Furosemide (Furosemide 40 Mg/4 Ml Vial) 40 mg IV DAILY [facility] Last Admin: 04/20/20 08:25 Dose: 40 mg Documented by: Guaifenesin (Guaifenesin 1,200 Mg Tablet) 1,200 mg PO BID [facility] Last Admin: 04/20/20 08:25 Dose: 1,200 mg Documented by: Sodium Chloride () 250 mls @ 15 mls/hr IV .[id number] PRN PRN Reason: Saline Flush Sodium Chloride () 250 mls @ 15 mls/hr IV .[id number] PRN PRN Reason: Additional IVPB Infusion Lisinopril (Lisinopril 5 Mg Tablet) 5 mg PO DAILY [facility] Last Admin: 04/20/20 08:25 Dose: 5 mg Documented by: Miscellaneous Information (Inhaler, Assist Devices 1 Each Spacer) 1 each INHALATION PRN PRN PRN Reason: WITH ALBUTEROL MDI Last Admin: 04/15/20 20:30 Dose: 1 each Documented by: Ondansetron HCl (Ondansetron 4 Mg/2 Ml Vial) 4 mg IV Q8H PRN PRN PRN Reason: NAUSEA/VOMITING Sodium Chloride (0.9% Saline Lock 10 Ml Syringe) 10 - 40 ml IV UD PRN PRN Reason: SALINE FLUSH Last Admin: 04/19/20 12:39 Dose: 10 ml Documented by: Medical Necessity - Tobacco Use Smoking Status: Never smoker Assessment/Plan All Active Problems (Last Reviewed 04/14/20 @ 01:[address] Brant Guerrero MD) Pneumonia due to COVID-19 virus (Acute) COVID-19 (Acute) Respiratory insufficiency (Acute) RECOMMENDATIONS: 1. Continue to wean supplemental oxygen to maintain saturations at or above 90%. 2. Continue Decadron to complete 10-day treatment course. 3. Continue daily IV Lasix as scheduled. Will give an additional dose of 40 mg as well today. 4. Encourage incentive spirometer use and mobilize patient as tolerated. IMPRESSIONS: 1. Acute hypoxemic respiratory failure secondary to COVID-19 pneumonia Slowly improving. Plan to continue current supportive measures with supplemental oxygen to maintain saturations at or above 90%. The patient has already received convalescent plasma and completed a treatment course of remdesivir. He will be continued on Decadron 6 mg daily x10 days. Continue gentle diuresis as tolerated by hemodynamics and renal function. Encourage incentive spirometer use and mobilize patient as tolerated. 2. Coronary artery disease status post PCI/hypertension/cor pulmonale/advanced age Complicates care, management, recovery and prognosis. Continue home medications as indicated. This note was generated with [employer] dictation software. It may contain incorrect words, spelling, and punctuation that were not noted in checking the note before signing. Inpatient E&M: 15577 Subs Hosp L3
[2020-04-20] MEDS: 0.9% Saline Lock 10 ML Syringe IV ×2 (12:53→20:37)
--- NOTE | 2020-04-20 12:57 | NURSING ---
O2 SAT 97& ON 7L - O2 DECREASED TO 6L. WILL MONITOR.
--- NOTE | 2020-04-20 17:01 | NURSING ---
O2 DECREASED TO 5L NC
--- NOTE | 2020-04-20 17:01 | PCM.PN.ID ---
Patient Problems: Active and Suspected Problems (Last Reviewed 04/14/20 @ 01:[address] Brant Guerrero MD) Pneumonia due to COVID-19 virus (Acute) COVID-19 (Acute) Respiratory insufficiency (Acute) Hypoxemia Subjective: Feeling better, O2 much improved, no fever - Physical Exam Vitals/I&O's: Vital Signs Temp Pulse Resp BP Pulse Ox 96.7 F L 56 L 16 98/57 L 97 04/20/20 14:00 04/20/20 14:00 04/20/20 14:00 04/20/20 14:00 04/20/20 15:00 Oxygen Flow Rate (L/min) 7 Oxygen Delivery Method Nasal Cannula Weight: 76.5 kg Body Mass Index (BMI) 29.9 Intake and Output for Last 24 Hours 04/18/20 04/19/20 04/20/20 23:59 23:59 23:59 Intake Total 1750 / 1750 1140 / 1140 740 / 740 Output Total 1900 / 1900 2400 / 2400 1475 / 1475 Balance -150 / -150 -1260 / -1260 -735 / -735 General: Alert, Cooperative, No apparent distress Lungs: Clear to auscultation, Diminished Cardiovascular: Regular rate, Regular Rhythm Abdomen: Soft, Non Tender, Non-Distended Skin: No rashes Microbiology Past 72 Hours 04/13/20 20:25 Blood Culture (Wb) - Right Hand Blood Culture - Final No growth in 5 days. 04/13/20 18:10 Blood Culture (Wb) - Anticubital Left Blood Culture - Final No growth in 5 days. Laboratory Results 04/20/20 08:36: WBC 13.2 H, RBC 4.07 L, Hgb 13.0, Hct 37.5 L, MCV 92.1, MCH 31.9, MCHC 34.7, RDW Std Deviation 42.9, RDW Coeff of Yen 12.8, Plt Count 450, MPV 10.3, Immature Gran % (Auto) 2.100 H, Neut % (Auto) 77.6 H, Lymph % (Auto) 12.5 L, [place] % (Auto) 7.0, Eos % (Auto) 0.6, Baso % (Auto) 0.2, Absolute Neuts (auto) 10.2 H, Absolute Lymphs (auto) 1.65, Nucleated RBC % 0 04/20/20 08:36: Sodium 131 L, Potassium 4.5, Chloride 97 L, Carbon Dioxide 29.0, Anion Gap 5, BUN 31 H, Creatinine 0.82, Estim Creat Clear Calc 70.24, Est GFR (MDRD) Af Amer 117, Est GFR (MDRD) Non-Af 97, BUN/Creatinine Ratio 37.6 H, Glucose 82, Calcium 8.5 Current Medications Acetaminophen (Acetaminophen 325 Mg Tablet) 650 mg PO Q6H PRN PRN PRN Reason: Pain Score 1-10/Temp > 100.7 F Albuterol Sulfate (Albuterol Sulfate 18 Gm Inhaler (200 Puffs)) 2 puff IH Q4H PRN PRN PRN Reason: SOB/WHEEZING Last Admin: 04/15/20 20:30 Dose: 2 puff Documented by: Aspirin (Aspirin 81 Mg Tab.Chew) 81 mg PO DAILY@0800 [facility]S [facility]CLUDE 234 BEDS AT THE [facility] Last Admin: 04/20/20 08:24 Dose: 81 mg Documented by: Carvedilol (Carvedilol 3.125 Mg Tablet) 3.125 mg PO BID [facility]S [facility]CLUDE 234 BEDS AT THE [facility] Last Admin: 04/20/20 08:25 Dose: 3.125 mg Documented by: Clopidogrel Bisulfate (Clopidogrel Bisulfate 75 Mg Tablet) 75 mg PO DAILY [facility]CLUDE 234 BEDS AT THE [facility] Last Admin: 04/20/20 08:25 Dose: 75 mg Documented by: Dexamethasone (Dexamethasone 4 Mg Tablet) 6 mg PO DAILY@0800 [facility]S INCLUDE 234 BEDS AT THE [facility] Last Admin: 04/20/20 08:24 Dose: 6 mg Documented by: Enoxaparin Sodium (Enoxaparin 30 Mg/0.3 Ml Syringe) 30 mg SC BID [facility]CLUDE 234 BEDS AT THE [facility] Last Admin: 04/20/20 08:25 Dose: 30 mg Documented by: Furosemide (Furosemide 40 Mg/4 Ml Vial) 40 mg IV DAILY [facility]CLUDE 234 BEDS AT THE [facility] Last Admin: 04/20/20 08:25 Dose: 40 mg Documented by: Guaifenesin (Guaifenesin 1,200 Mg Tablet) 1,200 mg PO BID [facility]CLUDE 234 BEDS AT [facility] Last Admin: 04/20/20 08:25 Dose: 1,200 mg Documented by: Sodium Chloride () 250 mls @ 15 mls/hr IV .[id number] PRN PRN Reason: Saline Flush Sodium Chloride () 250 mls @ 15 mls/hr IV .[id number] PRN PRN Reason: Additional IVPB Infusion Lisinopril (Lisinopril 5 Mg Tablet) 5 mg PO DAILY [facility] Last Admin: 04/20/20 08:25 Dose: 5 mg Documented by: Miscellaneous Information (Inhaler, Assist Devices 1 Each Spacer) 1 each INHALATION PRN PRN PRN Reason: WITH ALBUTEROL MDI Last Admin: 04/15/20 20:30 Dose: 1 each Documented by: Ondansetron HCl (Ondansetron 4 Mg/2 Ml Vial) 4 mg IV Q8H PRN PRN PRN Reason: NAUSEA/VOMITING Sodium Chloride (0.9% Saline Lock 10 Ml Syringe) 10 - 40 ml IV UD PRN PRN Reason: SALINE FLUSH Last Admin: 04/20/20 12:53 Dose: 10 ml Documented by: Medical Necessity - Tobacco Use Smoking Status: Never smoker Route of nutrition/ use of supplements: [] Nutritional Intake: [] IV Site: [] Lopes Catheter: [] - Assessment/Plan Antibiotics: [] Assessment/Plan: [] Active and Suspected Problems (Last Reviewed 04/14/20 @ 01:[address] Brant Guerrero MD) Pneumonia due to COVID-19 virus (Acute) COVID-19 (Acute) Respiratory insufficiency (Acute) Hypoxemia covid with hypoxia - sat of 77% on presentation, now afebrile. On 7L O2 today, much improved. Got plasma 04/14. Completed [address] showed no PE. D-dimer 2.1. On lovenox proph bid. also sick at home. Feeling better. Will follow
--- NOTE | 2020-04-20 20:54 | NURSING ---
While ambulating to and from bathroom, pulse ox dropped to 77% on 5L.
[2020-04-21] VITALS (12 sets, daily range): BP systolic 104–135; BP diastolic 64–77; PULSE 57–64; RESP 18; TEMP 35.5–36; O2SAT 88–95
[2020-04-21] MEDS: Enoxaparin 30 MG/0.3 ML Syringe SC ×2 (08:13→21:57)
[2020-04-21] MEDS: dexAMETHasone 4 MG Tablet 6 MG PO (08:14)
[2020-04-21] MEDS: Carvedilol 3.125 MG TABLET PO ×2 (08:15→21:57)
[2020-04-21] MEDS: Aspirin 81 MG TAB.CHEW PO (08:15)
[2020-04-21] MEDS: Lisinopril 5 MG Tablet PO (08:15)
[2020-04-21] MEDS: guaiFENesin 1,200 MG Tablet 1200 MG PO ×2 (08:15→21:57)
[2020-04-21] MEDS: Clopidogrel Bisulfate 75 MG Tablet PO (08:15)
[2020-04-21] MEDS: Furosemide 40 MG/4 ML Vial IV (08:16)
[2020-04-21] MEDS: 0.9% Saline Lock 10 ML Syringe IV ×2 (08:16→21:56)
--- NOTE | 2020-04-21 10:10 | PN_ITS ---
Patient Problems: Active and Suspected Problems (Last Reviewed 04/14/20 @ 01:[address] Brant Guerrero MD) Pneumonia due to COVID-19 virus (Acute) COVID-19 (Acute) Respiratory insufficiency (Acute) Hypoxemia Subjective: The patient was seen and examined at the bedside this morning. Events from the last 24 hours have been reviewed. The patient is currently afebrile, hemodynamically stable and maintaining appropriate oxygen saturations on 4 L/min via nasal cannula. The patient's oxygenation status continues to slowly improv e. The patient has already completed his treatment course of remdesivir and did receive convalescent plasma as well. He remains on Decadron daily along with scheduled IV Lasix. The patient was once again given an additional dose of Lasix yesterday. Creatinine remains stable. Objective: The patient's most recent lab work, culture data and imaging studies have all been personally reviewed. Coronavirus PCR was positive on April 13. - Physical Exam Vitals/I&O's: Vital Signs Temp Pulse Resp BP Pulse Ox 95.9 F L 60 18 115/64 93 04/21/20 08:10 04/21/20 08:10 04/21/20 08:23 04/21/20 08:10 04/21/20 09:40 Oxygen Flow Rate (L/min) 4 Oxygen Delivery Method Nasal Cannula Weight: 167 lb 1.766 oz Body Mass Index (BMI) 29.9 Intake and Output for Last 24 Hours 04/19/20 04/20/20 04/21/20 23:59 23:59 23:59 Intake Total 1140 / 1140 940 / 1040 400 / 400 Output Total 2400 / 2400 1725 / 1725 800 / 800 Balance -1260 / -1260 -785 / -685 -400 / -400 General: Alert, Cooperative, No apparent distress HEENT: Atraumatic, PERRLA, Normocephalic Oral: Moist Mucosa, No Gingival or Mucosal Lesions/ Ulcerations Neck: Supple, No Nodes, Trachea Midline Lungs: No rhonchi, No wheeze, No rales, Diminished Cardiovascular: Regular rate, Regular Rhythm, Normal S1, Normal S2 Abdomen: Bowel Sounds Present, Soft, Non Tender Extremities: No clubbing, No cyanosis, No edema Skin: No breakdown Musculoskeletal: No Tenderness to Palpation of Joints or Extremities, No Muscle Wasting Lymphatic: No Cervical, Supraclavicular, or Inguinal Adenopathy Neurological: Cranial nerves II-XII grossly intact, Neuro grossly intact Psych/Mental Status: Normal Affect, Appropriate Labs (Last 48 Hours) 04/20/20 04/20/20 08:36 08:36 WBC 13.2 H RBC 4.07 L Hgb 13.0 Hct 37.5 L MCV 92.1 MCH 31.9 MCHC 34.7 RDW Std Deviation 42.9 RDW Coeff of Yen 12.8 Plt Count 450 MPV 10.3 Immature Gran % (Auto) 2.100 H Neut % (Auto) 77.6 H Lymph % (Auto) 12.5 L [place] % (Auto) 7.0 Eos % (Auto) 0.6 Baso % (Auto) 0.2 Absolute Neuts (auto) 10.2 H Absolute Lymphs (auto) 1.65 Nucleated RBC % 0 Sodium 131 L Potassium 4.5 Chloride 97 L Carbon Dioxide 29.0 Anion Gap 5 BUN 31 H Creatinine 0.82 Estim Creat Clear Calc 70.24 Est GFR (MDRD) Af Amer 117 Est GFR (MDRD) Non-Af 97 BUN/Creatinine Ratio 37.6 H Glucose 82 Calcium 8.5 Microbiology 04/13/20 20:25 Blood Culture (Wb) - Right Hand Blood Culture - Final No growth in 5 days. 04/13/20 18:10 Blood Culture (Wb) - Anticubital Left Blood Culture - Final No growth in 5 days. Clinical Impression(s) from Imaging Studies Chest X-Ray 04/13/20 19:40 IMPRESSION: Interstitial prominence and patchy infiltrates, right more than left. Electronically Signed: Naseem Florian DO at 20:11 EDT Tel [phone], Service support , Chest CTA 04/13/20 20:30 IMPRESSION: No demonstrated pulmonary embolism or arterial dissection. Bilateral patchy infiltrates and interstitial prominence with bilateral pleural effusions, right more severely than left. Mediastinal adenopathy. Electronically Signed: Naseem Florian DO at 22:15 EDT Tel [phone], Service support , Current Medications Acetaminophen (Acetaminophen 325 Mg Tablet) 650 mg PO Q6H PRN PRN PRN Reason: Pain Score 1-10/Temp > 100.7 F Albuterol Sulfate (Albuterol Sulfate 18 Gm Inhaler (200 Puffs)) 2 puff IH Q4H PRN PRN PRN Reason: SOB/WHEEZING Last Admin: 04/15/20 20:30 Dose: 2 puff Documented by: Aspirin (Aspirin 81 Mg Tab.Chew) 81 mg PO DAILY@0800 [facility] Last Admin: 04/21/20 08:15 Dose: 81 mg Documented by: Carvedilol (Carvedilol 3.125 Mg Tablet) 3.125 mg PO BID [facility] Last Admin: 04/21/20 08:15 Dose: 3.125 mg Documented by: Clopidogrel Bisulfate (Clopidogrel Bisulfate 75 Mg Tablet) 75 mg PO DAILY [facility] Last Admin: 04/21/20 08:15 Dose: 75 mg Documented by: Dexamethasone (Dexamethasone 4 Mg Tablet) 6 mg PO DAILY@0800 [facility] Last Admin: 04/21/20 08:14 Dose: 6 mg Documented by: Enoxaparin Sodium (Enoxaparin 30 Mg/0.3 Ml Syringe) 30 mg SC BID [facility] Last Admin: 04/21/20 08:13 Dose: 30 mg Documented by: Furosemide (Furosemide 40 Mg/4 Ml Vial) 40 mg IV DAILY [facility] Last Admin: 04/21/20 08:16 Dose: 40 mg Documented by: Guaifenesin (Guaifenesin 1,200 Mg Tablet) 1,200 mg PO BID [facility] Last Admin: 04/21/20 08:15 Dose: 1,200 mg Documented by: Sodium Chloride () 250 mls @ 15 mls/hr IV .[id number] PRN PRN Reason: Saline Flush Sodium Chloride () 250 mls @ 15 mls/hr IV .[id number] PRN PRN Reason: Additional IVPB Infusion Lisinopril (Lisinopril 5 Mg Tablet) 5 mg PO DAILY [facility] Last Admin: 04/21/20 08:15 Dose: 5 mg Documented by: Miscellaneous Information (Inhaler, Assist Devices 1 Each Spacer) 1 each INHALATION PRN PRN PRN Reason: WITH ALBUTEROL MDI Last Admin: 04/15/20 20:30 Dose: 1 each Documented by: Ondansetron HCl (Ondansetron 4 Mg/2 Ml Vial) 4 mg IV Q8H PRN PRN PRN Reason: NAUSEA/VOMITING Sodium Chloride (0.9% Saline Lock 10 Ml Syringe) 10 - 40 ml IV UD PRN PRN Reason: SALINE FLUSH Last Admin: 04/21/20 08:16 Dose: 10 ml Documented by: Medical Necessity - Tobacco Use Smoking Status: Never smoker Assessment/Plan All Active Problems (Last Reviewed 04/14/20 @ 01:[address] Brant Guerrero MD) Pneumonia due to COVID-19 virus (Acute) COVID-19 (Acute) Respiratory insufficiency (Acute) RECOMMENDATIONS: 1. Continue to wean supplemental oxygen to maintain saturations at or above 90%. 2. Continue Decadron to complete 10-day treatment course. 3. Continue daily IV Lasix as scheduled. 4. Encourage incentive spirometer use and mobilize patient as tolerated. 5. Perform walking oximetry study prior to consideration for discharge home. Anticipate home-going supplemental oxygen need. IMPRESSIONS: 1. Acute hypoxemic respiratory failure secondary to COVID-19 pneumonia Slowly improving. Plan to continue current supportive measures with supplemental oxygen to maintain saturations at or above 90%. The patient has already received convalescent plasma and completed a treatment course of remdesivir. He will be continued on Decadron 6 mg daily x10 days. Continue gentle diuresis as tolerated by hemodynamics and renal function. Encourage incentive spirometer use and mobilize patient as tolerated. 2. Coronary artery disease status post PCI/hypertension/cor pulmonale/advanced age Complicates care, management, recovery and prognosis. Continue home medications as indicated. This note was generated with [employer] dictation software. It may contain incorrect words, spelling, and punctuation that were not noted in checking the note before signing. Inpatient E&M: 48404 Subs Hosp L2
--- NOTE | 2020-04-21 10:22 | NURSING ---
O2 DECREASED TO 2L NC
--- NOTE | 2020-04-21 11:30 | PCM.PN.HOSP ---
Patient Problems: Active and Suspected Problems (Last Reviewed 04/14/20 @ 01:[address] Brant Guerrero MD) Pneumonia due to COVID-19 virus (Acute) COVID-19 (Acute) Respiratory insufficiency (Acute) Hypoxemia Subjective: Patient seen and examined. He had no complaints. Review of systems otherwise negative. He had been able to come down to 3 L of oxygen but was on 6 L of oxygen at time I reviewed him. Vitals/I&O's: Vital Signs Temp Pulse Resp BP Pulse Ox 95.9 F L 60 18 115/64 95 04/21/20 08:10 04/21/20 08:10 04/21/20 08:23 04/21/20 08:10 04/21/20 10:22 Oxygen Flow Rate (L/min) 3 Oxygen Delivery Method Nasal Cannula Weight: 167 lb 1.766 oz Body Mass Index (BMI) 29.9 Intake and Output for Last 24 Hours 04/19/20 04/20/20 04/21/20 23:59 23:59 23:59 Intake Total 1140 / 1140 940 / 1040 400 / 400 Output Total 2400 / 2400 1725 / 1725 800 / 800 Balance -1260 / -1260 -785 / -685 -400 / -400 General: Alert, Oriented x3, Cooperative, No apparent distress HEENT: Atraumatic, PERRLA, EOMI, Normocephalic Oral: Moist Mucosa Neck: Supple, No JVD, Negative Carotid Bruits Lungs: - - diminished breath sounds bibasally, no wheezes or crackles. on 6L of oxygen Cardiovascular: Regular rate, Regular Rhythm, Normal S1, Normal S2, No murmurs Abdomen: Bowel Sounds Present, Soft, Non Tender, Non-Distended, No Hepato-splenomegaly Extremities: No clubbing, No cyanosis, No edema, Capillary Refill Less than 3 Seconds Skin: No rashes, No breakdown Musculoskeletal: No Tenderness to Palpation of Joints or Extremities Lymphatic: No Cervical, Supraclavicular, or Inguinal Adenopathy Neurological: Cranial nerves II-XII grossly intact, Neuro grossly intact, Motor Exam 5/5 strength throughout Psych/Mental Status: Normal Affect, Appropriate, Alert and oriented to time, place, person, mood and affect Microbiology Past 72 Hours 04/13/20 20:25 Blood Culture (Wb) - Right Hand Blood Culture - Final No growth in 5 days. 04/13/20 18:10 Blood Culture (Wb) - Anticubital Left Blood Culture - Final No growth in 5 days. Diagnostic Data Chest X-Ray 04/13/20 19:40 IMPRESSION: Interstitial prominence and patchy infiltrates, right more than left. Electronically Signed: Naseem Florian DO at 20:11 EDT Tel [phone], Service support , Chest CTA 04/13/20 20:30 IMPRESSION: No demonstrated pulmonary embolism or arterial dissection. Bilateral patchy infiltrates and interstitial prominence with bilateral pleural effusions, right more severely than left. Mediastinal adenopathy. Electronically Signed: Naseem Florian DO at 22:15 EDT Tel [phone], Service support , Current Medications Acetaminophen (Acetaminophen 325 Mg Tablet) 650 mg PO Q6H PRN PRN PRN Reason: Pain Score 1-10/Temp > 100.7 F Albuterol Sulfate (Albuterol Sulfate 18 Gm Inhaler (200 Puffs)) 2 puff IH Q4H PRN PRN PRN Reason: SOB/WHEEZING Last Admin: 04/15/20 20:30 Dose: 2 puff Documented by: Aspirin (Aspirin 81 Mg Tab.Chew) 81 mg PO DAILY@0800 [facility] Last Admin: 04/21/20 08:15 Dose: 81 mg Documented by: Carvedilol (Carvedilol 3.125 Mg Tablet) 3.125 mg PO BID [facility] Last Admin: 04/21/20 08:15 Dose: 3.125 mg Documented by: Clopidogrel Bisulfate (Clopidogrel Bisulfate 75 Mg Tablet) 75 mg PO DAILY [facility] Last Admin: 04/21/20 08:15 Dose: 75 mg Documented by: Dexamethasone (Dexamethasone 4 Mg Tablet) 6 mg PO DAILY@0800 [facility] Last Admin: 04/21/20 08:14 Dose: 6 mg Documented by: Enoxaparin Sodium (Enoxaparin 30 Mg/0.3 Ml Syringe) 30 mg SC BID [facility] Last Admin: 04/21/20 08:13 Dose: 30 mg Documented by: Furosemide (Furosemide 40 Mg/4 Ml Vial) 40 mg IV DAILY [facility] Last Admin: 04/21/20 08:16 Dose: 40 mg Documented by: Guaifenesin (Guaifenesin 1,200 Mg Tablet) 1,200 mg PO BID [facility] Last Admin: 04/21/20 08:15 Dose: 1,200 mg Documented by: Sodium Chloride () 250 mls @ 15 mls/hr IV .[id number] PRN PRN Reason: Saline Flush Sodium Chloride () 250 mls @ 15 mls/hr IV .[id number] PRN PRN Reason: Additional IVPB Infusion Lisinopril (Lisinopril 5 Mg Tablet) 5 mg PO DAILY [facility] Last Admin: 04/21/20 08:15 Dose: 5 mg Documented by: Miscellaneous Information (Inhaler, Assist Devices 1 Each Spacer) 1 each INHALATION PRN PRN PRN Reason: WITH ALBUTEROL MDI Last Admin: 04/15/20 20:30 Dose: 1 each Documented by: Ondansetron HCl (Ondansetron 4 Mg/2 Ml Vial) 4 mg IV Q8H PRN PRN PRN Reason: NAUSEA/VOMITING Sodium Chloride (0.9% Saline Lock 10 Ml Syringe) 10 - 40 ml IV UD PRN PRN Reason: SALINE FLUSH Last Admin: 04/21/20 08:16 Dose: 10 ml Documented by: STROKE Vital Signs/Narrative: Vital Signs Temp Pulse Resp BP Pulse Ox 04/21/20 10:22 95 04/21/20 09:40 93 04/21/20 08:23 18 04/21/20 08:10 95.9 F L 60 18 115/64 93 Medical Necessity - Tobacco Use Smoking Status: Never smoker Assessment/Plan All Active Problems (Last Reviewed 04/14/20 @ 01:[address] Brant Guerrero MD) Pneumonia due to COVID-19 virus (Acute) COVID-19 (Acute) Respiratory insufficiency (Acute) # Acute hypoxic respiratory failure due to COVID 19 pneumonia on remdesivir and decadron. Received convalescent plasma on 04/14/2020 pulmonology and ID on board titrate oxygen to maintain sats >90%; now down to 6L of oxygen breathing treatments with bronchodilators # CAD s/p stents: on Coreg, lisinopril and aspirin plus Plavix. #Hyperlipidemia: On high intensity statin #DVT prophylaxis: Lovenox Inpatient E&M: 99094 Subs Hosp L2
--- NOTE | 2020-04-21 15:38 | NURSING ---
PT UP TO SHOWER. O2 OFF 10+ MINUTES. O2 SAT 88% ON RA. WHEN O2 2L PLACED BACK ON PT, QUICKLY RECOVERED TO 93%.
[2020-04-22 04:00] VITALS: RESP 18; O2SAT 94
[2020-04-22 04:17] VITALS: BP 131/69; PULSE 56; RESP 18; TEMP 35.6; O2SAT 94
[2020-04-22 05:41] LABS: Absolute Lymphocyte Count 2.05 X10^3/uL (0.83-4.51); Absolute Neutrophil Count 9.1 X10^3/uL (2.0-7.7); Basophil# 0.01 X10^3/uL; Basophil% 0.1 % (0-1); Eosinophil# 0.06 X10^3/uL; Eosinophils% 0.5 % (0-5); Hematocrit 41.9 % (40-54); Hemoglobin 14.1 g/dL (13.0-16.5); Lymphocyte # 2.05 X10^3/ul (4.0); Lymphocyte % 16.3 % (19-41); Mean Corp Hgb Conc 33.7 g/dL (32-36); Mean Platelet Vol. 10.4 fl (6.2-12.0); Monocyte# 1.16 X10^3/uL; Monocyte% 9.2 % (0-10); NRBC Flagged by Analyzer 0 % (0-5); Neutrophil # 9.06 X10^3/uL (2.7-7.7); Neutrophil % 71.8 % (47-70); Platelet Count 484 K/mm3 (150-450); RBC Distribution Width SD 44.6 fl (35.1-43.9); Red Blood Count 4.41 M/mm3 (4.6-6.2); White Blood Count 12.6 K/mm3 (4.4-11.0)
[2020-04-22 06:01] LABS: Anion Gap 7 (5-15); BUN 38 mg/dL (7-18); BUN/Creat Ratio 37.6 RATIO (10-20); Calcium,Total 8.4 mg/dL (8.5-10.1); Chloride 94 mmol/L (98-107); Creatinine, Serum 1.01 mg/dL (0.70-1.30); EST Glomerular Filtration Rate 76 mL/min (>60); Est Glom Filt Rate - Afr Amer 93 mL/min (>60); Estimated Creatinine Clearance 57.03 ml/min; Glucose 86 mg/dL (74-106); Potassium 4.9 mmol/L (3.5-5.1); Sodium Level 129 mmol/L (136-145)
[2020-04-22 07:50] VITALS: O2SAT 94
[2020-04-22 08:31] VITALS: BP 135/69; PULSE 57; RESP 14; TEMP 35.7; O2SAT 94
[2020-04-22] MEDS: dexAMETHasone 4 MG Tablet 6 MG PO (08:33)
[2020-04-22] MEDS: Enoxaparin 30 MG/0.3 ML Syringe SC (08:33)
[2020-04-22] MEDS: Clopidogrel Bisulfate 75 MG Tablet PO (08:33)
[2020-04-22] MEDS: Lisinopril 5 MG Tablet PO (08:33)
[2020-04-22] MEDS: Carvedilol 3.125 MG TABLET PO (08:34)
[2020-04-22] MEDS: guaiFENesin 1,200 MG Tablet 1200 MG PO (08:34)
[2020-04-22] MEDS: Furosemide 40 MG/4 ML Vial IV (08:35)
[2020-04-22] MEDS: Aspirin 81 MG TAB.CHEW PO (08:35)
[2020-04-22] MEDS: 0.9% Saline Lock 10 ML Syringe IV (08:40)
--- NOTE | 2020-04-22 09:14 | PCM.PN.PUL ---
Patient Problems: Active and Suspected Problems (Last Reviewed 04/14/20 @ 01:[address] Brant Guerrero MD) Pneumonia due to COVID-19 virus (Acute) COVID-19 (Acute) Respiratory insufficiency (Acute) Hypoxemia Subjective: The patient was seen and examined at the bedside this morning. Events from the last 24 hours have been reviewed. The patient is currently afebrile, hemodynamically stable and maintaining appropriate oxygen saturations on 2 L/min via nasal cannula. The patient feels quite well this morning and denies any significant shortness of breath. The patient has already completed his treatment course of remdesivir and did receive convalescent plasma as well. He remains on Decadron daily along with scheduled IV Lasix. Objective: The patient's most recent lab work, culture data and imaging studies have all been personally reviewed. Coronavirus PCR was positive on April 13. - Physical Exam Vitals/I&O's: Vital Signs Temp Pulse Resp BP Pulse Ox 96.2 F L 57 L 14 135/69 H 94 04/22/20 08:31 04/22/20 08:31 04/22/20 08:31 04/22/20 08:31 04/22/20 08:31 Oxygen Flow Rate (L/min) 2 Oxygen Delivery Method Nasal Cannula Weight: 166 lb 10.711 oz Body Mass Index (BMI) 29.9 Intake and Output for Last 24 Hours 04/20/20 04/21/20 04/22/20 23:59 23:59 23:59 Intake Total 940 / 1040 780 / 780 500 / 500 Output Total 1725 / 1725 1475 / 1475 300 / 300 Balance -785 / -685 -695 / -695 200 / 200 General: Alert, Cooperative, No apparent distress HEENT: Atraumatic, PERRLA, Normocephalic Oral: No Gingival or Mucosal Lesions/ Ulcerations Neck: Supple, No Nodes, Trachea Midline Lungs: No rhonchi, No wheeze, No rales, Diminished Cardiovascular: Regular rate, Regular Rhythm Abdomen: Bowel Sounds Present, Soft, Non Tender Extremities: No clubbing, No cyanosis, No edema Skin: No breakdown Musculoskeletal: No Tenderness to Palpation of Joints or Extremities, No Muscle Wasting Lymphatic: No Cervical, Supraclavicular, or Inguinal Adenopathy Neurological: Cranial nerves II-XII grossly intact, Neuro grossly intact Psych/Mental Status: Normal Affect, Appropriate Labs (Last 48 Hours) 04/20/20 04/22/20 04/22/20 08:36 04:55 04:55 WBC 12.6 H RBC 4.41 L Hgb 14.1 Hct 41.9 MCV 95.0 H MCH 32.0 MCHC 33.7 RDW Std Deviation 44.6 H RDW Coeff of Yen 13.0 Plt Count 484 H MPV 10.4 Immature Gran % (Auto) 2.100 H Neut % (Auto) 71.8 H Lymph % (Auto) 16.3 L [place] % (Auto) 9.2 Eos % (Auto) 0.5 Baso % (Auto) 0.1 Absolute Neuts (auto) 9.1 H Absolute Lymphs (auto) 2.05 Nucleated RBC % 0 Sodium 131 L 129 L Potassium 4.5 4.9 Chloride 97 L 94 L Carbon Dioxide 29.0 28.0 Anion Gap 5 7 BUN 31 H 38 H Creatinine 0.82 1.01 Estim Creat Clear Calc 70.24 57.03 Est GFR (MDRD) Af Amer 117 93 Est GFR (MDRD) Non-Af 97 76 BUN/Creatinine Ratio 37.6 H 37.6 H Glucose 82 86 Calcium 8.5 8.4 L Clinical Impression(s) from Imaging Studies Chest X-Ray 04/13/20 19:40 IMPRESSION: Interstitial prominence and patchy infiltrates, right more than left. Electronically Signed: Naseem Florian DO at 20:11 EDT Tel [phone], Service support , Chest CTA 04/13/20 20:30 IMPRESSION: No demonstrated pulmonary embolism or arterial dissection. Bilateral patchy infiltrates and interstitial prominence with bilateral pleural effusions, right more severely than left. Mediastinal adenopathy. Electronically Signed: Naseem Florian DO at 22:15 EDT Tel [phone], Service support , Current Medications Acetaminophen (Acetaminophen 325 Mg Tablet) 650 mg PO Q6H PRN PRN PRN Reason: Pain Score 1-10/Temp > 100.7 F Albuterol Sulfate (Albuterol Sulfate 18 Gm Inhaler (200 Puffs)) 2 puff IH Q4H PRN PRN PRN Reason: SOB/WHEEZING Last Admin: 04/15/20 20:30 Dose: 2 puff Documented by: Aspirin (Aspirin 81 Mg Tab.Chew) 81 mg PO DAILY@0800 [facility] Last Admin: 04/22/20 08:35 Dose: 81 mg Documented by: Carvedilol (Carvedilol 3.125 Mg Tablet) 3.125 mg PO BID [facility] Last Admin: 04/22/20 08:34 Dose: 3.125 mg Documented by: Clopidogrel Bisulfate (Clopidogrel Bisulfate 75 Mg Tablet) 75 mg PO DAILY [facility] Last Admin: 04/22/20 08:33 Dose: 75 mg Documented by: Dexamethasone (Dexamethasone 4 Mg Tablet) 6 mg PO DAILY@0800 [facility] Last Admin: 04/22/20 08:33 Dose: 6 mg Documented by: Enoxaparin Sodium (Enoxaparin 30 Mg/0.3 Ml Syringe) 30 mg SC BID [facility] Last Admin: 04/22/20 08:33 Dose: 30 mg Documented by: Furosemide (Furosemide 40 Mg/4 Ml Vial) 40 mg IV DAILY [facility] Last Admin: 04/22/20 08:35 Dose: 40 mg Documented by: Guaifenesin (Guaifenesin 1,200 Mg Tablet) 1,200 mg PO BID [facility] Last Admin: 04/22/20 08:34 Dose: 1,200 mg Documented by: Sodium Chloride () 250 mls @ 15 mls/hr IV .[id number] PRN PRN Reason: Saline Flush Sodium Chloride () 250 mls @ 15 mls/hr IV .[id number] PRN PRN Reason: Additional IVPB Infusion Lisinopril (Lisinopril 5 Mg Tablet) 5 mg PO DAILY [facility] Last Admin: 04/22/20 08:33 Dose: 5 mg Documented by: Miscellaneous Information (Inhaler, Assist Devices 1 Each Spacer) 1 each INHALATION PRN PRN PRN Reason: WITH ALBUTEROL MDI Last Admin: 04/15/20 20:30 Dose: 1 each Documented by: Ondansetron HCl (Ondansetron 4 Mg/2 Ml Vial) 4 mg IV Q8H PRN PRN PRN Reason: NAUSEA/VOMITING Sodium Chloride (0.9% Saline Lock 10 Ml Syringe) 10 - 40 ml IV UD PRN PRN Reason: SALINE FLUSH Last Admin: 04/22/20 08:40 Dose: 10 ml Documented by: Medical Necessity - Tobacco Use Smoking Status: Never smoker Assessment/Plan All Active Problems (Last Reviewed 04/14/20 @ 01:[address] Brant Guerrero MD) Pneumonia due to COVID-19 virus (Acute) COVID-19 (Acute) Respiratory insufficiency (Acute) RECOMMENDATIONS: 1. Continue to wean supplemental oxygen to maintain saturations at or above 90%. 2. Continue Decadron to complete 10-day treatment course. 3. Resume home Lasix regimen at discharge. 4. Encourage incentive spirometer use and mobilize patient as tolerated. 5. Perform walking oximetry study prior to consideration for discharge home. Anticipate home-going supplemental oxygen need. 6. The patient is medically stable for discharge home from my perspective. IMPRESSIONS: 1. Acute hypoxemic respiratory failure secondary to COVID-19 pneumonia Slowly improving. Plan to continue current supportive measures with supplemental oxygen to maintain saturations at or above 90%. The patient has already received convalescent plasma and completed a treatment course of remdesivir. He will be continued on Decadron 6 mg daily x10 days. Encourage incentive spirometer use and mobilize patient as tolerated. 2. Coronary artery disease status post PCI/hypertension/cor pulmonale/advanced age Complicates care, management, recovery and prognosis. Continue home medications as indicated. This note was generated with Xelerated dictation software. It may contain incorrect words, spelling, and punctuation that were not noted in checking the note before signing. Inpatient E&M: 24239 Subs Hosp L2
[2020-04-22 10:23] VITALS: O2SAT 83; O2SAT 87; O2SAT 94
--- NOTE | 2020-04-22 11:48 | DCINST_ITS ---
- Discharge Diagnoses Current Active Problems: Current Active and Chronic Problems (Last Reviewed 04/14/20 @ 01:[address] Brant Guerrero MD) Pneumonia due to COVID-19 virus (Acute) COVID-19 (Acute) Essential hypertension (Chronic) Atherosclerotic heart disease of [place] coronary artery without angina pectoris (Chronic) S/P coronary artery stent placement (Chronic ~05/26/18) PCI/KERWIN to the mid LAD Acute CHF (Chronic) Respiratory insufficiency (Acute) Hypoxemia Normochromic normocytic anemia (Chronic) You will use the following diet at home:: Cardiac Your food should be the consistency of: Regular Your liquids should be the consistency of: Regular/Thin Discharge Activity: Return to Normal Activity Weight Bearing Status: Weight bearing as tolerated Call your doctor if you observe: Fever of 101 or Higher, Shortness of breath, Dizziness, Fainting spells Instructions: Pneumonia, Using Oxygen at Home, Using Oxygen at Home, Using Oxygen Safely Additional Instructions: keep isolated till 04/27/2020, to complete 14 days of self isolation since positive covid test. Allergies/Adverse Reactions: Allergies levofloxacin [From Levaquin] Adverse Reaction (Mild, Verified 04/14/20 00:34) Other muscle aches atorvastatin [From Lipitor] Adverse Reaction (Verified 04/14/20 00:34) Pain in joints Medications to take at Discharge Aspirin [Aspirin, Baby] 81 mg PO DAILY@0800 05/22/18 Carvedilol [Coreg (Beta Awa)] 3.125 mg PO BID #60 tab 05/27/18 nitroglycerin 0.4 mg sublingual tablet 0.4 mg SUBLINGUAL Q5-15M PRN #25 tab 06/26/18 furosemide 40 mg tablet 20 mg PO DAILY PRN #30 tab 09/02/19 Lisinopril [Zestril] 5 mg PO DAILY 04/11/20 Primary Care Physician: Jack Arango DO [Primary Care Provider] - Please follow up with your Primary Care Physician in: 1- weeks Test Results: Test results from this visit will be discussed in further detail at your follow- up appointment, if applicable. Proposed Discharge Date: 04/22/20
--- NOTE | 2020-04-22 11:53 | DS.PCM_ITS ---
Discharge Date and Diagnosis - Problem List Patient Problems: Active and Suspected Problems (Last Reviewed 04/14/20 @ 01:[address] Brant Guerrero MD) Pneumonia due to COVID-19 virus (Acute) COVID-19 (Acute) Respiratory insufficiency (Acute) Hypoxemia Date of Admission: 04/13/20 Date of Discharge: 04/22/20 - Primary Discharge Diagnosis Acute Problems: Active Problems (Last Reviewed 04/14/20 @ 01:[address] Brant Guerrero MD) Pneumonia due to COVID-19 virus (Acute) COVID-19 (Acute) acute hypoxic respiratory failure - Secondary Discharge Diagnosis Chronic Problems: Chronic Problems (Last Reviewed 04/14/20 @ 01:[address] Brant Guerrero MD) Essential hypertension (Chronic) Atherosclerotic heart disease of [place] coronary artery without angina pectoris (Chronic) S/P coronary artery stent placement (Chronic ~05/26/18) PCI/KERWIN to the mid LAD Acute CHF (Chronic) Normochromic normocytic anemia (Chronic) Hospital Course and Treatment Imaging Results: Diagnostic Data Chest X-Ray 04/13/20 19:40 IMPRESSION: Interstitial prominence and patchy infiltrates, right more than left. Electronically Signed: Naseem Florian DO at 20:11 EDT Tel [phone], Service support , Chest CTA 04/13/20 20:30 IMPRESSION: No demonstrated pulmonary embolism or arterial dissection. Bilateral patchy infiltrates and interstitial prominence with bilateral pleural effusions, right more severely than left. Mediastinal adenopathy. Electronically Signed: Naseem Florian DO at 22:15 EDT Tel [phone], Service support , pulmonology- Dr Andrews Operations: None Procedures: None Summary of Care Provided: The patient is a 74 year old M with an extensive past medical history as outlined. He was admitted through the ED on 04/13/2020 with a complaint of worsening shortness of breath with associated chest tightness and fever for 7 days prior to admission. He had had exposure to coronavirus in the week prior to admission and had been to the ED earlier in the week and was diagnosed with Covid. At that time he was not hypoxic so he was discharged home. He said he had a pulse ox meter at home and he had been saturating in the 80s with worsening shortness of breath so he decided to come into the ED. He states his temperature was 100.6 Fahrenheit on the day of presentation. On admission, patient was found to be saturating at 89% on room air he also had an elevated D- dimer but normal procalcitonin. LDH was also mildly elevated. In the ED, he desaturated to 75%. He was admitted and managed for acute hypoxic respiratory failure due to COVID-19 infection., Neurology and ID were consulted. Patient received a dose of convalescent plasma and also completed a 5 day course of IV remdesivir. He was also placed on IV Decadron. Patient's oxygen needs gradually improved and his oxygen was gradually weaned down to a ashli of 2 L of oxygen. On day of discharge, his saturation on room air was 87% at rest and with ambulation he dropped to 87%; therefore he meets the criteria for home oxygen. Patient required 2 L to maintain saturation at 94% with ambulation. Patient was discharged home on 2 L of oxygen. He also completed a course of IV Decadron. He is to follow-up with his primary care doctor within 1 week and patient was told to self isolate at home until 04/27/2020, to complete a 14-day self-isolation Since he tested positive. [] Patient was seen and examined prior to discharge. He had no complaints and felt well and was eager to go home. Review of symptoms otherwise negative. Labs and vitals reviewed. Home medication reviewed and reconciled. O/E: Vital Signs Temp Pulse Resp BP Pulse Ox 96.8 F L 71 18 142/75 H 95 04/22/20 13:51 04/22/20 13:51 04/22/20 13:51 04/22/20 13:51 04/22/20 13:51 General: Alert, Oriented x3, Cooperative, No apparent distress HEENT: Atraumatic, PERRLA, EOMI, Normocephalic Oral: Moist Mucosa Neck: Supple, No JVD, Negative Carotid Bruits Lungs: - - diminished breath sounds bibasally, no wheezes or crackles. on 2L of oxygen Cardiovascular: Regular rate, Regular Rhythm, Normal S1, Normal S2, No murmurs Abdomen: Bowel Sounds Present, Soft, Non Tender, Non-Distended, No Hepato- splenomegaly Extremities: No clubbing, No cyanosis, No edema, Capillary Refill Less than 3 Seconds Skin: No rashes, No breakdown Musculoskeletal: No Tenderness to Palpation of Joints or Extremities Lymphatic: No Cervical, Supraclavicular, or Inguinal Adenopathy Neurological: Cranial nerves II-XII grossly intact, Neuro grossly intact, Motor Exam 5/5 strength throughout Psych/Mental Status: Normal Affect, Appropriate, Alert and oriented to time, place, person, mood and affect Plan is for discharge home today. Patient Problems: Active and Suspected Problems (Last Reviewed 04/14/20 @ 01:[address] Brant Guerrero MD) Pneumonia due to COVID-19 virus (Acute) COVID-19 (Acute) Respiratory insufficiency (Acute) Hypoxemia - Physical Exam Vitals/I&O's: Vital Signs Temp Pulse Resp BP Pulse Ox 96.2 F L 57 L 14 135/69 H 87 04/22/20 08:31 04/22/20 08:31 04/22/20 08:31 04/22/20 08:31 04/22/20 10:23 Oxygen Flow Rate (L/min) [ 2 AMBULATION with Oxygen] Oxygen Flow Rate (L/min) 2 Oxygen Delivery Method Nasal Cannula Weight: 166 lb 10.711 oz Body Mass Index (BMI) 29.9 Intake and Output for Last 24 Hours 04/20/20 04/21/20 04/22/20 23:59 23:59 23:59 Intake Total 940 / 1040 780 / 780 500 / 500 Output Total 1725 / 1725 1475 / 1475 300 / 300 Balance -785 / -685 -695 / -695 200 / 200 Microbiology Past 72 Hours 04/13/20 20:25 Blood Culture (Wb) - Right Hand Blood Culture - Final No growth in 5 days. 04/13/20 18:10 Blood Culture (Wb) - Anticubital Left Blood Culture - Final No growth in 5 days. Laboratory Results 04/22/20 04:55: WBC 12.6 H, RBC 4.41 L, Hgb 14.1, Hct 41.9, MCV 95.0 H, MCH 32.0, MCHC 33.7, RDW Std Deviation 44.6 H, RDW Coeff of Yen 13.0, Plt Count 484 H, MPV 10.4, Immature Gran % (Auto) 2.100 H, Neut % (Auto) 71.8 H, Lymph % (Au to) 16.3 L, [place] % (Auto) 9.2, Eos % (Auto) 0.5, Baso % (Auto) 0.1, Absolute Neuts (auto) 9.1 H, Absolute Lymphs (auto) 2.05, Nucleated RBC % 0 04/22/20 04:55: Sodium 129 L, Potassium 4.9, Chloride 94 L, Carbon Dioxide 28.0, Anion Gap 7, BUN 38 H, Creatinine 1.01, Estim Creat Clear Calc 57.03, Est GFR (MDRD) Af Amer 93, Est GFR (MDRD) Non-Af 76, BUN/Creatinine Ratio 37.6 H, Glucose 86, Calcium 8.4 L Current Medications Acetaminophen (Acetaminophen 325 Mg Tablet) 650 mg PO Q6H PRN PRN PRN Reason: Pain Score 1-10/Temp > 100.7 F Albuterol Sulfate (Albuterol Sulfate 18 Gm Inhaler (200 Puffs)) 2 puff IH Q4H PRN PRN PRN Reason: SOB/WHEEZING Last Admin: 04/15/20 20:30 Dose: 2 puff Documented by: Aspirin (Aspirin 81 Mg Tab.Chew) 81 mg PO DAILY@0800 [facility] Last Admin: 04/22/20 08:35 Dose: 81 mg Documented by: Carvedilol (Carvedilol 3.125 Mg Tablet) 3.125 mg PO BID [facility] Last Admin: 04/22/20 08:34 Dose: 3.125 mg Documented by: Clopidogrel Bisulfate (Clopidogrel Bisulfate 75 Mg Tablet) 75 mg PO DAILY [facility] Last Admin: 04/22/20 08:33 Dose: 75 mg Documented by: Dexamethasone (Dexamethasone 4 Mg Tablet) 6 mg PO DAILY@0800 [facility] Last Admin: 04/22/20 08:33 Dose: 6 mg Documented by: Enoxaparin Sodium (Enoxaparin 30 Mg/0.3 Ml Syringe) 30 mg SC BID [facility] Last Admin: 04/22/20 08:33 Dose: 30 mg Documented by: Guaifenesin (Guaifenesin 1,200 Mg Tablet) 1,200 mg PO BID [facility] Last Admin: 04/22/20 08:34 Dose: 1,200 mg Documented by: Sodium Chloride () 250 mls @ 15 mls/hr IV .[id number] PRN PRN Reason: Saline Flush Sodium Chloride () 250 mls @ 15 mls/hr IV .[id number] PRN PRN Reason: Additional IVPB Infusion Lisinopril (Lisinopril 5 Mg Tablet) 5 mg PO DAILY [facility] Last Admin: 04/22/20 08:33 Dose: 5 mg Documented by: Miscellaneous Information (Inhaler, Assist Devices 1 Each Spacer) 1 each INHALATION PRN PRN PRN Reason: WITH ALBUTEROL MDI Last Admin: 04/15/20 20:30 Dose: 1 each Documented by: Ondansetron HCl (Ondansetron 4 Mg/2 Ml Vial) 4 mg IV Q8H PRN PRN PRN Reason: NAUSEA/VOMITING Sodium Chloride (0.9% Saline Lock 10 Ml Syringe) 10 - 40 ml IV UD PRN PRN Reason: SALINE FLUSH Last Admin: 04/22/20 08:40 Dose: 10 ml Documented by: Discharge Diet: Low fat/ Low Cholesterol Discharge Activity: Return to Normal Activity Weight Bearing Status: Weight bearing as tolerated Call your doctor if you observe: Fever of 101 or Higher, Shortness of breath, Dizziness, Fainting spells Home Medications: Medications to take at Discharge Aspirin [Aspirin, Baby] 81 mg PO DAILY@0800 05/22/18 Carvedilol [Coreg (Beta Awa)] 3.125 mg PO BID #60 tab 05/27/18 nitroglycerin 0.4 mg sublingual tablet 0.4 mg SUBLINGUAL Q5-15M PRN #25 tab 06/26/18 furosemide 40 mg tablet 20 mg PO DAILY PRN #30 tab 09/02/19 Lisinopril [Zestril] 5 mg PO DAILY 04/11/20 Primary Care Physician: Jack Arango DO [Primary Care Provider] - Please follow up with your Primary Care Physician in: 1- weeks Patient Instructions: Using Oxygen Safely, Using Oxygen at Home, Using Oxygen at Home, Pneumonia Disposition: Home Minutes spent on discharge:: 45 Patient Condition:: Stable Medical Necessity - Tobacco Use Smoking Status: Never smoker Meaningful Use Info Meaningful Use Diagnoses (Choose all that apply): None applicable Inpatient E&M: 61796 [facility]
--- NOTE | 2020-04-22 12:12 | CASEMGMT ---
RN CM Note: Intro role of CM to patient via phone to room. Updated that script for oxygen will be faxed to [facility] after signed by physician. Portable tank will be brought to hospital and then set up at home. Patient will call his for transport home. Raina LIVINGSTON RN ACM
[2020-04-22 13:51] VITALS: BP 142/75; PULSE 71; RESP 18; TEMP 36; O2SAT 95
== END 2020-04-22 15:42 | disposition home or self-care (01) | DRG 177 ==
LOC: ED 22:59 → MS2 23:03
PROVIDERS: Internal Medicine Infectious Disease; Admitting Provider Hospitalist; Emergency Provider Emergency Medicine; PCP Preventive Medicine Occupational Medicine; Referring Provider Hospitalist; Visit Provider Student in an Organized Health Care Education/Training Program
DX: U07.1 COVID-19 (principal); J12.89 Other viral pneumonia; J96.01 Acute respiratory failure with hypoxia; I50.23 Acute on chronic systolic (congestive) heart failure; I11.0 Hypertensive heart disease with heart failure; I27.81 Cor pulmonale (chronic); I27.20 Pulmonary hypertension, unspecified; I25.10 Atherosclerotic heart disease of native coronary artery without angina pectoris; E78.5 Hyperlipidemia, unspecified; Z79.82 Long term (current) use of aspirin; Z79.899 Other long term (current) drug therapy; Z95.5 Presence of coronary angioplasty implant and graft
CPT/HCPCS: 36415; 71045; 71275; 80048; 80053; 82550; 83605; 83615; 83880; 84145; 84484; 85025; 85027; 85379; 85384; 86644; 86900; 86901; 87040; 87449; 87633; 87635; 93005; 96360; 97110; 97116; 97161; 97530; 97802; 99283; 99285; J7030; J7040; J7050; Q9967; A4216; J1940; U0002; U0003

== ENCOUNTER → 2021-10-11 | Outpatient (CLI) | payer MEDICARE, SELFPAY ==
[2018-05-26 10:43] VITALS: BMI 26.6
--- NOTE | 2021-10-11 12:47 | ECHOD_ITS ---
Reason For Study: MURMUR Procedure This was a 2D Doppler, Color Flow transthoracic echocardiogram. The exam was of adequate technical quality. Exam performed in department. Left Ventricle Normal LV size. Moderate concentric left ventricular hypertrophy. Left ventricular systolic function is normal. The estimated ejection fraction is 60 %. There is evidence of diastolic dysfunction. No regional wall motion abnormalities noted. Right Ventricle Normal RV size. Normal systolic function. Atria Normal left atrium. Normal right atrium. No doppler evidence for ASD. Mitral Valve There is no mitral annular calcification. Mild mitral valve prolapse. Trivial mitral valve insufficiency. Tricuspid Valve Normal tricuspid valve. Mild tricuspid valve insufficiency. Right ventricular systolic pressure estimated to be 36 mmHg. Aortic Valve Trisinus/trileaflet aortic valve. Normal aortic valve. Trivial aortic valve insufficiency. Pulmonic Valve The pulmonic valve is not well visualized. Great Vessels Normal sized aortic root. Pericardium/Pleural No pericardial effusion. MMode/2D Measurements & Calculations LVIDd: 4.5 cm IVSd: 1.4 cm Ao root diam: 3.8 cm LVIDs: 2.5 cm LVPWd: 1.5 cm RVDd: 3.8 cm FS: 44.3 % LAV(MOD-sp2): 91.4 ml LVAd ap4: 27.6 cm2 LVAd ap2: 24.2 cm2 LVLd ap4: 7.1 cm LVLd ap2: 7.9 cm EDV(MOD-sp4): 89.0 ml EDV(MOD-sp2): 63.9 ml EDV(sp4-el): 92.4 ml EDV(sp2-el): 63.0 ml LVAs ap4: 16.0 cm2 LVAs ap2: 11.6 cm2 LVLs ap4: 6.2 cm LVLs ap2: 6.2 cm ESV(MOD-sp4): 37.6 ml ESV(MOD-sp2): 21.8 ml ESV(sp4-el): 35.2 ml ESV(sp2-el): 18.6 ml EF(MOD-sp4): 57.8 % EF(MOD-sp2): 65.8 % EF(sp4-el): 61.9 % SV(MOD-sp4): 51.4 ml SV(MOD-sp2): 42.0 ml SV(sp4-el): 57.2 ml LA dimension(2D): 3.6 cm LA A4 area: 18.5 cm2 RA A4 area: 16.6 cm2 Doppler Measurements & Calculations MV E max parth: 58.0 cm/sec Lat Peak E' Parth: 7.0 cm/sec Med Peak E' Parth: 4.5 cm/sec MV A max parth: 71.2 cm/sec E/E' lat: 8.2 E/E' med: 13.0 MV E/A: 0.81 Ao V2 max: 140.9 cm/sec AI max parth: 493.8 cm/sec LV V1 max: 97.5 cm/sec Ao max P.9 mmHg AI max P.5 mmHg LV V1 max P.8 mmHg AI dec slope: 242.8 cm/sec2 AI P1/2t: 595.8 msec PA V2 max: 91.0 cm/sec TR max parth: 285.2 cm/sec TR max P.5 mmHg ECHO/Echo Complete Interpretation Summary Left ventricular systolic function is normal. The estimated ejection fraction is 60 %. Moderate concentric left ventricular hypertrophy. Mild mitral valve prolapse. Trivial mitral valve insufficiency. Mild tricuspid valve insufficiency. Trivial aortic valve insufficiency. Right ventricular systolic pressure estimated to be 36 mmHg. There is evidence of diastolic dysfunction. Ordering Physician: Mendoza Castro Referring Physician: MD Jack Arango Performed By: Beth Covarrubias RCS
== END | disposition home or self-care (01) ==
PROVIDERS: PCP Preventive Medicine Occupational Medicine; Visit Provider Internal Medicine Cardiovascular Disease
DX: I25.10 Atherosclerotic heart disease of native coronary artery without angina pectoris (principal); R01.1 Cardiac murmur, unspecified; I10 Essential (primary) hypertension; Z95.5 Presence of coronary angioplasty implant and graft
CPT/HCPCS: 93306

== ENCOUNTER → 2024-01-02 | Outpatient (CLI) | payer MEDICARE, SELFPAY ==
[2018-05-26 10:43] VITALS: BMI 26.6
--- NOTE | 2024-01-02 12:17 | PCM.PN.CARD ---
Subjective Subjective Exercise myocardial perfusion stress test. 78-year-old man with a history of chest pain Stress protocol: Resting EKG demonstrates normal sinus rhythm with a first-degree AV block and a rate of 62 bpm resting blood pressure is 154/80 mmHg. The patient exercised according to the regular [facility] protocol for a total duration of 6 minutes attaining a maximum heart rate of 126 bpm which was 89% of maximum predicted heart rate; the maximum workload was 7 metabolic equivalents. At rest there were no ST or T wave changes noted to suggest ischemia and at peak exercise upsloping ST changes only were noted which did not meet the criteria for ischemia. No clinical angina was noted the test was terminated due to the target heart rate being achieved/fatigue. The peak blood pressure was 202/80 mmHg. Rate-pressure product was 22,500. Myocardial perfusion protocol. 11.9 mCi of technetium 99m sestamibi was injected at rest. The patient exercised according to regular Markus protocol for total duration of 6 minutes and at peak exercise 32.4 mCi of technetium 99m sestamibi was injected stress images were obtained stress and rest images were reconstructed in comparing the short axis vertical long and horizontal long axis. Gated images were also obtained. Perfusion SPECT analysis: Review of the stress images demonstrate normal uptake of tracer noted in all areas of the myocardium. The resting images similarly demonstrate normal uptake of tracer noted in all areas of the myocardium. No areas of reversibility are noted to suggest ischemia no previous infarct was noted. Gated SPECT analysis: The gated ejection fraction is 66%. Conclusion: Normal exercise myocardial perfusion stress test at a moderate workload Preserved ejection fraction. Cardiology Labs/Tests Rhythm: EKG: ECHO: Stress Test: Cardiac Cath: PCI: CT Surgery: Holter monitor: EPS: PPM: CXR: Chest CT Scan:
--- NOTE | 2024-01-08 10:20 | STRESSREP ---
Stress Test Report Exercise myocardial perfusion stress test. 78-year-old male with a history of chest pain Stress protocol: Resting EKG demonstrates normal sinus rhythm with a rate of 62 bpm resting blood pressure is 154/80 mmHg. The patient exercised according to the regular Mark[facility] protocol for a total duration of 6 minutes attaining a maximum heart rate of 126 bpm which was 89% of maximum predicted heart rate; the maximum workload was 7 metabolic equivalents. At rest there were no ST or T wave changes noted to suggest ischemia and at peak exercise upsloping ST changes only were noted which did not meet the criteria for ischemia. No clinical angina was noted the test was terminated due to the target heart rate being achieved/fatigue. The peak blood pressure was 202/80 mmHg. Rate-pressure product was 20,000. Myocardial perfusion protocol. 11.9 mCi of technetium 99m sestamibi was injected at rest. The patient exercised according to regular Markus protocol for total duration of 6-minute and at peak exercise 32.4 mCi of technetium 99m sestamibi was injected stress images were obtained stress and rest images were reconstructed in comparing the short axis vertical long and horizontal long axis. Gated images were also obtained. Perfusion SPECT analysis: Review of the stress images demonstrate normal uptake of tracer noted in all areas of the myocardium. The resting images similarly demonstrate normal uptake of tracer noted in all areas of the myocardium. No areas of reversibility are noted to suggest ischemia no previous infarct was noted. Gated SPECT analysis: The gated ejection fraction is normal. Conclusion: Normal exercise myocardial perfusion stress test at a moderate workload Preserved ejection fraction.
== END | disposition home or self-care (01) ==
PROVIDERS: PCP Preventive Medicine Occupational Medicine; Referring Provider Internal Medicine Cardiovascular Disease; Visit Provider Internal Medicine Cardiovascular Disease
DX: Z95.5 Presence of coronary angioplasty implant and graft (principal)
CPT/HCPCS: 78452; 93017; A9500